=== PATIENT | female | born 2000 | race Caucasian/White ===

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

== ENCOUNTER → 2020-02-21 09:48 | Outpatient (CLI) | payer OTHER, SELFPAY ==
[2020-02-21 15:26] LABS: Triiodothryronine (T3) Uptake 36 % (23.5-40.5)
[2020-02-21 15:40] LABS: Thyroid Stimulating Hormone < 0.02 uIU/mL (0.465-4.68)
== END ==
PROVIDERS: Visit Provider Internal Medicine Adolescent Medicine
DX: E03.9 Hypothyroidism, unspecified (principal)
CPT/HCPCS: 36415; 84436; 84443; 84479

== ENCOUNTER 2020-03-29 15:56 | Emergency (ER) | payer OTHER, SELFPAY ==
[2020-03-29 16:30] VITALS: BP 123/89; PULSE 82; RESP 18; TEMP 36.9; O2SAT 100; BMI 35.4
[2020-03-29 16:34] LABS: UTC Strep Screen (Rapid) Negative (Negative)
--- NOTE | 2020-03-29 16:41 | HMH.EDUTC ---
[facility] [place] Disposition Clinical Impression: URI (upper respiratory infection) Qualifiers: URI type: unspecified viral URI Qualified Code(s): J06.9 - Acute upper respiratory infection, unspecified Disposition: Home, Self-Care Condition on Discharge: Good Instructions: Preventing the Spread of Coronavirus Discharge Instructions, DI for Viral Upper Respiratory Infection -- Adult Additional Instructions: isolate until covid test known neg increase fluids Tylenol or motrin as needed if symptoms worsen return or be seen in ed Referrals: Mayo Hanna MD [Primary Care Provider] - Time of Disposition: 16:59 Medical Decision Making - Wander Inquiry Pt receiving controlled substance: No Vital Signs: 03/29/20 16:30 Temperature 98.4 F Temperature Source Oral Pulse Rate [Right Brachial] 82 Respiratory Rate 18 Blood Pressure [Right Arm] 123/89 Blood Pressure Mean [Right Arm] 100 Blood Pressure Source [Right Arm] Automatic Cuff Blood Pressure Position [Right Arm] Sitting 02 Sat by Pulse Oximetry 100 Oxygen Delivery Method Room Air - Lab Data Lab Results 03/29/20 16:31: Strep Scn Rapid Clinic Negative Orders (Tests/Meds): ORDERS Category Date Time Status Covid-19 Nasal PCR ([facility]) Routine Lab 03/29/20 16:18 Ordered Strep Screen Confirmation Stat Micro 03/29/20 16:31 Received [facility] [place] HPI - General Chief complaint: Urgent Treatment Center Stated complaint: Sore throat, headache, nauseous,diarrhea Time Seen by Provider: 03/29/20 16:41 Mode of Arrival: Ambulatory ([facility]) Source of Information: Patient Limitations: No Limitations Description of Symptoms (Recalled from Triage Doc. by RN): PATIENT C/O NAUSEA, SORE THROAT, DIARRHEA, HEADACHE, AND BLISTERS ON TONGUE. STATES SHE WAS EXPOSED TO COVID HEENT Symptoms (Recalled from RN notes): Yes Resp Symptoms (Recalled from RN notes): No Skin Symptoms (Recalled from RN notes): No MS Symptoms (Recalled from RN notes): No Functional Status (Recalled from RN notes): WNL - History of Present Illness Provider Complaint: 19 yr old female presents for sore throat, headache, nausea and vomiting for 3 days, someone she works with is pos for covid. - Related Data Home Medications Medication Instructions Recorded Confirmed levothyroxine 75 mcg capsule 75 mcg PO DAILY 11/29/17 03/29/20 Fluticasone Propionate [Flonase 2 spr NS DAILY 10/10/20 10/10/20 50mcg nasal spray 16gm] Venlafaxine HCl [Effexor XR 75mg 75 mg PO DAILY 03/29/20 03/29/20 capsule] Allergies Allergy/AdvReac Type Severity Reaction Status Date / Time amoxicillin Allergy Intermediate I-HIVES Verified 01/10/18 09:41 ceftibuten [From Cedax] Allergy Intermediate I-HIVES Verified 01/10/18 09:41 penicillin G Allergy Intermediate I-HIVES Verified 01/10/18 09:41 adhesive tape Allergy Hives Verified 01/10/18 09:41 codeine Allergy Verified 05/07/18 18:19 - Worker's Comp Is this a Worker's Comp case?: No [facility] History - Hepatitis A Screen Drug use history?: No High risk sexual behaviors?: No History of sexually transmitted infection?: No Currently employed?: No Childcare worker?: No Do you have indoor plumbing?: Yes Do you have electricity?: Yes Attestation statement:: This patient has been screened for Hepatitis A risk factors. I have reviewed the patient's past medical history: Yes Medical History: Reports:: Asthma Denies:: Cancer, Diabetes Mellitus Type 1, Diabetes Mellitus Type 2, Internal Pacemaker, MRSA, Seizures Other Medical History: Reports: Hypothyroidism Laterality Cases: Bilateral: Myringotomy (Ear Tubes), Tonsillectomy Other Surgeries: Yes: Cholecystectomy, Other. No: Pacemaker Amputation: No Fractures: No - Social History Smoking Status: Never smoker Alcohol Intake: never Substance Use Type: denies use Occupational Status: other Housing: house Household Members: family Family Hx:: No significant family history ROS Obtained: Yes Systems reviewed as appropria
[2020-03-29 17:04] VITALS: BP 123/89; PULSE 82; RESP 18; TEMP 36.9; O2SAT 100
== END 2020-03-29 17:06 | disposition home or self-care (01) ==
LOC: ER 16:04 → UTC 16:09
PROVIDERS: Emergency Provider Nurse Practitioner Family; PCP Internal Medicine Adolescent Medicine
DX: J06.9 Acute upper respiratory infection, unspecified (principal); Z20.828 Contact with and (suspected) exposure to other viral communicable diseases; E03.9 Hypothyroidism, unspecified; J45.909 Unspecified asthma, uncomplicated; Z79.899 Other long term (current) drug therapy
CPT/HCPCS: 87880; 99202; U0003

== ENCOUNTER 2020-04-22 18:17 | Emergency (ER) | payer OTHER, SELFPAY ==
[2020-04-22 18:40] VITALS: BP 131/77; PULSE 92; RESP 14; TEMP 37; O2SAT 100; BMI 35.4
--- NOTE | 2020-04-22 18:42 | XR_ITS ---
PROCEDURE: XR CHEST 2V CLINICAL HISTORY: COUGH AND FEVER COMPARISON: No exams were available for comparison FINDINGS: The cardiomediastinal silhouette and pulmonary vascularity are within normal limits. Patchy density is present in the lung base on the right with some increased density also noted posteriorly overlying T8-T9 area. Suspect patchy area of pneumonia. Follow-up suggested. The left lung is clear. No acute bony abnormalities. IMPRESSION: Possible pneumonia right lower lobe. Recommend follow till clear Dictated by: Shade Brown MD 04/23/2020 05:16 Shade Brown MD in [place] 04/23/2020 05:16
--- NOTE | 2020-04-22 19:05 | HMH.EDUTC ---
[facility] [place] Disposition Clinical Impression: Viral syndrome, Bronchitis Disposition: Home, Self-Care Condition on Discharge: Good Instructions: Acute Bronchitis, DI for Acute Bronchitis, Preventing the Spread of Coronavirus Discharge Instructions Additional Instructions: Drink plenty of fluids. Take tylenol for pain or fever. Take the medications as directed. Follow up with your regular doctor. GO TO THE ER FOR ANY WORSENING SYMPTOMS The cough medication (promethazine dm) will make you drowsy, so don't drive or operate heavy machinery after taking it. Prescriptions: Albuterol Sulfate [Albuterol Sulfate Hfa] 2 puffs IH Q6HP PRN 30 Days #1 hfa.aer.ad PRN Reason: Shortness Of Breath Transmission Status: Received by [facility] # Promethazine/Dextromethorphan [Promethazine-Dm Syrup] 5 ml PO Q6HP PRN #240 syrup PRN Reason: Cough Transmission Status: Received by [facility] # Azithromycin [Z-Harinder 250mg Tab*] 250 mg PO UD DOSE PK #6 tab Transmission Status: Received by [facility] # Referrals: Mayo Hanna MD [Primary Care Provider] - Forms: Work/School Release Time of Disposition: 19:24 Medical Decision Making - Medical Records Medical records reviewed: No: I reviewed the patient's medical records. - Wander Inquiry Pt receiving controlled substance: No Vital Signs: 04/22/20 18:40 04/22/20 19:26 Temperature 98.6 F 98.6 F Temperature Source Oral Pulse Rate 92 H Pulse Rate [Right Brachial] 92 H Respiratory Rate 14 14 Blood Pressure 131/77 Blood Pressure [Right Arm] 131/77 Blood Pressure Mean [Right Arm] 95 Blood Pressure Source [Right Arm] Automatic Cuff Blood Pressure Position [Right Arm] Sitting 02 Sat by Pulse Oximetry 100 Oxygen Delivery Method Room Air Orders (Tests/Meds): ORDERS Category Date Time Status XR chest 2V Stat Exams 04/22/20 18:42 Taken Covid-19 Nasal PCR [facility] Routine Lab 04/22/20 18:40 Received - Radiology Data #1 Image(s): Chest Image Reviewed: Yes I reviewed the patient's radiology image Preliminary Findings: Normal/NAD [facility] [place] HPI - General Stated complaint: Sore throat,cough.diarrhea Time Seen by Provider: 04/22/20 19:05 Mode of Arrival: Ambulatory Source of Information: Patient Limitations: No Limitations Description of Symptoms (Recalled from Triage Doc. by RN): PATIENT C/O PAIN IN CHEST WITH INHALATION, SORE THROAT, HEADACHE, COUGH AND NAUSEA X 3-4 DAYS. REPORTS SHE WAS EXPOSED TO COVID 2 DAYS AGO HEENT Symptoms (Recalled from RN notes): Yes Resp Symptoms (Recalled from RN notes): Yes Skin Symptoms (Recalled from RN notes): No MS Symptoms (Recalled from RN notes): No Functional Status (Recalled from RN notes): WNL - History of Present Illness Provider Complaint: She states that she has been having chest congestion, cough, sore throat, ear pain, fever and body aches for the past 2 days. - Related Data Home Medications Medication Instructions Recorded Confirmed levothyroxine 75 mcg capsule 75 mcg PO DAILY 11/29/17 03/29/20 Fluticasone Propionate [Flonase 2 spr NS DAILY 03/29/20 03/29/20 50mcg nasal spray 16gm] Venlafaxine HCl [Effexor XR 75mg 75 mg PO DAILY 03/29/20 03/29/20 capsule] Previous Rx's Medication Instructions Recorded Albuterol Sulfate [Albuterol 2 puffs IH Q6HP PRN 30 Days #1 04/22/20 Sulfate Hfa] hfa.aer.ad Azithromycin [Z-Harinder 250mg Tab*] 250 mg PO UD DOSE PK #6 tab 04/22/20 Promethazine/Dextromethorphan 5 ml PO Q6HP PRN #240 syrup 04/22/20 [Promethazine-Dm Syrup] Allergies Allergy/AdvReac Type Severity Reaction Status Date / Time amoxicillin Allergy Intermediate I-HIVES Verified 01/10/18 09:41 ceftibuten [From Cedax] Allergy Intermediate I-HIVES Verified 01/10/18 09:41 penicillin G Allergy Intermediate I-HIVES Verified 01/10/18 09:41 adhesive tape Allergy Hives Verified 01/10/18 09:41 codeine Allergy Verified 05/07/18 18:19 - Wor
[2020-04-22 19:26] VITALS: BP 131/77; PULSE 92; RESP 14; TEMP 37; O2SAT 100
[2020-04-24 17:26] LABS: Covid-19 Nasal PCR Sendout Lex Not Detected
== END 2020-04-22 19:30 | disposition home or self-care (01) ==
PROVIDERS: Emergency Provider Nurse Practitioner Family; PCP Internal Medicine Adolescent Medicine
DX: B34.9 Viral infection, unspecified (principal); J40 Bronchitis, not specified as acute or chronic; Z20.828 Contact with and (suspected) exposure to other viral communicable diseases; J45.909 Unspecified asthma, uncomplicated; E03.9 Hypothyroidism, unspecified
CPT/HCPCS: 71046; 99202; U0004

== ENCOUNTER 2020-07-19 10:25 | Emergency (ER) | payer OTHER, SELFPAY ==
[2020-07-19 10:30] VITALS: BP 145/95; PULSE 79; RESP 14; TEMP 36.6; O2SAT 98; BMI 36.6
--- NOTE | 2020-07-19 11:18 | HMH.EDUTC ---
[facility] [place] Clinical Impression: Cellulitis and abscess of face Disposition: Home, Self-Care Condition on Discharge: Good Instructions: JAVAN Phan for Cellulitis -- Adult Additional Instructions: return if symptoms worsen follow up [facility] pcp this week antibiotics as ordered cream as ordered Prescriptions: Sulfamethoxazole/Trimethoprim [Bactrim DS tablet] 1 each PO BID 10 Days #20 tab Transmission Status: Pending to [facility] Mupirocin [Bactroban 2% Ointment 22gm tube] 1 applicatio TP BID 10 Days #1 tube Transmission Status: Pending to [facility] Referrals: Mayo Hanna MD [Primary Care Provider] - Time of Disposition: 11:39 Medical Decision Making - Wander Inquiry Pt receiving controlled substance: No Vital Signs: 07/19/20 10:30 Temperature 97.9 F Temperature Source Oral Pulse Rate [Right Brachial] 79 Respiratory Rate 14 Blood Pressure [Right Arm] 145/95 H Blood Pressure Mean [Right Arm] 111 Blood Pressure Source [Right Arm] Automatic Cuff Blood Pressure Position [Right Arm] Sitting 02 Sat by Pulse Oximetry 98 Oxygen Delivery Method Room Air [facility] [place] - General Chief complaint: Eye Problems Stated complaint: rt eye swollen Time Seen by Provider: 07/19/20 11:34 Mode of Arrival: Ambulatory Source of Information: Patient Limitations: No Limitations Description of Symptoms (Recalled from Triage Doc. by RN): PATIENT C/O SWOLLEN RIGHT EYE X 2-3 DAYS HEENT Symptoms (Recalled from RN notes): Yes Resp Symptoms (Recalled from RN notes): No Skin Symptoms (Recalled from RN notes): No MS Symptoms (Recalled from RN notes): No Functional Status (Recalled from RN notes): WNL - History of Present Illness Provider Complaint: 20 yr old female presnets for rt eye swollen for 2 days. pt states she has a scabbed red area just above her eye and woke up today and swelling had increased. - Related Data Home Medications Medication Instructions Recorded Confirmed levothyroxine 75 mcg capsule 75 mcg PO DAILY 11/29/17 03/29/20 Fluticasone Propionate [Flonase 2 spr NS DAILY 03/29/20 03/29/20 50mcg nasal spray 16gm] Venlafaxine HCl [Effexor XR 75mg 75 mg PO DAILY 03/29/20 03/29/20 capsule] Previous Rx's Medication Instructions Recorded Albuterol Sulfate [Albuterol 2 puffs IH Q6HP PRN 30 Days #1 04/22/20 Sulfate Hfa] hfa.aer.ad Azithromycin [Z-Harinder 250mg Tab*] 250 mg PO UD DOSE PK #6 tab 04/22/20 Promethazine/Dextromethorphan 5 ml PO Q6HP PRN #240 syrup 04/22/20 [Promethazine-Dm Syrup] Mupirocin [Bactroban 2% Ointment 1 applicatio TP BID 10 Days #1 tube 07/19/20 22gm tube] Sulfamethoxazole/Trimethoprim 1 each PO BID 10 Days #20 tab 07/19/20 [Bactrim DS tablet] Allergies Allergy/AdvReac Type Severity Reaction Status Date / Time amoxicillin Allergy Intermediate I-HIVES Verified 01/10/18 09:41 ceftibuten [From Cedax] Allergy Intermediate I-HIVES Verified 01/10/18 09:41 penicillin G Allergy Intermediate I-HIVES Verified 01/10/18 09:41 adhesive tape Allergy Hives Verified 01/10/18 09:41 codeine Allergy Verified 05/07/18 18:19 - Worker's Comp Is this a Worker's Comp case?: No [facility] History - Hepatitis A Screen Drug use history?: No High risk sexual behaviors?: No History of sexually transmitted infection?: No Currently employed?: No Childcare worker?: No Do you have indoor plumbing?: Yes Do you have electricity?: Yes Attestation statement:: This patient has been screened for Hepatitis A risk factors. I have reviewed the patient's past medical history: Yes Medical History: Reports:: Asthma Denies:: Cancer, Diabetes Mellitus Type 1, Diabetes Mellitus Type 2, Internal Pacemaker, MRSA, Seizures Other Medical History: Reports: Hypothyroidism Laterality Cases: Bilateral: Myringotomy (Ear Tubes), Tonsillectomy Other Surgeries: Yes: Cholecystectomy, Other. No: Pacemaker Amputation: No Fractures: No - Social History Smoking Status: Never smoker
[2020-07-19 11:37] VITALS: BP 145/95; PULSE 79; RESP 14; TEMP 36.6; O2SAT 98
== END 2020-07-19 11:40 | disposition home or self-care (01) ==
PROVIDERS: Emergency Provider Nurse Practitioner Family; PCP Internal Medicine Adolescent Medicine
DX: L03.211 Cellulitis of face (principal); J45.909 Unspecified asthma, uncomplicated; E03.9 Hypothyroidism, unspecified; Z79.899 Other long term (current) drug therapy
CPT/HCPCS: 99202; G0463

== ENCOUNTER → 2020-08-25 11:38 | Outpatient (CLI) | payer OTHER, SELFPAY ==
[2020-08-25 14:23] LABS: Triiodothryronine (T3) Uptake 33 % (23.5-40.5)
[2020-08-25 14:24] LABS: Free Thyroxine Index 3.3 ug/dL (5.93-13.13); T4 (Thyroxine) 9.9 ug/dl (5.53-11.0)
[2020-08-25 14:38] LABS: Thyroid Stimulating Hormone 1.87 uIU/mL (0.465-4.68)
== END ==
PROVIDERS: Visit Provider Internal Medicine Adolescent Medicine
DX: E03.9 Hypothyroidism, unspecified (principal)
CPT/HCPCS: 36415; 84436; 84443; 84479

== ENCOUNTER → 2021-02-10 13:22 | Outpatient (CLI) | payer OTHER, SELFPAY ==
[2021-02-11 12:29] VITALS: BMI 28.1
== END ==
PROVIDERS: PCP Internal Medicine Adolescent Medicine; Visit Provider Nurse Practitioner Family
DX: Z11.1 Encounter for screening for respiratory tuberculosis (principal)
CPT/HCPCS: 86580

== ENCOUNTER → 2021-02-11 13:17 | Outpatient (CLI) | payer OTHER, SELFPAY ==
[2021-02-11 14:47] LABS: Free Thyroxine Index 3.8 ug/dL (5.93-13.13); T4 (Thyroxine) 11.6 ug/dl (5.53-11.0); Triiodothryronine (T3) Uptake 33 % (23.5-40.5)
[2021-02-11 15:00] LABS: Thyroid Stimulating Hormone 1.02 uIU/mL (0.465-4.68)
== END ==
PROVIDERS: Visit Provider Internal Medicine Adolescent Medicine
DX: L65.9 Nonscarring hair loss, unspecified (principal)
CPT/HCPCS: 36415; 84436; 84443; 84479

== ENCOUNTER 2021-02-17 10:00 | Emergency (ER) | payer OTHER, SELFPAY ==
[2021-02-17 11:00] VITALS: BP 126/84; PULSE 78; RESP 18; TEMP 36.8; O2SAT 98; BMI 33.6
--- NOTE | 2021-02-17 11:35 | HMH.EDUTC ---
[facility] [place] Disposition Clinical Impression: Otitis media Qualifiers: Otitis media type: unspecified Laterality: left Qualified Code(s): H66.92 - Otitis media, unspecified, left ear Disposition: Home, Self-Care Condition on Discharge: Good Instructions: Middle Ear Infection Additional Instructions: Do not take Ubrelvy while taking azithromycin Take medication as prescribed Return if needed Straight to ER if any life threatening symptoms Prescriptions: Azithromycin [Z-Harinder 250mg Tab] 250 mg PO DIRECTED #6 tab Transmission Status: Pending to Clinic Pharmacy [facility] Referrals: Mayo Hanna MD [Primary Care Provider] - As needed Time of Disposition: 11:49 Medical Decision Making - Wander Inquiry Pt receiving controlled substance: No Wander was queried for this patient: No Vital Signs: 02/17/21 11:00 Temperature 98.2 F Temperature Source Oral Pulse Rate [Right Brachial] 78 Respiratory Rate 18 Blood Pressure [Right Arm] 126/84 Blood Pressure Mean [Right Arm] 98 Blood Pressure Source [Right Arm] Automatic Cuff Blood Pressure Position [Right Arm] Sitting 02 Sat by Pulse Oximetry 98 Oxygen Delivery Method Room Air [facility] [place] HPI - General Stated complaint: Earache left ear Time Seen by Provider: 02/17/21 11:35 Mode of Arrival: Ambulatory Source of Information: Patient Limitations: No Limitations Description of Symptoms (Recalled from Triage Doc. by RN): PATIENT C/O PAIN AND SWELLING TO LEFT EAR X 2 DAYS HEENT Symptoms (Recalled from RN notes): Yes Resp Symptoms (Recalled from RN notes): No Skin Symptoms (Recalled from RN notes): No MS Symptoms (Recalled from RN notes): No Functional Status (Recalled from RN notes): WNL - History of Present Illness Provider Complaint: Patient state that she has been having pain in her left ear for several days State that she feels like it is swollen or full States that she is having pressure like feeling like she has when she gets ear infection - Related Data Home Medications Medication Instructions Recorded Confirmed levothyroxine 75 mcg capsule 75 mcg PO DAILY 11/29/17 03/29/20 Fluticasone Propionate [Flonase 2 spr NS DAILY 03/29/20 03/29/20 50mcg nasal spray 16gm] Venlafaxine HCl [Effexor XR 75mg 75 mg PO DAILY 03/29/20 03/29/20 capsule] Previous Rx's Medication Instructions Recorded Albuterol Sulfate [Albuterol 2 puffs IH Q6HP PRN 30 Days #1 04/22/20 Sulfate Hfa] [email or web address] Azithromycin [Z-Harinder 250mg Tab*] 250 mg PO UD DOSE PK #6 tab 04/22/20 Promethazine/Dextromethorphan 5 ml PO Q6HP PRN #240 syrup 04/22/20 [Promethazine-Dm Syrup] Sulfamethoxazole/Trimethoprim 1 each PO BID 10 Days #20 tab 07/19/20 [Bactrim DS tablet] mupirocin 2 % topical ointment 1 applic TOPICAL BID 10 Days #1 09/22/20 tube Azithromycin [Z-Harinder 250mg Tab] 250 mg PO DIRECTED #6 tab 02/17/21 Allergies Allergy/AdvReac Type Severity Reaction Status Date / Time amoxicillin Allergy Intermediate I-HIVES Verified 01/10/18 09:41 ceftibuten [From Cedax] Allergy Intermediate I-HIVES Verified 01/10/18 09:41 penicillin G Allergy Intermediate I-HIVES Verified 01/10/18 09:41 adhesive tape Allergy Hives Verified 01/10/18 09:41 codeine Allergy Verified 05/07/18 18:19 - Worker's Comp Is this a Worker's Comp case?: No H History - Hepatitis A Screen Drug use history?: No High risk sexual behaviors?: No History of sexually transmitted infection?: No Currently employed?: No Childcare worker?: No Do you have indoor plumbing?: Yes Do you have electricity?: Yes Attestation statement:: This patient has been screened for Hepatitis A risk factors. I have reviewed the patient's past medical history: Yes Medical History: Reports:: Asthma Denies:: Cancer, Diabetes Mellitus Type 1, Diabetes Mellitus Type 2, Internal Pacemaker, MRSA, Seizures Other Medical History: Reports: Hypothyroidism Laterality Cases: Bilateral: Myringotomy (Ear Tubes), Tonsillectomy Other Surgeries: Ye
[2021-02-17 11:50] VITALS: BP 126/84; PULSE 78; RESP 18; TEMP 36.8; O2SAT 98
== END 2021-02-17 11:54 | disposition home or self-care (01) ==
PROVIDERS: Emergency Provider Nurse Practitioner; PCP Internal Medicine Adolescent Medicine
DX: H66.92 Otitis media, unspecified, left ear (principal); E03.9 Hypothyroidism, unspecified; Z88.0 Allergy status to penicillin
CPT/HCPCS: 99202; G0463

== ENCOUNTER → 2021-03-10 08:40 | Outpatient (CLI) | payer OTHER, SELFPAY ==
[2021-03-10 09:17] LABS: Basophils # 0.1 K/mm3 (0-0.2); Basophils % 0.7 % (0.1-2.0); Eosinophils # 0.1 K/mm3 (0.0-0.4); Eosinophils % 0.8 % (0.1-12.0); Hematocrit 43.8 % (37.0-47.0); Hemoglobin 14.5 g/dL (12.2-16.2); Lymphocytes # 2.7 K/mm3 (0.7-4.5); Lymphocytes % 28.1 % (10-50); Mean Corpuscular HGB Conc 33.1 g/dL (31.8-35.4); Mean Corpuscular Hemoglobin 28.8 pg (27.0-31.2); Mean Corpuscular Volume 86.9 fl (81-99); Mean Platelet Volume 7.9 fl (7.4-10.4); Monocytes # 0.4 K/mm3 (0.1-1.0); Monocytes % 4.3 % (1.7-9.3); Neutrophils # 6.3 K/mm3 (1.8-7.8); Neutrophils % 66.2 % (37.0-80.0); Platelet Count 391 K/mm3 (142-424); Red Blood Count 5.04 M/mm3 (4.20-5.40); White Blood Count 9.6 K/mm3 (4.5-13.0)
[2021-03-10 16:46] LABS: 25-OH Vitamin D, Total 34.6 ng/mL (30-100)
[2021-03-10 17:21] LABS: Alanine Aminotransferase 18 U/L (12-78); Albumin/Globulin Ratio 1.3 (1.1-1.8); Alkaline Phosphatase 96 U/L (38-126); Anion Gap 14.4 mEq/L (5-15); Aspartate Amino Transferase 20 U/L (14-36); Bilirubin,Total 0.3 mg/dl (0.2-1.3); Blood Urea Nitrogen 15 mg/dl (7-17); Calcium 9.3 mg/dl (8.4-10.2); Carbon Dioxide 25 mmol/L (22.0-30.0); Chloride 104 mmol/L (98-107); Estimated Glomerular Filt Rate 91 ml/min (>60); GFR (African American) 111 ML/MIN (>60); Globulin 3.1 g/dL (1.3-3.2); Glucose 94 mg/dl (74-100); Potassium 4.4 mmoL/L (3.5-5.1); Sodium 139 mmol/L (136-145); Total Protein,Serum 7.1 g/dl (6.3-8.2)
[2021-03-10 18:09] LABS: Vitamin B12 209 pg/mL (239-931)
== END ==
PROVIDERS: Visit Provider Nurse Practitioner Family
DX: R53.83 Other fatigue (principal)
CPT/HCPCS: 36415; 80053; 82306; 82607; 85025

== ENCOUNTER 2021-03-16 12:46 | Emergency (ER) | payer OTHER, SELFPAY ==
[2021-03-16 12:50] VITALS: BP 141/91; PULSE 91; RESP 19; TEMP 37.1; O2SAT 100; BMI 34.3
[2021-03-16 13:08] LABS: UTC Strep Screen (Rapid) Positive (Negative)
--- NOTE | 2021-03-16 13:36 | HMH.EDUTC ---
[facility] [place] Disposition Clinical Impression: Strep throat Disposition: Home, Self-Care Condition on Discharge: Good Instructions: Strep Throat, DI for Strep Throat, Azithromycin Additional Instructions: *Monitor Temp, Over the counter Motrin or Tylenol as directed/as needed Tylenol every 4 hours and Motrin every 6 hours (as long as your family doctor has told you that you can take it) for fever or pain. and straight to ER if unable to lower temp less than 101.0 after medication given *Warm salt water gargles may help to soothe the throat *Throat Lozenges *Warm fluids like tea with honey may help to soothe the throat *Sleep elevated *Humidifier/Vaporizer If you did not take Penicillin shot or was unable to, start taking antibiotic immediately and make sure that you take it for the FULL length of time although you should start to feel better in 24-48 hours *change toothbrush and toothpaste 24-48 hours after starting to take antibiotics so you do not reinfect yourself Monitor Temp. Tylenol and/or Ibuprofen as needed. ER if fever is no less than 101 despite alternating Tylenol and Ibuprofen * Encourage fluids, water, Gatorade, powerade, pedialyte if /toddler/or child *Cold fluids, popsicles and ice cream may feel good on his throat Follow up IMMEDIATELY for new or worsening symptoms or no Noticeable improvement over the next 48-72 hours. 911 for difficulty breathing or swallowing Prescriptions: Azithromycin [Z-Harinder 250mg Tab] 250 mg PO DIRECTED #6 tab Transmission Status: Pending to Clinic Pharmacy [facility] Referrals: Mayo Hanna MD [Primary Care Provider] - As needed Forms: Work/School Release Time of Disposition: 13:46 Medical Decision Making - Wander Inquiry Pt receiving controlled substance: No Wander was queried for this patient: No Vital Signs: 03/16/21 12:50 Temperature 98.8 F Temperature Source Oral Pulse Rate [Right Brachial] 91 H Respiratory Rate 19 Blood Pressure [Right Arm] 141/91 H Blood Pressure Mean [Right Arm] 107 Blood Pressure Source [Right Arm] Automatic Cuff Blood Pressure Position [Right Arm] Sitting 02 Sat by Pulse Oximetry 100 Oxygen Delivery Method Room Air - Lab Data Lab results reviewed: Yes: I reviewed the patient's lab results. Lab Results 03/16/21 12:57: Strep Scn Rapid Clinic Positive A [facility] [place] HPI - General Stated complaint: Sore throat Time Seen by Provider: 03/16/21 13:37 Mode of Arrival: Ambulatory Source of Information: Patient Limitations: No Limitations Description of Symptoms (Recalled from Triage Doc. by RN): PATIENT C/O SORE THROAT AND BLISTERS IN MOUTH X 2 DAYS HEENT Symptoms (Recalled from RN notes): Yes Resp Symptoms (Recalled from RN notes): No Skin Symptoms (Recalled from RN notes): No MS Symptoms (Recalled from RN notes): No Functional Status (Recalled from RN notes): WNL - History of Present Illness Provider Complaint: Patient states that she has been having sore scratchy throat for a couple days and noticed it looked like she had blisters in her throat States that today she was still feeling bad so she came in to get checked - Related Data Home Medications Medication Instructions Recorded Confirmed Venlafaxine HCl [Effexor XR 75mg 150 mg PO DAILY 03/29/20 03/16/21 capsule] Levothyroxine Sodium 100 mcg PO DAILY 03/16/21 03/16/21 [Levothyroxine 100mcg (0.1MG) Tab] Ubrogepant [Ubrelvy 50mg Tablet] 50 mg PO ONCE 03/16/21 03/16/21 Previous Rx's Medication Instructions Recorded Azithromycin [Z-Harinder 250mg Tab] 250 mg PO DIRECTED #6 tab 03/16/21 Allergies Allergy/AdvReac Type Severity Reaction Status Date / Time amoxicillin Allergy Intermediate I-HIVES Verified 01/10/18 09:41 ceftibuten [From Cedax] Allergy Intermediate I-HIVES Verified 01/10/18 09:41 penicillin G Allergy Intermediate I-HIVES Verified 01/10/18 09:41 adhesive tape Allergy Hives Verified 01/10/18 09:41 codeine Allergy Verified 05/07/18 18:19 - W
[2021-03-16 13:50] VITALS: BP 141/91; PULSE 91; RESP 19; TEMP 37.1; O2SAT 100
== END 2021-03-16 13:56 | disposition home or self-care (01) ==
PROVIDERS: Emergency Provider Nurse Practitioner; PCP Internal Medicine Adolescent Medicine
DX: J02.0 Streptococcal pharyngitis (principal); J45.909 Unspecified asthma, uncomplicated; E03.9 Hypothyroidism, unspecified
CPT/HCPCS: 87880; 99202; G0463

== ENCOUNTER 2021-04-25 10:27 | Emergency (ER) | payer OTHER, SELFPAY ==
[2021-04-25 10:38] VITALS: BP 131/79; PULSE 74; RESP 18; TEMP 36.9; O2SAT 98; BMI 35.2
--- NOTE | 2021-04-25 10:40 | XR_ITS ---
PROCEDURE INFORMATION: Exam: XR Right Knee Exam date and time: 04/25/2021 10:40 AM Age: 20 years old Clinical indication: Pain; Knee; Right; Additional info: Fall TECHNIQUE: Imaging protocol: XR Right knee. Views: 3 views. COMPARISON: CR XR ANKLE RT 2V 11/12/2019 12:43 PM FINDINGS: Bones/joints: No acute fracture or malalignment. Joint spaces are maintained. No joint effusion. Soft tissues: Normal. IMPRESSION: No acute fracture or malalignment.
--- NOTE | 2021-04-25 11:27 | HMH.EDUTC ---
[facility] [place] Clinical Impression: Right knee pain Qualifiers: Chronicity: acute Qualified Code(s): M25.561 - Pain in right knee Contusion of right knee Qualifiers: Encounter type: initial encounter Qualified Code(s): S80.01XA - Contusion of right knee, initial encounter Fall Qualifiers: Encounter type: initial encounter Qualified Code(s): W19.XXXA - Unspecified fall, initial encounter Disposition: Home, Self-Care Condition on Discharge: Good Instructions: How to Use Crutches, DI for Contusion, DI for Knee Pain, How to Use a Knee Immobilizer Additional Instructions: Rest the extremity, apply ice for 15 minutes as tolerated three or four times per day, Wear the ciara wrap for compression, Elevate the extremity as tolerated while you are resting. Take ibuprofen for pain. I sent in a prescription to your pharmacy. Follow up with Dr. Ventura (orthopedics). I put in a referral but you need to call his office and schedule an appointment. Make sure you follow up if you're not getting some better within 48 to 72 hours. Wear the knee immobolizer and use the crutches to rest your knee for the next several days. If it gets better, you can stop using these in a few days. If it's not getting better, make sure follow up. Follow up with your regular doctor. GO TO THE ER FOR ANY WORSENING SYMPTOMS Prescriptions: Ibuprofen [Ibuprofen 800mg Tablet] 800 mg PO Q8HP PRN #30 tab PRN Reason: Moderate Pain Transmission Status: Received by Clinic Pharmacy [facility] Referrals: Mayo Hanna MD [Primary Care Provider] - Juliano Ventura MD [Staff Physician] - Forms: Work/School Release Time of Disposition: 11:44 Medical Decision Making - Medical Records Medical records reviewed: No: I reviewed the patient's medical records. - Wander Inquiry Pt receiving controlled substance: No Vital Signs: 04/25/21 10:38 04/25/21 11:47 Temperature 98.5 F 98.5 F Temperature Source Oral Pulse Rate 74 Pulse Rate [Left] 74 Respiratory Rate 18 18 Blood Pressure 131/79 Blood Pressure [Right Arm] 131/79 Blood Pressure Mean [Right Arm] 96 02 Sat by Pulse Oximetry 98 - Radiology Data #1 Image(s): Knee Image Reviewed: Yes I reviewed the patient's radiology image, Yes I have reviewed radiologist's interpretation Preliminary Findings: Normal/NAD, No Fracture Seen PROCEDURE INFORMATION: Exam: XR Right Knee Exam date and time: 04/25/2021 10:40 AM Age: 20 years old Clinical indication: Pain; Knee; Right; Additional info: Fall TECHNIQUE: Imaging protocol: XR Right knee. Views: 3 views. COMPARISON: CR XR ANKLE RT 2V 11/12/2019 12:43 PM FINDINGS: Bones/joints: No acute fracture or malalignment. Joint spaces are maintained. No joint effusion. Soft tissues: Normal. IMPRESSION: No acute fracture or malalignment. [facility] [place] HPI - General Stated complaint: [id number] right knee pain, home accident Time Seen by Provider: 04/25/21 11:31 Mode of Arrival: Ambulatory Source of Information: Patient Limitations: No Limitations Description of Symptoms (Recalled from Triage Doc. by RN): pt fell going up her stairs last night injuring her R knee. pt now c/o bruising and pain. HEENT Symptoms (Recalled from RN notes): No Resp Symptoms (Recalled from RN notes): No Skin Symptoms (Recalled from RN notes): No MS Symptoms (Recalled from RN notes): Yes (R knee pain) Functional Status (Recalled from RN notes): na - History of Present Illness Provider Complaint: She states that yesterday she was walking up some steps when she tripped and fell forwards. She came down on her right knee onto one of the steps. Since then, she has had right knee swelling, bruising and pain. It hurts worse when she bears weight or bends the knee. She denies any other injury. - Related Data Home Medications Medication Instructions Recorded Confirmed Venlafaxin
[2021-04-25 11:47] VITALS: BP 131/79; PULSE 74; RESP 18; TEMP 36.9
== END 2021-04-25 11:54 | disposition home or self-care (01) ==
PROVIDERS: Emergency Provider Nurse Practitioner Family; PCP Internal Medicine Adolescent Medicine
DX: S80.01XA Contusion of right knee, initial encounter (principal); W10.9XXA Fall (on) (from) unspecified stairs and steps, initial encounter; Y92.019 Unspecified place in single-family (private) house as the place of occurrence of the external cause; J45.909 Unspecified asthma, uncomplicated; E03.9 Hypothyroidism, unspecified
CPT/HCPCS: 29505; 73562; 99202; G0463

== ENCOUNTER → 2021-05-19 18:42 | Outpatient (CLI) | payer OTHER, SELFPAY ==
[2021-05-19 20:36] LABS: Chloride 106 mmol/L (98-107); Sodium 140 mmol/L (136-145)
[2021-05-19 20:37] LABS: Potassium 4.3 mmoL/L (3.5-5.1)
[2021-05-19 20:39] LABS: Alanine Aminotransferase 19 U/L (12-78); Alkaline Phosphatase 116 U/L (38-126); Anion Gap 15.3 mEq/L (5-15); Aspartate Amino Transferase 29 U/L (14-36); Bilirubin,Total 0.3 mg/dl (0.2-1.3); Blood Urea Nitrogen 14 mg/dl (7-17); Carbon Dioxide 23 mmol/L (22.0-30.0); Cholesterol 230 mg/dl (140-200); Estimated Glomerular Filt Rate 91 ml/min (>60); GFR (African American) 111 ML/MIN (>60); Glucose 73 mg/dl (74-100); Iron 43 ug/dL (37-170); Triglycerides 75 mg/dl (30-150); VLDL Cholesterol 15 mg/dL (0-40)
[2021-05-19 20:40] LABS: Albumin Level 4.4 g/dl (3.5-5.0); Albumin/Globulin Ratio 1.5 (1.1-1.8); Calcium 9.4 mg/dl (8.4-10.2); Globulin 2.9 g/dL (1.3-3.2); HDL Cholesterol 45 mg/dl (40-60); Total Protein,Serum 7.3 g/dl (6.3-8.2)
[2021-05-19 20:56] LABS: 25-OH Vitamin D, Total 35.8 ng/mL (30-100)
[2021-05-19 21:01] LABS: Direct LDL Cholesterol 169.26 mg/dL (100-129)
[2021-05-19 21:04] LABS: T4 (Thyroxine) 8.5 ug/dl (5.53-11.0); Total Iron Binding Capacity 421 ug/dL (265-497)
[2021-05-19 21:18] LABS: Thyroid Stimulating Hormone 0.99 uIU/mL (0.465-4.68)
[2021-05-19 23:15] LABS: Vitamin B12 871 pg/mL (239-931)
[2021-05-19 23:17] LABS: Chol/HDL Ratio 5.1 (1-3.5)
== END ==
PROVIDERS: Visit Provider Physician Assistant
DX: E03.9 Hypothyroidism, unspecified (principal); D50.9 Iron deficiency anemia, unspecified
CPT/HCPCS: 80053; 80061; 82306; 82607; 82728; 83540; 83550; 84436; 84443

== ENCOUNTER 2021-06-30 18:30 | Emergency (ER) | payer OTHER, SELFPAY ==
[2021-06-30 19:57] VITALS: BP 131/88; PULSE 102; RESP 18; TEMP 36.8; O2SAT 99; BMI 32.8
[2021-06-30 20:13] LABS: UTC Strep Screen (Rapid) Negative (Negative)
--- NOTE | 2021-06-30 20:13 | HMH.EDUTC ---
[facility] [place]: Viral upper respiratory illness Disposition: Home, Self-Care Condition on Discharge: Good Instructions: DI for Viral Upper Respiratory Infection -- Adult, DI for COVID-19 (Suspected or Confirmed ), Sore Throat Additional Instructions: *Monitor Temp, Over the counter Motrin or Tylenol as directed/as needed Tylenol every 4 hours and Motrin every 6 hours (as long as your family doctor has told you that you can take it) for fever or pain. and straight to ER if unable to lower temp less than 101.0 after medication given *Warm salt water gargles may help to soothe the throat *Throat Lozenges *Warm fluids like tea with honey may help to soothe the throat *Sleep elevated *Humidifier/Vaporizer Your throat swab was sent for culture. Those results are typically sent to your primary care. Be sure to follow up in 2-3 days with your family doctor/primary care physician if no improvement so they can review those result and treat if necessary. If you don?t have a primary care doctor, I recommend you get one but in the mean time, you will have to return to a walk in clinic Follow up IMMEDIATELY for new or worsening symptoms or no Noticeable improvement over the next 48-72 hours. 911 for difficulty breathing or swallowing You were tested for today for COVID19 your test result should be back in the next 24-48 hours, you check your results on the [facility] my health portal if you have trouble logging on or seeing your results you may call You was given a handout with instructions for Self Quarantine and Self isolation for while you wait on test results and what to do if they are positive If you are positive the Health Dept will be contacting you also Make sure to take your Vitamins Vit. C Vit D and Zinc if you can take them Referrals: Nathalia Yousif PA [Primary Care Provider] - As needed Forms: Work/School Release Time of Disposition: 20:20 Medical Decision Making - Wander Inquiry Pt receiving controlled substance: No Wander was queried for this patient: No Vital Signs: 06/30/21 19:57 Temperature 98.3 F Temperature Source Oral Pulse Rate [Right Radial] 102 H Respiratory Rate 18 Blood Pressure [Right Arm] 131/88 Blood Pressure Mean [Right Arm] 102 Blood Pressure Source [Right Arm] Automatic Cuff Blood Pressure Position [Right Arm] Sitting 02 Sat by Pulse Oximetry 99 Oxygen Delivery Method Room Air - Lab Data Lab results reviewed: Yes: I reviewed the patient's lab results. Lab Results 06/30/21 19:57: Strep Scn Rapid Clinic Negative Orders (Tests/Meds): ORDERS Category Date Time Status Covid-19 Nasal PCR ([facility]) Routine Lab 06/30/21 19:57 Ordered Strep Screen Confirmation Stat Micro 06/30/21 19:57 Received [facility] [place] - General Stated complaint: sore throat,VACA Diarrhea, Time Seen by Provider: 06/30/21 20:13 Mode of Arrival: Ambulatory Source of Information: Patient Limitations: No Limitations Description of Symptoms (Recalled from Triage Doc. by RN): C/O sore throat with blisters, VACA, diarrhea x1 week HEENT Symptoms (Recalled from RN notes): Yes (sore throat, VACA) Resp Symptoms (Recalled from RN notes): No Skin Symptoms (Recalled from RN notes): No MS Symptoms (Recalled from RN notes): No Functional Status (Recalled from RN notes): n/a - History of Present Illness Provider Complaint: Patient states that she has been having sore throat and states she thinks she seen some blisters in her throat, headache and diarrhea on and off for about a week States that she also has been exposed to COVID states that a couple rooms at work have been shut down due to COVID and wanted to get tested also - Related Data Home Medications Medication Instructions Recorded Confirmed meclizine 25 mg chewable tablet 25 mg PO tab 05/19/21 05/19/21 Previous Rx's Medication Instructions Recorded albuterol sulfate 90 mcg/actuation 2 inh INHALATION ONCE #6.7 g 06/08/21 aerosol inha
[2021-06-30 20:26] VITALS: BP 131/88; PULSE 102; RESP 18; TEMP 36.8; O2SAT 99
== END 2021-06-30 20:27 | disposition home or self-care (01) ==
PROVIDERS: Emergency Provider Nurse Practitioner; PCP Physician Assistant
DX: J06.9 Acute upper respiratory infection, unspecified (principal); J45.909 Unspecified asthma, uncomplicated; E03.9 Hypothyroidism, unspecified; Z20.822 Contact with and (suspected) exposure to COVID-19; Z88.0 Allergy status to penicillin; Z79.899 Other long term (current) drug therapy
CPT/HCPCS: 87880; 99203; C9803; G0463; U0003; U0005

== ENCOUNTER 2021-07-26 13:25 | Emergency (ER) | payer OTHER, SELFPAY ==
[2021-07-26 14:00] VITALS: BP 124/80; PULSE 71; RESP 18; TEMP 37.1; O2SAT 99; BMI 33.7
[2021-07-26 14:23] VITALS: BP 124/80; PULSE 71; RESP 18; TEMP 37.1; O2SAT 99
--- NOTE | 2021-07-26 14:23 | HMH.EDUTC ---
[facility] [place] Disposition Clinical Impression: Viral syndrome Disposition: Home, Self-Care Condition on Discharge: Good Instructions: DI for COVID-19 (Suspected or Confirmed ), Preventing the Spread of Coronavirus Discharge Instructions Additional Instructions: *Monitor Temp, Over the counter Motrin or Tylenol as directed/as needed Tylenol every 4 hours and Motrin every 6 hours (as long as your family doctor has told you that you can take it) for fever or pain. and straight to ER if unable to lower temp less than 101.0 after medication given *Warm salt water gargles may help to soothe the throat *Throat Lozenges *Warm fluids like tea with honey may help to soothe the throat *Sleep elevated *Humidifier/Vaporizer Follow up IMMEDIATELY for new or worsening symptoms or no Noticeable improvement over the next 48-72 hours. 911 for difficulty breathing or swallowing You were tested for today for COVID19 your test result should be back in the next 24-72 hours, you may check your results on the [facility] [employer] [facility] [email or web address] Portal if you have trouble logging on you may call support If you are positive someone from the hospital will be calling you Make sure to take your Vitamins Vit. C Vit D and Zinc if you can take them Prescriptions: Benzonatate [Benzonatate 100mg cap] 100 mg PO Q8H PRN #15 cap PRN Reason: Cough Transmission Status: Pending to Clinic Pharmacy [facility] Ondansetron [Zofran 4mg ODT] 4 mg PO TIDP PRN #6 tab PRN Reason: Nausea Transmission Status: Pending to Clinic Pharm[facility] Referrals: Nathalia Yousif PA [Primary Care Provider] - As needed Forms: Work/School Release Time of Disposition: 14:27 Medical Decision Making - Wander Inquiry Pt receiving controlled substance: No Wander was queried for this patient: No Vital Signs: 07/26/21 14:00 Temperature 98.8 F Temperature Source Oral Pulse Rate [Right Brachial] 71 Respiratory Rate 18 Blood Pressure [Right Arm] 124/80 Blood Pressure Mean [Right Arm] 94 Blood Pressure Source [Right Arm] Automatic Cuff Blood Pressure Position [Right Arm] Sitting 02 Sat by Pulse Oximetry 99 Oxygen Delivery Method Room Air [facility] [place] HPI - General Stated complaint: covid test Time Seen by Provider: 07/26/21 14:23 Mode of Arrival: Ambulatory Source of Information: Patient Limitations: No Limitations Description of Symptoms (Recalled from Triage Doc. by RN): COVID TEST D/T EXPOSURE. C/O HEADACHE, VOMITING, AND COUGH X 3 DAYS HEENT Symptoms (Recalled from RN notes): Yes Resp Symptoms (Recalled from RN notes): No Skin Symptoms (Recalled from RN notes): No MS Symptoms (Recalled from RN notes): No Functional Status (Recalled from RN notes): WNL - History of Present Illness Provider Complaint: Patient states that she was recently around someone that tested positive for COVID states that she has been having cough, vomiting and body aches States that she is currently on her period and denies chance of - Related Data Home Medications Medication Instructions Recorded Confirmed Levothyroxine Sodium [Synthroid 88 mcg PO DAILY 07/26/21 07/26/21 88mcg (0.088mg) tablet] Venlafaxine HCl [Effexor XR 150mg] 150 mg PO DAILY 07/26/21 07/26/21 Previous Rx's Medication Instructions Recorded Benzonatate [Benzonatate 100mg 100 mg PO Q8H PRN #15 cap 07/26/21 cap] Ondansetron [Zofran 4mg ODT] 4 mg PO TIDP PRN #6 tab 07/26/21 Allergies Allergy/AdvReac Type Severity Reaction Status Date / Time amoxicillin Allergy Intermediate I-HIVES Verified 05/19/21 14:59 ceftibuten [From Cedax] Allergy Intermediate I-HIVES Verified 05/19/21 14:59 penicillin G Allergy Intermediate I-HIVES Verified 05/19/21 14:59 adhesive tape Allergy Hives Verified 05/19/21 14:59 codeine Allergy Verified 05/19/21 14:59 - Worker's Comp Is this a Worker's Comp case?: No [facility] History - Hepatitis A Screen Drug use history?: No High risk sexual behaviors?: No History of sexually
== END 2021-07-26 14:28 | disposition home or self-care (01) ==
PROVIDERS: Emergency Provider Nurse Practitioner; PCP Physician Assistant
DX: B34.9 Viral infection, unspecified (principal); Z20.822 Contact with and (suspected) exposure to COVID-19; J45.909 Unspecified asthma, uncomplicated
CPT/HCPCS: 99202; C9803; G0463; U0003; U0005

== ENCOUNTER → 2021-08-01 08:31 | Outpatient (CLI) | payer OTHER, SELFPAY ==
[2021-08-07 14:29] LABS: F001-IgE Egg White <0.10 kU/L (Class 0); F002-IgE Milk <0.10 kU/L (Class 0); F003-IgE Codfish <0.10 kU/L (Class 0); F004-IgE Wheat <0.10 kU/L (Class 0); F010-IgE Sesame Seed <0.10 kU/L (Class 0); F013-IgE Peanut <0.10 kU/L (Class 0); F014-IgE Soybean <0.10 kU/L (Class 0); F024-IgE Shrimp <0.10 kU/L (Class 0); F256-IgE Walnut <0.10 kU/L (Class 0); F338-IgE Scallop <0.10 kU/L (Class 0)
== END ==
PROVIDERS: PCP Physician Assistant; Visit Provider Physician Assistant
DX: Z01.82 Encounter for allergy testing (principal)
CPT/HCPCS: 36415; 86003; 86008

== ENCOUNTER 2021-09-03 14:57 | Emergency (ER) | payer OTHER, SELFPAY ==
[2021-09-03 15:32] LABS: UTC Influenza A Antigen Negative (Negative)
[2021-09-03 15:33] LABS: UTC Influenza B Antigen Negative (Negative)
[2021-09-03 15:34] VITALS: BP 128/88; PULSE 111; RESP 18; TEMP 38.2; O2SAT 100; BMI 34.3
[2021-09-03 16:11] LABS: UTC Strep Screen (Rapid) Negative (Negative)
[2021-09-03 16:19] VITALS: BP 128/88; PULSE 100; RESP 18; TEMP 38.2; O2SAT 100
--- NOTE | 2021-09-03 16:34 | HMH.EDUTC ---
[facility] [place]: Flu-like symptoms Disposition: Home, Self-Care Condition on Discharge: Good Instructions: DI for Fever (Symptom) -- Adult, Sore Throat Additional Instructions: *Monitor Temp, Over the counter Motrin or Tylenol as directed/as needed Tylenol every 4 hours and Motrin every 6 hours (as long as your family doctor has told you that you can take it) for fever or pain. and straight to ER if unable to lower temp less than 101.0 after medication given *Warm salt water gargles may help to soothe the throat *Throat Lozenges *Warm fluids like tea with honey may help to soothe the throat *Sleep elevated *Humidifier/Vaporizer Continue using ear drops as prescribed Your throat swab was sent for culture. Those results are typically sent to your primary care. Be sure to follow up in 2-3 days with your family doctor/primary care physician if no improvement so they can review those result and treat if necessary. If you don?t have a primary care doctor, I recommend you get one but in the mean time, you will have to return to a walk in clinic Follow up IMMEDIATELY for new or worsening symptoms or no Noticeable improvement over the next 48-72 hours. 911 for difficulty breathing or swallowing You were tested for today for COVID19 your test result should be back in the next 24-48 hours, you may check your results on the [facility] My Health Portal if you have trouble logging on you may call for assistance Make sure to take your Vitamins Vit. C Vit D and Zinc if you can take them Referrals: Nathalia Yousif PA [Primary Care Provider] - As needed Time of Disposition: 16:39 Medical Decision Making - Wander Inquiry Pt receiving controlled substance: No Wander was queried for this patient: No Vital Signs: 09/03/21 15:34 09/03/21 16:19 Temperature 100.8 F H 100.8 F H Temperature Source Oral Oral Pulse Rate 100 H Pulse Rate [Right Brachial] 111 H Respiratory Rate 18 18 Blood Pressure 128/88 Blood Pressure [Right Arm] 128/88 Blood Pressure Mean [Right Arm] 101 Blood Pressure Source Automatic Cuff Blood Pressure Source [Right Arm] Automatic Cuff Blood Pressure Position Sitting Blood Pressure Position [Right Arm] Sitting 02 Sat by Pulse Oximetry 100 Oxygen Delivery Method Room Air Room Air - Lab Data Lab results reviewed: Yes: I reviewed the patient's lab results. Lab Results 09/03/21 15:24: Influenza Type A Ag Negative, Influenza Type B Ag Negative 09/03/21 16:10: Strep Scn Rapid Clinic Negative Orders (Tests/Meds): ORDERS Category Date Time Status Strep Screen Confirmation Stat Micro 09/03/21 16:10 [place] [facility] [place] - General Stated complaint: cold chills, fever, sore throat Time Seen by Provider: 09/03/21 15:45 Mode of Arrival: Ambulatory Source of Information: Patient Limitations: No Limitations Description of Symptoms (Recalled from Triage Doc. by RN): cold chills, body aches, fever, sore throat HEENT Symptoms (Recalled from RN notes): Yes Resp Symptoms (Recalled from RN notes): No Skin Symptoms (Recalled from RN notes): No MS Symptoms (Recalled from RN notes): No Functional Status (Recalled from RN notes): wnl - History of Present Illness Provider Complaint: Patient states that she was seen yesterday and dx with ear infection and started on drops States that she thinks she may have caught something because this morning she woke up with fever, chills, body aches and sore throat States that this evening she was still not feeling well so she came in to get checkd out - Related Data Previous Rx's Medication Instructions Recorded Benzonatate [Benzonatate 100mg 100 mg PO Q8H PRN #15 cap 07/26/21 cap] Ondansetron [Zofran 4mg ODT] 4 mg PO TIDP PRN #6 tab 07/26/21 levothyroxine 88 mcg tablet 88 mcg PO DAILY #90 tab 08/28/21 venlafaxine 150 mg 150 mg PO DAILY #90 cap 08/28/21 capsule,extended release 24 hr Allergies Allergy/AdvReac Type Valerie
[2021-09-03 16:55] LABS: Adenovirus,PCR Not Detected (NotDetected); Bordetella Pertussis Not Detected (NotDetected); Chlamydophila Pneumoniae, PCR Not Detected (NotDetected); Coronavirus 19, PCR Not Detected (NotDetected); Coronavirus 229E Not Detected (NotDetected); Coronavirus NL63 Not Detected (NotDetected); Coronavirus OC43 Not Detected (NotDetected); Coronovirus HKU1,PCR Not Detected (NotDetected); Human Metapneumovirus Not Detected (NotDetected); Influenza A, PCR Not Detected (NotDetected); Influenza AH1, 2009 Not Detected (NotDetected); Influenza AH1, PCR Not Detected (NotDetected); Influenza AH3,PCR Not Detected (NotDetected); Influenza B, PCR Not Detected (NotDetected); Mycoplasma Pneumoniae, PCR Not Detected (NotDetected); Parainfluenza 1, PCR Not Detected (NotDetected); Parainfluenza 2, PCR Not Detected (NotDetected); Parainfluenza 3, PCR Not Detected (NotDetected); Parainfluenza 4, PCR Not Detected (NotDetected); Respiratory Syncytial Virus Not Detected (NotDetected); Rhinovirus/Enterovirus Not Detected (NotDetected)
== END 2021-09-03 16:47 | disposition home or self-care (01) ==
PROVIDERS: Emergency Provider Nurse Practitioner; PCP Physician Assistant
DX: J11.1 Influenza due to unidentified influenza virus with other respiratory manifestations (principal); J45.909 Unspecified asthma, uncomplicated; E03.9 Hypothyroidism, unspecified
CPT/HCPCS: 87581; 87632; 87798; 87804; 87880; 99213; C9803; G0463; U0003; U0005

== ENCOUNTER 2021-09-08 17:47 | Emergency (ER) | payer OTHER, SELFPAY ==
[2021-09-08 19:12] LABS: UTC Strep Screen (Rapid) Negative (Negative)
[2021-09-08 19:13] LABS: UTC Influenza A Antigen Negative (Negative); UTC Influenza B Antigen Negative (Negative)
[2021-09-08 19:18] VITALS: BP 131/85; PULSE 93; RESP 18; TEMP 36.9; O2SAT 100; BMI 34.3
--- NOTE | 2021-09-08 19:25 | HMH.EDUTC ---
[facility] [place] Clinical Impression: URI (upper respiratory infection) Qualifiers: URI type: unspecified URI Qualified Code(s): J06.9 - Acute upper respiratory infection, unspecified Disposition: Home, Self-Care Condition on Discharge: Good Instructions: Sore Throat, DI for Sinusitis Additional Instructions: *Monitor Temp, Over the counter Motrin or Tylenol as directed/as needed Tylenol every 4 hours and Motrin every 6 hours (as long as your family doctor has told you that you can take it) for fever or pain. and straight to ER if unable to lower temp less than 101.0 after medication given *Warm salt water gargles may help to soothe the throat *Throat Lozenges *Warm fluids like tea with honey may help to soothe the throat *Sleep elevated *Humidifier/Vaporizer *Flonase 2 sprays in each nostril daily but be aware that it may take 2-3 days before you notice improvement Your throat swab was sent for culture. Those results are typically sent to your primary care. Be sure to follow up in 2-3 days with your family doctor/primary care physician if no improvement so they can review those result and treat if necessary. If you don?t have a primary care doctor, I recommend you get one but in the mean time, you will have to return to a walk in clinic Follow up IMMEDIATELY for new or worsening symptoms or no Noticeable improvement over the next 48-72 hours. 911 for difficulty breathing or swallowing Prescriptions: Azithromycin [Z-Harinder 250mg Tab] 250 mg PO DIRECTED #6 tab Transmission Status: Pending to Clinic Pharm[facility] Referrals: Nathalia Yousif PA [Primary Care Provider] - As needed Time of Disposition: 19:34 Medical Decision Making - Wander Inquiry Pt receiving controlled substance: No Wander was queried for this patient: No Vital Signs: 09/08/21 19:18 Temperature 98.4 F Temperature Source Oral Pulse Rate [Left] 93 H Respiratory Rate 18 Blood Pressure [Right Arm] 131/85 Blood Pressure Mean [Right Arm] 100 02 Sat by Pulse Oximetry 100 - Lab Data Lab results reviewed: Yes: I reviewed the patient's lab results. Lab Results 09/08/21 18:57: Influenza Type A Ag Negative, Influenza Type B Ag Negative 09/08/21 18:57: Strep Scn Rapid Clinic Negative Orders (Tests/Meds): ORDERS Category Date Time Status Strep Screen Confirmation Stat Micro 09/08/21 18:57 Received Medical Decision Narrative: Patient state that she has taken azithromycin in the past without complications or reactions [facility] [place] HPI - General Stated complaint: sore throat,comgestions, ears Time Seen by Provider: 09/08/21 19:25 Mode of Arrival: Ambulatory Source of Information: Patient Limitations: No Limitations Description of Symptoms (Recalled from Triage Doc. by RN): pt c/o a sore throat, VACA, congestion, nasal drainage, ear aches and loss of voice. pt was here 09/03 and negative for strep. pt is not feeling any better. HEENT Symptoms (Recalled from RN notes): Yes Resp Symptoms (Recalled from RN notes): No Skin Symptoms (Recalled from RN notes): No MS Symptoms (Recalled from RN notes): No Functional Status (Recalled from RN notes): wnl - History of Present Illness Provider Complaint: Patient states that she was seen last States that she has been on ear drops from her PCP States that she has been having sore throat, nasal congestion and runny nose States that she was negative for strep throat last week but not any better today so she came back to get checked again - Related Data Previous Rx's Medication Instructions Recorded Benzonatate [Benzonatate 100mg 100 mg PO Q8H PRN #15 cap 07/26/21 cap] Ondansetron [Zofran 4mg ODT] 4 mg PO TIDP PRN #6 tab 07/26/21 levothyroxine 88 mcg tablet 88 mcg PO DAILY #90 tab 08/28/21 venlafaxine 150 mg 150 mg PO DAILY #90 cap 08/28/21 capsule,extended release 24 hr Azithromycin [Z-Harinder 250mg Tab] 250 mg PO DIRECTED #6 tab 09/08/21 Allergies Allergy/AdvReac
[2021-09-08 19:37] VITALS: BP 131/85; PULSE 93; RESP 18; TEMP 36.9
== END 2021-09-08 19:44 | disposition home or self-care (01) ==
PROVIDERS: Emergency Provider Nurse Practitioner; PCP Physician Assistant
DX: J06.9 Acute upper respiratory infection, unspecified (principal); J45.909 Unspecified asthma, uncomplicated
CPT/HCPCS: 87804; 87880; 99212; G0463

== ENCOUNTER 2021-10-08 16:00 | Emergency (ER) | payer OTHER, SELFPAY ==
[2021-10-08 16:01] VITALS: BP 127/73; PULSE 103; RESP 18; TEMP 39.3; O2SAT 100; BMI 34.3
--- NOTE | 2021-10-08 16:50 | HMH.EDUTC ---
[facility] [place]: Otitis media Qualifiers: Otitis media type: unspecified Laterality: bilateral Qualified Code(s): H66.93 - Otitis media, unspecified, bilateral UTI (urinary tract infection) Qualifiers: Urinary tract infection type: site unspecified Hematuria presence: without hematuria Qualified Code(s): N39.0 - Urinary tract infection, site not specified Disposition: Home, Self-Care Condition on Discharge: Good Instructions: Urinary Tract Infection, Middle Ear Infection, DI for Urinary Tract Infection (UTI) Additional Instructions: *Increase fluids. Water not Soda or Tea *Start antibiotic immediately and be sure to take as ordered for the FULL length of time although you should start to see improvement over the next 48 hours *Be SURE to follow up anytime for new or worsening symptoms with your family doctor. AND in 48 hours for urine culture results with your family doctor, if you do not have a doctor then you may call back to the [facility] for urine culture results and further treatment. We do recommend that you choose and establish care with a Primary Care Physician. AND follow up with them in 10-14 days to repeat UA to ensure infection is resolved and blood no longer present *Be sure to let your PCP know that we sent urine cultures from the [facility] so they can follow up to ensure that you area the on the correct antibiotic Call your doctor office and make appointment for 48 hours (2 days from today) to follow up and get the results of your urine culture and further treatment Follow up immediately if any return of abdominal pain Prescriptions: Sulfamethoxazole/Trimethoprim [Bactrim DS tablet] 1 each PO BID 10 Days #20 tab Transmission Status: Received by [facility] Ondansetron [Zofran 4mg ODT] 4 mg PO TIDP PRN #20 tab PRN Reason: Vomiting Transmission Status: Received by [facility] Referrals: Nathalia Yousif PA [Primary Care Provider] - As needed Forms: Work/School Release Time of Disposition: 18:42 Medical Decision Making - Wander Inquiry Pt receiving controlled substance: No Wander was queried for this patient: No Vital Signs: 10/08/21 16:01 10/08/21 17:42 10/08/21 18:49 Temperature 102.8 F H 100.1 F H 100.0 F H Temperature Source Oral Oral Oral Pulse Rate 95 H Pulse Rate [Left Radial] 103 H Respiratory Rate 18 16 16 Blood Pressure 127/73 Blood Pressure [Right Arm] 127/73 Blood Pressure Mean [Right Arm] 91 Blood Pressure Source [Right Arm] Automatic Cuff Blood Pressure Position [Right Arm] Sitting 02 Sat by Pulse Oximetry 100 99 Oxygen Delivery Method Room Air Room Air Room Air - Lab Data Lab results reviewed: Yes: I reviewed the patient's lab results. Lab Results 10/08/21 16:38: Influenza Type A Ag Negative, Influenza Type B Ag Negative 10/08/21 16:51: Urine Color Yellow, Urine Appearance Clear, Urine pH 5.5, Ur Specific [place] 1.005, Urine Protein Negative, Urine Glucose (UA) Negative, Urine Ketones Negative, Urine Blood Negative, Urine Nitrate Negative, Urine Bilirubin Negative, Urine Urobilinogen 0.2, Ur Leukocyte Esterase Trace, Tst Clinic Negative Orders (Tests/Meds): ED MEDICATIONS Discontinued Medications Generic Name Dose Route Start Last Admin Trade Name Freq PRN Reason Stop Dose Admin Acetaminophen 650 mg 10/08/21 16:50 10/08/21 16:55 Acetaminophen 325mg Tab PO 10/08/21 16:51 650 mg ONCE ONE Administration ORDERS Category Date Time Status Full Resp Panel w/COVID ([facility]) Routine Lab 10/08/21 17:20 Received Urine Culture Stat Micro 10/08/21 16:56 Received Medical Decision Narrative: Still awaiting patient to collect urine patient drinking water at this time no diarrhea or vomiting since arrival Discussed with patient and recommended transfer to the ED for further work up and evaluation and lab work and patient declined states that she wants to start antibiotics and she will return Patient polly
[2021-10-08 17:07] LABS: UTC Influenza A Antigen Negative (Negative); UTC Influenza B Antigen Negative (Negative)
[2021-10-08 17:31] LABS: Adenovirus,PCR Not Detected (NotDetected); Bordetella Pertussis Not Detected (NotDetected); Chlamydophila Pneumoniae, PCR Not Detected (NotDetected); Coronavirus 19, PCR Not Detected (NotDetected); Coronavirus 229E Not Detected (NotDetected); Coronavirus NL63 Not Detected (NotDetected); Coronavirus OC43 Not Detected (NotDetected); Coronovirus HKU1,PCR Not Detected (NotDetected); Human Metapneumovirus Not Detected (NotDetected); Influenza A, PCR Not Detected (NotDetected); Influenza AH1, 2009 Not Detected (NotDetected); Influenza AH1, PCR Not Detected (NotDetected); Influenza AH3,PCR Not Detected (NotDetected); Influenza B, PCR Not Detected (NotDetected); Mycoplasma Pneumoniae, PCR Not Detected (NotDetected); Parainfluenza 1, PCR Not Detected (NotDetected); Parainfluenza 2, PCR Not Detected (NotDetected); Parainfluenza 3, PCR Not Detected (NotDetected); Parainfluenza 4, PCR Not Detected (NotDetected); Respiratory Syncytial Virus Not Detected (NotDetected); Rhinovirus/Enterovirus Not Detected (NotDetected)
[2021-10-08 17:42] VITALS: RESP 16; TEMP 37.8; O2SAT 99
--- NOTE | 2021-10-08 18:11 | PC.NURSE ---
PT IS UNABLE TO VOID. PT REFUSES CATH. PT DOES NOT WANT TO HAVE IV. PT IS CURRENTLY DRINKING.
--- NOTE | 2021-10-08 18:31 | PC.NURSE ---
PROVIDER RECOMMENDED PT GO TO ED FOR EVAL FOR PYLO. EXTENSIVELY EXPLAINED TO PT. PT REFUSES TO GO TO MAIN ED AT THIS TIME.
[2021-10-08 18:49] VITALS: BP 127/73; PULSE 95; RESP 16; TEMP 37.8; O2SAT 100
[2021-10-08 19:23] LABS: Apearance,Urine Clear (Clear); Color,Urine Yellow (Yellow); PH,Urine 5.5 (5.0-8.5)
[2021-10-08 19:24] LABS: Bilirubin,Urine Negative (Negative); Blood, Urine Negative (Negative); Glucose,Urine (UA) Negative (Negative); Ketones,Urine Negative (Negative); Protein,Urine Negative (Negative); Specific Gravity, Urine 1.005 (1.005-1.030); UTC Leukocyte Esterase,Urine Trace (Negative); UTC Nitrate,Urine Negative (Negative); UTC Pregnancy Test, Urine Negative (Negative); Urobilinogen,Urine 0.2 EU/dl (0.2)
== END 2021-10-08 18:53 | disposition home or self-care (01) ==
PROVIDERS: Emergency Provider Nurse Practitioner; PCP Physician Assistant
DX: H66.93 Otitis media, unspecified, bilateral (principal); N39.0 Urinary tract infection, site not specified; J45.909 Unspecified asthma, uncomplicated; E03.9 Hypothyroidism, unspecified; Z88.0 Allergy status to penicillin
CPT/HCPCS: 81003; 81025; 87086; 87581; 87632; 87798; 87804; 99212; C9803; G0463; U0003; U0005

== ENCOUNTER → 2021-10-12 08:34 | Outpatient (CLI) | payer OTHER, SELFPAY | PROVIDERS: PCP Physician Assistant; Visit Provider Physician Assistant | DX: R10.9 Unspecified abdominal pain (principal) | CPT/HCPCS: 87086 ==

== ENCOUNTER 2021-10-12 13:31 | Emergency (ER) | payer OTHER, SELFPAY ==
--- NOTE | 2021-10-12 14:16 | PC.NURSE ---
patient brought back to ED room 8, she states she is unable to use the restroom at this time
[2021-10-12 14:17] VITALS: BP 123/74; PULSE 76; RESP 16; TEMP 36.7; O2SAT 98; BMI 35.0
--- NOTE | 2021-10-12 14:18 | PC.NURSE ---
LIEN figueroa at BS
--- NOTE | 2021-10-12 14:34 | PC.NURSE ---
ER gave verbal order for CT abd/pelvis
--- NOTE | 2021-10-12 14:42 | HMH.EDGENADL ---
ED Disposition Clinical Impression: Abdominal pain Qualifiers: Abdominal location: unspecified location Qualified Code(s): R10.9 - Unspecified abdominal pain Disposition: Home, Self-Care Condition on Discharge: Good Instructions: DI for Acute Abdominal Pain Referrals: Nathalia Yousif PA [Primary Care Provider] - - Critical Care Critical Care Time: No Attestation: On 10/12/21, the high probability of a clinically significant, sudden or life threatening deterioration of the following system(s) required my full and direct attention, intervention and personal management. The time I documented below is in addition to time spent performing reported procedures but includes the following listed in this critical care notation. Medical Decision Making - Medical Records Medical records reviewed: Yes: I reviewed the patient's medical records. - Wander Inquiry Pt receiving controlled substance: No Vital Signs: 10/12/21 14:17 10/12/21 15:31 10/12/21 17:37 Temperature 98.1 F Temperature Source Oral Pulse Rate 68 71 Pulse Rate [Left Radial] 76 Respiratory Rate 16 Blood Pressure 104/56 L 107/51 L Blood Pressure [Left Arm] 123/74 Blood Pressure Mean [Left Arm] 90 Blood Pressure Source Automatic Cuff Automatic Cuff Blood Pressure Source [Left Arm] Automatic Cuff Blood Pressure Position Sitting Sitting Blood Pressure Position [Left Arm] Sitting 02 Sat by Pulse Oximetry 98 96 99 Oxygen Delivery Method Room Air Room Air Room Air 10/12/21 18:17 Temperature 98.5 F Temperature Source Oral Pulse Rate 70 Pulse Rate [Left Radial] Respiratory Rate 16 Blood Pressure 102/65 L Blood Pressure [Left Arm] Blood Pressure Mean [Left Arm] Blood Pressure Source Automatic Cuff Blood Pressure Source [Left Arm] Blood Pressure Position Sitting Blood Pressure Position [Left Arm] 02 Sat by Pulse Oximetry Oxygen Delivery Method Room Air - Lab Data Lab results reviewed: Yes: I reviewed the patient's lab results. Lab Results 10/12/21 14:39: WBC 7.0, RBC 5.20, Hgb 15.1, Hct 44.5, MCV 85.6, MCH 29.0, MCHC 33.8, RDW 13.8, Plt Count 329, MPV 7.0 L, Neut % (Auto) 53.7, Lymph % (Auto) 37.3, [place] % (Auto) 5.1, Eos % (Auto) 1.2, Baso % (Auto) 2.6 H, Neut # (Auto) 3.7, Lymph # (Auto) 2.6, [place] # (Auto) 0.4, Eos # (Auto) 0.1, Baso # (Auto) 0.2 10/12/21 14:39: Sodium 138, Potassium 4.3, Chloride 108 H, Carbon Dioxide 25, Anion Gap 9.3, BUN 9, Creatinine 1.00, Estimated Creat Clear 126, Estimated GFR 70, Est GFR ( Amer) 85, Glucose 104 H, Calcium 9.6, Total Bilirubin 0.3, AST 31, ALT 26, Alkaline Phosphatase 97, Total Protein 7.1, Albumin 4.0, Globulin 3.1, Albumin/Globulin Ratio 1.3 10/12/21 14:39: Serum HCG, Qual Negative 10/12/21 15:46: SARS-CoV-2 (PCR) Not detected, Influenza A Untype (PCR) Not detected, Influenza Type B (PCR) Not detected Result diagrams: 10/12/21 14:39 10/12/21 14:39 Orders (Tests/Meds): ED MEDICATIONS Discontinued Medications Generic Name Dose Route Start Last Admin Trade Name Freq PRN Reason Stop Dose Admin Iopamidol 75 ml 10/12/21 15:38 10/12/21 15:39 Iopamidol-370 (76%);100ml Bottle IV 10/12/21 15:39 75 ml ONCE ONE Administration Sodium Chloride 10 ml 10/12/21 14:31 Sodium Chloride 0.9% 10ml Flush Syringe IV 11/11/21 14:30 NEEDED PRN Maintain IV Site Sodium Chloride 10 ml 10/12/21 15:38 10/12/21 15:39 Sodium Chloride 0.9% 10ml Syr (Rad Only) IV 10/12/21 15:39 10 ml ONCE ONE Administration Medical Decision Narrative: Patient is a 21-year-old female presenting with a chief complaint of vomiting, diarrhea and abdominal pain for past 4 days. She was hemodynamically stable nontoxic-appearing on my exam. Differential diagnosis includes, but is not limited to, viral gastroenteritis, colitis, urinary tract infection, pyelonephritis, pancreatitis, , ectopic , appendicitis, other. She was evaluated with CBC, CMP, U
--- NOTE | 2021-10-12 14:44 | PC.NURSE ---
pt reports unable to urinate at this time, aware she needs to provide a urine specimen
--- NOTE | 2021-10-12 14:51 | PC.NURSE ---
rad notified of ct order, spoke with brennen
[2021-10-12 14:56] LABS: Chloride 108 mmol/L (98-107); Potassium 4.3 mmoL/L (3.5-5.1); Sodium 138 mmol/L (136-145)
[2021-10-12 14:57] LABS: Basophils # 0.2 K/mm3 (0-0.2); Basophils % 2.6 % (0.1-2.0); Eosinophils # 0.1 K/mm3 (0.0-0.4); Eosinophils % 1.2 % (0.1-12.0); Hematocrit 44.5 % (37.0-47.0); Hemoglobin 15.1 g/dL (12.2-16.2); Lymphocytes # 2.6 K/mm3 (0.7-4.5); Lymphocytes % 37.3 % (10-50); Mean Corpuscular HGB Conc 33.8 g/dL (31.8-35.4); Mean Corpuscular Volume 85.6 fl (81-99); Monocytes # 0.4 K/mm3 (0.1-1.0); Monocytes % 5.1 % (1.7-9.3); Neutrophils # 3.7 K/mm3 (1.8-7.8); Neutrophils % 53.7 % (37.0-80.0); Platelet Count 329 K/mm3 (142-424); Red Cell Distribution Width 13.8 % (11.5-17.5)
[2021-10-12 14:59] LABS: Alanine Aminotransferase 26 U/L (12-78); Albumin/Globulin Ratio 1.3 (1.1-1.8); Alkaline Phosphatase 97 U/L (38-126); Anion Gap 9.3 mEq/L (5-15); Aspartate Amino Transferase 31 U/L (14-36); Bilirubin,Total 0.3 mg/dl (0.2-1.3); Blood Urea Nitrogen 9 mg/dl (7-17); Carbon Dioxide 25 mmol/L (22.0-30.0); Creatinine Clearance Estimated 126 mL/min (50-200); Estimated Glomerular Filt Rate 70 ml/min (>60); GFR (African American) 85 ML/MIN (>60); Globulin 3.1 g/dL (1.3-3.2); Total Protein,Serum 7.1 g/dl (6.3-8.2)
[2021-10-12 15:00] LABS: Calcium 9.6 mg/dl (8.4-10.2); Glucose 104 mg/dl (74-100); HCG Qualitative, Serum Negative (Negative)
--- NOTE | 2021-10-12 15:12 | PC.NURSE ---
requested pt CT scan be cancelled after seeing the patient
--- NOTE | 2021-10-12 15:20 | CT_ITS ---
FINAL REPORT TECHNIQUE: After the administration of intravenous contrast, axial images were obtained through the abdomen and pelvis by computed tomography. The study was performed with techniques to keep radiation dose as low as reasonably achievable, (ALARA). Individual dose reduction techniques using automated exposure control or adjustment of mA and/or kV according to the patient's size were employed. CLINICAL HISTORY: concern for appendicitis-- FINDINGS: Abdomen: The lung bases are clear. The liver parenchyma is homogeneous. The gallbladder is surgically absent. The spleen, pancreas, adrenals and kidneys appear unremarkable. The aorta is normal in caliber. There is no free fluid or adenopathy. Pelvis: The appendix is mildly enlarged up to 7 mm but air-filled. There is no surrounding inflammation or CT evidence of appendicitis. The urinary bladder is unremarkable. There is no free fluid or adenopathy. The uterus is present. IMPRESSION: No acute intra-abdominal process. Reviewed, Interpreted and Dictated by Hardeep Sanabria MD Transcribed by Moise Stern Authenticated by Hardeep Sanabria MD on 10/12/2021 04:32:45 PM [facility]
--- NOTE | 2021-10-12 15:24 | PC.NURSE ---
Notified rad that had now decided she would the CT scan
--- NOTE | 2021-10-12 15:24 | PC.NURSE ---
patient to CT with audiovisual lead technician; ED at speaking with patient
[2021-10-12 15:31] VITALS: BP 104/56; PULSE 68; O2SAT 96
--- NOTE | 2021-10-12 15:35 | PC.NURSE ---
pt return from CT
[2021-10-12 16:02] LABS: Coronavirus 19, PCR Not Detected (NotDetected); Influenza A, PCR Not Detected (NotDetected); Influenza B, PCR Not Detected (NotDetected)
[2021-10-12 17:37] VITALS: BP 107/51; PULSE 71; O2SAT 99
--- NOTE | 2021-10-12 18:10 | PC.NURSE ---
Updated pt that MD was tied up with critical patients at this time. Pt had no new needs, understanding with POC
[2021-10-12 18:17] VITALS: BP 102/65; PULSE 70; RESP 16; TEMP 36.9; O2SAT 98
== END 2021-10-12 18:20 | disposition home or self-care (01) ==
PROVIDERS: Emergency Provider Emergency Medicine; PCP Physician Assistant
DX: K52.9 Noninfective gastroenteritis and colitis, unspecified (principal); J45.909 Unspecified asthma, uncomplicated; E03.9 Hypothyroidism, unspecified; Z79.899 Other long term (current) drug therapy; Z88.0 Allergy status to penicillin; Z88.5 Allergy status to narcotic agent
CPT/HCPCS: 74177; 80053; 84703; 85025; 99284; C9803; Q9967; U0003; U0005

== ENCOUNTER → 2022-02-18 15:19 | Outpatient (CLI) | payer OTHER, SELFPAY ==
[2022-02-18 16:33] LABS: Basophils # 0.1 K/mm3 (0-0.2); Basophils % 0.7 % (0.1-2.0); Eosinophils # 0.1 K/mm3 (0.0-0.4); Eosinophils % 1.1 % (0.1-12.0); Hematocrit 43.5 % (37.0-47.0); Hemoglobin 13.6 g/dL (12.2-16.2); Lymphocytes # 2.9 K/mm3 (0.7-4.5); Lymphocytes % 30.3 % (10-50); Mean Corpuscular HGB Conc 31.2 g/dL (31.8-35.4); Mean Corpuscular Hemoglobin 27.6 pg (27.0-31.2); Mean Corpuscular Volume 88.7 fl (81-99); Mean Platelet Volume 7.3 fl (7.4-10.4); Monocytes # 0.5 K/mm3 (0.1-1.0); Monocytes % 5.4 % (1.7-9.3); Neutrophils % 62.4 % (37.0-80.0); Platelet Count 410 K/mm3 (142-424); Red Blood Count 4.91 M/mm3 (4.20-5.40); Red Cell Distribution Width 13.5 % (11.5-17.5); White Blood Count 9.6 K/mm3 (4.8-10.8)
[2022-02-18 17:28] LABS: Thyroid Stimulating Hormone 3.69 uIU/mL (0.465-4.68)
[2022-02-20 09:16] LABS: Rapid Plasma Reagin Ab Titer Non Reactive (NonRea<1:1)
[2022-02-20 10:13] LABS: HIV Screen 4th Generation wRfx Non Reactive (Non Reactive); Hepatitis B Surface Antigen Negative (Negative); Hepatitis C Antibody <0.1 s/co ratio (0.0-0.9)
== END ==
PROVIDERS: PCP Physician Assistant; Visit Provider Obstetrics & Gynecology
DX: Z34.90 Encounter for supervision of normal pregnancy, unspecified, unspecified trimester (principal)
CPT/HCPCS: 36415; 84443; 85025; 86592; 86703; 86762; 86850; 87086; 87340; 87380; G0432

== ENCOUNTER 2022-03-14 11:39 | Emergency (ER) | payer OTHER, SELFPAY ==
[2022-03-14 11:45] VITALS: BP 112/70; PULSE 95; RESP 19; TEMP 36.8; O2SAT 98; BMI 33.4
[2022-03-14 12:01] LABS: UTC Strep Screen (Rapid) Negative (Negative)
--- NOTE | 2022-03-14 12:16 | EXP.UTC ---
Discharge Plan Disposition Patient Disposition: Still a Patient Condition: Fair Prescriptions Prescriptions: No Action cetirizine 10 mg tablet 10 mg PO DAILY ondansetron 8 mg tablet,disintegrating 8 mg PO Q6HP PRN (Reason: Nausea) Label Comments: DISSOLVE 1 TABLET ON THE TONGUE EVERY DAY NEEDED aspirin [Baby Aspirin] 81 mg Tablet,Chewable 81 mg PO DAILY montelukast 10 mg tablet 10 mg PO DAILY Label Comments: TAKE 1 TABLET BY MOUTH EVERY DAY AT BEDTIME levothyroxine 112 mcg tablet 112 mcg PO DAILY Label Comments: TAKE 1 TABLET BY MOUTH EVERY MORNING M- Plus 27 mg iron- 1 mg tablet 1 tab PO DAILY Label Comments: TAKE 1 TABLET BY MOUTH ONCE DAILY Referrals Follow up/Referrals: Nathalia Yousif PA [Primary Care Provider] - See instructions Clinical Impressions Clinical Impression: Abdominal pain Discharge ED Provider: Shakir Donahue [facility] General Stated complaint: sore throat,ear pain Mode of Arrival: Ambulatory Source of Information: Patient Limitations: No Limitations Time Seen by Provider: 03/14/22 12:15 Description of Symptoms (Recalled from Triage Doc. by RN): PATIENT C/O SORE THROAT, HEADACHE, EAR ACHE AND STOMACH CRAMPS X 3 DAYS HEENT Symptoms (Recalled from RN notes): Yes Resp Symptoms (Recalled from RN notes): No Skin Symptoms (Recalled from RN notes): No MS Symptoms (Recalled from RN notes): No Functional Status (Recalled from RN notes): WNL History of Present Illness Provider Complaint: She is here with complaints of abdominal pain for the past 3 days. She also has some sore throat and ear pain. She is 11 weeks . She denies any urinary complaints and she denies any vaginal bleeding. Related Data Home Medications Medication Instructions Recorded Confirmed aspirin 81 mg chewable tablet 81 mg PO DAILY . 03/14/22 03/14/22 cetirizine 10 mg tablet 10 mg PO DAILY Allergy symptoms 03/14/22 03/14/22 levothyroxine 112 mcg tablet 112 mcg PO DAILY THYROID 03/14/22 03/14/22 montelukast 10 mg tablet 10 mg PO DAILY Allergy symptoms 03/14/22 03/14/22 ondansetron 8 mg disintegrating 8 mg PO Q6HP PRN Nausea 03/14/22 03/14/22 tablet vitamin with calcium 1 tab PO DAILY Supplement 03/14/22 03/14/22 no.72-iron 27 mg-folic acid 1 mg tablet (M-Flakito Plus) Allergies Allergy/AdvReac Type Severity Reaction Status Date / Time amoxicillin Allergy Intermediate I-HIVES Verified 02/18/22 14:38 ceftibuten [From Cedax] Allergy Intermediate I-HIVES Verified 02/18/22 14:38 penicillin G Allergy Intermediate I-HIVES Verified 02/18/22 14:38 adhesive tape Allergy Hives Verified 02/18/22 14:38 codeine Allergy Verified 02/18/22 14:38 Worker's Comp Is this a Worker's Comp case?: No PFSH PFSH Medical History Acne Anxiety Asthma B12 deficiency anemia History of gastroesophageal reflux (GERD) Hypothyroidism Migraine Nausea and vomiting Surgical History History of cholecystectomy History of tonsillectomy History of tympanostomy tube placement Social History Smoking Status: Never smoker second hand exposure: No alcohol intake: never substance use type: denies use current occupational status: employed Travel in the last 8 weeks: None household members: family housing: house current occupational exposures/hazards: No caffeine: Yes ROS Obtained: Yes All systems reviewed & no additional complaints except as documented Constitutional Constitutional: Denies chills, Denies fever(s) and Reports poor appetite ENT Ears, Nose, Mouth, and Throat: Denies dizziness and Denies sore throat Cardiovascular Cardiovascular: Denies dyspnea Respiratory Respiratory: Denies chest congestion, Denies cough and Denies dyspnea Genitourinary Female Genit
[2022-03-14 12:48] LABS: Apearance,Urine Clear (Clear); Bilirubin,Urine Negative (Negative); Blood, Urine Negative (Negative); Color,Urine Yellow (Yellow); Glucose,Urine (UA) Negative (Negative); Ketones,Urine Negative (Negative); Protein,Urine Negative (Negative); Specific Gravity, Urine 1.015 (1.005-1.030); UTC Leukocyte Esterase,Urine Trace (Negative); UTC Nitrate,Urine Negative (Negative); Urobilinogen,Urine 0.2 EU/dl (0.2)
--- NOTE | 2022-03-14 12:56 | PC.NURSE ---
PATIENT SENT TO ER PER Joe DUNCAN APRN FOR FURTHER EVALUATION. REPORT GIVEN TO Wesley MCKINNON RN
[2022-03-14 13:12] VITALS: BP 119/75; PULSE 87; RESP 18; TEMP 37.4; O2SAT 98; BMI 30.7
--- NOTE | 2022-03-14 13:26 | PC.NURSE ---
heart tones 160
--- NOTE | 2022-03-14 13:32 | HMH.EDGENADL ---
Discharge Plan Disposition Patient Disposition: Home, Self-Care Condition: Good Prescriptions Prescriptions: No Action cetirizine 10 mg tablet 10 mg PO DAILY ondansetron 8 mg tablet,disintegrating 8 mg PO Q6HP PRN (Reason: Nausea) Label Comments: DISSOLVE 1 TABLET ON THE TONGUE EVERY DAY NEEDED aspirin [Baby Aspirin] 81 mg Tablet,Chewable 81 mg PO DAILY montelukast 10 mg tablet 10 mg PO DAILY Label Comments: TAKE 1 TABLET BY MOUTH EVERY DAY AT BEDTIME levothyroxine 112 mcg tablet 112 mcg PO DAILY Label Comments: TAKE 1 TABLET BY MOUTH EVERY MORNING M- Plus 27 mg iron- 1 mg tablet 1 tab PO DAILY Label Comments: TAKE 1 TABLET BY MOUTH ONCE DAILY Referrals Follow up/Referrals: Nathalia Yousif PA [Primary Care Provider] - See instructions Activity Restrictions/Add. Instructions Additional Instructions/Restrictions: Tylenol as needed for pain or fever. Follow-up with your [facility], call tomorrow to make appointment. Return to the emergency department if severe abdominal pain or vaginal bleeding. Clinical Impressions Clinical Impression: Upper respiratory infection, viral, Abdominal cramps Instructions Patient Instructions: DI for Acute Abdominal Pain Discharge ED Provider: Shakir Donahue General Adult HPI General Chief complaint: Abdominal Pain Stated complaint: sore throat,ear pain Time Seen by Provider: 03/14/22 12:05 Mode of Arrival: Ambulatory Limitations: No Limitations Description of Symptoms (Recalled from ER Triage Doc. by RN): pt sent from [facility] for eval. pt is approx 11 weeks preg c/o lower abd pain x 2-3 days +nausea +vomiting. denies any vag discharge. pt also c/o intermittent frontal h/a x 2-3 weeks pt states hx of migraines this h/a feels the same. +photophobia, denies fever, chills, or neck pain. c/o sorethroat x 3 days History of Present Illness HPI narrative: The patient is sent from the urgent treatment center. She has a 3-day history of sore throat and crampy abdominal pain. She is 11 weeks gestation , prima . She states that she has had vomiting throughout and it is unchanged. She denies diarrhea. She does not currently have any pain, but when she gets that it is a crampy type of pain across her lower to mid abdomen. Her sore throat feels like a burning sensation. 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 Denies fever. Both of her ears hurt. Strep test negative in the [facility]. Related Data Home Medications Medication Instructions Recorded Confirmed aspirin 81 mg chewable tablet 81 mg PO DAILY . 03/14/22 03/14/22 cetirizine 10 mg tablet 10 mg PO DAILY Allergy symptoms 03/14/22 03/14/22 levothyroxine 112 mcg tablet 112 mcg PO DAILY THYROID 03/14/22 03/14/22 montelukast 10 mg tablet 10 mg PO DAILY Allergy symptoms 03/14/22 03/14/22 ondansetron 8 mg disintegrating 8 mg PO Q6HP PRN Nausea 03/14/22 03/14/22 tablet vitamin with calcium 1 tab PO DAILY Supplement 03/14/22 03/14/22 no.72-iron 27 mg-folic acid 1 mg tablet (M-Flakito Plus) Allergies Allergy/AdvReac Type Severity Reaction Status Date / Time amoxicillin Allergy Intermediate I-HIVES Verified 02/18/22 14:38 ceftibuten [From Cedax] Allergy Intermediate I-HIVES Verified 02/18/22 14:38 penicillin G Allergy Intermediate I-HIVES Verified 02/18/22 14:38 adhesive tape Allergy Hives Verified 02/18/22 14:38 codeine Allergy Verified 02/18/22 14:38 [facility] Medical History Acne Anxiety Asthma B12 deficiency anemia History of gastroesophageal reflux (GERD) Hypothyroidism Migraine Nausea and vomiting Surgical History History of cholecystectomy History of tonsillectomy History of tympanostomy tube placement Social History (Reviewed 03/14/22 @ 12:57 by Mayo Ordoñez
--- NOTE | 2022-03-14 13:39 | PC.NURSE ---
Obtained Covid nasal swab
[2022-03-14 13:43] LABS: Coronavirus 19, PCR Not Detected (NotDetected); Influenza A, PCR Not Detected (NotDetected); Influenza B, PCR Not Detected (NotDetected); Microscopic, Urine URINE MICROSCOPIC (MICROSCOPIC)
[2022-03-14 13:45] LABS: Appearance,Urine CLEAR (Clear); Bilirubin,Urine Negative (Negative); Blood, Urine Negative (Negative); Color,Urine YELLOW (Yellow); Glucose,Urine (UA) Negative (Negative); Ketones,Urine Negative (Negative); Leukocyte Esterase,Urine TRACE (Negative); Nitrate,Urine Negative (Negative); Protein,Urine Negative (Negative); Urobilinogen,Urine 0.2 EU/dl (0.2)
[2022-03-14 14:08] LABS: Bacteria,Urine Trace /lpf; Squamous Epithelial Cell,Urine Occasional #/hpf (0-5); WBC,Urine Occasional #/hpf (0-3)
[2022-03-14 14:36] VITALS: BP 103/56; PULSE 80; RESP 16; TEMP 36.8; O2SAT 100
== END 2022-03-14 14:38 | disposition home or self-care (01) ==
LOC: UTC 11:42 → ER 12:56
PROVIDERS: Nurse Practitioner Family; Emergency Provider Emergency Medicine; PCP Physician Assistant
DX: J06.9 Acute upper respiratory infection, unspecified (principal); R10.9 Unspecified abdominal pain; Z79.82 Long term (current) use of aspirin; Z79.899 Other long term (current) drug therapy; Z88.0 Allergy status to penicillin; Z88.1 Allergy status to other antibiotic agents; Z88.6 Allergy status to analgesic agent; J45.909 Unspecified asthma, uncomplicated; E03.9 Hypothyroidism, unspecified; G43.909 Migraine, unspecified, not intractable, without status migrainosus; F41.9 Anxiety disorder, unspecified; K21.9 Gastro-esophageal reflux disease without esophagitis
CPT/HCPCS: 81001; 81003; 87880; 99282; C9803; U0003; U0005

== ENCOUNTER 2022-08-02 18:09 | Emergency (ER) | payer OTHER, SELFPAY ==
[2022-08-02 19:35] VITALS: BP 138/87; PULSE 101; RESP 19; TEMP 37.1; O2SAT 100; BMI 37.9
[2022-08-02 19:50] LABS: UTC Strep Screen (Rapid) Negative (Negative)
--- NOTE | 2022-08-02 19:51 | EXP.UTC ---
Discharge Plan Disposition Patient Disposition: Home, Self-Care Condition: Good Prescriptions Prescriptions: No Action Mini 6.75 mg iron- 200 mcg tablet 1 tab PO DAILY Qty: 90 1RF M-Flakito Plus 27 mg iron- 1 mg tablet 1 tab PO DAILY Qty: 90 0RF cetirizine 10 mg tablet 10 mg PO DAILY Qty: 90 3RF levothyroxine 112 mcg tablet 112 mcg PO DAILY Qty: 90 3RF montelukast 10 mg tablet 10 mg PO DAILY Qty: 90 3RF ondansetron 8 mg tablet,disintegrating 8 mg PO Q6HP PRN (Reason: Nausea) Label Comments: DISSOLVE 1 TABLET ON THE TONGUE EVERY DAY NEEDED Referrals Follow up/Referrals: Nathalia Yousif PA [Primary Care Provider] - See instructions Activity Restrictions/Add. Instructions Additional Instructions/Restrictions: *Monitor Temp, Over the counter Motrin or Tylenol as directed/as needed Tylenol every 4 hours and Motrin every 6 hours (as long as your family doctor has told you that you can take it) for fever or pain. and straight to ER if unable to lower temp less than 101.0 after medication given *Warm salt water gargles may help to soothe the throat *Throat Lozenges? *Warm fluids like tea with honey may help to soothe the throat? *Sleep elevated *Humidifier/Vaporizer Your throat swab was sent for culture. Those results are typically sent to your primary care. Be sure to follow up in 2-3 days with your family doctor/primary care physician if no improvement so they can review those result and treat if necessary. If you don?t have a primary care doctor, I recommend you get one but in the mean time, you will have to return to a walk in clinic Follow up IMMEDIATELY for new or worsening symptoms or no Noticeable improvement over the next 48-72 hours. 911 for difficulty breathing or swallowing You were tested for today for COVID19 your test result should be back in the next 24-48 hours, you may check your results on the [facility] Portal Clinical Impressions Clinical Impression: Viral upper respiratory infection Instructions Patient Instructions: DI for Viral Upper Respiratory Infection -- Adult, Sore Throat Discharge ED Provider: Joaquina Abbott [facility] HPI General Stated complaint: Sore throst; cough; ear pain; nausea; Mode of Arrival: Ambulatory Source of Information: Patient Limitations: No Limitations Time Seen by Provider: 08/02/22 19:51 Description of Symptoms (Recalled from Triage Doc. by RN): PATIENT C/O SORE THROAT, HEADACHE, DIZZINESS, AND COUGH X 2 DAYS HEENT Symptoms (Recalled from RN notes): Yes Resp Symptoms (Recalled from RN notes): Yes Skin Symptoms (Recalled from RN notes): No MS Symptoms (Recalled from RN notes): No Functional Status (Recalled from RN notes): WNL History of Present Illness Provider Complaint: Patient states that she is 31wks OB has been having sore throat cough, ears feeling full and pressure like feeling that comes and goes and cough for the last couple of days states that she woke up this morning and her throat was hurting worse so she came in Related Data Home Medications Medication Instructions Recorded Confirmed ondansetron 8 mg disintegrating 8 mg PO Q6HP PRN Nausea 03/14/22 03/14/22 tablet Previous Rx's Medication Instructions Recorded vitamin no.49-iron-FA 1 tab PO DAILY #90 tabs 03/19/22 6.75 mg iron-200 mcg tablet (Mini ) vitamin with calcium 1 tab PO DAILY Supplement #90 tabs 05/04/22 no.72-iron 27 mg-folic acid 1 mg tablet (M-Flakito Plus) cetirizine 10 mg tablet 10 mg PO DAILY Allergy symptoms 06/23/22 #90 tabs levothyroxine 112 mcg tablet 112 mcg PO DAILY THYROID #90 tabs 06/23/22 montelukast 10 mg tablet 10 mg PO DAILY Allergy symptoms 06/23/22 #90 tabs Allergies Allergy/AdvReac Type Severity Reaction Status Date / Time amoxicillin Allergy Intermediate I-HIVES Verified 02/18/22 14:38 ceftibuten [From Cedax] Allergy Intermediate I-HIVES Ve
[2022-08-02 20:05] VITALS: BP 138/87; PULSE 101; RESP 19; TEMP 37.1; O2SAT 100
== END 2022-08-02 20:08 | disposition home or self-care (01) ==
PROVIDERS: Emergency Provider Nurse Practitioner; PCP Physician Assistant
DX: J06.9 Acute upper respiratory infection, unspecified (principal)
CPT/HCPCS: 87880; 99212; C9803; G0463; U0003; U0005

== ENCOUNTER → 2022-11-01 12:56 | Outpatient (CLI) | payer OTHER, SELFPAY ==
[2022-11-01 13:41] LABS: Basophils # 0.1 K/mm3 (0-0.2); Basophils % 0.6 % (0.1-2.0); Eosinophils # 0.1 K/mm3 (0.0-0.4); Eosinophils % 1.5 % (0.1-12.0); Hematocrit 40.4 % (37.0-47.0); Hemoglobin 13.2 g/dL (12.2-16.2); Lymphocytes # 3.4 K/mm3 (0.7-4.5); Lymphocytes % 35.2 % (10-50); Mean Corpuscular HGB Conc 32.5 g/dL (31.8-35.4); Mean Corpuscular Hemoglobin 26.6 pg (27.0-31.2); Mean Corpuscular Volume 81.8 fl (81-99); Monocytes # 0.5 K/mm3 (0.1-1.0); Monocytes % 5.1 % (1.7-9.3); Neutrophils # 5.5 K/mm3 (1.8-7.8); Neutrophils % 57.6 % (37.0-80.0); Platelet Count 321 K/mm3 (142-424); Red Blood Count 4.95 M/mm3 (4.20-5.40); Red Cell Distribution Width 14.1 % (11.5-17.5); White Blood Count 9.6 K/mm3 (4.8-10.8)
[2022-11-01 14:00] LABS: Alanine Aminotransferase 32 U/L (12-78); Albumin Level 3.6 g/dl (3.5-5.0); Albumin/Globulin Ratio 1.3 (1.1-1.8); Alkaline Phosphatase 105 U/L (38-126); Aspartate Amino Transferase 27 U/L (14-36); Blood Urea Nitrogen 17 mg/dl (7-17); Calcium 8.8 mg/dl (8.4-10.2); Carbon Dioxide 29 mmol/L (22.0-30.0); Chloride 100 mmol/L (98-107); Estimated Glomerular Filt Rate 78 ml/min (>60); GFR (African American) 95 ML/MIN (>60); Globulin 2.8 g/dL (1.3-3.2); Glucose 85 mg/dl (74-100); Sodium 140 mmol/L (136-145); Total Protein,Serum 6.4 g/dl (6.3-8.2)
[2022-11-01 14:05] LABS: Bilirubin,Total 0.1 mg/dl (0.2-1.3)
[2022-11-01 14:31] LABS: Thyroid Stimulating Hormone 0.19 uIU/mL (0.465-4.68)
[2022-11-01 14:50] LABS: Vitamin B12 370 pg/mL (239-931)
== END ==
PROVIDERS: PCP Internal Medicine Adolescent Medicine; Visit Provider Internal Medicine Adolescent Medicine
DX: E03.9 Hypothyroidism, unspecified (principal); E53.8 Deficiency of other specified B group vitamins; E66.9 Obesity, unspecified; Z68.30 Body mass index [BMI] 30.0-30.9, adult
CPT/HCPCS: 36415; 80053; 82306; 82607; 84443; 85025

== ENCOUNTER 2022-11-08 17:57 | Emergency (ER) | payer OTHER, SELFPAY ==
[2022-11-08 17:58] VITALS: BP 112/63; PULSE 120; RESP 17; TEMP 39.6; O2SAT 100; BMI 35.5
--- NOTE | 2022-11-08 18:17 | XR_ITS ---
PROCEDURE INFORMATION: Exam: XR Chest Exam date and time: 11/08/2022 6:53 PM Age: 22 years old Clinical indication: Shortness of breath; Additional info: SOA TECHNIQUE: Imaging protocol: Radiologic exam of the chest. Views: 1 view. Total images: 1 COMPARISON: CR XR CHEST 2V 04/22/2020 6:42 PM FINDINGS: Lungs: Unremarkable. No consolidation. No pulmonary vascular congestion or edema. Pleural spaces: Unremarkable. No pleural effusion. No pneumothorax. Heart/Mediastinum: Unremarkable. No cardiomegaly. No mediastinal widening or hilar enlargement. Bones/joints: Unremarkable. IMPRESSION: No radiographically acute cardiopulmonary process.
--- NOTE | 2022-11-08 18:17 | CT_ITS ---
PROCEDURE INFORMATION: Exam: CT Abdomen And Pelvis With Contrast Exam date and time: 11/08/2022 7:01 PM Age: 22 years old Clinical indication: Abdominal pain; Additional info: Luq pain TECHNIQUE: Imaging protocol: Computed tomography of the abdomen and pelvis with contrast. Total images: 324 Radiation optimization: All CT scans at this facility use at least one of these dose optimization techniques: automated exposure control; mA and/or kV adjustment per patient size (includes targeted exams where dose is matched to clinical indication); or iterative reconstruction. Contrast material: ISOVUE; Contrast volume: 75 ml; Contrast route: IV; REPORTING DATA: Count of CT and Cardiac NM exams in prior 12 months: This patient has received 0 known CTs and 0 known cardiac nuclear medicine studies in the 12 months prior to the current study. COMPARISON: CT ABDOMEN PELVIS W CON 10/12/2021 3:26 PM FINDINGS: Lungs: Lung bases are clear. Nonspecific new bilobed fluid collection anterior right lung base in the epicardial fat, measuring 5 x 2 cm. Heart: Normal heart size. Diaphragm: Mild eventration right hemidiaphragm. Liver: Normal. No mass. Gallbladder and bile ducts: Status post cholecystectomy. No bile duct dilatation. Pancreas: Normal. No ductal dilation. Spleen: Normal. No splenomegaly. Adrenal glands: Normal. No mass. Kidneys and ureters: No nephrolithiasis, hydronephrosis, or renal mass. No perinephric fluid. Stomach and bowel: Stomach is mostly collapsed. Unremarkable duodenum. Fluid-filled small bowel with subjective mild wall thickening implying nonspecific enteritis. No ileus or bowel obstruction. Colon and rectum are within normal limits. Scattered air-fluid levels in the ascending colon likely sequela of enterocolitis versus physiologic causes. Appendix: Normal appendix, stable at 7 mm diameter. No surrounding inflammation. Intraperitoneal space: No ascites. No free air. Vasculature: Unremarkable. No abdominal aortic aneurysm. Lymph nodes: Small benign-appearing bilateral inguinal lymph nodes. Scattered small mesenteric lymph nodes are not pathologically enlarged most likely reactive. Urinary bladder: Unremarkable as visualized. Reproductive: Uterus and ovaries are physiologic. No adnexal mass or free pelvic fluid. Bones/joints: No acute osseous abnormality. No concerning bone lesions. Soft tissues: Very tiny fat containing umbilical hernia. IMPRESSION: 1. Suspect acute nonspecific enterocolitis. No complicating features. 2. New 5 x 2 cm simple fluid collection/cyst right epicardial space of undetermined etiology,
[2022-11-08 18:27] LABS: Coronavirus 19, PCR Not Detected (NotDetected); Influenza A, PCR Not Detected (NotDetected); Influenza B, PCR Not Detected (NotDetected)
--- NOTE | 2022-11-08 18:29 | HMH.EDGENADL ---
Discharge Plan Disposition Patient Disposition: Home, Self-Care Prescriptions Prescriptions: New clindamycin HCl 300 mg capsule 300 mg PO Q8H 10 Days Qty: 30 0RF No Action cetirizine 10 mg tablet 10 mg PO DAILY Qty: 90 3RF montelukast 10 mg tablet 10 mg PO DAILY Qty: 90 3RF ondansetron 8 mg tablet,disintegrating 8 mg PO Q6HP PRN (Reason: Nausea) Label Comments: DISSOLVE 1 TABLET ON THE TONGUE EVERY DAY NEEDED levothyroxine 100 mcg tablet 100 mcg PO DAILY Label Comments: TAKE 1 TABLET BY MOUTH ONCE DAILY albuterol sulfate 90 mcg/actuation HFA aerosol inhaler 2 puff INHALATION Q6HP PRN (Reason: wheeze, soa) Label Comments: INHALE 2 PUFFS BY MOUTH EVERY 6 HOURS fluticasone propionate 50 mcg/actuation spray,suspension 1 spray INTRANASAL DAILY Referrals Follow up/Referrals: Yordan Smith MD [Primary Care Provider] - See instructions Casey Luu MD [Staff Physician] - See instructions Activity Restrictions/Add. Instructions Additional Instructions/Restrictions: Return for worsening abdominal pain vomiting or any other concerns within the next 8 hours otherwise follow-up with your primary care physician within the next few days and see cardiology this week Clinical Impressions Clinical Impression: Abdominal pain, Pericardial cyst Instructions Patient Instructions: DI for Acute Abdominal Pain Discharge ED Provider: Severino (ED)Lyle General Adult HPI <Neil Salter MD - Last Filed: 11/08/22 19:57> General Chief complaint: Abdominal Pain Stated complaint: abd pain, fever, h/a, sore throat, ear pain Time Seen by Provider: 11/08/22 18:00 Mode of Arrival: Ambulatory Limitations: No Limitations Description of Symptoms (Recalled from ER Triage Doc. by RN): PT WITH C/O ABDOMINAL PAIN LEFT SIDE TO UMBILICUS, STARTED LAST NIGHT. C/O NAUSEA, DIZZINESS, FEVER, SORE THROAT AND CHILLS. PT WITH VAGINAL DELIVERY ABOUT 7 WEEKS AGO, BREAST AND BOTTLE FEEDING. INFANT WITH HAND, FOOT AND MOUTH CURRENTLY History of Present Illness HPI narrative: 22-year-old female 7 weeks presents with left upper quadrant abdominal pain for 2 days and chills and fever. No vaginal discharge bleeding lower abdominal pain. No right upper quadrant pain. She also has a sore throat with ear congestion. No nausea vomiting diarrhea chest pain or shortness of air. Infant has [id number]-hsy-mouth disease currently. Related Data Home Medications Medication Instructions Recorded Confirmed ondansetron 8 mg disintegrating 8 mg PO Q6HP PRN Nausea 03/14/22 11/08/22 tablet albuterol sulfate 90 mcg/actuation 2 puff inhalation Q6HP PRN wheeze, 11/08/22 11/08/22 aerosol inhaler soa fluticasone propionate 50 1 spray intranasal DAILY Allergy 11/08/22 11/08/22 mcg/actuation nasal symptoms spray,suspension levothyroxine 100 mcg tablet 100 mcg PO DAILY thyroid disorder 11/08/22 11/08/22 Previous Rx's Medication Instructions Recorded cetirizine 10 mg tablet 10 mg PO DAILY Allergy symptoms 06/23/22 #90 tabs montelukast 10 mg tablet 10 mg PO DAILY Allergy symptoms 06/23/22 #90 tabs clindamycin HCl 300 mg capsule 300 mg PO Q8H 10 days #30 caps 11/08/22 Allergies Allergy/AdvReac Type Severity Reaction Status Date / Time amoxicillin Allergy Intermediate I-HIVES Verified 02/18/22 14:38 ceftibuten [From Cedax] Allergy Intermediate I-HIVES Verified 02/18/22 14:38 penicillin G Allergy Intermediate I-HIVES Verified 02/18/22 14:38 adhesive tape Allergy Hives Verified 02/18/22 14:38 codeine Allergy Verified 02/18/22 14:38 PFS <Neil Salter MD - Last Filed: 11/08/22 19:57> [facility] Disclaimer: The information contained in this section may have been updated after the patient was seen, as this information can be updated by other users. Medical History Acne Anxiety Asthma B12 deficiency anemia History of gastroeso
[2022-11-08 18:33] LABS: Basophils % 0.3 % (0.1-2.0); Eosinophils % 0.3 % (0.1-12.0); Hematocrit 39.1 % (37.0-47.0); Hemoglobin 12.8 g/dL (12.2-16.2); Lymphocytes # 1.1 K/mm3 (0.7-4.5); Lymphocytes % 9.8 % (10-50); Mean Corpuscular HGB Conc 32.7 g/dL (31.8-35.4); Mean Corpuscular Hemoglobin 26.2 pg (27.0-31.2); Monocytes # 0.7 K/mm3 (0.1-1.0); Monocytes % 6.1 % (1.7-9.3); Neutrophils # 9.4 K/mm3 (1.8-7.8); Neutrophils % 83.5 % (37.0-80.0); Platelet Count 290 K/mm3 (142-424); Red Blood Count 4.89 M/mm3 (4.20-5.40); Red Cell Distribution Width 14.2 % (11.5-17.5); White Blood Count 11.3 K/mm3 (4.8-10.8)
--- NOTE | 2022-11-08 18:34 | PC.NURSE ---
PT UNABLE TO KEEP GI COCKTAIL DOWN, NOTIFIED
[2022-11-08 18:40] LABS: Strep Scrn Group A (Rapid) Negative (Negative)
[2022-11-08 18:51] LABS: Chloride 94 mmol/L (98-107); Potassium 3.5 mmoL/L (3.5-5.1); Sodium 133 mmol/L (136-145)
[2022-11-08 18:53] LABS: Blood Urea Nitrogen 12 mg/dl (7-17); Creatinine Clearance Estimated 119 mL/min (50-200); Estimated Glomerular Filt Rate 62 ml/min (>60); GFR (African American) 75 ML/MIN (>60)
[2022-11-08 18:54] LABS: Alanine Aminotransferase 41 U/L (12-78); Albumin/Globulin Ratio 1.2 (1.1-1.8); Alkaline Phosphatase 100 U/L (38-126); Anion Gap 16.5 mEq/L (5-15); Aspartate Amino Transferase 42 U/L (14-36); Bilirubin,Total 0.3 mg/dl (0.2-1.3); Calcium 8.9 mg/dl (8.4-10.2); Carbon Dioxide 26 mmol/L (22.0-30.0); Globulin 3.3 g/dL (1.3-3.2); Glucose 106 mg/dl (74-100); Lipase 36 U/L (23-300); Total Protein,Serum 7.3 g/dl (6.3-8.2)
--- NOTE | 2022-11-08 18:54 | PC.NURSE ---
PT TO CT
--- NOTE | 2022-11-08 18:54 | PC.NURSE ---
pt to rad
[2022-11-08 19:08] LABS: Monoscreen (Rapid) Negative (Negative)
[2022-11-08 20:00] VITALS: BP 100/70; PULSE 102; O2SAT 97
--- NOTE | 2022-11-08 20:12 | PC.NURSE ---
Manual BP 100/70
[2022-11-08 20:19] LABS: Microscopic, Urine URINE MICROSCOPIC (MICROSCOPIC)
[2022-11-08 20:21] LABS: Appearance,Urine CLEAR (Clear); Bilirubin,Urine Negative (Negative); Blood, Urine Negative (Negative); Color,Urine STRAW (Yellow); Glucose,Urine (UA) Negative (Negative); Ketones,Urine Negative (Negative); Leukocyte Esterase,Urine 1+ (Negative); Nitrate,Urine Negative (Negative); Protein,Urine Negative (Negative); Specific Gravity, Urine <= 1.005 (1.005-1.030); Urobilinogen,Urine 0.2 EU/dl (0.2)
[2022-11-08 21:15] VITALS: BP 110/72; PULSE 85; RESP 17; TEMP 36.8; O2SAT 98
[2022-11-08 21:17] LABS: Bacteria,Urine Trace /lpf; WBC,Urine Occasional #/hpf (0-3)
--- NOTE | 2022-11-08 21:17 | PC.NURSE ---
Dr. Haq s/w Dr. Luu regarding pt and she will follow up with his office per her schedule
[2022-11-08 21:51] LABS: C-Reactive Protein 25.1 mg/L (0-4)
[2022-11-08 22:05] LABS: Erythrocyte Sedimentation Rate 31 mm/hr (0-20)
== END 2022-11-08 21:38 | disposition home or self-care (01) ==
PROVIDERS: Emergency Medicine; Emergency Provider Emergency Medicine; PCP Internal Medicine Adolescent Medicine
DX: O99.63 Diseases of the digestive system complicating the puerperium (principal); O99.43 Diseases of the circulatory system complicating the puerperium; I31.8 Other specified diseases of pericardium; R10.12 Left upper quadrant pain
CPT/HCPCS: 71045; 74177; 80053; 81001; 83690; 85025; 85651; 86140; 86318; 87086; 87430; 87635; 87636; 96361; 96374; 99285; C9803; J2405; Q9967; U0003; U0005

== ENCOUNTER → 2022-11-11 13:33 | Outpatient (CLI) | payer OTHER, SELFPAY | PROVIDERS: PCP Internal Medicine Adolescent Medicine; Visit Provider Internal Medicine Adolescent Medicine | DX: R42 Dizziness and giddiness (principal); R53.83 Other fatigue | CPT/HCPCS: 93306 ==

== ENCOUNTER 2022-12-31 11:02 | Outpatient (RCR) | payer OTHER, SELFPAY | END 2022-12-31 12:00 | disposition home or self-care (01) | LOC: OT 11:02 | PROVIDERS: Visit Provider Physician Assistant | DX: M25.531 Pain in right wrist (principal) | CPT/HCPCS: 97763 ==

== ENCOUNTER → 2023-01-02 08:27 | Outpatient (CLI) | payer OTHER, SELFPAY ==
--- NOTE | 2023-01-02 08:45 | XR_ITS ---
PROCEDURE INFORMATION: Exam: XR Right Hand Exam date and time: 01/02/2023 8:42 AM Age: 22 years old Clinical indication: Pain; Wrist; Right TECHNIQUE: Imaging protocol: Radiologic exam of the right hand. Views: 3 or more views. COMPARISON: CR XR WRIST RT W SCAPHOID 01/02/2023 8:39 AM FINDINGS: Bones/joints: Normal. Soft tissues: Normal. IMPRESSION: No acute findings.
--- NOTE | 2023-01-02 08:45 | XR_ITS ---
PROCEDURE INFORMATION: Exam: XR Right Wrist Exam date and time: 01/02/2023 8:39 AM Age: 22 years old Clinical indication: Pain; Wrist; Right; Additional info: Wrist pain TECHNIQUE: Imaging protocol: Radiologic exam of the right wrist. Views: 3 or more views. COMPARISON: CR WRISTCMRT XR wrist RT min 3V 03/27/2018 12:48 PM FINDINGS: Bones/joints: Normal. Soft tissues: Normal. IMPRESSION: No acute findings.
== END ==
PROVIDERS: PCP Internal Medicine Adolescent Medicine; Visit Provider Physician Assistant
DX: M25.531 Pain in right wrist (principal); M79.641 Pain in right hand
CPT/HCPCS: 73110; 73130

== ENCOUNTER 2023-02-09 10:23 | Emergency (ER) | payer OTHER, SELFPAY ==
[2023-02-09 11:15] VITALS: BP 120/76; PULSE 76; RESP 18; TEMP 36.9; O2SAT 98; BMI 37.0
--- NOTE | 2023-02-09 11:28 | EXP.UTC ---
Discharge Plan Disposition Patient Disposition: Home, Self-Care Condition: Good Prescriptions Prescriptions: No Action levothyroxine 100 mcg tablet 100 mcg PO DAILY Patient Comments: TAKE 1 TABLET BY MOUTH ONCE DAILY albuterol sulfate 90 mcg/actuation HFA aerosol inhaler 2 puff INHALATION Q6HP PRN (Reason: wheeze, soa) Patient Comments: INHALE 2 PUFFS BY MOUTH EVERY 6 HOURS Ubrelvy 50 mg tablet 50 mg PO DAILYP PRN (Reason: Headache) Patient Comments: TAKE 1 TABLET BY MOUTH ONCE DAILY NEEDED Referrals Follow up/Referrals: Yordan Smith MD [Primary Care Provider] - See instructions Activity Restrictions/Add. Instructions Additional Instructions/Restrictions: *Monitor Temp, Over the counter Motrin or Tylenol as directed/as needed Tylenol every 4 hours and Motrin every 6 hours (as long as your family doctor has told you that you can take it) for fever or pain. and straight to ER if unable to lower temp less than 101.0 after medication given *Warm salt water gargles may help to soothe the throat *Throat Lozenges? *Warm fluids like tea with honey may help to soothe the throat? *Sleep elevated *Humidifier/Vaporizer Your throat swab was sent for culture. Those results are typically sent to your primary care. Be sure to follow up in 2-3 days with your family doctor/primary care physician if no improvement so they can review those result and treat if necessary. If you don?t have a primary care doctor, I recommend you get one but in the mean time, you will have to return to a walk in clinic Follow up IMMEDIATELY for new or worsening symptoms or no Noticeable improvement over the next 48-72 hours. 911 for difficulty breathing or swallowing You were tested for today for Upper Respiratory Panel with COVID19 your test result should be back in the next 24 You may check your results on the [facility] [employer] [facility] Portal Clinical Impressions Clinical Impression: Viral upper respiratory infection Stand Alone Forms Stand Alone Forms: Work/School Release Instructions Patient Instructions: DI for COVID-19 (Suspected or Confirmed ), Preventing the Spread of Coronavirus Discharge Instructions, DI for Viral Upper Respiratory Infection -- Adult Discharge ED Provider: Joaquina Abbott [facility] HPI General Stated complaint: VACA, nausea, stomach pain, vomiting Mode of Arrival: Ambulatory Source of Information: Patient Limitations: No Limitations Time Seen by Provider: 02/09/23 11:28 Description of Symptoms (Recalled from Triage Doc. by RN): PATIENT C/O SORE THROAT, FEVER, NAUSEA, VOMITING, HEADACHE, BODY ACHES AND DIZZINESS X 3 DAYS HEENT Symptoms (Recalled from RN notes): Yes Resp Symptoms (Recalled from RN notes): No Skin Symptoms (Recalled from RN notes): No MS Symptoms (Recalled from RN notes): No Functional Status (Recalled from RN notes): WNL History of Present Illness Provider Complaint: Patient states that for the last 3 days she has been having body aches, chills, N/V headaches, sore throat and stuffy nose and felt dizzy at times States that she has been around people with COVID, Strep and FLu thinks maybe she may have it now too so today when she wasnt feeling any better she came in to get checked Related Data Home Medications Medication Instructions Recorded Confirmed albuterol sulfate 90 mcg/actuation 2 puff inhalation Q6HP PRN wheeze, 11/08/22 02/09/23 aerosol inhaler soa levothyroxine 100 mcg tablet 100 mcg PO DAILY thyroid disorder 11/08/22 02/09/23 ubrogepant 50 mg tablet (Ubrelvy) 50 mg PO DAILYP PRN Headache 02/09/23 02/09/23 Allergies Allergy/AdvReac Type Severity Reaction Status Date / Time amoxicillin Allergy Intermediate I-HIVES Verified 02/18/22 14:38 ceftibuten [From Cedax] Allergy Intermediate I-HIVES Verified 02/18/22 14:38 penicillin G Allergy Intermediate I-HIVES Verified 02/18/22 14:38 adhesive tape Allergy Hives Verified
[2023-02-09 11:39] LABS: UTC Strep Screen (Rapid) Negative (Negative)
[2023-02-09 11:40] LABS: UTC Influenza A Antigen Negative (Negative); UTC Influenza B Antigen Negative (Negative)
[2023-02-09 11:45] VITALS: BP 120/76; PULSE 76; RESP 18; TEMP 36.9; O2SAT 98
== END 2023-02-09 11:47 | disposition home or self-care (01) ==
PROVIDERS: Emergency Provider Nurse Practitioner; PCP Internal Medicine Adolescent Medicine
DX: J06.9 Acute upper respiratory infection, unspecified (principal); R11.2 Nausea with vomiting, unspecified; R51.9 Headache, unspecified; B34.9 Viral infection, unspecified; E03.9 Hypothyroidism, unspecified; F41.9 Anxiety disorder, unspecified; D51.9 Vitamin B12 deficiency anemia, unspecified; J45.909 Unspecified asthma, uncomplicated
CPT/HCPCS: 87804; 87880; 99212; 99213; G0463

== ENCOUNTER 2023-03-15 17:52 | Emergency (ER) | payer OTHER, SELFPAY ==
[2023-03-15 18:19] VITALS: BP 132/82; PULSE 97; RESP 18; TEMP 37.4; O2SAT 96; BMI 38.7
--- NOTE | 2023-03-15 18:23 | XR_ITS ---
PROCEDURE INFORMATION: Exam: XR Chest Exam date and time: 03/15/2023 6:51 PM Age: 22 years old Clinical indication: Smoker's cough; Additional info: Cough with recent fever TECHNIQUE: Imaging protocol: Radiologic exam of the chest. Views: 2 views. COMPARISON: CR XR CHEST PORTABLE 11/08/2022 6:53 PM FINDINGS: Lungs: Reticulonodular opacities in the right lower lobe compatible with atypical pneumonia. No focal airspace consolidation. Pleural spaces: No significant pleural effusion. No pneumothorax. Heart/Mediastinum: Cardiomediastinal silouhette is within normal limits. Bones/joints: No evidence of acute osseous abnormality. IMPRESSION: Reticulonodular opacities in the right lower lobe compatible with atypical pneumonia.
--- NOTE | 2023-03-15 18:26 | PC.NURSE ---
nasal swab and strep swab sent to lab.
[2023-03-15 18:55] LABS: Coronavirus 19, PCR Not Detected (NotDetected); Influenza A, PCR Not Detected (NotDetected); Influenza B, PCR Not Detected (NotDetected)
[2023-03-15 19:18] LABS: Strep Scrn Group A (Rapid) Negative (Negative)
--- NOTE | 2023-03-15 20:49 | HMH.EDGENADL ---
Discharge Plan Disposition Patient Disposition: Home, Self-Care Prescriptions Prescriptions: New anuwkzctkkyszik-olkuvlupp-QP [Bromfed DM] 2-30-10 mg/5 mL syrup 5 ml PO Q6H PRN (Reason: cold symptoms) Qty: 118 0RF doxycycline hyclate 100 mg tablet 100 mg PO BID 7 Days Qty: 14 0RF No Action spironolactone 25 mg tablet 25 mg PO DAILY metformin 1,000 mg tablet 1,000 mg PO BID levothyroxine 100 mcg tablet 100 mcg PO DAILY Patient Comments: TAKE 1 TABLET BY MOUTH ONCE DAILY albuterol sulfate 90 mcg/actuation HFA aerosol inhaler 2 puff INHALATION Q6HP PRN (Reason: wheeze, soa) Patient Comments: INHALE 2 PUFFS BY MOUTH EVERY 6 HOURS Ubrelvy 50 mg tablet 50 mg PO DAILYP PRN (Reason: Headache) Patient Comments: TAKE 1 TABLET BY MOUTH ONCE DAILY NEEDED Referrals Follow up/Referrals: Yordan Smith MD [Primary Care Provider] - See instructions Activity Restrictions/Add. Instructions Additional Instructions/Restrictions: At this time it was felt you are safe to be discharged home. If new or worsening symptoms please do not hesitate to return the emergency department. If symptoms persist please follow-up with your family doctor as you are able. Please use 4 puffs of your inhaler with the spacer provided to you every 3-4 hours as needed for wheezing. Please take your medications as prescribed. Clinical Impressions Clinical Impression: CAP (community acquired pneumonia) Stand Alone Forms Stand Alone Forms: Work/School Release Discharge ED Provider: Parminder Cain General Adult HPI General Chief complaint: Upper Respiratory Infection Stated complaint: cough,headache,shoulder pain, out of breath Time Seen by Provider: 03/15/23 19:00 Mode of Arrival: Ambulatory Source of Information: Patient Limitations: No Limitations Description of Symptoms (Recalled from ER Triage Doc. by RN): pt presents to ED c/o cough x 1 week. pt reports a headache x 3 days. pt denies a fever since Tuesday. pt reports headache is present after coughing. pt reports blisters on tongue. pt reports she has been tested for flu and covid x 2 since beginning of symptoms. History of Present Illness HPI narrative: Patient is a 22-year-old female with past medical history of asthma who presents emergency department for evaluation of shortness of breath and cough. Onset was acute, for the last 5 to 7 days. Patient has since developed a headache that occurs while coughing, frontal in nature. No other acute complaints at this time. Due to persistent cough she presents here for continued evaluation. Related Data Home Medications Medication Instructions Recorded Confirmed albuterol sulfate 90 mcg/actuation 2 puff inhalation Q6HP PRN wheeze, 11/08/22 02/09/23 aerosol inhaler soa levothyroxine 100 mcg tablet 100 mcg PO DAILY thyroid disorder 11/08/22 02/09/23 ubrogepant 50 mg tablet (Ubrelvy) 50 mg PO DAILYP PRN Headache 02/09/23 02/09/23 metformin 1,000 mg tablet 1,000 mg PO BID pcos 03/15/23 03/15/23 spironolactone 25 mg tablet 25 mg PO DAILY diuretic 03/15/23 03/15/23 Previous Rx's Medication Instructions Recorded phdkirptpknzbmr-yjawfrtwydkxyle-ZZ 5 ml PO Q6H PRN cold symptoms #118 03/15/23 2 mg-30 mg-10 mg/5 mL oral syrup mL (Bromfed DM) doxycycline hyclate 100 mg tablet 100 mg PO BID 7 days #14 tabs 03/15/23 Allergies Allergy/AdvReac Type Severity Reaction Status Date / Time amoxicillin Allergy Intermediate I-HIVES Verified 02/18/22 14:38 ceftibuten [From Cedax] Allergy Intermediate I-HIVES Verified 02/18/22 14:38 penicillin G Allergy Intermediate I-HIVES Verified 02/18/22 14:38 adhesive tape Allergy Hives Verified 02/18/22 14:38 codeine Allergy Verified 02/18/22 14:38 [facility] Disclaimer: The information contained in this section may have been updated after the patient was seen, as this information can be updated by other users. Medical History (Reviewed
[2023-03-15 21:04] VITALS: PULSE 81; PULSE 82
[2023-03-15 21:20] VITALS: BP 124/70; PULSE 70; RESP 18; TEMP 36.8; O2SAT 98
== END 2023-03-15 21:23 | disposition home or self-care (01) ==
PROVIDERS: Emergency Provider Emergency Medicine; PCP Internal Medicine Adolescent Medicine
DX: J18.9 Pneumonia, unspecified organism (principal); R51.9 Headache, unspecified; J45.909 Unspecified asthma, uncomplicated; F41.9 Anxiety disorder, unspecified; E03.9 Hypothyroidism, unspecified
CPT/HCPCS: 71046; 87430; 87636; 99284

== ENCOUNTER 2023-03-25 16:38 | Emergency (ER) | payer OTHER, SELFPAY ==
[2023-03-25] VITALS (7 sets, daily range): BP systolic 107–131; BP diastolic 55–88; PULSE 109–119; RESP 18–23; TEMP 37.1–37.4; O2SAT 96–99; BMI 37.9
--- NOTE | 2023-03-25 16:41 | HMH.EDGENADL ---
Discharge Plan Disposition Patient Disposition: Home, Self-Care Condition: Good Prescriptions Prescriptions: New levofloxacin 750 mg tablet 750 mg PO DAILY 5 Days Qty: 5 0RF No Action spironolactone 25 mg tablet 25 mg PO DAILY metformin 1,000 mg tablet 1,000 mg PO BID qlzercxwvsmnjyi-jelcmtham-TU [Bromfed DM] 2-30-10 mg/5 mL syrup 5 ml PO Q6H PRN (Reason: cold symptoms) Qty: 118 0RF doxycycline hyclate 100 mg tablet 100 mg PO BID 7 Days Qty: 14 0RF levothyroxine 100 mcg tablet 100 mcg PO DAILY Patient Comments: TAKE 1 TABLET BY MOUTH ONCE DAILY albuterol sulfate 90 mcg/actuation HFA aerosol inhaler 2 puff INHALATION Q6HP PRN (Reason: wheeze, soa) Patient Comments: INHALE 2 PUFFS BY MOUTH EVERY 6 HOURS Referrals Follow up/Referrals: Yordan Smith MD [Primary Care Provider] - See instructions Activity Restrictions/Add. Instructions Additional Instructions/Restrictions: As discussed, I have prescribed a different course of antibiotics. Please follow-up with your primary care doctor, please use the nausea medication as needed. Please return with any new or worsening symptoms. Clinical Impressions Clinical Impression: Pneumonia Qualifiers: Pneumonia type: due to unspecified organism Laterality: right Lung location: lower lobe of lung Qualified Code(s): J18.9 - Pneumonia, unspecified organism Instructions Patient Instructions: Pneumonia-Adult Discharge ED Provider: John Richardson General Adult HPI General Chief complaint: Shortness of Breath/Dyspnea Stated complaint: vomiting, fever/chills, abd pain Time Seen by Provider: 03/25/23 16:41 History of Present Illness HPI narrative: The patient presents with a chief complaint of fever, vomiting, and inability to keep anything down. They report having been sick for approximately two weeks, with a brief period of improvement before the onset of fever and vomiting again. The patient has a history of atypical pneumonia in the right lung, diagnosed during a visit on the . The patient has a past medical history of gallbladder removal, tonsillectomy, adenoidectomy, and multiple ear tube placements. They are currently on thyroid medication, albuterol inhaler for asthma, metformin 1000 for PCOS, and an unidentified medication starting with an A for PCOS. They were prescribed doxycycline and prednisone for the pneumonia, with a seven-day course for both medications. The patient also takes Flonase and cetirizine for allergies. The patient denies any leg pain or swelling but reports coughing up mucus. They are unsure of any family history of blood clots in the lungs. The patient experiences abdominal pain, similar to the pain experienced during gallbladder issues, which is alleviated by bringing their knees up. They also report vomiting associated with the abdominal pain. The patient describes shortness of breath when engaging in activities or lying down, which is worse than when sitting up. They localize the pain to the right side of the abdomen, below the belly button. The patient denies any pain with urination, back pain, side pain, diarrhea, or constipation. Related Data Home Medications Medication Instructions Recorded Confirmed albuterol sulfate 90 mcg/actuation 2 puff inhalation Q6HP PRN wheeze, 11/08/22 03/25/23 aerosol inhaler soa levothyroxine 100 mcg tablet 100 mcg PO DAILY thyroid disorder 11/08/22 03/25/23 metformin 1,000 mg tablet 1,000 mg PO BID pcos 03/15/23 03/25/23 spironolactone 25 mg tablet 25 mg PO DAILY diuretic 03/15/23 03/25/23 Previous Rx's Medication Instructions Recorded fszzzzvnqqzrosk-fkpzikymrdzwtyg-WY 5 ml PO Q6H PRN cold symptoms #118 03/15/23 2 mg-30 mg-10 mg/5 mL oral syrup mL (Bromfed DM) doxycycline hyclate 100 mg tablet 100 mg PO BID 7 days #14 tabs 03/15/23 levofloxacin 750 mg tablet 750 mg PO DAILY 5 days #5 tabs 03/25/23 Allergies Allergy/AdvReac Type Severity Reacti
--- NOTE | 2023-03-25 16:45 | PC.NURSE ---
Dr. Richardson notified that pt meets criteria for CODE SEPSIS, I let him know that there is a new order set that I can place for labs and IVF. He stated No, I'll go talk to her in a minute and put the orders in . I him know the order set for nursing sepsis and he stated No, that's ok, I'll get some orders in .
--- NOTE | 2023-03-25 16:50 | PC.NURSE ---
Dr. Richardson at bedside
--- OUTSIDE RECORDS SUMMARY | 2023-03-25 17:00 | XMS_ITS | Patient Health Record ---
Author Name Unknown Organization [facility] Address [address] [place] [address] Care Team Providers Care Supercharge Repair Supervisor Name Role Phone Yordan Smith Primary Care Provider Yordan Smith Unavailable Unavailable Felicity Hogue Unavailable [phone] Melanie Fitzpatrick Unavailable [phone] Mayo Oropeza Unavailable [phone] Marce Genao Unavailable [phone] Felicity Hanley Unavailable [phone] ALLERGIES Allergen (clinical drug ingredient) Drug/Non Drug Allergy documented on EMR Reaction Allergy Type Onset Date Status Amoxicillin Unknown Drug Allergy Activ e Penicillin Unknown Drug Allergy Active Cedax Unknown Drug Allergy Active codeine codeine hives Drug Allergy Active RESULTS Component Value Reference Range Notes X ray : Hand, Right Reviewed date:01/03/2023 12:12:25 PM Interpretation: Performing Lab: Notes/Report: X ray : Wrist, Right Reviewed date:01/03/2023 10:09:17 AM Interpretation: Performing Lab: Notes/Report: Rapid Strep Reviewed date:03/25/2023 04:06:33 PM Interpretation:Negative Performing Lab: Notes/Report: Negative Rapid screen Rapid Strep Reviewed date:
--- NOTE | 2023-03-25 17:15 | PC.NURSE ---
20g Peripheral IV placed to RAC. Labs collected and 1 set of blood cultures. Dr. Richardson was notified, states. I don't think she needs cultures right now . Collecting 1L LR per MD order.
--- NOTE | 2023-03-25 17:29 | XR_ITS ---
PROCEDURE INFORMATION: Exam: XR Chest Exam date and time: 03/25/2023 6:13 PM Age: 22 years old Clinical indication: Cough; Additional info: SOA, previous dx of pna TECHNIQUE: Imaging protocol: Radiologic exam of the chest. Views: 2 views. COMPARISON: CR XR CHEST 2V 03/15/2023 6:51 PM FINDINGS: Lungs: No evidence of acute pulmonary disease or infiltrates; lung murillo appear clear. Pleural spaces: No evidence of pleural effusion, pneumothorax, or pleural thickening in the visualized pleural spaces. Heart/Mediastinum: No evidence of mediastinal widening or cardiac silhouette enlargement; the mediastinum and heart appear within normal limits for contour and size. Diaphragm: There is elevation of the right hemidiaphragm. Bones/joints: No evidence of acute osseous abnormalities within the visualized portions of the thoracic spine and ribs. Osseous structures appear appropriate for patient age. Intraperitoneal space: There are right upper quadrant surgical clips suggesting prior cholecystectomy. Gastrointestinal tract: There is mild gaseous distention of partially visualized bowel loops. IMPRESSION: No dense parenchymal consolidation, pleural effusion, or pneumothorax.
[2023-03-25 17:44] LABS: Basophils % 0.4 % (0.1-2.0); Eosinophils # 0.1 K/mm3 (0.0-0.4); Eosinophils % 0.5 % (0.1-12.0); Hematocrit 46.2 % (37.0-47.0); Hemoglobin 14.7 g/dL (12.2-16.2); Lymphocytes # 1.4 K/mm3 (0.7-4.5); Lymphocytes % 11.5 % (10-50); Mean Corpuscular HGB Conc 31.8 g/dL (31.8-35.4); Mean Corpuscular Hemoglobin 25.7 pg (27.0-31.2); Mean Corpuscular Volume 80.6 fl (81-99); Mean Platelet Volume 7.1 fl (7.4-10.4); Monocytes # 0.4 K/mm3 (0.1-1.0); Monocytes % 2.8 % (1.7-9.3); Neutrophils # 10.6 K/mm3 (1.8-7.8); Neutrophils % 84.8 % (37.0-80.0); Platelet Count 344 K/mm3 (142-424); Red Blood Count 5.73 M/mm3 (4.20-5.40); Red Cell Distribution Width 15.2 % (11.5-17.5); White Blood Count 12.4 K/mm3 (4.8-10.8)
--- NOTE | 2023-03-25 17:45 | PC.NURSE ---
Pt provided with warm blanket
[2023-03-25 17:49] LABS: HCG Qualitative, Serum Negative (Negative)
[2023-03-25 17:51] LABS: Coronavirus 19, PCR Not Detected (NotDetected); Influenza A, PCR Not Detected (NotDetected); Influenza B, PCR Not Detected (NotDetected)
--- NOTE | 2023-03-25 17:54 | ECG_ITS ---
APPROVED REPORT Exam: Resting ECG HR:108 bpm ECG Measurements Heart Rate 108 AXES ME 149 P 30 QRSd 82 QRS 26 QT 286 T 14 QTc 350 Conclusion SINUS TACHYCARDIA NONSPECIFIC T-WAVE ABNORMALITY ABNORMAL RHYTHM ECG UNCONFIRMED REPORT Electronically signed by : Yordan Smith MD 03/26/2023 07:54:57
[2023-03-25 18:00] LABS: Alanine Aminotransferase 34 U/L (12-78); Albumin/Globulin Ratio 1.1 (1.1-1.8); Alkaline Phosphatase 106 U/L (38-126); Anion Gap 14.5 mEq/L (5-15); Aspartate Amino Transferase 32 U/L (14-36); Bilirubin,Total 0.9 mg/dl (0.2-1.3); Blood Urea Nitrogen 15 mg/dl (7-17); Calcium 8.8 mg/dl (8.4-10.2); Carbon Dioxide 23 mmol/L (22.0-30.0); Chloride 103 mmol/L (98-107); Creatinine Clearance Estimated 150 mL/min (50-200); Estimated Glomerular Filt Rate 78 ml/min (>60); GFR (African American) 95 ML/MIN (>60); Globulin 3.6 g/dL (1.3-3.2); Glucose 115 mg/dl (74-100); Potassium 3.5 mmoL/L (3.5-5.1); Sodium 137 mmol/L (136-145); Total Protein,Serum 7.6 g/dl (6.3-8.2)
--- NOTE | 2023-03-25 18:04 | PC.NURSE ---
rounded on pt at this time, pt resting on stretcher lights off in room. Pt states no needs at this time
[2023-03-25 18:05] LABS: D-Dimer 0.87 ug/mL (0.0-0.5)
--- NOTE | 2023-03-25 18:10 | PC.NURSE ---
NOTIFIED RAD STAFF PT PREG TEST NEGATIVE, READY FOR CXR
--- NOTE | 2023-03-25 18:51 | CT_ITS ---
PROCEDURE INFORMATION: Exam: CTA Chest With Contrast Exam date and time: 03/25/2023 7:15 PM Age: 22 years old Clinical indication: Cough and shortness of breath; Patient HX: H/o pneumonia; Additional info: Pe suspected, elevated dimer TECHNIQUE: Imaging protocol: Computed tomographic angiography of the chest with contrast. Exam focused on the arteries. 3D rendering (Not supervised by radiologist): MIP and/or 3D reconstructed images were created by the technologist. Radiation optimization: All CT scans at this facility use at least one of these dose optimization techniques: automated exposure control; mA and/or kV adjustment per patient size (includes targeted exams where dose is matched to clinical indication); or iterative reconstruction. Contrast material: ISOVUE; Contrast volume: 70 ml; Contrast route: INTRAVENOUS (IV); REPORTING DATA: Count of CT and Cardiac NM exams in prior 12 months: This patient has received [address] and 0 known cardiac nuclear medicine studies in the 12 months prior to the current study. COMPARISON: CR XR CHEST 2V 03/25/2023 6:13 PM FINDINGS: Pulmonary arteries: Normal. No pulmonary emboli. Aorta: Unremarkable. No aortic aneurysm. No aortic dissection. Lungs: Micronodular opacity noted in the superior segment of the right lower lobe. Lungs are otherwise clear. Pleural spaces: Unremarkable. No pneumothorax. No pleural effusion. Heart: Unremarkable. No cardiomegaly. No pericardial effusion. Lymph nodes: Unremarkable. No enlarged lymph nodes. Bones/joints: Unremarkable. No acute fracture. Soft tissues: Unremarkable. IMPRESSION: 1. Mild micronodular infiltrate in the superior segment of the right lower lobe suggesting acute endobronchial infection. 2. No evidence of pulmonary embolus.
--- NOTE | 2023-03-25 19:19 | PC.NURSE ---
pt back from ct scan
--- NOTE | 2023-03-25 19:34 | PC.NURSE ---
Patient resting with visitor at bedside. Inquired as to time frame of CT results. Only complaint is it is cold. Patient given blanket for comfort.
== END 2023-03-25 20:29 | disposition home or self-care (01) ==
PROVIDERS: Emergency Provider Emergency Medicine; PCP Internal Medicine Adolescent Medicine
DX: J18.9 Pneumonia, unspecified organism (principal); R00.0 Tachycardia, unspecified; R10.31 Right lower quadrant pain; R11.2 Nausea with vomiting, unspecified; R50.9 Fever, unspecified; E03.9 Hypothyroidism, unspecified; J45.909 Unspecified asthma, uncomplicated; F41.9 Anxiety disorder, unspecified
CPT/HCPCS: 71046; 71275; 80053; 84703; 85025; 85378; 87636; 93005; 96360; 99285; Q9967

== ENCOUNTER → 2023-04-11 09:08 | Outpatient (CLI) | payer OTHER, SELFPAY | PROVIDERS: PCP Internal Medicine Adolescent Medicine; Visit Provider Nurse Practitioner Family | DX: J18.9 Pneumonia, unspecified organism (principal); R05.9 Cough, unspecified; B96.89 Other specified bacterial agents as the cause of diseases classified elsewhere | CPT/HCPCS: 87070; 87205 ==

== ENCOUNTER 2023-06-09 16:05 | Emergency (ER) | payer OTHER, SELFPAY ==
[2023-06-09 16:20] VITALS: BP 125/81; PULSE 103; RESP 20; TEMP 37.7; O2SAT 100; BMI 37.7
--- NOTE | 2023-06-09 16:32 | EXP.UTC ---
Discharge Plan Disposition Patient Disposition: Home, Self-Care Condition: Good Prescriptions Prescriptions: New srlzruymmsufmwj-qyglnspyq-BD [Bromfed DM] 2-30-10 mg/5 mL Syrup 5 ml PO Q6H PRN (Reason: Cough) Qty: 240 0RF ondansetron 4 mg Tablet,Disintegrating 4 mg PO Q8H PRN (Reason: Nausea) Qty: 12 0RF No Action levothyroxine 100 mcg tablet 100 mcg PO DAILY Patient Comments: TAKE 1 TABLET BY MOUTH ONCE DAILY albuterol sulfate 90 mcg/actuation HFA aerosol inhaler 2 puff INHALATION Q6HP PRN (Reason: wheeze, soa) Patient Comments: INHALE 2 PUFFS BY MOUTH EVERY 6 HOURS clindamycin HCl 150 mg capsule 150 mg PO BID Patient Comments: TAKE 2 CAPSULES BY MOUTH NOW, THEN TAKE ONE CAPSULE FOUR TIMES DAILY UNTIL GONE Referrals Follow up/Referrals: Yordan Smith MD [Primary Care Provider] - See instructions Activity Restrictions/Add. Instructions Additional Instructions/Restrictions: Drink plenty of fluids. Take tylenol or ibuprofen for pain or fever. Take the medications as directed. Follow up with your regular doctor. GO TO THE ER FOR ANY WORSENING SYMPTOMS Clinical Impressions Clinical Impression: Acute viral syndrome Stand Alone Forms Stand Alone Forms: Work/School Release Instructions Patient Instructions: DI for Viral Syndrome, Coronavirus Disease 2019, Preventing the Spread of Coronavirus Discharge Instructions Discharge ED Provider: Mayo Ordoñez [facility] General Stated complaint: fever, VACA, nasuea Mode of Arrival: Ambulatory Source of Information: Patient Limitations: No Limitations Time Seen by Provider: 06/09/23 16:32 Description of Symptoms (Recalled from Triage Doc. by RN): PATIENT C/O NAUSEA, HEADACHE, BODY ACHES AND FEVER SINCE YESTERDAY HEENT Symptoms (Recalled from RN notes): Yes Resp Symptoms (Recalled from RN notes): No Skin Symptoms (Recalled from RN notes): No MS Symptoms (Recalled from RN notes): No Functional Status (Recalled from RN notes): WNL History of Present Illness Provider Complaint: She states that for the past 1 day she has had fever, chills, nausea, and malaise. She was exposed to covid-19 by her daughter having it last week. Related Data Home Medications Medication Instructions Recorded Confirmed albuterol sulfate 90 mcg/actuation 2 puff inhalation Q6HP PRN wheeze, 11/08/22 06/09/23 aerosol inhaler soa levothyroxine 100 mcg tablet 100 mcg PO DAILY thyroid disorder 11/08/22 06/09/23 clindamycin HCl 150 mg capsule 150 mg PO BID TOOTH 06/09/23 06/09/23 Previous Rx's Medication Instructions Recorded mxxyrugxaqnpcze-wzexjdpwhchxcwk-YU 5 ml PO Q6H PRN Cough #240 mL 06/09/23 2 mg-30 mg-10 mg/5 mL oral syrup (Bromfed DM) ondansetron 4 mg disintegrating 4 mg PO Q8H PRN Nausea #12 tabs 06/09/23 tablet Allergies Allergy/AdvReac Type Severity Reaction Status Date / Time amoxicillin Allergy Intermediate I-HIVES Verified 02/18/22 14:38 ceftibuten [From Cedax] Allergy Intermediate I-HIVES Verified 02/18/22 14:38 penicillin G Allergy Intermediate I-HIVES Verified 02/18/22 14:38 adhesive tape Allergy Hives Verified 02/18/22 14:38 codeine Allergy Verified 02/18/22 14:38 Worker's Comp Is this a Worker's Comp case?: No [facility] Disclaimer: The information contained in this section may have been updated after the patient was seen, as this information can be updated by other users. Medical History Acne Anxiety Asthma B12 deficiency anemia History of gastroesophageal reflux (GERD) Hypothyroidism Migraine Nausea and vomiting Surgical History History of cholecystectomy History of tonsillectomy History of tympanostomy tube placement Social History (Updated 08/02/22 @ 19:47 by Jodie Heaton RN) Smoking Status: Never smoker second hand exposure: No alcohol intake: never
[2023-06-09 16:35] LABS: UTC Influenza A Antigen Negative (Negative); UTC Influenza B Antigen Negative (Negative)
[2023-06-09 17:12] VITALS: BP 125/81; PULSE 103; RESP 20; TEMP 37.7; O2SAT 100
[2023-06-09 17:26] LABS: Adenovirus,PCR Not Detected (NotDetected); Coronavirus 19, PCR Not Detected (NotDetected); Coronavirus 229E Not Detected (NotDetected); Coronavirus NL63 Not Detected (NotDetected); Coronavirus OC43 Not Detected (NotDetected); Coronovirus HKU1,PCR Not Detected (NotDetected); Human Metapneumovirus Not Detected (NotDetected); Influenza A, PCR Not Detected (NotDetected); Influenza AH1, 2009 Not Detected (NotDetected); Influenza AH1, PCR Not Detected (NotDetected); Influenza AH3,PCR Not Detected (NotDetected); Influenza B, PCR Not Detected (NotDetected); Parainfluenza 1, PCR Not Detected (NotDetected); Parainfluenza 2, PCR Not Detected (NotDetected); Parainfluenza 3, PCR Not Detected (NotDetected); Parainfluenza 4, PCR Not Detected (NotDetected); Respiratory Syncytial Virus Not Detected (NotDetected); Rhinovirus/Enterovirus Not Detected (NotDetected)
== END 2023-06-09 17:16 | disposition home or self-care (01) ==
PROVIDERS: Emergency Provider Nurse Practitioner Family; PCP Internal Medicine Adolescent Medicine
DX: R51.9 Headache, unspecified (principal); R50.9 Fever, unspecified; R11.0 Nausea; M79.18 Myalgia, other site; R53.81 Other malaise; B34.9 Viral infection, unspecified; E03.9 Hypothyroidism, unspecified; J45.909 Unspecified asthma, uncomplicated
CPT/HCPCS: 87581; 87632; 87635; 87798; 87804; 99212; 99214; G0463

== ENCOUNTER 2024-07-25 10:10 | Emergency (ER) | payer OTHER, SELFPAY ==
[2024-07-25 11:10] VITALS: BP 114/87; PULSE 77; RESP 19; TEMP 36.9; O2SAT 99; BMI 31.4
--- NOTE | 2024-07-25 11:16 | XR_ITS ---
FINAL REPORT CLINICAL HISTORY: cough/short of breath at times COMPARISON: 03/15/2023 FINDINGS: CHEST 2 VIEWS PA AND LATERAL The heart is normal in size. The mediastinum is unremarkable. The previously identified infiltrate at the right base has resolved. There is no pneumothorax. IMPRESSION: No acute process. Reviewed, Interpreted and Dictated by Hardeep Sanabria MD Transcribed by Sharlene Keita Authenticated and [facility]
--- NOTE | 2024-07-25 11:18 | EXP.UTC ---
Discharge Plan Disposition Patient Disposition: Home, Self-Care Condition: Good Prescriptions Prescriptions: New azithromycin [Zithromax Z-Harinder] 250 mg tablet See Rx Instructions .ROUTE .COMPLEX 5 Days Qty: 6 0RF Rx Instructions: For 250 mg dose pack: take 500 mg today (day 1), then 250 mg for 4 days (days 2-5) benzonatate 100 mg capsule 100 mg PO TID PRN (Reason: cough) Qty: 30 0RF No Action venlafaxine 75 mg capsule,extended release 24hr 75 mg PO DAILY Patient Comments: TAKE 1 CAPSULE BY MOUTH ONCE DAILY loratadine 10 mg tablet 10 mg PO DAILY Patient Comments: TAKE 1 TABLET BY MOUTH ONCE DAILY Ubrelvy 50 mg tablet 50 mg PO DAILYP PRN (Reason: Migraine Headache) Patient Comments: TAKE 1 TABLET BY MOUTH ONCE NEEDED levothyroxine 100 mcg tablet 100 mcg PO DAILY Patient Comments: TAKE 1 TABLET BY MOUTH ONCE DAILY albuterol sulfate 90 mcg/actuation HFA aerosol inhaler 2 puff INHALATION Q6HP PRN (Reason: wheeze, soa) Patient Comments: INHALE 2 PUFFS BY MOUTH EVERY 6 HOURS Referrals Follow up/Referrals: Nathalia Yousif PA [Primary Care Provider] - See instructions Activity Restrictions/Add. Instructions Additional Instructions/Restrictions: *Monitor Temp, Over the counter Motrin or Tylenol as directed/as needed Tylenol every 4 hours and Motrin every 6 hours (as long as your family doctor has told you that you can take it) for fever or pain. and straight to ER if unable to lower temp less than 101.0 after medication given *Warm salt water gargles may help to soothe the throat *Throat Lozenges? *Warm fluids like tea with honey may help to soothe the throat? *Sleep elevated *Humidifier/Vaporizer *Your throat swab was sent for culture. Those results are typically sent to your primary care. Be sure to follow up in 2-3 days with your family doctor/primary care physician if no improvement so they can review those result and treat if necessary. If you don?t have a primary care doctor, I recommend you get one but in the mean time, you will have to return to a walk in clinic Follow up IMMEDIATELY for new or worsening symptoms or no Noticeable improvement over the next 48-72 hours. 911 for difficulty breathing or swallowing Clinical Impressions Clinical Impression: Pharyngitis Instructions Patient Instructions: Sore Throat, Cough Print Language Print Language: Thai Discharge ED Provider: Joaquina Abbott [facility] General Stated complaint: sore throat chills ba nausea fatigue Mode of Arrival: Ambulatory Source of Information: Patient Limitations: No Limitations Time Seen by Provider: 07/25/24 11:18 Description of Symptoms (Recalled from Triage Doc. by RN): PATIENT C/O SORE THROAT, CHILLS, BODY ACHES, FATIGUE, NAUSEA, VOMITING, STOMACH ACHE AND DIARRHEA X 3 DAYS HEENT Symptoms (Recalled from RN notes): Yes Resp Symptoms (Recalled from RN notes): No Skin Symptoms (Recalled from RN notes): No MS Symptoms (Recalled from RN notes): No Functional Status (Recalled from RN notes): WNL History of Present Illness Provider Complaint: Patient states that for the last 3 days she has not felt well States that she has been having sore throat, body aches, chills, chest congestion, cough and at times feels like she is a little SOA States she has a hx of Pneunmonia and wanted a CXR too to make sure that she doesnt have it now Related Data Home Medications ?Medication ?Instructions ?Recorded ?Confirmed albuterol sulfate 90 mcg/actuation 2 puff inhalation Q6HP PRN wheeze, 11/08/22 07/25/24 aerosol inhaler soa levothyroxine 100 mcg tablet 100 mcg PO DAILY thyroid disorder 11/08/22 07/25/24 loratadine 10 mg tablet 10 mg PO DAILY 07/25/24 07/25/24 ubrogepant 50 mg tablet (Ubrelvy) 50 mg PO DAILYP PRN Migraine 07/25/24 07/25/24 Headache venlafaxine 75 mg capsule,extended 75 mg PO DAILY 07/25/24 07/25/24 release 24 hr Previous Rx's ?Medication ?Instructions ?Recorded azithromycin 250 mg tablet See Rx Instructions PO .COMPLEX 5 07/25/24 (Zithromax Z-Harinder) days #6 tabs benzonatate 100 mg capsule 100 mg PO TID PRN cough #30 caps 07/25/24 Allergies Allergy/AdvReac Type Severity Reaction Status Date / Time amoxicillin Allergy Intermediate I-HIVES Verified 02/18/22 14:38 ceftibuten (From Cedax) Allergy Intermediate I-HIVES Verified 02/18/22 14:38 penicillin G Allergy Intermediate I-HIVES Verified 02/18/22 14:38 adhesive tape Allergy Hives Verified 02/18/22 14:38 codeine Allergy Verified 02/18/22 14:38 Worker's Comp Is this a Worker's Comp case?: No [facility] Disclaimer: The information contained in this section may have been updated after the patient was seen, as this information can be updated by other users. Medical History Acne Anxiety Asthma B12 deficiency anemia History of gastroesophageal reflux (GERD) Hypothyroidism Migraine Nausea and vomiting Surgical History History of cholecystectomy History of tonsillectomy History of tympanostomy tube placement Social History (Updated 08/02/22 @ 19:47 by Jodie Heaton RN) Smoking Status: Never smoker second hand exposure: No alcohol intake: never substance use type: denies use current occupational status: employed Travel in the last 8 weeks: None household members: family housing: house current occupational exposures/hazards: No caffeine: Yes Have you lived/traveled outside US in past 30 days?: No Contact w/someone who lives/traveled outside US past 30 days?: No Exposure to someone with infectious disease in past 14 days?: No Do you have a fever (greater than 100.4 F or 38 C)?: No Have you tested positive for COVID-19: No Exposed to someone with COVID-19 in past 14 days?: No Do you have a sore throat?: Yes Do you have a cough?: No Do you have any weakness?: No Do you have any diarrhea?: No Are you experiencing any unusual bleeding?: No Do you have any muscle aches/pain?: Yes Do you have any abdominal pain?: No Are you experiencing loss of taste or smell?: No ROS Obtained: Yes All systems reviewed & no additional complaints except as documented and Yes Systems reviewed as appropriate & no additional complaints except as documented Constitutional Constitutional: Reports system reviewed and no additional complaints, except as documented, Reports as per HPI, Reports body ache, Reports chills, Reports fever(s) and Reports headache(s) ENT Ears, Nose, Mouth, and Throat: Reports system reviewed and no additional complaints, except as documented, Reports as per HPI, Reports headache(s), Reports nasal congestion, Reports nasal discharge and Reports sore throat Respiratory Respiratory: Reports system reviewed and no additional complaints, except as documented, Reports as per HPI and Reports cough Gastrointestinal Gastrointestingal: Reports system reviewed and no additional complaints, except as documented and as per HPI Genitourinary Female Genitourinary: Reports system reviewed and no additional complaints, except as documented and Reports as per HPI Musculoskeletal Musculoskeletal: Reports system reviewed and no additional complaints, except as documented and Reports as per HPI Neurologic Neurologic: Reports headache(s) Physical Exam General General appearance: alert and in no apparent distress ENT ENT exam: Present mucous membranes moist Expanded ENT Exam Nose exam: Present sinus tenderness Throat exam: Present other (Pharyngeal erythema noted with PND) Respiratory Respiratory exam: Present normal lung sounds bilaterally; Absent respiratory distress or wheezes Cardiovascular Cardiovascular exam: Present regular rate, normal rhythm and normal heart sounds Abdominal Exam Abdominal exam: Present soft and normal bowel sounds; Absent distention or tenderness Neurological Exam Neurological exam: Present alert, oriented X3 and normal gait Medical Decision Making Medical Records Screening: Per USPSTF and CDC recommendations, given the prevalence of disease in our region, it is our hospital?s policy to screen for HIV and viral Hepatitis for all patients aged 18 and over and those with ongoing risk factors. Wander Inquiry Pt receiving controlled substance: No Wander was queried for this patient: No Vital Signs: 07/25/24 11:10 Temperature 98.5 F Temperature Source Oral Pulse Rate [Left Brachial] 77 Respiratory Rate 19 Blood Pressure [Left Arm] 114/87 Blood Pressure Mean [Left Arm] 96 Blood Pressure Source [Left Arm] Automatic Cuff Blood Pressure Position [Left Arm] Sitting 02 Sat by Pulse Oximetry 99 Oxygen Delivery Method Room Air Lab Data Lab results reviewed: Yes I reviewed the patient's lab results. Orders (Tests/Meds): ORDERS Category Date Time Status Chest XR 2 view (NOT portable) [XR chest 2V] Stat Exams 07/25/24 11:16 Ordered Radiology Data #1: Image(s): Chest Image Reviewed: Yes I have reviewed radiologist's interpretation no acute process
[2024-07-25 11:26] LABS: UTC Influenza A Antigen Negative (Negative); UTC Influenza B Antigen Negative (Negative); UTC Strep Screen (Rapid) Negative (Negative)
[2024-07-25 12:49] VITALS: BP 114/87; PULSE 77; RESP 19; TEMP 36.9; O2SAT 99
== END 2024-07-25 12:51 | disposition home or self-care (01) ==
PROVIDERS: Emergency Provider Nurse Practitioner; PCP Physician Assistant
DX: J02.9 Acute pharyngitis, unspecified (principal)
CPT/HCPCS: 71046; 87804; 87880; 99213; G0381

== ENCOUNTER 2024-10-26 11:52 | Emergency (ER) | payer OTHER, SELFPAY ==
[2024-10-26 12:03] VITALS: BP 135/75; PULSE 80; RESP 14; TEMP 37; O2SAT 100; BMI 38.0
[2024-10-26 12:10] LABS: Microscopic, Urine URINE MICROSCOPIC (MICROSCOPIC)
[2024-10-26 12:13] LABS: Appearance,Urine CLEAR (Clear); Bilirubin,Urine Negative (Negative); Blood, Urine 2+ (Negative); Color,Urine YELLOW (Yellow); Glucose,Urine (UA) Negative (Negative); Ketones,Urine Negative (Negative); Leukocyte Esterase,Urine TRACE (Negative); Nitrate,Urine Negative (Negative); Protein,Urine Negative (Negative); Specific Gravity, Urine <= 1.005 (1.005-1.030); Urobilinogen,Urine 0.2 EU/dl (0.2)
[2024-10-26 12:24] LABS: Basophils % 0.3 % (0.1-2.0); Eosinophils # 0.1 Kmm3 (0.0-0.4); Eosinophils % 0.8 % (0.1-12.0); Hematocrit 45.6 % (37.0-47.0); Hemoglobin 14.6 g/dL (12.2-16.2); Immature Granulocytes # 0.05 10^3uL; Immature Granulocytes % 0.5 %; Lymphocytes # 2.4 K/mm3 (0.7-4.5); Lymphocytes % 24.9 % (10-50); Mean Corpuscular Hemoglobin 26.7 pg (27.0-31.2); Mean Corpuscular Volume 83.4 fl (81-99); Mean Platelet Volume 8.2 fl (7.4-10.4); Monocytes # 0.5 K/mm3 (0.1-1.0); Monocytes % 5.6 % (1.7-9.3); Neutrophils # 6.5 K/mm3 (1.8-7.8); Neutrophils % 67.9 % (37.0-80.0); Nucleated Red Blood Cells # 0 10^3/uL; Nucleated Red Blood Cells % 0 %; Platelet Count 292 K/mm3 (142-424); Red Blood Count 5.47 M/mm3 (4.20-5.40); Red Cell Distribution Width 12.8 % (11.5-17.5); Red Cell Distribution Width-SD 38.9 fL; White Blood Count 9.5 K/mm3 (4.8-10.8)
[2024-10-26 12:30] LABS: Albumin Level 4.4 g/dl (3.5-5.0); Chloride 107 mmol/L (98-107); Sodium 140 mmol/L (136-145)
[2024-10-26 12:31] LABS: Bacteria,Urine Trace /lpf; RBC,Urine Occasional #/hpf (0-3); Squamous Epithelial Cell,Urine Occasional #/hpf (0-5); WBC,Urine Occasional #/hpf (0-3)
[2024-10-26 12:31] LABS: Potassium 3.9 mmoL/L (3.5-5.1)
[2024-10-26 12:33] LABS: Alanine Aminotransferase 26 U/L (12-78); Albumin/Globulin Ratio 1.3 (1.1-1.8); Alkaline Phosphatase 107 U/L (38-126); Anion Gap 8.9 mEq/L (5-15); Aspartate Amino Transferase 28 U/L (14-36); Bilirubin,Total 0.4 mg/dl (0.2-1.3); Blood Urea Nitrogen 11 mg/dl (7-17); Carbon Dioxide 28 mmol/L (22.0-30.0); Creatinine Clearance Estimated 167 mL/min (50-200); Estimated Glomerular Filt Rate 88 ml/min (>60); GFR (African American) 107 ML/MIN (>60); Globulin 3.4 g/dL (1.3-3.2); Lipase 38 U/L (23-300); Total Protein,Serum 7.8 g/dl (6.3-8.2)
[2024-10-26 12:34] LABS: Calcium 9.4 mg/dl (8.4-10.2); Glucose 98 mg/dl (74-100)
[2024-10-26 12:48] LABS: HCG Qualitative, Serum Negative (Negative)
--- NOTE | 2024-10-26 12:49 | ED_ITS ---
<Statement entered by Libra Leos DO - 10/26/24 15:45> I was consulted by the RENE, and we discussed the complexity of the problems being addressed. I approved the treatment and management plan for this patient's care in the emergency department, thus performing a substantive portion of the medical decision making. Libra Leos DO Discharge Plan Disposition Patient Disposition: Home, Self-Care Prescriptions Prescriptions: New ondansetron HCl 4 mg tablet 4 mg PO DAILY 5 Days Qty: 5 0RF No Action venlafaxine 75 mg capsule,extended release 24hr 75 mg PO DAILY Patient Comments: TAKE 1 CAPSULE BY MOUTH ONCE DAILY loratadine 10 mg tablet 10 mg PO DAILY Patient Comments: TAKE 1 TABLET BY MOUTH ONCE DAILY Ubrelvy 50 mg tablet 50 mg PO DAILYP PRN (Reason: Migraine Headache) Patient Comments: TAKE 1 TABLET BY MOUTH ONCE NEEDED azithromycin [Zithromax Z-Harinder] 250 mg tablet See Rx Instructions .ROUTE .COMPLEX 5 Days Qty: 6 0RF Rx Instructions: For 250 mg dose pack: take 500 mg today (day 1), then 250 mg for 4 days (days 2-5) benzonatate 100 mg capsule 100 mg PO TID PRN (Reason: cough) Qty: 30 0RF levothyroxine 100 mcg tablet 100 mcg PO DAILY Patient Comments: TAKE 1 TABLET BY MOUTH ONCE DAILY albuterol sulfate 90 mcg/actuation HFA aerosol inhaler 2 puff INHALATION Q6HP PRN (Reason: wheeze, soa) Patient Comments: INHALE 2 PUFFS BY MOUTH EVERY 6 HOURS Referrals Follow up/Referrals: Nathalia Yousif PA [Primary Care Provider] - See instructions Activity Restrictions/Add. Instructions Additional Instructions/Restrictions: Today you were evaluated in the emergency department and diagnosed with gastroenteritis. Please take the Zofran as directed. Please increase your fluid intake. Follow-up with your PCP. Return to the ED for any worsening of condition. Clinical Impressions Clinical Impression: Gastroenteritis, Nausea Stand Alone Forms Stand Alone Forms: Work/School Release Instructions Patient Instructions: DI for Acute Abdominal Pain Print Language Print Language: Sinhala Discharge ED Provider: Shaquille Lopez General Adult HPI General Chief complaint: Abdominal Pain Stated complaint: abd pain, vomiting Time Seen by Provider: 10/26/24 11:59 Mode of Arrival: Ambulatory Source of Information: Patient Description of Symptoms (Recalled from ER Triage Doc. by RN): pt states she woke up at 0900 feeling sick. pt c/o N/V and generalized abd pain that radiates to her L flank. pt states her pain is sharp in nature and a 6/10. pt states the only relief she gets is when she pulls her knees to her chest. pts LMP today. History of Present Illness HPI narrative: Patient is a 24-year-old female PMHx B12 deficiency who presents to the ED for complaints and generalized abdominal pain and 3 episodes of vomiting. Patient states her abdominal pain started at work today around 0900. Patient states she has a history of having inflamed bowels and this feels similar. Related Data Home Medications ?Medication ?Instructions ?Recorded ?Confirmed albuterol sulfate 90 mcg/actuation 2 puff inhalation Q6HP PRN wheeze, 11/08/22 07/25/24 aerosol inhaler soa levothyroxine 100 mcg tablet 100 mcg PO DAILY thyroid disorder 11/08/22 07/25/24 loratadine 10 mg tablet 10 mg PO DAILY 07/25/24 07/25/24 ubrogepant 50 mg tablet (Ubrelvy) 50 mg PO DAILYP PRN Migraine 07/25/24 07/25/24 Headache venlafaxine 75 mg capsule,extended 75 mg PO DAILY 07/25/24 07/25/24 release 24 hr Previous Rx's ?Medication ?Instructions ?Recorded azithromycin 250 mg tablet See Rx Instructions PO .COMPLEX 5 07/25/24 (Zithromax Z-Harinder) days #6 tabs benzonatate 100 mg capsule 100 mg PO TID PRN cough #30 caps 07/25/24 ondansetron HCl 4 mg tablet 4 mg PO DAILY 5 days #5 tabs 10/26/24 Allergies Allergy/AdvReac Type Severity Reaction Status Date / Time amoxicillin Allergy Intermediate I-HIVES Verified 10/26/24 12:08 ceftibuten (From Cedax) Allergy Intermediate I-HIVES Verified 10/26/24 12:08 penicillin G Allergy Intermediate I-HIVES Verified 10/26/24 12:08 adhesive tape Allergy Hives Verified 10/26/24 12:08 codeine Allergy Hives Verified 10/26/24 12:08 [facility] Disclaimer: The information contained in this section may have been updated after the patient was seen, as this information can be updated by other users. Medical History Acne Anxiety Asthma B12 deficiency anemia History of gastroesophageal reflux (GERD) Hypothyroidism Migraine Nausea and vomiting Surgical History History of cholecystectomy History of tonsillectomy History of tympanostomy tube placement Social History (Updated 08/02/22 @ 19:47 by Jodie Heaton RN) Smoking Status: Never smoker second hand exposure: No alcohol intake: never substance use type: denies use current occupational status: employed Travel in the last 8 weeks?: None household members: family housing: house current occupational exposures/hazards: No caffeine: Yes Have you lived/traveled outside [place] in past 30 days?: No Contact w/someone who lives/traveled outside US past 30 days?: No Exposure to someone with infectious disease in past 14 days?: No Do you have a fever (greater than 100.4 F or 38 C)?: No Have you tested positive for COVID-19?: No Exposed to someone with COVID-19 in past 14 days?: No Do you have a sore throat?: No Do you have a cough?: No Do you have any weakness?: No Do you have any diarrhea?: No Are you experiencing any unusual bleeding?: No Do you have any muscle aches/pain?: No Do you have any abdominal pain?: No Are you experiencing loss of taste or smell?: No Other Medical History Have you received the Flu Vaccine for this season: No Have you received the Pneumonia Vaccine: No ROS Obtained: Yes Systems reviewed as appropriate & no additional complaints except as documented Physical Exam General General appearance: alert and in no apparent distress Head Head exam: atraumatic and normocephalic Eye Eye exam: Present normal appearance and PERRL ENT ENT exam: Present normal exam Neck Neck exam: Present normal inspection Chest Chest inspection: Present normal inspection and symmetric chest wall rise; Absent tenderness Respiratory Respiratory exam: Present normal lung sounds bilaterally Cardiovascular Cardiovascular exam: Present regular rate Abdominal Exam Abdominal exam: Present soft, tenderness and normal bowel sounds Extremities Exam Extremities exam: Present normal inspection and full ROM Back Exam Back exam: Present normal inspection and full ROM Neurological Exam Neurological exam: Present alert and oriented X3 Psychiatric Psychiatric exam: Present normal affect and normal mood Skin Skin exam: Present warm and dry Medical Decision Making Medical Records Screening: Per USPSTF and CDC recommendations, given the prevalence of disease in our region, it is our hospital?s policy to screen for HIV and viral Hepatitis for all patients aged 18 and over and those with ongoing risk factors. Wander Inquiry Pt receiving controlled substance: No Vital Signs: 10/26/24 12:03 Temperature 98.6 F Temperature Source Oral Pulse Rate [Left] 80 Respiratory Rate 14 Blood Pressure [Right Arm] 135/75 Blood Pressure Mean [Right Arm] 95 Blood Pressure Source [Right Arm] Automatic Cuff Blood Pressure Position [Right Arm] Sitting 02 Sat by Pulse Oximetry 100 Oxygen Delivery Method Room Air Lab Data Lab Results 10/26/24 12:01: Urine Color Yellow, Urine Appearance Clear, Urine pH 6.0, Ur Specific [place] <= 1.005, Urine Protein Negative, Urine Glucose (UA) Negative, Urine Ketones Negative, Urine Blood 2+ A, Urine Nitrate Negative, Urine Bilirubin Negative, Urine Urobilinogen 0.2, Ur Leukocyte Esterase Trace, Urine RBC Occasional, Urine WBC Occasional, Ur Squamous Epith Cells Occasional, Urine Bacteria Trace 10/26/24 12:10: WBC 9.5, RBC 5.47 H, Hgb 14.6, Hct 45.6, MCV 83.4, MCH 26.7 L, MCHC 32.0, RDW 12.8, Plt Count 292, MPV 8.2, Neut % (Auto) 67.9, Lymph % (Auto) 24.9, [place] % (Auto) 5.6, Eos % (Auto) 0.8, Baso % (Auto) 0.3, Neut # (Auto) 6.5, Lymph # (Auto) 2.4, [place] # (Auto) 0.5, Eos # (Auto) 0.1, Baso # (Auto) 0.0, Sodium 140, Potassium 3.9, Chloride 107, Carbon Dioxide 28, Anion Gap 8.9, BUN 11, Creatinine 0.80, Estimated Creat Clear 167, Estimated GFR 88, Est GFR ( Amer) 107, Glucose 98, Calcium 9.4, Total Bilirubin 0.4, AST 28, ALT 26, Alkaline Phosphatase 107, Total Protein 7.8, Albumin 4.4, Globulin 3.4 H, Albumin/Globulin Ratio 1.3, Lipase 38, Serum HCG, Qual Negative, HCV Ab ADRIAN w/Rflx PCR Qn Negative, HIV Ag/Ab Combo Qual Negative 10/26/24 12:10 10/26/24 12:10 Orders (Tests/Meds): ED MEDICATIONS Generic Name Dose Route Start Last Admin Trade Name Freq PRN Reason Stop Dose Admin Sodium Chloride 10 ml 10/26/24 13:48 10/26/24 13:49 Sodium Chloride 0.9% 10ml Syr (Rad Only) IV 11/25/24 13:47 10 ml NEEDED PRN Administration Maintain IV Site Discontinued Medications Generic Name Dose Route Start Last Admin Trade Name Freq PRN Reason Stop Dose Admin Acetaminophen 500 mg 10/26/24 13:06 10/26/24 13:16 Acetaminophen 500mg Tab PO 10/26/24 13:07 500 mg ONCE ONE Administration Sodium Chloride 1,000 mls @ 999 mls/hr 10/26/24 13:00 10/26/24 13:02 Sod Chlor 0.9% 1000ml Bag IV 10/26/24 14:00 999 mls/hr .Q1H1M ONE Administration Iopamidol 75 ml 10/26/24 13:48 10/26/24 13:49 Iopamidol-370 (76%);100ml Bottle IV 10/26/24 13:49 75 ml ONCE ONE Administration Morphine Sulfate 4 mg 10/26/24 12:52 10/26/24 13:15 Morphine 4mg/Ml Syringe IV 10/26/24 12:53 Not Given ONCE ONE ORDERS Category Date Time Status CT abdomen pelvis w con Stat Cat Scan 10/26/24 12:52 Completed Complete Blood Count Auto Diff Stat Lab 10/26/24 12:10 Completed Comprehensive Metabolic Panel Stat Lab 10/26/24 12:10 Completed HCG Qualitative, Serum Stat Lab 10/26/24 12:10 Completed HIV Combo Stat Lab 10/26/24 12:10 Completed Hepatitis C Ab Qual. W/ RFX Stat Lab 10/26/24 12:10 Completed Lipase Stat Lab 10/26/24 12:10 Completed UA [Urinalysis and Microscopic] Stat Lab 10/26/24 12:01 Completed Medical Decision Narrative: In summary, patient is a 24-year-old female PMHx B12 deficiency who presents to the ED for complaints and generalized abdominal pain and 3 episodes of vomiting. Patient states her abdominal pain started at work today around 0900. Patient states she has a history of having inflamed bowels and this feels similar. She has a history of a cholecystectomy. Denies any additional abdominal surgeries. She states that prior to arrival she took a Zofran which did help with her nausea. Denies any other medical complaints at this time. Denies fever, chills, bodyaches, headache, visual disturbances, chest pain, shortness of breath, dysuria. Upon initial evaluation patient is alert, oriented and cooperative. She is hemodynamically stable. She has generalized abdominal tenderness, abdomen is soft and nondistended. Differential diagnosis include infectious process, and medicine enteric adenitis, SBO, , UTI, pyelonephritis, among others. Discussed with patient that we will proceed with labs and CT scan of the abdomen pelvis. Patient offered pain medication, declined. Requesting acetaminophen. Hematologic labs reviewed, CBC unremarkable for any leukocytosis, stable H&H. CMP overall unremarkable for any actionable abnormalities. hCG negative. Lipase 38. Urinalysis unremarkable for any infectious process. CT of the abdomen pelvis unremarkable for any acute intra-abdominal findings. Upon reassessment, patient remains hemodynamically stable and condition has improved. Upon reassessment, patient states her condition has improved. Given this, and unremarkable CT and lab results I feel that patient is safe to be discharged home at this time. discussed diagnosis of gastroenteritis. Advised patient that she should rest, increase fluid intake and take the Zofran as prescribed. Work note provided. We discussed follow-up with PCP. Return to the ED for worsening of condition. Critical Care Critical Care Time Critical Care Time: No
--- NOTE | 2024-10-26 12:52 | CT_ITS ---
FINAL REPORT TECHNIQUE: Thin section axial images are obtained through the abdomen and pelvis after intravenous contrast. Reconstruction images were obtained from the axial data. Exam was performed using dose reduction techniques. This study was performed with techniques to keep radiation doses as low as reasonably achievable (ALARA). Individualized dose reduction techniques using automated exposure control or adjustment of mA and/or kV according to the patient's size were employed. CLINICAL HISTORY: abd pain / vomiting COMPARISON: 11/08/2022 FINDINGS: LUNG BASES: Lung bases are clear. The previously noted fluid collection in the epicardial space has resolved. Heart size is normal. LIVER: Homogeneous. No focal lesion. GALLBLADDER/BILIARY SYSTEM: The gallbladder is surgically absent. No gallstones. No biliary dilatation. SPLEEN: Unremarkable. PANCREAS: Unremarkable. ADRENALS: Unremarkable. KIDNEYS/URETERS/BLADDER: No hydronephrosis, renal mass, or renal stone. Unremarkable urinary bladder. GI TRACT: No small bowel obstruction or dilatation. Normal appendix. No acute colon abnormality. PELVIC ORGANS: Unremarkable for age. LYMPH NODES/RETROPERITONEUM/MESENTERY: No lymphadenopathy. No abdominal aortic aneurysm. ABDOMINAL WALL: The abdominal wall is intact. FREE FLUID: No ascites. BONES: No acute osseous abnormality. IMPRESSION: No acute intra-abdominal or intrapelvic abnormality identified. Reviewed, Interpreted and Dictated by Lisa Sampson MD Transcribed by Mitali Baig Authenticated and . [facility]
[2024-10-26] MEDS: 0.9 % SODIUM CHLORIDE 1000ML 1,000 ML 999 ML IV (13:02)
[2024-10-26] MEDS: ACETAMINOPHEN 500MG TAB 500 MG PO (13:16)
[2024-10-26 13:24] LABS: HIV Combo NEGATIVE (Negative)
[2024-10-26 13:32] LABS: Hepatitis C Ab Qual. W/ RFX NEGATIVE (Negative)
[2024-10-26] MEDS: IOPAMIDOL-370 (76%);100ML BOTTLE 75 ML IV (13:49)
[2024-10-26] MEDS: SODIUM CHLORIDE 0.9% 10ML SYR (RAD ONLY) 10 ML IV (13:49)
[2024-10-26 15:42] VITALS: BP 120/78; PULSE 72; RESP 17; TEMP 36.7; O2SAT 98
== END 2024-10-26 15:43 | disposition home or self-care (01) ==
PROVIDERS: Emergency Medicine; Nurse Practitioner; Emergency Provider Emergency Medicine; PCP Physician Assistant
DX: R10.84 Generalized abdominal pain (principal); K52.9 Noninfective gastroenteritis and colitis, unspecified; R11.2 Nausea with vomiting, unspecified; Z11.59 Encounter for screening for other viral diseases; Z11.4 Encounter for screening for human immunodeficiency virus [HIV]
CPT/HCPCS: 74177; 80053; 81001; 83690; 84703; 85025; 86803; 87389; 96360; 99284; J7030; Q9967

== ENCOUNTER 2024-12-18 14:53 | Outpatient (CLI) | payer OTHER, SELFPAY ==
--- OUTSIDE RECORDS SUMMARY | 2024-09-22 17:30 | XMS_ITS ---
Author Organization [facility] PE D SRINIVAS Address [address] [place] [address] Care Team Providers Care Medical Insurance Clerk Name Role Phone Yordan Smith Primary Care Provider [phone] Yordan Smith Unavailable Unavailable Migration, Provider Unavailable Unavailable Allergies Allergen (clinical drug ingredient) Drug/Non Drug Allergy documented on EMR Reaction Allergy Type Onset Date Status CEDAX (uncoded) Unknown Allergy Acti ve amoxicillin Amoxicillin Unknown Drug Allergy Act danae codeine Codeine hives Drug Allergy Active Penicillin Unknown Drug Allergy [facility] Conversion Encounter Medications Medication SIG (Take, Route, [...] Active Encounters Encounter Location Date Provider Diagnosis [facility] PED SRINIVAS [address] [facility] [address] [place] [address] 09/22/2024 Provider Migration Bronchitis J40 Assessments Encounter [...] Notes * Barrie TITUSeDOB:[birth year] (24 yo F)Acc No.[id number]:09/22/2024 Patient: Barrie WHALEY Elzbieta Provider: Belem jacobs Migration :2000 A ge:24 Y S ex:Female Date:09/22/2024 Address:[address] [place] [phone] Pcp:Yordan Smith Subjective: * Chief Complaints: * [...] *Please review and pick correct strength-formulation from [employer] options. If intended option is not shown, [...] Electronic signature of Prov bria Migration on 12/18/2024 at 02:55 PM EDT Sign off status: Pending * Provider: Belem jacobs Migration Date: 0 09/22/2024 Generated for Adriana beck/Sergey/Jackelin on: 0 12/18/2024 02:55 PM EDT
--- NOTE | 2024-12-18 | CA_ITS ---
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 2D Dimensions Aortic Root 2.80 cm LA Volume 39.90 mL Left Atrium 3.11 cm LA Volume Index 20.655117 mL/m2 (M/F) 16-34 RVID Base (AP4) 3.26 cm (M/F) 2.5-4.1 EF AP4 70.20 % LVOT 1.95 cm (M/F) 1.5-2.5 GL Strain -28.1 % M-Mode Dimensions RVDd 1.03 cm (0.9-2.6) LVDd 5.12 cm (3.5-5.7) Ao Diam 2.62 cm (2.0-3.7) LVDs 3.50 cm (3.5-5.7) IVSd 1.03 cm (0.6-1.1) PWd 0.94 cm (0.6-1.1) EF (Teich) 59.20% EPSs 0.53 cm FS 31.60% EDV (Teich) 124.90 mL TAPSE 1.79 (<1.7) ESV (Teich) 50.90 mL LV Diastology E Decel Time 208 (160-240 msec) E/A Ratio 1.51 MED E' 10.5 (>= 7 cm/sec) MED A' 13.40 cm/s E'/MED E' Ratio 8.59 (<= 14) LAT E' 17.1 (>= 10 cm/sec) LAT A' 11.50 cm/s E/LAT E' Ratio 5.27 (<= 14) Aortic Valve LVOT Max 99.0 (70-110 cm/s) ZOË Index 1.15 cm2/m2 LVOT VTI 19.27 cm AoV Peak Rio. 145.0 (50-130 cm/s) AO Mean GR. 4.20 (<5 mmHg) AO VTI 25.3 (18-25 cm) ZOË (VTI) 2.27 (2.5-4.5 cm2) Mitral Valve MV E Max Rio. 90.0 (40-130 cm/s) MV A Velocity 60.0 (40-130 cm/s) E/A Ratio 1.51 MV Decel. Time 208 (160-240 ms) Tricuspid Valve TR P. Velocity 139.00 cm/s Left Ventricle The left ventricle is normal size. The left ventricular systolic function is normal. The left ventricular ejection fraction is within the normal range. There is normal left ventricular wall thickness. There is normal LV segmental wall motion. The left ventricular diastolic function is normal. LVEF is 55%. Right Ventricle Right ventricle is mildly dilated. The right ventricular systolic function is normal. Atria The left atrium size is normal. The right atrium size is normal. Color Doppler demonstrates left to right interatrial shunt. Agitated saline administration demonstrates presence of interatrial shunt. Aortic Valve The aortic valve opens well. There is no aortic valvular stenosis. Trace aortic regurgitation. Mitral Valve The mitral valve is normal in structure. No evidence of mitral valve stenosis. Trace mitral regurgitation. Tricuspid Valve Tricuspid valve is grossly normal in structure and function. Trace tricuspid regurgitation. There is insufficient TR jet to estimate RVSP. Pulmonic Valve The pulmonary valve is normal in structure. Trace pulmonic regurgitation. Great Vessels The aortic root is normal in size. IVC is normal in size and collapses >50% with inspiration. Pericardium There is no pericardial effusion. Other Information Study Quality: Adequate Conclusion Normal biventricular systolic function. Mild RV dilation. Color Doppler demonstrates left to right interatrial shunt. Agitated saline administration demonstrates presence of interatrial shunt. In the setting of mild RV dilation and interatrial shunt, further evaluation with MARIO and cardiac MRI (cardiomyopathy / shunt protocol) is suggested to evaluate for location/sizing of the interatrial shunt, as well as biventricular size/volume and Qp:Qs ratio. Electronically signed by : Aubree Ashby MD 12/20/2024 12:52:48
--- OUTSIDE RECORDS SUMMARY | 2024-12-18 14:55 | XMS_ITS | Patient Health Record ---
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 Name Role Phone Unknown, PCP Primary Care Provider Hannah Krishnamurthy Unavailable [phone] Allergies Allergen (clinical drug ingredient) Drug/Non Drug Allergy documented on EMR Reaction Allergy Type Onset Date Status amoxicillin Amoxicillin Unknown Drug Allergy Act danae ceftibuten Ceftibuten Unknown Drug Allergy Activ e Results Component Value Reference Range Notes Flu/COVID Rapid Antigen ([facility]) Reviewed date:04/21/2024 09:34:43 AM Interpretation:Negative Performing Lab: Notes/Report: Negative Flu A neg Negative - Positive Flu B neg Negative - Positive SARS CoV 2 neg Negative - Positive Rapid Strep Screen ([facility]) Reviewed date:04/21/2024 09:33:12 AM Interpretation:Negative Performing Lab: Notes/Report: Negative Negative neg Reason For Referral No Information Medications Medication SIG (Take, Route, Frequency, Duration) Notes Start Date End Date Status Levothyroxine Sodium 25 MCG 1 tablet in the morning on an empty stomach Orally Once a day Active Ubrelvy 50 MG 1 tablet as needed, may take second dose at least 2 hours after first dose up to 4 tablets per day as needed Orally Once a day Active metFORMIN HCl 850 MG 1 tablet with a carlos l Orally Once a day Active Aldactone 25 MG 1 tablet Orally Active Social History Tobacco Use: Social History Observation Description Date Details (start date - stop date) Never Smoker NA - NA Tobacco Control (Standard) Question Answer Notes Tobacco use: Nonsmoker Vital Signs Temperature 98.6 degrees Fahrenheit 04/21/2024 oxyg en 98 Respiratory Rate 16 /min 04/21/2024 oxygen 98 Encounters Encounter Location Date Provider Diagnosis [facility] [address] [place] [address] 04/21/2024 Hannah Cuello Viral upper respiratory tract infection J06.9 Assessments Encounter Date Diagnosis (ICD Code) Assessment Notes Treatment Notes Treatment Clinical Notes Section Notes 04/21/2024 Viral upper respiratory tract infection (ICD-10 - J06.9) treat symptoms; exam mostly normal; lungs clear use inhaler as needed FU if persistent past a week; sooner if any worsening Plan Of Treatment No Information Insurance Providers Payer Name Payer Address Payer Phone Subscriber Number Group Number Insured Name Patient Relationship to Insured Coverage Start Date Coverage End Date [employer] [place] [employer] [address] [place] [phone] [id number] Barrie Titus Self - patient is the insured Medical (General) History Medical History History ICD Code hypothyroid PCOS migraine asthma Surgical History Surgery Date(Month/Year) gallbladder ear tubes tonsillectomy Hospitalization History Reason Date(Month/Year) see above
--- OUTSIDE RECORDS SUMMARY | 2024-12-18 14:55 | XMS_ITS | Clinical Summary ---
Author Organization Healthcare Address [address] [place] [address] Care Team Providers Care Bump Grader Operator Name Role Phone Nathalia Yousif Primary Care Provider [phone] Allergies Active Allergy Reactions Criticality Noted Date Comments Amoxicillin Hives Medium 04/13/2021 Ceftibuten Unknown - Patient st ates they do not know rxn details Low 08/04/2015 Codeine Hives Medium 04/13/2021 Latex Hives,Swelling High 04/13/2021 Penicillins Hives,Unknown - Samia ent states they do not know rxn details Medium 08/04/2015 Medications * This document contains information received from the source organization and may not represent a complete record from that organization. Ubrogepant (Ubrelvy) 50 MG tablet On hold due to Active venlafaxine XR (Effoxor-XR) 150 MG 24 hr capsule Take 150 mg by mouth 1 (one) time each day. 11/15/19 21 Active cetirizine (ZyrTEC) 10 MG tablet Take 10 mg by mouth 1 (one) time each day. 01/23/20 21 Active famotidine (Pepcid) 40 MG tablet Take 40 mg by mouth every night. 10/22/19 21 Active fluticasone (Flonase) 50 MCG/ACT nasal spray Instill 1-2 SPRAYS IN EACH NOSTRIL EVERY DAY DIRECTED 10/22/19 21 Active Ventolin HFA 108 (90 Base) MCG/ACT inhaler INHALE TWO PUFFS BY MOUTH FOUR TIMES DAILY --SHAKE WELL BEFORE USE-- 11/15/19 21 Active montelukast (Singulair) 10 MG tablet Take 1 tablet (10 mg total) by mouth every night. 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 Date Type Department Care Team Description 10/25/2024 Community [facility] [address] [place] [address] Melanie Dumont APRN Anxiety disorder, unspecified type (Primary Dx); Major depressive disorder with single episode, remission status unspecified; Medication management from Last 3 Months Family History Medical History Relation Name Comments Hypertension Brother Allergic rhinitis Father Conversions - Other Father High blo od cholesterol Hypertension Father Allergic rhinitis Mother Asthma Mother Cardiac disorder Other 1 Hypertension Other 2 Relation Name Status Comments Brother Father Mother Other 1 Other 2 Social History Tobacco Use Types Packs/Day Years Used Date Smoking Tobacco: Never Smokeless Tobacco: Never Alcohol Use Standard Drinks/Week Comments Not Currently 0 (1 standard drink = 0.6 oz pur e alcohol) Comments Unknown Sex and Gender Information Value Date Recorded Sex Assigned at Female 06/12/2021 9:23 AM EST Legal Sex Female 7:34 PM EDT Gender Identity Female 06/12/2021 9:23 AM EST Sexual Orientation Straight 06/12/2021 9: 23 AM EST Last Filed Vital Signs Vital Sign Reading Time Taken Comments Blood Pressure 112/63 11/11/2022 4:15 PM EDT Pulse 120 11/11/2022 4:15 PM EDT Temperature 36.7 C (98.1 F) 08/31/2021 8:58 AM EDT Respiratory Rate - - Oxygen Saturation - - Inhaled Oxygen Concentration - - Weight 93.9 kg (207 lb) 11/11/2022 4:15 PM EDT Height 162.6 cm (5' 4 ) 11/11/2022 4:15 PM EDT Body Mass Index 35.53 11/11/2022 4:15 PM EDT Plan of Treatment Health Maintenance Due Date Last Done Comments [facility]-Depression Screening 2000 [facility]-HIV Screening 2000 [facility]-Infant/Child/Adol SDOH Screenings 2000 [facility]-Varicella Vaccines (1 of 2 - 13+ 2-dose series) 2013 HPV Vaccines (1 - 3-dose series) 2015 [facility]- SDOH Screenings 2018 [facility]-Adult SDOH Screenings 2018 [facility]-Hepatitis A Vaccines (2 of 2 - 2-dose series) 07/26/2018 01/23/2018 [facility]-DTaP,Tdap,and Td Vaccine s (1 - Tdap) 2019 [facility]-Hepatitis B Vaccines (1 of 3 - 19+ 3-dose series) 2019 [facility]-Pneumococcal Vaccine: Pediatrics (0 to 5 Years) and At-Risk Patients (6 to 49 Years) (1 of 2 - PCV) 2019 [facility]-Pap Smear 2021 [id number] Vaccine (1 - 20 24-25 season) 2024 [facility]-Influenza Vaccine (#1) 2025 [facility]-Zoster Vaccines (1 of 2) 2050 [facility]-Hepatitis C Screening Completed 03/02/2022 [facility]-Obesity Intervention Completed 10/21/2022 [facility]-HIB Vaccines Aged Out No longer e ligible based on patient's age to complete this topic [facility]-IPV Vaccines Aged Out No longer e ligible based on patient's age to complete this topic [facility]-Rotavirus Vaccines Aged Out No lo nger eligible based on patient's age to complete this topic Insurance AETNA [facility] MEDICAID Care Teams Bump Grader Operator Relationship Specialty Start Date End Date Nathalia Yousif PA [address] [place] [address] PCP - General 08/31/21
--- OUTSIDE RECORDS SUMMARY | 2024-12-18 14:55 | XMS_ITS | Clinical Summary ---
Author Organization [employer] ([place], [place], [place], [place]) Address [address] [place] [address] Care Team Providers Care Fast Food Delivery Driver Name Role Phone Unavailable Primary Care Provider Unavailabl e Allergies Active Allergy Reactions Criticality Noted Date Comments Ceftibuten Hives,Other (See Comments) High 08/04/2015 Codeine Hives High 04/13/2021 Latex Hives,Other (See Comments),Swelling High 04/13/2021 IT CAUSES BLISTERS Adhesive medical tape Penicillins Other (See Comments),Hives High 08/04/2015 Medications venlafaxine XR (EFFEXOR-XR) 75 MG 24 hr capsule Take 1 capsule (75 mg total) by mouth daily. Active Ubrelvy 50 mg tab Take 1 tablet by mouth once as needed. Active levothyroxine (SYNTHROID) 25 MCG tablet 1 tablet in the morning on an empty stomach Orally Once a day Active Ventolin HFA 90 mcg/actuation inhaler 2 puffs. 07/26/2024 Active Active Problems No known active problems Family History Medical History Relation Name Comments Arthritis Other Cancer Other Relation Name Status Comments Other Social History Tobacco Use Types Packs/Day Years Used Date Smoking Tobacco: Never Smokeless Tobacco: Never Comments Unknown Sex and Gender Information Value Date Recorded Sex Assigned at Not on file Legal Sex Female 5:21 PM CDT Gender Identity Not on file Sexual Orientation Not on file Last Filed Vital Signs Vital Sign Reading Time Taken Comments Blood Pressure 117/80 09/12/2024 1:37 PM EDT Pulse 78 09/12/2024 1:34 PM EDT Temperature - - Respiratory Rate - - Oxygen Saturation - - Inhaled Oxygen Concentration - - Weight 98.9 kg (218 lb) 09/12/2024 1:34 PM EDT Height 160 cm (5' 3 ) 09/12/2024 1:34 PM EDT Body Mass Index 38.62 09/12/2024 1:34 PM EDT Plan of Treatment Upcoming Encounters Date Type Department Care Team (Late st Contact Info) Description 12/25/2024 2:00 PM EDT Office Visit [facility] - [address] [place] [address] Skye Heller, WEATHERIZATION AND HOUSING INSPECTOR [address] [id number] Health Maintenance Due Date Last Done Comments Depression Screening (12+) 2012 HIV Screening 2015 Hepatitis C Screening 2018 DTAP/TDAP/TD VACCINES (1 - Tdap) 2019 Lipid Panel 2020 Pap Smear 2021 COVID-19 VACCINE (1 - 2023-2 5 season) 2024 Influenza Vaccine (#1) 2025 Tobacco Cessation Counseling and Screening (12+) 09/12/2025 09/12/2024 Pneumococcal Vaccine: 0-49 Years Aged Out No longer eligible based on patient's age to complete this topic Insurance AETNA [facility] WORK COMP OTHER
--- OUTSIDE RECORDS SUMMARY | 2024-12-18 14:55 | XMS_ITS | Encounter Summary ---
Author Organization [facility] Address [address] [place] [address] Care Team Providers Care Director Of Veterans Affairs Name Role Phone Nathalia Yousif Primary Care Provider [phone] Reason for Referral * Consultation (Routine) - Authorized Specialty Diagnoses / Procedures Referred By Ovidio t Referred To Contact Psychiatry Diagnoses Anxiety disorder, unspecified type Major depressive disorder with single episode, remission status unspecified Medication management Melanie Dumont APRN [address] [place] [address] Phone: tel: fax: Referral ID Status Reason Start Date Expiration Date Visits Requested Visits Authorized [id number] Authorized Specialty Services Required 10/25/2024 04/26/2026 1 1 Encounter Details Date Type Department Care Team (Late st Contact Info) Description 10/25/2024 Community [facility] [address] [place] [address] Melanie Dumont APRN [address] [place] [address] Anxiety disorder, unspecified type (Primary Dx); Major depressive disorder with single episode, remission status unspecified; Medication management Social History Tobacco Use Types Packs/Day Years [...] Orientation Straight 06/12/2021 9: 23 AM EST documented as of this encounter Plan of Treatment Scheduled Referrals Name Type Priority Associated Diagnoses Orde r Schedule Ambulatory referral to Psychiatry Outpatient Referral Routine Anxiety disorder, unspecified type Major depressive disorder with single episode, remission status unspecified Medication management Ordered: 10/25/2024 documented as of this encounter Visit Diagnoses Diagnosis Anxiety disorder, unspecified type- Primary Major depressive disorder with single episode, remission status unspecified Medication management documented in this encounter Additional Health Concerns Assessment Noted Time A fall risk assessment has been complete d for the patient 12/30/2021 7:55 AM EDT A Body Mass Index follow-up plan has been documented for the patient 10/21/2022 1:46 PM EDT documented as of this encounter Care Teams Director Of Veterans Affairs Relationship Specialty Start Date End Date Nathalia Yousif PA [address] [place] [address] PCP - General 08/31/21 documented as of this encounter
--- OUTSIDE RECORDS SUMMARY | 2024-12-18 14:55 | XMS_ITS | Referral Summary ---
Author Organization [email or web address] ([place], [place], [place], [place]) Address [address] [place] [address] Care Team Providers Care Furniture Painter Name Role Phone Unavailable Primary Care Provider [...] Active Active Problems No known active problems Social History Tobacco Use Types Packs/Day Years [...] Description 12/25/2024 2:00 PM EDT Office Visit [facility] - [address] [place] [address] Skye Heller, NURSE EPIDEMIOLOGIST [address] [place] [address] Insurance AETNA [facility] WORK COMP OTHER
--- OUTSIDE RECORDS SUMMARY | 2024-12-18 14:55 | XMS_ITS | Patient Health Record ---
Author Organization [facility] Address [address] [place] [address] Care Team Providers Care Jira Developer Name Role Phone Yordan Smith Primary Care Provider Yordan Smith Unavailable Unavailable Felicity Hogue Unavailable [phone] Melanie Fitzpatrick Unavailable [phone] Migration, Provider Unavailable Unavailable Allergies Allergen (clinical drug ingredient) Drug/Non Drug Allergy documented on EMR Reaction Allergy Type Onset Date Status CEDAX (uncoded) Unknown Allergy Acti ve amoxicillin Amoxicillin Unknown Drug Allergy Act danae codeine Codeine hives Drug Allergy Active Penicillin Unknown Drug Allergy Active Results Component Value Reference Range Notes HEMOGLOBIN A1c (496) Reviewed date:03/30/2024 09:24:44 AM Interpretation: Performing Lab:[facility], [facility] [facility] Kristopher Atwood Notes/Report: FASTING: YES FASTING:YES NON-FASTING; NON-FASTING; NON-FASTING; NON-FASTING; NON-FAST HEMOGLOBIN A1c 5.3 <5.7 % of total Hgb For the purpose of screening for the presence of diabetes: <5.7% Consistent with the absence of diabetes 5.7-6.4% Consistent with increased risk for diabetes (prediabetes) > or =6.5% Consistent with diabetes This assay result is consistent with a decreased risk of diabetes. Currently, no consensus exists regarding use of hemoglobin A1c for diagnosis of diabetes in children. According to [place] Diabetes Association (ADA) guidelines, hemoglobin A1c <7.0% represents optimal control in non- diabetic patients. Different metrics may apply to specific patient populations. Standards of Medical Care in Diabetes(ADA). Rapid Covid Antigen Reviewed date:02/10/2024 12:36:55 PM Interpretation:Negative Performing Lab: Notes/Report: Negative INFLUENZA A&B Reviewed date:02/10/2024 12:36:55 PM Interpretation: Performing Lab: Notes/Report: INFLUENZA A neg INFLUENZA B neg TSH (899) Reviewed date:03/26/2024 10:19:04 AM Interpretation: Performing Lab:[facility], [facility] [address], [place] logisticsZchuJP[address] Kristopher Atwood Notes/Report: FASTING:YES FASTING: YES NON-FASTING; NON-FASTING; NON-FASTING; NON-FASTING; NON-FAST TSH 2.28 Reference Range > or = 20 Years 0.40-4.50 Ranges First trimester 0.26-2.66 Second trimester 0.55-2.73 Third trimester 0.43-2.91 VITAMIN B12 (927) Reviewed date:03/26/2024 10:19:04 AM Interpretation: Performing Lab:[facility] [address], [place] logisticsOsnyYF[address] Kristopher Atwood Notes/Report: NON-FASTING; NON-FASTING; NON-FASTING; NON-FASTING; NON-FAST FASTING:YES FASTING: YES VITAMIN B12 215 755-8027 pg/mL CBC (INCLUDES DIFF/PLT) (639 9) Reviewed date:03/26/2024 10:19:04 AM Interpretation: Performing Lab:[facility] [address], [place] GamesXocvTZ[address] Kristopher Atwood Notes/Report: NON-FASTING; NON-FASTING; NON-FASTING; NON-FASTING; NON-FAST FASTING:YES FASTING: YES WHITE BLOOD CELL COUNT 8.7 3.8-10.8 Thousand/ uL RED BLOOD CELL COUNT 5.02 3.80-5.10 Million/uL HEMOGLOBIN 13.4 11.7-15.5 g/dL HEMATOCRIT 42.8 35.0-45.0 % MCV 85.3 80.0-100.0 fL MCH 26.7 27.0-33.0 pg MCHC 31.3 32.0-36.0 g/dL For adults, a slight decrease in the calculated MCHC value (in the range of 30 to 32 g/dL) is most likely not clinically significant; however, it should be interpreted with caution in correlation with other red cell parameters and the patient's clinical condition. RDW 13.6 11.0-15.0 % PLATELET COUNT 298 140-400 Thousand/uL MPV 8.6 7.5-12.5 fL ABSOLUTE NEUTROPHILS 5055 9858-5616 cells/uL ABSOLUTE LYMPHOCYTES 2880 850-3900 cells/uL ABSOLUTE MONOCYTES 400 200-950 cells/uL ABSOLUTE EOSINOPHILS 313 15-500 cells/uL ABSOLUTE BASOPHILS 52 0-200 cells/uL NEUTROPHILS 58.1 LYMPHOCYTES 33.1 MONOCYTES 4.6 EOSINOPHILS 3.6 BASOPHILS 0.6 COMPREHENSIVE METABOLIC PANE L (94221) Reviewed date:03/26/2024 10:19:04 AM Interpretation: Performing Lab:CB, [facility], [facility] InstituteHabdLN[address] Kristopher Atwood Notes/Report: NON-FASTING; NON-FASTING; NON-FASTING; NON-FASTING; NON-FAST FASTING:YES FASTING: YES GLUCOSE 82 65-99 mg/dL Fasting reference interval UREA NITROGEN (BUN) 10 7-25 mg/dL CREATININE 0.81 0.50-0.96 mg/dL EGFR 105 > OR = 60 mL/min/1.73m2 BUN/CREATININE RATIO SEE NOTE: 6-22 (calc) Not Reported: BUN and Creatinine are within reference range. SODIUM 142 135-146 mmol/L POTASSIUM 4.1 3.5-5.3 mmol/L CHLORIDE 110 98-110 mmol/L CARBON DIOXIDE 24 20-32 mmol/L CALCIUM 9.1 8.6-10.2 mg/dL PROTEIN, TOTAL 6.9 6.1-8.1 g/dL ALBUMIN 3.9 3.6-5.1 g/dL GLOBULIN 3.0 1.9-3.7 g/dL (calc) ALBUMIN/GLOBULIN RATIO 1.3 1.0-2.5 (calc) BILIRUBIN, TOTAL 0.3 0.2-1.2 mg/dL ALKALINE PHOSPHATASE 97 31-125 U/L AST 15 10-30 U/L ALT 14 6-29 U/L LIPID PANEL, STANDARD (7600) Reviewed date:03/26/2024 10:19:04 AM Interpretation: Performing Lab:CB, [facility] [address], [place] MonacoPmtgIP[address] Kristopher Atwood Notes/Report: NON-FASTING; NON-FASTING; NON-FASTING; NON-FASTING; NON-FAST FASTING:YES FASTING: YES CHOLESTEROL, TOTAL 211 <200 mg/dL HDL CHOLESTEROL 48 > OR = 50 mg/dL TRIGLYCERIDES 95 <150 mg/dL LDL-CHOLESTEROL 143 Reference range: <100 Desirable range <100 mg/dL for primary prevention; <70 mg/dL for patients with CHD or diabetic patients with > or = 2 CHD risk factors. LDL-C is now calculated using the Maynor calculation, which is a validated novel method providing better accuracy than the Friedewald equation in the estimation of LDL-C. Uday CASEY et al. CRISTÓBAL. 2013;310(19): 9749-7747 (http://education.Inofile/faq/ZFF736) CHOL/HDLC RATIO 4.4 <5.0 (calc) NON HDL CHOLESTEROL 163 <130 mg/dL (calc) For patients with diabetes plus 1 major ASCVD risk factor, treating to a non-HDL-C goal of <100 mg/dL (LDL-C of <70 mg/dL) is considered a therapeutic option. Medications Medication SIG (Take, Route, Frequency, Duration) Notes Start Date End Date Status Chlorhexidine Gluconate 0.12 % 15 mL orally 2 times a day; Duration: 10 days Active ALBUTEROL (EQV-PROAIR HFA) 90 MCG/INH INHALE 2 PUFFS BY MOUTH EVERY 4 HOURS NEEDED; Duration: 17 DAYS *Please review for potential replacement for e-prescription and drug interaction check* Active Venlafaxine HCl ER 75 MG 1 cap(s) orally once a day; Duration: 90 days 10/28/2023 Active Qulipta 60 MG 1 tab(s) orally once a day; Duration: 30 days 03/23/2024 Active Loratadine 10 MG 1 tab(s) orally once a day; Duration: 90 days 03/14/2023 Active Levothyroxine Sodium 100 MCG (0.1 MG) 1 CAP(S) ORALLY ONCE A DAY; Duration: 90 DAYS *Please review and pick correct strength-formulatio n from Hook Mobilespan options. If intended option is not shown, discontinue and re-order from Quick Search* Active Peridex 0.12 % 15 mL orally 2 times a day; Duration: 30 days Active Azithromycin 250 MG 2 tablets on the first day, then 1 tablet daily for 4 days orally once a day; Duration: 5 days 04/25/2024 Active Ubrelvy 50 MG TAKE 1 TABLET BY MOUTH orally at onset of migraine; Duration: 30 days Active Cetirizine HCl 10 MG 1 tab(s) orally once a day; Duration: 90 days Active Aldactone 25 MG 1 tab(s) orally twice a day; Duration: 90 days Active metFORMIN HCl 1000 MG 1 tab(s) orally 2 times a day; Duration: 90 days Active Fluticasone Propionate 50 MCG/ACT 1 spray(s) in each nostril once a day; Duration: 90 days Active Immunizations Vaccine Route Administration Date Status Comme nts PPD ID Intradermal 10/29/2019 Administered Menveo IM Intramuscular 02/28/2018 Administered Hep A Adult 2 Dose IM Intramuscular 01/23/2018 Administere d Social History Tobacco Use: Social History Observation Description Date Details (start date - stop date) Never Smoker NA - NA Smoking: Question Answer Notes Are you a: nonsmoker Problems Problem Type SNOMED Code ICD Code Onset Dates Problem Status W/U Status Risk Notes Problem Polycystic ovary syndrome (disorder) (408835331) Polycystic ovarian syndrome (E28.2) Active confirmed Problem Major depression, single episode (13644331) Major depressive disorder, single episode, unspecified (F32.9) Active confirmed Problem Anxiety disorder (742334294) Anxiety disorder, unspecified (F41.9) Active confirmed Problem Otitis externa of left ear (0696301881408710 ) Other otitis externa, left ear (H60.8X2) Active confirmed Problem Vitamin D deficiency (55457660) Vitamin D deficiency (E55.9) Active confirmed Problem Vitamin B12 deficiency (non anemic) (46399120) B12 deficiency (E53.8) Active confirmed Problem Fever (681388794) Fever (R50.9) Active confirme d Problem Weight gain (158419768) Weight gain (R63.5) Active confirmed Problem Dysmenorrhea (897887288) Dysmenorrhea (N94.6) Active confirmed Problem Fatigue (37437207) Fatigue (R53.83) Active confirmed Problem Dizziness (903169327) Dizziness (R42) Active confirmed Problem Acquired hypothyroidism (810210450) Acquired hypothyroidism (E03.9) Active confirmed Problem Mild intermittent asthma (779524847) Mild intermittent asthma without complication (J45.20) Active confirmed Problem Exacerbation of asthma (003187001) Mild asthma exacerbation (J45.901) Active confirmed Problem Migraine without aura, not refractory (942164927) Migraine without aura and without status migrainosus, not intractable (G43.009) Active confirmed Problem Mood disorder (00286381) Mood disorder (F39) Active confirmed Problem Generalized anxiety disorder (39107915) JUANJO (generalized anxiety disorder) (F41.1) Active confirmed Problem Menstrual disorder (209094188) Irregular menses (N92.6) Active confirmed Problem Fatigue (07946701) Fatigue, unspecified type (R53.83) Active confirmed Problem Acute cough (3368263564930030 04) Acute cough (R05.1) Active confirmed Vital Signs Heart Rate 88 /min 04/25/2024 Temperature 98.3 degrees Fahrenheit 04/25/2024 Blood pressure diastolic 80 mm Hg 04/25/2024 Height 5 ft 3 in in 04/25/2024 Blood pressure systolic 118 mm Hg 04/25/2024 Weight 215 lbs 04/25/2024 BMI 38.08 kg/m2 04/25/2024 Encounters Encounter Location Date Provider Diagnosis [place] [facility] [address] [place] [address] 09/22/2024 Provider Migration Bronchitis J40 [place] [facility] [address] [address] 02/10/2024 Melanie McNees Subacute cough R05.2 and Viral URI J06.9 [place] [facility] [address] [address] 03/23/2024 Melanie McNees Migraine without aura and without status migrainosus, not intractable G43.009 ; Major depressive disorder, single episode, unspecified F32.9 ; Anxiety disorder, unspecified F41.9 ; B12 deficiency E53.8 ; Routine medical exam Z00.00 ; Fatigue R53.83 and Irregular menses N92.6 [facility] [address] [place] [address] 04/25/2024 Felicitysujata Hogue Bronchitis J40 and Migraine without aura and without status migrainosus, not intractable G43.009 [facility] [address] [place] [address] 12/21/2023 Yordan Smith [facility] [address] [place] [address] 03/28/2024 Felicity Jaimeence [facility] [address] [place] [address] 07/26/2024 Yordan Alemanson Bronchitis J40 [facility] [address] [place] [address] 07/26/2024 Melanie McNees [facility] [address] [place] [address] 01/28/2024 Melanie McNees Migraine without aura and without status migrainosus, not intractable G43.009 and JUANJO (generalized anxiety disorder) F41.1 [facility] [address] [place] [address] 03/28/2024 Melanie McNees Migraine without aura and without status migrainosus, not intractable G43.009 and JUANJO (generalized anxiety disorder) F41.1 [facility] [address] [place] [address] 04/23/2024 Melanie McNees [facility] [address] [place] [address] 05/31/2024 Melanie McNees [facility] [address] [place] [address] 10/25/2024 Melanie McNees [facility] [address] [place] [address] 10/25/2024 Melanie McNees [facility] [address] [place] [address] 10/29/2024 Melanie McNees Assessments Encounter Date Diagnosis (ICD Code) Assessment Notes Treatment Notes Treatment Clinical Notes Section Notes 02/10/2024 Viral URI (ICD-10 - J06.9) Reassurance. Discussed the etiology & expected course of a viral URI and discussed the rationale for not prescribing antibiotics. Continue supportive care with PRN antipyretics, OTC cough/cold meds, nasal saline rinses, cough drops, and humidifier. Encourage PO hydration. Discussed the signs and symptoms of worsening condition and need for reassessment in clinic or ED. 02/10/2024 Subacute cough (ICD-10 - R05.2) 03/23/2024 Major depressive disorder, single episode, unspecified (ICD-10 - F32.9) Well controlled on SNRI 01/28/2024 Migraine without aura and without status migrainosus, not intractable (ICD-10 - G43.009) 03/23/2024 Migraine without aura and without status migrainosus, not intractable (ICD-10 - G43.009) Change to Qulipta. SE profile and MOA discussed. Discussed hydration and need for regular, balanced meals, outdoor activities/exerc ise and trigger (sunlight) etc - avoidance. 03/28/2024 Migraine without aura and without status migrainosus, not intractable (ICD-10 - G43.009) 04/25/2024 Bronchitis (ICD-10 - J40) Discussed the etiology and expected course of bronchitis. Discussed the rationale for antibiotics. Discussed supportive care. Discussed the signs and symptoms of worsening infection/respir atory distress that may indicate need for reassement in clinic/ED. 04/25/2024 Migraine without aura and without status migrainosus, not intractable (ICD-10 - G43.009) Recommend continue Qulipta for now and keep headache diary over the next 4 to 6 weeks if she has still not noticed a decreasing frequency or severity of her migraines we will consider alternative therapy 07/26/2024 Bronchitis (ICD-10 - J40) 09/22/2024 Bronchitis (ICD-10 - J40) 03/28/2024 JUANJO (generalized anxiety disorder) (ICD-10 - F41.1) 01/28/2024 JUANJO (generalized anxiety disorder) (ICD-10 - F41.1) 03/23/2024 Anxiety disorder, unspecified (ICD-10 - F41.9) Stable on current regimen. 03/23/2024 B12 deficiency (ICD-10 - E53.8) Will check b12 level and treat as indicated. 03/23/2024 Routine medical exam (ICD-10 - Z00.00) 03/23/2024 Fatigue (ICD-10 - R53.83) Will r/o diabetes, abnormal TSH, vit d, anemia etc. 03/23/2024 Irregular menses (ICD-10 - N92.6) Discussed treatment with BCP. Declines at this time Plan Of Treatment Pending Test Test Name Order Date N-Throat culture 02/03/2007 Rapid Strep 06/23/2018 N-Rapid Strep 02/03/2007 Echocardiogram 11/09/2022 H-STREP SCREEN (RAPID) 08/13/2008 C-PTT 10/29/2019 C-PT/INR 10/29/2019 Rapid Flu, A 06/21/2019 Rapid Flu, B 06/21/2019 A-Vvrr-Lbwuappezzama Antibody 02/16/2018 M-Respiratory Virus Panel, PCR 3 M-Upper Respiratory Panel, PCR 3 M-Vitamin B12 03/10/2021 M-Vitamin D 25 Hydroxy 03/10/2021 TESTOSTERONE, TOTAL, MS ([id number]) 2022 Insurance Providers Payer Name Payer Address Payer Phone Subscriber Number Group Number Insured Name Patient Relationship to Insured Coverage Start Date Coverage End Date AETNA [facility] [address] [address] [place] [address] [id number] Barrie Titus Self - patient is the insured Medications Administered Medication Instructions Date of Administration Dosage Notes Kenalog 40mg 02/05/2019 40 mg Triamcinolone Acetonide 40mg Injection 07/29/2018 1 mL Medical (General) History Medical History History ICD Code Migraines Hypothyroidism Atypical Pneumonia of Right Lung Surgical History Surgery Date(Month/Year) Tonsilectomy 2008 Gallbladder 2017 Hospitalization History Reason Date(Month/Year) Gnosticism Health- inflammation of ribs 06/21 09/09
--- OUTSIDE RECORDS SUMMARY | 2024-12-18 14:55 | XMS_ITS | Encounter Summary ---
Author Organization [facility] Address [address] [place] [address] Care Team Providers Care Geotechnical Field Technician Name Role Phone Beena Obregon APRN Primary Care Provider [phone] Nathalia Yousif Primary Care Provider [phone] Reason for Referral * Consultation (Routine) - Closed Specialty Diagnoses / Procedures Referred By Contac t Referred To Contact Allergy Diagnoses Allergy, initial encounter Nathalia Yousif PA [address] [place] [address] Phone: tel: fax: [facility] [address], [address] [place] [address] Phone: tel: fax: Referral ID Status Reason Start Date Expiration Date V isits Requested Visits Authorized [id number] Closed Specialty Services Required 06/11/2021 12/11/2022 1 1 Encounter Details Date Type Department Care Team (Late st Contact Info) Description 06/11/2021 Community [facility] [address] [place] [address] Nathalia Yousif PA [address] [place] [address] Allergy, initial encounter (Primary Dx) Social History Tobacco Use Types Packs/Day Years [...] Orientation Straight 06/12/2021 9: 23 AM EST COVID-19 Exposure Response Date Recorded In the last month, have you been in contact with someone who was confirmed or suspected to have Coronavirus / COVID-19? Yes 06/12/2021 9:32 AM EST documented as of this encounter Plan of Treatment Scheduled Referrals Name Type Priority Associated Diagnoses Order Schedule Ambulatory Referral to Allergy and Immunology Outpatient Referral Routine Allergy, initial encounter 1 Occurrences starting 06/11/2021 until 12/10/2021 documented as of this encounter Visit Diagnoses Diagnosis Allergy, initial encounter- Primary documented in this encounter Care Teams Geotechnical Field Technician Relationship Specialty Start Date End Date Beena Obregon APRN [address] [place], [place] [id number] PCP - General 10/31/20 08/30/21 Nathalia Yousif PA [address] [place] [address] PCP - General 08/31/21 documented as of this encounter
--- OUTSIDE RECORDS SUMMARY | 2024-12-18 14:56 | XMS_ITS | Patient Health Record ---
Author Organization [facility] Address [address] [place] [address] Care Team Providers Care Travel Information Center Supervisor Name Role Phone Ilda Finley Unavailable [phone] Allergies Allergen (clinical drug ingredient) Drug/Non Drug Allergy documented on EMR Reaction Allergy Type Onset Date Status Cedax Unknown Drug Allergy Active amoxicillin Amoxicillin hives Drug Allergy Act danae codeine Codeine hives Drug Allergy Active Latex Latex Unknown Allergy Active Tape rash Allergy Active Penicillin hives Drug Allergy Active Reason For Referral No Information Medications Medication SIG (Take, Route, Frequency, Duration) Notes Start Date End Date Status Aspirin Active Ondansetron 8 MG Tablet Disintegrating 1 tablet on the tongue and allow to dissolve as needed Orally 1 po q 6 hrs PRN; Duration: 30 days 04/14/2022 Active Levothyroxine Sodium 88 MCG Capsule 1 capsule in the morning on an empty stomach Orally Once a day; Duration: 90 days 06/23/2022 Active Promethazine HCl 25 MG Tablet 1 tablet as needed Orally 1 po q 6 hr PRN; Duration: 30 days 04/14/2022 Active (w/Iron & FA) 27-0.8 MG Tablet 1 tablet Orally Once a day; Duration: 30 day(s) 03/09/2022 Active Social History Tobacco Use: Social History Observation Description Date Details (start date - stop date) Never Smoker NA - NA Sex Assigned At : Social History Observation Description Sex Assigned At Female Social History Drugs/Alcohol: Social Info Question Answer Notes Drugs Have you used drugs other than those for medical reasons in the past 12 months? No Steroid Use Have you used anabolic (body building) st eroids? No Alcohol Screen Did you have a drink containing alcohol in the past year? No Points 0 Interpretation Negative Tobacco Use: Social Info Question Answer Notes Tobacco Use/Smoking Are you a nonsmoker Additional Findings: Tobacco Non-User Current no n-smoker Section Notes: Denies tobacco, ETOH, substa nce use Denies tobacco, ETOH, substa nce use Denies tobacco, ETOH, substa nce use Denies tobacco, ETOH, substa nce use Denies tobacco, ETOH, substa nce use Denies tobacco, ETOH, substa nce use Denies tobacco, ETOH, substa nce use Denies tobacco, ETOH, substa nce use Denies tobacco, ETOH, substa nce use Denies tobacco, ETOH, substa nce use Denies tobacco, ETOH, substa nce use Denies tobacco, ETOH, substa nce use Denies tobacco, ETOH, substa nce use Denies tobacco, ETOH, substa nce use Denies tobacco, ETOH, substa nce use Denies tobacco, ETOH, substa nce use Denies tobacco, ETOH, substa nce use Denies tobacco, ETOH, substa nce use Denies tobacco, ETOH, substa nce use Problems Problem Type SNOMED Code ICD Code Onset Dates Problem Status W/U Status Risk Notes Problem Congenital heart disease (39673504) Congenital malformation of heart, 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) Active confirmed Problem Supervision of high risk (172587493) Supervision of other high risk pregnancies, third trimester (O09.893) Active confirmed Problem Primigravida (494478234) Encounter for supervision of normal first in second trimester (Z34.02) Active confirmed Problem Hypothyroidism (94911883) Other specified hypothyroidism (E03.8) Active confirmed Problem Poor growth affecting management (098905023) IUGR, (O36.5990) Active confirmed Plan Of Treatment No Information Insurance Providers Payer Name Payer Address Payer Phone Subscriber Number Group Number Insured Name Patient Relationship to Insured Coverage Start Date Coverage End Date Aetna [facility] [address] [place] [phone] [id number] Barrie Titus Self - patient is the insured Medical (General) History Medical History History ICD Code Hypothyroidism Asthma Migraine VACA Surgical History Surgery Date(Month/Year) Ear Tubes Cholecystectomy Tonsillectomy
== END 2024-12-18 23:59 | disposition home or self-care (01) ==
LOC: RT 14:54
PROVIDERS: PCP Physician Assistant; Visit Provider Physician Assistant
DX: I51.7 Cardiomegaly (principal); Q21.10 Atrial septal defect, unspecified; G43.909 Migraine, unspecified, not intractable, without status migrainosus
CPT/HCPCS: 93306

== ENCOUNTER 2024-12-27 11:09 | Outpatient (CLI) | payer OTHER, SELFPAY ==
--- OUTSIDE RECORDS SUMMARY | 2024-12-25 14:00 | XMS_ITS | Encounter Summary ---
Author Organization [employer] ([place], [place], [place], [place]) Address [address] [place] [address] Care Team Providers Care Aircraft Mechanic Structures Name Role Phone Skye Heller APRN Unavailable [phone] Reason for Referral * Consultation (Routine) - New Request Specialty Diagnoses / Procedures Referred By Ovidio huerta Referred To Contact Physical Therapy Diagnoses Short Achilles tendon, right Moderate ankle sprain, initial encounter Nondisplaced fracture of lateral malleolus of right fibula, subsequent encounter for closed fracture with routine healing Skye Heller APRN [address] [place] [address] Phone: tel: fax: Referral ID Status Reason Start Date Expiration Date Visits Requested Visits Authorized [id number] New Request Specialty Services Required 12/25/2024 12/25/2025 1 1 Reason for Visit * Reason Comments Follow-up Right ankle s/p brac e & HEP WC Encounter Details Date Type Department Care Team (Late st Contact Info) Description 12/25/2024 2:00 PM EDT Office Visit [facility] Orthopedics - [address] [place] [address] Skye Heller APRN [address] [place] [address] Moderate ankle sprain right , [...] 2:00 PM EDT NAME: Barrie Titus CSN: [id number] : 2000 PCP: No primary care provider [...] returned to work but is out for the[facility]. No new injuries or issues. CURRENT MEDICATIONS [...] or patient care. Electronically Signed, Martha Novak PARTNER MARKETING INTERN I, Skye Heller APRN attest that I [...] Description 01/25/2025 10:45 AM EDT Office Visit [facility] Orthopedics - [address] [phone] Skye Heller APRN [address] [place] [address] Scheduled Referrals Name Type Priority Associated Diagnoses [...] healing documented in this encounter Care Teams Aircraft Mechanic Structures Relationship Specialty Start Date End Date Skye Heller APRN [address] [place] [address] Nurse Practitioner Orthopedic Surgery 12/25/24 documented as of this encounter
--- OUTSIDE RECORDS SUMMARY | 2024-12-27 11:11 | XMS_ITS | Encounter Summary ---
Author Organization [employer] ([place], [place], [place], [place]) Address [address] [place] [address] Care Team Providers Care Vulnerability Researcher Name Role Phone Skye Heller LITIGATION EXAMINER Unavailable [phone] Reason for Visit * Reason Onset Date Comments PT order WC 12/25/2024 Encounter Details Date Type Department Care Team (Late st Contact Info) Description 12/25/2024 Telephone [facility] Orthopedics - [address] [place] [address] Skye Heller, NADJA [address] [place] [address] PT order Social History Tobacco Use Types Packs/Day Years Used Date Smoking Tobacco: Never Smokeless Tobacco: Never Comments Unknown Sex and Gender Information Value Date Recorded Sex Assigned at Not on file Legal Sex Female 5:21 PM CDT Gender Identity Not on file Sexual Orientation Not on file documented as of this encounter Plan of Treatment Upcoming Encounters Date Type Department Care Team (Late st Contact Info) Description 01/25/2025 10:45 AM EDT Office Visit [facility] Orthopedics - [place] [address] [place] [address] Skye Heller, LITIGATION EXAMINER [address] [place] [address] documented as of this encounter Visit Diagnoses Not on filedocumented in this encounter Care Teams Vulnerability Researcher Relationship Specialty Start Date End Date Skye Heller, LITIGATION EXAMINER [address] [place] [id number] Nurse Practitioner Orthopedic Surgery 12/25/24 documented as of this encounter
--- OUTSIDE RECORDS SUMMARY | 2024-12-27 11:11 | XMS_ITS | Encounter Summary ---
Author Organization [facility] Address [address] [place] [address] Care Team Providers Care Blender Laborer Name Role Phone Nathalia Yousif Primary Care Provider [phone] Reason for Referral * Consultation (Routine) - Authorized Specialty Diagnoses / Procedures Referred By Ovidio t Referred To Contact Psychiatry Diagnoses Anxiety disorder, unspecified type Major depressive disorder with single episode, remission status unspecified Medication management Melanie Dumont APRN [address] [place] [address] Phone: tel: fax: Referral ID Status Reason Start Date Expiration Date Visits Requested Visits Authorized [id number] Authorized Specialty Services Required 10/25/2024 04/26/2026 1 1 Encounter Details Date Type Department Care Team (Late st Contact Info) Description 10/25/2024 Community [facility] Community Practice [address] [place] [address] Melanie Dumont APRN [address] [place] [address] Anxiety disorder, unspecified type (Primary Dx); Major [...] documented as of this encounter Care Teams Blender Laborer Relationship Specialty Start Date End Date Nathalia Yousif PA [address] [place] [address] PCP - General 08/31/21 documented as of this encounter
--- OUTSIDE RECORDS SUMMARY | 2024-12-27 11:11 | XMS_ITS | Encounter Summary ---
Author Organization [facility] Address [address] [place] [address] Care Team Providers Care Php Magento Developer Name Role Phone Beena Obregon APRN Primary Care Provider [phone] Nathalia Yousif Primary Care Provider [phone] Reason for Referral * Consultation (Routine) - Closed Specialty Diagnoses / Procedures Referred By Contac t Referred To Contact Allergy Diagnoses Allergy, initial encounter Nathalia Yousif PA [address] [place] [address] Phone: tel: fax: [facility] [address], [address] [place] [address] Phone: tel: fax: Referral ID Status Reason Start Date Expiration Date V isits Requested Visits Authorized [id number] Closed Specialty Services Required 06/11/2021 12/11/2022 1 1 Encounter Details Date Type Department Care Team (Late st Contact Info) Description 06/11/2021 Community [facility] Community Practice [address] [place] [address] Nathalia Yousif PA [address] [place] [address] Allergy, initial encounter (Primary Dx) [...] Primary documented in this encounter Care Teams Php Magento Developer Relationship Specialty Start Date End Date Beena Obregon APRN [address] [place], [place] [id number] PCP - General 10/31/20 08/30/21 Nathalia Yousif PA [address] [place] [address] PCP - General 08/31/21 documented as of this encounter
--- OUTSIDE RECORDS SUMMARY | 2024-12-27 11:11 | XMS_ITS | Clinical Summary ---
Author Organization [facility] Address [address] [place] [address] Care Team Providers Care Gate Cutter Name Role Phone Nathalia Yousif Primary Care Provider [phone] Allergies Active Allergy Reactions Criticality Noted Date [...] Type Department Care Team Description 10/25/2024 Community [facility] Community Practice [address] [place] [address] Melanie Dumont APRN Anxiety disorder, unspecified type [...] 2 - PCV) 2019 UKY-Pap Smear 2021 [id number] Vaccine (1 - 20 24-25 season) 2024 [...] age to complete this topic Insurance [employer]NA [facility] MEDICAID Care Teams Gate Cutter Relationship Specialty Start Date End Date Nathalia Yousif PA [address] [place] [address] PCP - General 08/31/21
--- OUTSIDE RECORDS SUMMARY | 2024-12-27 11:11 | XMS_ITS | Clinical Summary ---
Author Organization [employer] ([place], [place], [place], [place]) Address [address] [place] [address] Care Team Providers Care Senior Catering Sales Manager Name Role Phone Skye Heller APRN Unavailable [phone] Allergies Active Allergy Reactions Criticality Noted Date [...] inhaler 2 puffs. 07/26/2024 Active Active Problems Problem Noted Date Diagnosed Date Nondisplaced fracture of lat eral malleolus of right fibula, subsequent encounter for closed fracture with routine healing 12/25/2024 Short Achilles tendon, right 12/25/2024 Moderate ankle sprain right , initial encounter 12/25/2024 Encounters Date Type Department Care Team Description 12/25/2024 2:00 PM EDT Office Visit [facility] Orthopedics - [address] [place] [address] Skye Heller APRN Moderate ankle sprain right , subsequent encounter (Primary Dx); Short Achilles tendon, right; Nondisplaced fracture of lateral malleolus of right fibula, subsequent encounter for closed fracture with routine healing 12/25/2024 Telephone [facility] Orthopedics - [address] [place] [address] Skye Heller APRN PT order WC from Last 3 Months Family History Medical [...] Mass Index 38.62 12/25/2024 2:10 PM EDT Plan of Treatment Upcoming Encounters Date Type Department Care Team (Late st Contact Info) Description 01/25/2025 10:45 AM EDT Office Visit [facility] Orthopedics - [address] [address] Skye Heller APRN [address] [place] [address] Health Maintenance Due Date Last Done Comments Depression Screening (12+) 2012 HIV Screening 2015 Hepatitis C Screening 2018 DTAP/TDAP/TD VACCINES (1 - Tdap) 2019 Lipid Panel 2020 Pap Smear 2021 COVID-19 VACCINE (1 - 2023-2 5 season) 2024 Influenza Vaccine (#1) 2025 Tobacco Cessation Counseling and Screening (12+) 09/12/2025 12/25/2024 Pneumococcal Vaccine: 0-49 Years Aged Out No longer eligible based on patient's age to complete this topic Insurance AETNA [facility] WORK COMP OTHER Care Teams Senior Catering Sales Manager Relationship Specialty Start Date End Date Skye Heller APRN [address] [place] [address] Nurse Practitioner Orthopedic Surgery 12/25/24
--- OUTSIDE RECORDS SUMMARY | 2024-12-27 11:11 | XMS_ITS | Referral Summary ---
Author Organization [employer] ([place], [place], [place], [place]) Address [address] [place] [address] Care Team Providers Care Road Commissioner Name Role Phone Skye Heller APRN Unavailable [phone] Encounters Date Type Department Care Team Description 12/25/2024 Telephone [facility] Orthopedics - [address] [place] [address] Skye Heller APRN PT order 12/25/2024 2:00 PM EDT Office Visit [facility] Orthopedics - [address] [place] [address] Skye Heller APRN Moderate ankle sprain right , subsequent encounter (Primary Dx); Short Achilles tendon, right; Nondisplaced fracture of lateral malleolus of right fibula, subsequent encounter for closed fracture with routine healing from Last 3 Months Allergies Active Allergy Reactions Criticality Noted Date [...] ankle sprain right , initial encounter 12/25/2024 Social History Tobacco Use Types Packs/Day Years [...] Description 01/25/2025 10:45 AM EDT Office Visit [facility] Orthopedics - [address] [address] Skye Heller APRN [address] [place] [address] Insurance AETNA [facility] WORK COMP OTHER Care Teams Road Commissioner Relationship Specialty Start Date End Date Skye Heller APRN [address] [place] [address] Nurse Practitioner Orthopedic Surgery 12/25/24
[2024-12-27 11:31] LABS: Activated Partial Thrombo Time 25.4 seconds (22.8-30.6); INR 0.96 (0.9-1.1); Prothrombin Time 10.7 seconds (10.1-12.5)
== END 2024-12-27 23:59 | disposition home or self-care (01) ==
LOC: LAB 11:10
PROVIDERS: PCP Physician Assistant; Visit Provider Internal Medicine Medical Oncology
DX: R79.1 Abnormal coagulation profile (principal)
CPT/HCPCS: 36415; 85610; 85730

== ENCOUNTER 2025-01-03 09:00 | Outpatient (CLI) | payer OTHER, SELFPAY ==
--- OUTSIDE RECORDS SUMMARY | 2024-09-22 17:30 | XMS_ITS ---
Author Organization [facility] PE D SRINIVAS Address [address] [place] [address] Care Team Providers Care Theatrical Agent Name Role Phone Yordan Smith Primary Care Provider Yordan Smith Unavailable Unavailable Migration, Provider Unavailable Unavailable Allergies Allergen (clinical drug ingredient) Drug/Non Drug Allergy documented on EMR Reaction Allergy Type Onset Date Status CEDAX (uncoded) Unknown Allergy Acti ve amoxicillin Amoxicillin Unknown Drug Allergy Act danae codeine Codeine hives Drug Allergy Active Penicillin Unknown Drug Allergy [facility] Conversion Encounter Medications Medication SIG [...] Active Encounters Encounter Location Date Provider Diagnosis [facility] PED SR[facility] [address] [facility] [address] [place] [address] 09/22/2024 Provider Migration Bronchitis J40 Assessments Encounter [...] Notes * Barrie TITUSeDOB:[birth year] (24 yo F)Acc No.[id number]:09/22/2024 Patient: Barrie WHALEY Elzbieta Provider: Belem jacobs Migration :2000 A ge:24 Y S ex:Female Date:09/22/2024 Address:[address] [place] [phone] Pcp:Yordan Smith Subjective: * Chief Complaints: * [...] *Please review and pick correct strength-formulation from Kato options. If intended option is not shown, [...] Electronic signature of Prov michaelr Migration on 01/03/2025 at 09:02 AM EDT Sign off status: Pending * Provider: Belem jacobs Migration Date: 0 09/22/2024 Generated for Adriana beck/Sergey/Jackelin on: 0 01/03/2025 09:02 AM EDT
--- OUTSIDE RECORDS SUMMARY | 2024-12-25 14:00 | XMS_ITS | Encounter Summary ---
Author Organization [employer] ([place], [place]) Address [address] [place] [address] Care Team Providers Care Digester Hand Name Role Phone Skye Heller APRN Unavailable [phone] Reason for Referral * Consultation (Routine) - New Request Specialty Diagnoses / Procedures Referred By Ovidio huerta Referred To Contact Physical Therapy Diagnoses Short Achilles tendon, right Moderate ankle sprain, initial encounter Nondisplaced fracture of lateral malleolus of right fibula, subsequent encounter for closed fracture with routine healing Skye Heller APRN [address] [place] [address] Phone: tel: fax: Referral ID Status Reason Start Date Expiration Date Visits Requested Visits Authorized [id number] New Request Specialty Services Required 12/25/2024 12/25/2025 1 1 Reason for Visit * Reason Comments Follow-up Right ankle s/p brac e & HEP WC Encounter Details Date Type Department Care Team (Late st Contact Info) Description 12/25/2024 2:00 PM EDT Office Visit [facility] Orthopedics - [address] [place] [address] Skye Heller APRN [address] [place] [address] Moderate ankle sprain right , subsequent encounter (Primary Dx); Short Achilles tendon, right; Nondisplaced fracture of lateral malleolus of right fibula, subsequent encounter for closed fracture with routine healing Social History Tobacco Use Types Packs/Day Years Used Date Smoking Tobacco: Never Smokeless Tobacco: Never Tobacco Cessation:Counseling Given: Not Answered Comments Unknown Sex and Gender Information Value Date Recorded Sex Assigned at Not on file Legal Sex Female 5:21 PM CDT Gender Identity Not on file Sexual Orientation Not on file documented as of this encounter Last Filed Vital Signs Vital Sign Reading Time Taken Comments Blood Pressure 105/74 12/25/2024 2:10 PM EDT Pulse 73 12/25/2024 2:10 PM EDT Temperature - - Respiratory Rate - - Oxygen Saturation - - Inhaled Oxygen Concentration - - Weight 98.9 kg (218 lb) 12/25/2024 2:10 PM EDT Height 160 cm (5' 3 ) 12/25/2024 2:10 PM EDT Body Mass Index 38.62 12/25/2024 2:10 PM EDT documented in this encounter Progress Notes * Skye Heller APRN - 12/25/2024 2:00 PM EDT NAME: Barrie Titus CSN: [id number] : 2000 PCP: No primary care provider on file. REASON FOR VISIT Follow-up (Right ankle s/p brace & HEP WC) HPI Barrie Titus is a 24 y.o. female Patient presents for follow up for Right Ankle s/p ankle brace and HEP WC DOI: 08/02/2024 Patient states that their symptoms are improving 75% Patient denies: fever or chills and chest pain, pleurisy Patient relates: She reports that she wore the ankle brace for a few weeks and then transitioned out of it. She says that she doesn't have pain anymore. She says she does still feel like her ROM is limited. She states she does the HEP at least once a day. She had returned to work but is out for [facility]. No new injuries or issues. CURRENT MEDICATIONS Current Outpatient Medications Medication Instructions levothyroxine (SYNTHROID) 25 MCG tablet 1 tablet in the morning on an empty stomach Orally Once a day Ubrelvy 50 mg tab 1 tablet, Once as needed venlafaxine XR (EFFEXOR-XR) 75 mg, Daily Ventolin HFA 90 mcg/actuation inhaler 2 puffs ALLERGIES Allergies Allergen Reactions Ceftibuten Hives and Other (See Comments) Codeine Hives Latex Hives, Other (See Comments) and Swelling IT CAUSES BLISTERS Adhesive medical tape Penicillins Other (See Comments) and Hives PAST MEDICAL/SURGICAL HISTORY Past Medical History: Diagnosis Date Anxiety Factor XIII deficiency disease (HCC) Migraines PCOS (polycystic ovarian syndrome) Thyroid disease VSD (ventricular septal defect) Past Surgical History: Procedure Laterality Date CHOLECYSTECTOMY TONSILLECTOMY & ADENOIDECTOMY SOCIAL HISTORY Social History Tobacco Use Smoking status: Never Smokeless tobacco: Never Vaping Use Vaping status: Never Used FAMILY HISTORY Family History Problem Relation Name Age of Onset Cancer Other Arthritis Other REVIEW OF SYSTEMS General: No recent fever or chills, no recent weight loss or weight gain, no insomnia HEENT: No change in vision, no glasses/contacts, no hearing loss, no tinnitus, no vertigo, no congestion/sinus issues CVS: No chest pain, no palpitations, no edema, no varicose veins Resp: No dyspnea, no wheezing, no cough, no hemoptysis GI: No dysphagia, no nausea, no vomiting, no heart burn, no constipation, no diarrhea : No dysuria, no hematuria, no nocturia, no history of chronic UTI Musculoskeletal: See HPI Derm: No rash, no abrasions, no skin discoloration, no history or MRSA Neuro: See HPI Endo: No cold/heat intolerance Heme: No abnormal bruising or bleeding Psych: No depression, no anxiety, no fatigue, no mood swings Scribe Attestation: I, Martha Novak CMA acted as a scribe and transcribed components of the current encounter under the direction of the Attending Provider. I have not been involved in providing any clinical treatments or patient care. Electronically Signed, Martha Novak CMA OBJECTIVE Vitals: 12/25/24 1410 BP: 105/74 Pulse: 73 Weight: 98.9 kg (218 lb) Height: 1.6 m (5' 3 ) Physical Exam Vitals reviewed. Constitutional: Appearance: Normal appearance. HENT: Head: Normocephalic and atraumatic. Skin: General: Skin is warm and dry. Capillary Refill: Capillary refill takes less than 2 seconds. Findings: No bruising or erythema. Neurological: Mental Status: alert and oriented to person, place, and time. Gait: Gait abnormal. Psychiatric: Mood and Affect: Mood normal. Behavior: Behavior normal. Podiatry Exam: General: No acute distress, alert/oriented x3, appropriate mood and affect, looks stated age, and well nourished Exam of the Right ankle Skin: normal, dry, intact, no open lesions or signs of infection Swelling: none noted Warmth: no increased warmth Tenderness: none ROM: limited eversion with tendon subluxation Strength: 4+/5 Gait: non antalgic in regular shoe gear Stability: stable to testing and anterior drawer: negative Crepitus: no Neurological Exam: normal and epicritic sensations intact Vascular Exam: normal, pulse present, Tibialis posterior pulse: present, Dorsalis pedis pulse: present, and capillary refill < 3 sec to all toes Deformity: no gross deformity note IMAGING/OUTSIDE REPORTS Radiology was not performed at today's visit ASSESSMENT Problem List Items Addressed This Visit Musculoskeletal and Integument Nondisplaced fracture of lateral malleolus of right fibula, subsequent encounter for closed fracture with routine healing Relevant Orders AMB REFERRAL TO PHYSICAL THERAPY EVALUATE, TREAT AND PLAN OF CARE Short Achilles tendon, right Relevant Orders AMB REFERRAL TO PHYSICAL THERAPY EVALUATE, TREAT AND PLAN OF CARE Moderate ankle sprain right , initial encounter - Primary Relevant Orders AMB REFERRAL TO PHYSICAL THERAPY EVALUATE, TREAT AND PLAN OF CARE PLAN Return in about 4 weeks (around 01/22/2025) for Right ankle s/p PT. PT order put in, message sent to Brielle for approval, copy of order given to patient Will discuss RTW with no restrictions at next visit. Rest Ice Elevate Return to Clinic if new or worse symptoms occur Activity as Tolerated Discussed symptom improvement with patient. Discussed tendon subluxation and restricted eversion with patient. Formal PT ordered, ,message sent to Brielle for approval. Patient permitted to use ice/heat, compression, elevation, and OTC medication to manage discomfort. Patient to follow up in 6 weeks, will discuss return to work without restrictions at that time. All questions answered. Scribe Attestation: Martha Mclaughlin CMA acted as a scribe and transcribed components of the current encounter under the direction of the Attending Provider. I have not been involved in providing any clinical treatments or patient care. Electronically Signed, Martha Novak MUSIC COPYIST I, Skye Heller APRN attest that I have examined the above patient. I have dictated the exam, diagnosis, and plan to the scribe listed above to be transcribed into this document. I have supplemented the above documentation as warranted. I attest that I have reviewed the above documentation in its entirety and concur. Electronically Signed, Skye Heller APRN 12/25/2024 2:33 PM EDT Viral Grimaldo: Freddie ROMAN / ABBY is undergoing an EHR transition as of this date of service. There may be a delay in uploading older paper and EHR chart data to this new system. The above encounter has been documented to the best of the provider's working knowledge of the EHR in conjunction with medical information provided by the patient (and/or the patient's family member). documented in this encounter Plan of Treatment Upcoming Encounters Date Type Department Care Team (Late st Contact Info) Description 01/25/2025 10:45 AM EDT Office Visit [facility] Orthopedics - [address] [phone] Skye Heller APRN [address] [place] [address] Scheduled Referrals Name Type Priority Associated Diagnoses Orde r Schedule AMB REFERRAL TO PHYSICAL THERAPY EVALUATE, TREAT AND PLAN OF CARE Outpatient Referral Routine Short Achilles tendon, right Moderate ankle sprain right , subsequent encounter Nondisplaced fracture of lateral malleolus of right fibula, subsequent encounter for closed fracture with routine healing Expected: 12/25/2024, Expires: 12/25/2025 documented as of this encounter Visit Diagnoses Diagnosis Moderate ankle sprain right , subsequent encounter- Primary Short Achilles tendon, right Nondisplaced fracture of lateral malleolus of right fibula, subsequent encounter for closed fracture with routine healing documented in this encounter Care Teams Digester Hand Relationship Specialty Start Date End Date Skye Heller APRN [address] [place] [address] Nurse Practitioner Orthopedic Surgery 12/25/24 documented as of this encounter
--- OUTSIDE RECORDS SUMMARY | 2025-01-03 09:03 | XMS_ITS | Patient Health Record ---
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 confirmed Problem Supervision of high risk (160019016) Supervision of other high risk pregnancies, third trimester (O09.893) Active confirmed Problem Primigravida (799053482) Encounter for supervision of normal first in second trimester (Z34.02) Active confirmed Problem Hypothyroidism (59408505) Other specified hypothyroidism (E03.8) Active confirmed Problem Poor growth affecting management (637413232) IUGR, (O36.5990) Active confirmed Plan Of Treatment No Information Insurance Providers Payer Name Payer Address Payer Phone Subscriber Number Group Number Insured Name Patient Relationship to Insured Coverage Start Date Coverage End Date Aetna [facility] [address] [place] [phone] [id number] Barrie Titus Self - patient is the insured Medical (General) History Medical History History ICD Code Hypothyroidism Asthma Migraine VACA Surgical History Surgery Date(Month/Year) Tonsillectomy Ear Tubes Cholecystectomy
--- OUTSIDE RECORDS SUMMARY | 2025-01-03 09:03 | XMS_ITS | Clinical Summary ---
Author Organization [facility] Address [address] [place] [address] Care Team Providers Care Supervisor Beet End Name Role Phone Nathalia Yousif Primary Care Provider [phone] Allergies Active Allergy Reactions Criticality Noted Date [...] Type Department Care Team Description 10/25/2024 Community [facility] Community Practice [address] [place] [address] Melanie Dumont APRN Anxiety disorder, unspecified type [...] 2 - PCV) 2019 UKY-Pap Smear 2021 [id number] Vaccine (1 - 20 24-25 season) 2024 [...] age to complete this topic Insurance AETNA [facility] MEDICAID Care Teams Supervisor Beet End Relationship Specialty Start Date End Date Nathalia Yousif PA [address] [place] [address] PCP - General 08/31/21
--- OUTSIDE RECORDS SUMMARY | 2025-01-03 09:03 | XMS_ITS | Encounter Summary ---
Author Organization [facility] Address [address] [place] [address] Care Team Providers Care Benzene Still Utility Operator Name Role Phone Nathalia Yousif Primary Care Provider [phone] Reason for Referral * Consultation (Routine) - Authorized Specialty Diagnoses / Procedures Referred By Ovidio t Referred To Contact Psychiatry Diagnoses Anxiety disorder, unspecified type Major depressive disorder with single episode, remission status unspecified Medication management Melanie Dumont APRN [address] [place] [address] Phone: tel: fax: Referral ID Status Reason Start Date Expiration Date Visits Requested Visits Authorized [id number] Authorized Specialty Services Required 10/25/2024 04/26/2026 1 1 Encounter Details Date Type Department Care Team (Late st Contact Info) Description 10/25/2024 Community [facility] [address] [place] [address] Melanie Dumont APRN [address] [place] [address] Anxiety disorder, unspecified type (Primary Dx); Major [...] documented as of this encounter Care Teams Benzene Still Utility Operator Relationship Specialty Start Date End Date Nathalia Yousif PA [address] [place] [address] PCP - General 08/31/21 documented as of this encounter
--- OUTSIDE RECORDS SUMMARY | 2025-01-03 09:03 | XMS_ITS | Encounter Summary ---
Author Organization [employer] ([place], [place], [place], [place]) Address [address] [place] [address] Care Team Providers Care Tile Mechanic Name Role Phone Skye Heller OVEN LABORER Unavailable [phone] Reason for Visit * Reason Onset Date Comments PT order WC 12/25/2024 Encounter Details Date Type Department Care Team (Late st Contact Info) Description 12/25/2024 Telephone [facility] Orthopedics - [address] [place] [address] Skye Heller, NADJA [address] [place] [address] PT order Social History Tobacco Use Types [...] Description 01/25/2025 10:45 AM EDT Office Visit [facility] Orthopedics - [address] [place] [address] Skye Heller, OVEN LABORER [address] [place] [address] documented as of this encounter Visit Diagnoses Not on filedocumented in this encounter Care Teams Tile Mechanic Relationship Specialty Start Date End Date Skye Heller, OVEN LABORER [address] [place] [id number] Nurse Practitioner Orthopedic Surgery 12/25/24 documented as of this encounter
--- OUTSIDE RECORDS SUMMARY | 2025-01-03 09:03 | XMS_ITS | Patient Health Record ---
Author Organization [facility] Address [address] [place] [id number] Care Team Providers Care Electrical Designer Drafter Name Role Phone Unknown, PCP Primary Care Provider Hannah Krishnamurthy Unavailable [phone] Allergies Allergen (clinical drug ingredient) Drug/Non Drug [...] 98 Encounters Encounter Location Date Provider Diagnosis [facility] [address] [facility] [address] [place] [address] 04/21/2024 Hannah Cuello Viral upper respiratory tract [...] [employer] [place] MEDICA[place] [address] [place] [address] [id number] Barrie Titus Self - patient is the insured Medical (General) History Medical History History ICD Code hypothyroid PCOS migraine asthma Surgical History Surgery Date(Month/Year) gallbladder ear tubes tonsillectomy Hospitalization History Reason Date(Month/Year) see above
--- OUTSIDE RECORDS SUMMARY | 2025-01-03 09:03 | XMS_ITS | Patient Health Record ---
Author Organization [facility] Address [address] [place] [address] Care Team Providers Care Operations And Maintenance Manager Name Role Phone Yordan Smith Primary Care Provider [phone] Yordan Smith Unavailable Unavailable Felicity Hogue Unavailable [phone] Melanie Fitzpatrick Unavailable [phone] Migration, Provider Unavailable Unavailable Allergies Allergen (clinical drug ingredient) Drug/Non Drug Allergy documented on EMR Reaction Allergy Type Onset Date Status CEDAX (uncoded) Unknown Allergy Acti ve amoxicillin Amoxicillin Unknown Drug Allergy Act danae codeine Codeine hives Drug Allergy Active Penicillin Unknown Drug Allergy Active Results Component Value Reference Range Notes INFLUENZA A&B Reviewed date:02/10/2024 12:36:55 PM Interpretation: Performing Lab: Notes/Report: INFLUENZA A neg INFLUENZA B neg Rapid Covid Antigen Reviewed date:02/10/2024 12:36:55 PM Interpretation:Negative Performing Lab: Notes/Report: Negative LIPID PANEL, STANDARD (7600) Reviewed date:03/26/2024 10:19:04 AM Interpretation: Performing Lab:[facility]ARD[facility], [facility]Richardson Monacoe[address] [facility] Hospital[facility]son wileyIzjdPD[address] Kristopher Atwood Notes/Report: NON-FASTING; NON-FASTING; NON-FASTING; NON-FASTING; [...] LDL-C. Uday CASEY et al. CRISTÓBAL. 2013;310(19): 3454-8470 (http://education.[employer] [place]/faq/MSX297) CHOL/HDLC RATIO 4.4 <5.0 (calc) NON HDL CHOLESTEROL 163 <130 mg/dL (calc) For patients with diabetes plus 1 major ASCVD risk factor, treating to a non-HDL-C goal of <100 mg/dL (LDL-C of <70 mg/dL) is considered a therapeutic option. COMPREHENSIVE METABOLIC PANElder Burkett ([address]) Reviewed date:03/26/2024 10:19:04 AM Interpretation: Performing Lab:[facility] [employer]Richardson Monacoe13[address] [facility] Richardson DawsonNgvrQK[address] Kristopher Atwood Notes/Report: NON-FASTING; NON-FASTING; NON-FASTING; NON-FASTING; [...] 15 10-30 U/L ALT 14 6-29 U/L CBC (INCLUDES DIFF/PLT) (639 9) Reviewed date:03/26/2024 10:19:04 AM Interpretation: Performing Lab:[facility] [employer] [id number] [employer] Stop[employer]acker, [facility] CenterIqxlZV[address] Kristopher Atwood Notes/Report: NON-FASTING; NON-FASTING; NON-FASTING; NON-FASTING; [...] MPV 8.6 7.5-12.5 fL ABSOLUTE NEUTROPHILS 5055 2209-2548 cells/uL ABSOLUTE LYMPHOCYTES 2880 850-3900 cells/uL ABSOLUTE MONOCYTES 400 200-950 cells/uL ABSOLUTE EOSINOPHILS 313 15-500 cells/uL ABSOLUTE BASOPHILS 52 0-200 cells/uL NEUTROPHILS 58.1 LYMPHOCYTES 33.1 MONOCYTES 4.6 EOSINOPHILS 3.6 BASOPHILS 0.6 HEMOGLOBIN A1c (496) Reviewed date:03/30/2024 09:24:44 AM Interpretation: Performing Lab:DEGARDO [employer] Poam7054 [employer] Affirm, [facility] HospitalBxotET[address] Kristopher Atwood Notes/Report: NON-FASTING; NON-FASTING; NON-FASTING; NON-FASTING; NON-FAST FASTING:YES FASTING: YES HEMOGLOBIN A1c 5.3 <5.7 % of total [...] diagnosis of diabetes in children. According to [place] Diabetes Association (ADA) guidelines, hemoglobin A1c <7.0% represents optimal control in non- diabetic patients. Different metrics may apply to specific patient populations. Standards of Medical Care in Diabetes(ADA). VITAMIN B12 (927) Reviewed date:03/26/2024 10:19:04 AM Interpretation: Performing Lab:EDGARDO, [employer] Aomo5501 [employer], FlexElKiihRJ[address] Kristopher Atwood Notes/Report: NON-FASTING; NON-FASTING; NON-FASTING; NON-FASTING; NON-FAST FASTING:YES FASTING: YES VITAMIN B12 646 795-5653 pg/mL TSH (899) Reviewed date:03/26/2024 10:19:04 AM Interpretation: Performing Lab:ED[facility]ARD[facility], [employer]Wood Frxu8058 [employer] Affirm, FlexElVjozST[address] Kristopher Atwood Notes/Report: NON-FASTING; NON-FASTING; NON-FASTING; NON-FASTING; NON-FAST FASTING:YES FASTING: YES TSH 2.28 Reference Range > or = 20 Years 0.40-4.50 Ranges First trimester 0.26-2.66 Second trimester 0.55-2.73 Third trimester 0.43-2.91 Medications Medication SIG (Take, Route, Frequency, Duration) [...] review and pick correct strength-formulatio n from Intrapacespan options. If intended option is not shown, [...] Vaccine Route Administration Date Status Comme nts Hep A Adult 2 Dose IM Intramuscular 01/23/2018 Administere d Menveo IM Intramuscular 02/28/2018 Administered PPD ID Intradermal 10/29/2019 Administered Social History Tobacco Use: Social History Observation Description Date Details (start date - stop date) Never Smoker NA - NA Smoking: Question Answer Notes Are you a: nonsmoker Problems Problem Type SNOMED Code ICD Code Onset Dates Problem Status W/U Status Risk Notes Problem Polycystic ovary syndrome (disorder) (575316016) Polycystic ovarian syndrome (E28.2) Active confirmed Problem Major depression, single episode (04662306) Major depressive disorder, single episode, unspecified (F32.9) Active confirmed Problem Anxiety disorder (041582452) Anxiety disorder, unspecified (F41.9) Active confirmed Problem Otitis externa of left ear (9842582750248072 ) Other otitis externa, left ear (H60.8X2) Active confirmed Problem Vitamin D deficiency (30486069) Vitamin D deficiency (E55.9) Active confirmed Problem Vitamin B12 deficiency (non anemic) (81060067) B12 deficiency (E53.8) Active confirmed Problem Fever (483037990) Fever (R50.9) Active confirme d Problem Weight gain (206214720) Weight gain (R63.5) Active confirmed Problem Dysmenorrhea (826505811) Dysmenorrhea (N94.6) Active confirmed Problem Fatigue (98819096) Fatigue (R53.83) Active confirmed Problem Dizziness (854669627) Dizziness (R42) Active confirmed Problem Acquired hypothyroidism (921445177) Acquired hypothyroidism (E03.9) Active confirmed Problem Mild intermittent asthma (138987290) Mild intermittent asthma without complication (J45.20) Active confirmed Problem Exacerbation of asthma (094397568) Mild asthma exacerbation (J45.901) Active confirmed Problem Migraine without aura, not refractory (741695095) Migraine without aura and without status migrainosus, not intractable (G43.009) Active confirmed Problem Mood disorder (45314695) Mood disorder (F39) Active confirmed Problem Generalized anxiety disorder (95446966) JUANJO (generalized anxiety disorder) (F41.1) Active confirmed Problem Menstrual disorder (077311697) Irregular menses (N92.6) Active confirmed Problem Fatigue (14780925) Fatigue, unspecified type (R53.83) Active confirmed Problem Acute cough (7799196221565595 04) Acute cough (R05.1) Active confirmed Vital Signs Heart Rate 88 /min 04/25/2024 Temperature 98.3 degrees Fahrenheit 04/25/2024 Blood pressure diastolic 80 mm Hg 04/25/2024 Height 5 ft 3 in in 04/25/2024 Blood pressure systolic 118 mm Hg 04/25/2024 Weight 215 lbs 04/25/2024 BMI 38.08 kg/m2 04/25/2024 Encounters Encounter Location Date Provider Diagnosis [place] [facility] [address] [place] [address] 09/22/2024 Provider Migration Bronchitis J40 [place] [facility] [address] [address] 02/10/2024 Melanie McNees Subacute cough R05.2 and Viral URI J06.9 [place] [facility] [address] [address] 03/23/2024 Melanie McNees Migraine without aura and without status migrainosus, not intractable G43.009 ; Major depressive disorder, single episode, unspecified F32.9 ; Anxiety disorder, unspecified F41.9 ; B12 deficiency E53.8 ; Routine medical exam Z00.00 ; Fatigue R53.83 and Irregular menses N92.6 [place] [facility] [place] [address] [facility] [address] [place] [address] 04/25/2024 Felicity Hogue Bronchitis J40 and Migraine without aura and without status migrainosus, not intractable G43.009 [place] [facility] [place] [address] [facility] [address] [place] [address] 03/28/2024 Felicity Hogue [place] [facility] [place] [address] [place] [address] 07/26/2024 Yordan Smith Bronchitis J40 [place] [facility] [address] [place] [address] 07/26/2024 Melanie McNees [place] [facility] [address] [place] [address] 01/28/2024 Melanie McNees Migraine without aura and without status migrainosus, not intractable G43.009 and JUANJO (generalized anxiety disorder) F41.1 [place] [facility] [address] [facility] [address] [place] [address] 03/28/2024 Melanie McNees Migraine without aura and without status migrainosus, not intractable G43.009 and JUANJO (generalized anxiety disorder) F41.1 [place] [facility] [address] [place] [address] 04/23/2024 Melanie McNees [place] [facility] [address] [place] [address] 05/31/2024 Melanie McNees [place] [facility] [address] [place] [address] 10/25/2024 Melanie McNees [place] [facility] [address] [place] [address] 10/25/2024 Melanie McNees [place] [facility] [address] [facility] [address] [place] [address] 10/29/2024 Melanie McNees Assessments Encounter Date Diagnosis [...] Flu, A 06/21/2019 Rapid Flu, B 06/21/2019 O-Ugyo-Eojxltqtmoznz Antibody 02/16/2018 M-Respiratory Virus Panel, PCR 3 M-Upper Respiratory Panel, PCR 3 M-Vitamin B12 03/10/2021 M-Vitamin D 25 Hydroxy 03/10/2021 TESTOSTERONE, TOTAL, [place] ([id number]) 2022 Insurance Providers Payer Name Payer Address Payer Phone Subscriber Number Group Number Insured Name Patient Relationship to Insured Coverage Start Date Coverage End Date [employer] [facility] [address] [address] [place] [address] [id number] Barrie Titus Self - patient is the insured Medications Administered Medication Instructions Date of Administration Dosage Notes Kenalog 40mg 02/05/2019 40 mg Triamcinolone Acetonide 40mg Injection 07/29/2018 1 mL Medical (General) History Medical History History ICD Code Migraines Hypothyroidism Atypical Pneumonia of Right Lung Surgical History Surgery Date(Month/Year) Tonsilectomy 2008 Gallbladder 2018 Hospitalization History Reason Date(Month/Year) [facility]- inflammation of ribs 06/21 09/09
--- OUTSIDE RECORDS SUMMARY | 2025-01-03 09:03 | XMS_ITS | Encounter Summary ---
Author Organization [facility] Address [address] [place] [address] Care Team Providers Care Vice President Of Finance Name Role Phone Beena Obregon APRN Primary Care Provider [phone] Nathalia Yousif Primary Care Provider [phone] Reason for Referral * Consultation (Routine) - Closed Specialty Diagnoses / Procedures Referred By Contac t Referred To Contact Allergy Diagnoses Allergy, initial encounter Nathalia Yousif PA [address] [place] [address] Phone: tel: fax: [facility] [address] [facility], [address] [place] [address] Phone: tel: fax: Referral ID Status Reason Start Date Expiration Date V isits Requested Visits Authorized [id number] Closed Specialty Services Required 06/11/2021 12/11/2022 1 1 Encounter Details Date Type Department Care Team (Late st Contact Info) Description 06/11/2021 Community [facility] Community Practice [address] [place] [address] Nathalia Yousif PA [address] [place] [address] Allergy, initial encounter (Primary Dx) [...] Primary documented in this encounter Care Teams Vice President Of Finance Relationship Specialty Start Date End Date Beena Obregon APRN [address] [place], [place] [id number] PCP - General 10/31/20 08/30/21 Nathalia Yousif PA [address] [place] [address] PCP - General 08/31/21 documented as of this encounter
--- OUTSIDE RECORDS SUMMARY | 2025-01-03 09:03 | XMS_ITS | Referral Summary ---
Author Organization [employer] ([place], [place], [place], [place]) Address [address] [place] [address] Care Team Providers Care Casino Investigator Name Role Phone Skye Heller APRN Unavailable [phone] Encounters Date Type Department Care Team Description 12/25/2024 Telephone [facility] Orthopedics - [address] [place] [address] Skye Heller APRN PT order 12/25/2024 2:00 PM EDT Office Visit [facility] Orthopedics - [address] [place] [address] Skye Heller APRN Moderate ankle [...] Description 01/25/2025 10:45 AM EDT Office Visit [facility] Orthopedics - [address] [address] Skye Heller APRN [address] [place] [address] [address] [facility] WORK COMP OTHER Care Teams Casino Investigator Relationship Specialty Start Date End Date Skye Heller APRN [address] [place] [address] Nurse Practitioner Orthopedic Surgery 12/25/24
--- OUTSIDE RECORDS SUMMARY | 2025-01-03 09:03 | XMS_ITS | Clinical Summary ---
Author Organization [employer] ([place], [place], [place], [place]) Address [address] [place] [address] Care Team Providers Care Consumer Recruiter Name Role Phone Skye Heller APRN Unavailable [phone] Allergies Active Allergy Reactions Criticality Noted [...] Description 12/25/2024 2:00 PM EDT Office Visit [facility] Orthopedics - [address] [place] [address] Skye Heller APRN Moderate ankle sprain right , subsequent encounter (Primary Dx); Short Achilles tendon, right; Nondisplaced fracture of lateral malleolus of right fibula, subsequent encounter for closed fracture with routine healing 12/25/2024 Telephone [facility] Orthopedics - [address] [place] [address] Skye Heller APRN PT order [...] Description 01/25/2025 10:45 AM EDT Office Visit [facility] Orthopedics - [address] [address] Skye Heller APRN [address] [place] [address] Health Maintenance Due Date Last Done Comments Depression Screening (12+) 2012 HIV Screening 2015 Hepatitis C Screening 2018 DTAP/TDAP/TD VACCINES (1 - Tdap) 2019 Lipid Panel 2020 Pap Smear 2021 COVID-19 VACCINE (1 - 2023-2 5 season) 2024 Influenza Vaccine (#1) 2025 Tobacco Cessation Counseling and Screening (12+) 12/25/2025 12/25/2024 Pneumococcal Vaccine: 0-49 Years Aged Out No longer eligible based on patient's age to complete this topic Insurance AETNA [facility] WORK COMP OTHER Care Teams Consumer Recruiter Relationship Specialty Start Date End Date Skye Heller APRN [address] [place] [address] Nurse Practitioner Orthopedic Surgery 12/25/24
[2025-01-03 09:12] VITALS: BMI 36.3
[2025-01-03 10:00] LABS: Hematocrit 41.2 % (37.0-47.0); Hemoglobin 13.8 g/dL (12.2-16.2); Immature Granulocytes % 0.5 %; Mean Corpuscular HGB Conc 33.5 g/dL (31.8-35.4); Mean Corpuscular Hemoglobin 27.5 pg (27.0-31.2); Mean Corpuscular Volume 82.2 fl (81-99); Nucleated Red Blood Cells % 0 %; Platelet Count 259 K/mm3 (142-424); Red Blood Count 5.01 M/mm3 (4.20-5.40); Red Cell Distribution Width-SD 38.8 fL; White Blood Count 7.8 K/mm3 (4.8-10.8)
[2025-01-03 10:08] LABS: INR 0.97 (0.9-1.1); Prothrombin Time 10.8 seconds (10.1-12.5)
[2025-01-03 10:09] LABS: Anion Gap 14.8 mEq/L (5-15); Blood Urea Nitrogen 15 mg/dl (7-17); Calcium 9.5 mg/dl (8.4-10.2); Carbon Dioxide 24 mmol/L (22.0-30.0); Chloride 103 mmol/L (98-107); Creatinine Clearance Estimated 165 mL/min (50-200); Creatinine,Serum 0.80 mg/dl (0.52-1.04); Estimated Glomerular Filt Rate 88 ml/min (>60); GFR (African American) 107 ML/MIN (>60); Glucose 95 mg/dl (74-100); Potassium 3.8 mmoL/L (3.5-5.1); Sodium 138 mmol/L (136-145)
== END 2025-01-03 23:59 | disposition home or self-care (01) ==
LOC: PREOP 09:00
PROVIDERS: PCP Physician Assistant; Visit Provider Internal Medicine
DX: Z01.812 Encounter for preprocedural laboratory examination (principal)
CPT/HCPCS: 80048; 85025; 85610

== ENCOUNTER 2025-01-03 09:02 | Outpatient (CLI) | payer OTHER, SELFPAY ==
--- NOTE | 2025-01-03 09:52 | MR_ITS ---
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 TECHNIQUE Image Acquisition: Cardiac magnetic resonance (CMR) was performed on Siemens Espree MRI 1.5T scanner. Software platform sequences were performed using the Siemens Instacoach MR B19 platform. A set of three-plane, low-resolution, large [id number]-zp-wtup localizers were initially acquired. Then axial, coronal, sagittal TrueFISP, as well as axial HASTE images, were obtained. These were followed by gated TrueFISP breathold cinematic sequences obtained in the short axis with 8 mm slices and 2 mm gaps, 2-chamber (vertical long axis), 3-chamber, 4-chamber (horizontal long axis). A bolus of contrast was injected intravenously with first-pass sequences obtained in the short axis and four-chamber planes. After approximately 10 minutes, a TI machine shop helper sequence was performed to determine the optimal TI time. Using the optimized TI time, delayed contrast enhancement segmented inversion???recovery TurboFLASH sequences were obtained in the short axis, 2-chamber, 3-chamber, and 4-chamber projections. 2D-velocity phase mapping was performed. Functional parameters were calculated by offline analysis on an independent workstation ([employer] Platform, CVINewRiver). Contrast: ProHance??? (Gadoteridol) FINDINGS MORPHOLOGY AND FUNCTION Left ventricle: The left ventricle is normal in size. The indexed left ventricular end-diastolic volume (LVEDVi) is 58 ml/m2 (reference range 57-105 ml/m2 in males, 56-96 ml/m2 in females). Normal left ventricular systolic function is present. There is normal left ventricular wall thickness. There are no regional wall motion abnormalities noted. LVEF is calculated at 60.6% (reference range 57-77%). Right ventricle: The right ventricle is normal in size. The indexed right ventricular end-diastolic volume (RVEDVi) is 58 ml/m2 (reference range 61-121 ml/m2 in males, 48-112 ml/m2 in females). Low-normal right ventricular systolic function is present. RVEF is calculated at 50.3% (reference range 52-72% in males, 51-71% in females). Atria: The left atrium is normal in size. The maximum indexed left atrial volume is 23 ml/m2 (reference range 26-52 ml/m2 in males, 27-53 ml/m2 in females). The right atrium is normal in size. The maximum indexed right atrial volume is 20 ml/m2 (reference range 18-90 ml/m2). Aorta: The diameter of the aortic annulus is normal, measuring 19 mm (coronal view reference range 21-30 mm in males, 19-27 mm in females). The diameter of the aortic sinus is normal, measuring 27 mm (coronal view reference range 25-42 mm in males, 24-36 mm in females). The diameter of the sinotubular junction is normal, measuring 20 mm (coronal view reference range 18-32 mm in males, 18-28 mm in females). The diameters of the ascending and descending thoracic aorta are normal. Main pulmonary artery: The main pulmonary artery diameter is normal. Pericardium: The pericardial thickness is normal. The pericardial thickness measures 2.0 mm (normal < 4.0 mm). There is no pericardial effusion. VALVES The valvular morphologies in the visualized sequences appear normal. There is no significant valvular stenosis or regurgitation of the mitral, aortic, tricuspid, or pulmonic valve noted visually. Systolic anterior motion of the mitral valve is not visualized. Ratio of pulmonary to systemic flow, Qp:Qs ratio = 1.2 (normal < or = 1.2, hemodynamically significant shunt > 1.5), demonstrating no evidence of hemodynamically significant shunt. TISSUE CHARACTERIZATION Resting Perfusion: Normal myocardial blood flow at rest. No evidence of resting hypoperfusion. Myocardial Fibrosis and/or edema: Normal gadolinium kinetics are present. No evidence of late gadolinium enhancement is noted, consistent with absence of myocardial scarring, infarction, or necrosis. T2-weighted imaging demonstrates no evidence of myocardial edema or inflammation. OTHER No other significant findings are noted. However, this exam is focused on the cardiac structure and function. IMPRESSION Normal LV size with normal LV systolic function. LVEDVi= 58 ml/m2 and LVEF= 60.6%. Low-normal RV size with normal RV systolic function. RVEDVi= 58 ml/m2 and RVEF= 50.3%. No atrial enlargement. No CMR evidence of myocardial scarring, infarction, or necrosis. No evidence of myocardial edema or inflammation. Perfusion analysis demonstrates normal blood flow at rest with no evidence of resting hypoperfusion. Ratio of pulmonary to systemic flow, Qp:Qs ratio = 1.2 (normal < or = 1.2, hemodynamically significant shunt > 1.5), demonstrating no evidence of hemodynamically significant shunt. This CMR demonstrates normal biventricular size and systolic function. In the setting of known interatrial shunt, but otherwise normal RV size/function and Qp:Qs ratio < 1.5, no intervention is required at ths time. Serial evaluations recommended to evaluate for RV dimensions over time. COMPARISON None CRITICAL RESULT None COMMUNICATION As above. The findings of this cardiac MR were reviewed, reported, and signed by Margarito Ashby MD (District Loss Prevention Manager). Conclusion Electronically signed by : Aubree Ashby MD 01/14/2025 13:50:41
[2025-01-03] MEDS: 0.9 % SODIUM CHLORIDE 50 ML VIAL IV (11:51)
[2025-01-03] MEDS: GADOTERIDOL INJ 20ML SYRINGE 20 ML IV (11:51)
[2025-01-03] MEDS: SODIUM CHLORIDE 0.9% 10ML SYR (RAD ONLY) 10 ML IV (11:51)
== END 2025-01-03 23:59 | disposition home or self-care (01) ==
LOC: RAD 09:03
PROVIDERS: PCP Physician Assistant; Visit Provider Physician Assistant
DX: Q24.8 Other specified congenital malformations of heart (principal); I51.7 Cardiomegaly; Z87.74 Personal history of (corrected) congenital malformations of heart and circulatory system
CPT/HCPCS: 75561; A9576

== ENCOUNTER 2025-01-08 09:10 | Day surgery (SDC) | payer OTHER, SELFPAY ==
[2025-01-04 06:49] VITALS: BMI 36.3
[2025-01-08 10:17] LABS: Urine Pregnancy, HCG Qual. Negative (Negative)
[2025-01-08 10:20] VITALS: BP 120/77; PULSE 56; RESP 17; TEMP 36.8; O2SAT 100
--- NOTE | 2025-01-08 10:20 | EXP.ANES.CKL ---
[facility] Disclaimer: The information contained in this section may have been updated after the patient was seen, as this information can be updated by other users. Medical History VSD (ventricular septal defect) Elevated factor VIII level Anxiety History of gastroesophageal reflux (GERD) Migraine Asthma Nausea and vomiting Acne B12 deficiency anemia Hypothyroidism Surgical History History of tonsillectomy History of tympanostomy tube placement History of cholecystectomy Family History Other Family history of VSD (ventricular septal defect) Family history of cancer Family history of diabetes mellitus Family history of lupus Social History Smoking Status: Never smoker second hand exposure: No alcohol intake: never substance use type: denies use current occupational status: employed Travel in the last 8 weeks?: None household members: family housing: house current occupational exposures/hazards: No caffeine: Yes Have you lived/traveled outside US in past 30 days?: No Contact w/someone who lives/traveled outside US past 30 days?: No Exposure to someone with infectious disease in past 14 days?: No Do you have a fever (greater than 100.4 F or 38 C)?: No Have you tested positive for COVID-19?: No Exposed to someone with COVID-19 in past 14 days?: No Do you have a sore throat?: No Do you have a cough?: No Do you have any weakness?: No Do you have any diarrhea?: No Are you experiencing any unusual bleeding?: No Do you have any muscle aches/pain?: No Do you have any abdominal pain?: No Are you experiencing loss of taste or smell?: No [facility] Anesthesia Checklist Patient Identification Patient Identification: Arm Band Structural Data Admitted From: Home Planned Operative Procedure/s: MARIO Consent for Planned Operative Procedure(s) Verified: Yes Verified Documents: Surgical Consent and History and Physical NPO Status Verified Time NPO: 00:00 Additional verifications Anesthesia Reactions: No Hx Blood Transfusions: No Airway Assessment Mallampati Score:: Class II C-Spine Mobility Assessed: Yes TMJ Mobility Assessed: Yes Dentition: Good Dentition Neurological Assessment Level of Consciousness: Awake, Alert and Appropriate Anesthesia Plan Anesthesia Risk discussed: Yes Anesthesia Plan: Verified ASA Class: II Anesthesia Type: MAC
[2025-01-08] MEDS: LACTATED RINGERS 1000ML 1,000 ML 50 ML IV (10:49)
[2025-01-08 10:58] VITALS: BP 100/58; PULSE 90; RESP 16; TEMP 36.2; O2SAT 91
[2025-01-08 11:08] VITALS: BP 104/68; PULSE 69; RESP 16; O2SAT 94
[2025-01-08 11:18] VITALS: BP 106/71; PULSE 66; RESP 16; O2SAT 94
[2025-01-08 11:28] VITALS: BP 112/68; PULSE 54; RESP 16; O2SAT 96
== END 2025-01-08 11:28 | disposition home or self-care (01) ==
PROVIDERS: PCP Physician Assistant; Visit Provider Internal Medicine
PROC: (CPT 93312; principal; 2025-01-08 11:00)
DX: Q21.10 Atrial septal defect, unspecified (principal); D66 Hereditary factor VIII deficiency; E03.9 Hypothyroidism, unspecified; Z82.49 Family history of ischemic heart disease and other diseases of the circulatory system; Z79.890 Hormone replacement therapy; Z79.899 Other long term (current) drug therapy; Z88.1 Allergy status to other antibiotic agents; Z88.5 Allergy status to narcotic agent; Z88.0 Allergy status to penicillin; Z88.8 Allergy status to other drugs, medicaments and biological substances
CPT/HCPCS: 81025; 93270; 93312; 93319; J2003; J2250; J2704; J7120

== ENCOUNTER 2025-02-26 16:24 | Outpatient (CLI) | payer OTHER, SELFPAY ==
--- OUTSIDE RECORDS SUMMARY | 2024-04-23 11:30 | XMS_ITS ---
Author Organization [facility] Address [address] [place] [address] Care Team Providers Care Machine Operator Transplanter Name Role Phone Yordan Smith Primary Care Provider Yordan Smith Unavailable Unavailable Melanie Fitzpatrick [phone] REASON FOR VISIT 4 week f/u Encounters Encounter Location Date Provider Diagnosis [facility] [address] [address] 04/23/2024 Melanie Fitzpatrick Plan Of Treatment No Information Progress Notes * Barrie TITUSeDOB:[birth year] (24 yo F)Acc No.[id number]:04/23/2024 Progress Notes Patient: Barrie WHALEY Provider: Félix Fitzpatrick APRN :2000 A ge:23 Y S ex:Female Date:04/23/2024 Address:[address] [place], [place] Pcp:Yordan Smith Subjective: * Chief Complaints: * 1 . 4 week f/u. * Medical History: Objective: * Vitals: Assessment: Plan: * Treatment: * * Electronic signature of Abhijeet Fitzpatrick APRN on 02/27/2025 at 10:14 AM EDT Sign off status: Pending * Provider: Félix Fitzpatrick APRN Date: 1 06/23/2023 Generated for Adriana beck/Sergey/Ernestoitting on: 0 02/27/2025 10:14 AM EDT
--- OUTSIDE RECORDS SUMMARY | 2024-09-22 17:30 | XMS_ITS ---
Author Organization [facility] PE D SRINIVAS Address [address] [place] [address] Care Team Providers Care Pusher Operator Name Role Phone Yordan Smith Primary Care Provider Yordan Smith Unavailable Unavailable Migration, Provider Unavailable Unavailable Allergies Allergen (clinical drug ingredient) Drug/Non Drug Allergy documented on EMR Reaction Allergy Type Onset Date Status CEDAX (uncoded) Unknown Allergy Acti ve amoxicillin Amoxicillin Unknown Drug Allergy Act danae codeine Codeine hives Drug Allergy Active Penicillin Unknown Drug Allergy [facility] Conversion Encounter Medications Medication SIG (Take, Route, [...] Center PED SR[facility] [address] [facility] [address] [place] [address] 09/22/2024 Provider Migration Bronchitis J40 Assessments Encounter [...] Notes * Barrie TITUSeDOB:[birth year] (24 yo F)Acc No.[id number]:09/22/2024 Patient: Barrie WHALEY Elzbieta Provider: Belem jacobs Migration :2000 A ge:24 Y S ex:Female Date:09/22/2024 Address:[address] [place] [phone] Pcp:Yordan Smith Subjective: * Chief Complaints: * [...] *Please review and pick correct strength-formulation from [employer]Match options. If intended option is not shown, [...] Treatment: * * Electronic signature of Prov michaelr Migration on 02/27/2025 at 10:14 AM EDT Sign off status: Pending * Provider: Belem jacobs Migration Date: 0 09/22/2024 Generated for Adriana beck/Sergey/Jackelin on: 0 02/27/2025 10:14 AM EDT
--- OUTSIDE RECORDS SUMMARY | 2025-01-17 09:15 | XMS_ITS | Encounter Summary ---
[facility] Address [address] [place] [address] Care Team Providers Care Retort Load Expediter Name Role Phone Nathalia Yousif Primary Care Provider [phone] Reason for Visit * Reason Comments Abnormal Echo Encounter Details Date Type Department Care Team (Late st Contact Info) Description 01/17/2025 9:15 AM EDT Office Visit [facility] [address] [facility] [address] [place] [address] Luke Nunes MD [address] [facility] [address] [place] [address] History of congenital heart disease (Primary Dx); Atrial septal defect Social History Tobacco Use Types Packs/Day Years Used Date Smoking Tobacco: Never Passive Smoke Exposure: Never Smokeless Tobacco: Never Tobacco Cessation:Counseling Given: Not Answered Alcohol Use Standard Drinks/Week Comments Never 0 (1 standard drink = 0.6 oz pure alcohol) pt reports 1x month vodka before AUDIT-C Answer Date Recorded Q1: How often do you have a drink containing alcohol? Never 06/01/2022 Q2: How many drinks containi ng alcohol do you have on a typical day when you are drinking? Patient does not drink Q3: How often do you have si x or more drinks on one occasion? Never 06/01/2022 [place] Depression Scale Answer Date Recorded Retired [place] Depression Score 0 09/13/2022 Retired EPD Scale: Thought of Harming Self Unrec ognized value 09/13/2022 Abuse Screen Answer Date Recorded Feels Unsafe at Home or Work/School no 09/12/2022 Feels Threatened by Someone no 08/19 Does Anyone Try to Keep You From Having Contact with Others or Doing Things Outside Your Home? no 09/12/2022 Physical Signs of Abuse Present no 09/12/2022 Disabilities Answer Date Recorded Difficulty Concentrating, Remembering or Making Decisions no 09/12/2022 Difficulty Managing Errands Independently no 09/12/2022 Education Answer Date Recorded What is the highest level of school you have completed or the highest degree you have received? High school graduate 09/12/2022 Comments Unknown Sex and Gender Information Value Date Recorded Sex Assigned at Not on file Legal Sex Female 9:07 AM EDT Gender Identity Not on file Sexual Orientation Not on file documented as of this encounter Last Filed Vital Signs Vital Sign Reading Time Taken Comments Blood Pressure 120/78 01/17/2025 9:06 AM EDT Pulse - - Temperature - - Respiratory Rate - - Oxygen Saturation 98% 01/17/2025 9:06 AM EDT Inhaled Oxygen Concentration - - Weight 96.5 kg (212 lb 12.8 oz) 01/17/2025 9:06 AM EDT Height 160 cm (5' 2.99 ) 01/17/2025 9:06 AM EDT Body Mass Index 37.71 01/17/2025 9:06 AM EDT documented in this encounter Progress Notes * Luke Nunes MD - 01/17/2025 9:15 AM EDTAssociated Order(s): ECG 12 Lead Post-Procedure Diagnose(s): Atrial septal defect; History of congenital heart disease OFFICE VISIT NOTE [facility] Name: Barrie Titus Date: 01/17/2025 : 2000 REFERRING/PRIMARY PROVIDER: Nathalia Yousif PA Chief Complaint Patient presents with Abnormal Echo HPI: Barrie Titus is a 24 y.o. female who presents for atrial septal defect found on echo [facility] 12/18/2024. She was told she had a hole in her heart as a child but it had closed. Apparently had normal echo in 2022 but this was without agitated saline. Recent echo ordered by PCP for migraines and shortness of breath. She also has some dizziness when she stands up and her blood pressure drops some. She also has exercise-induced asthma. Shortness of breath worsening mainly withexertion over the past year. She had a MARIO and cardiac MRI after transthoracic echo showed ASD [id number] shunt and mild RV enlargement, right atrial size was normal. Shunt ratio not given. 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 hypothyroid in 2016 Heart murmur Hyperlipidemia Migraine 2007 PONV (postoperative nausea and vomiting) Past Surgical History: Procedure Laterality Date EAR TUBES LAPAROSCOPIC CHOLECYSTECTOMY 2017 TONSILLECTOMY 2008 / adnoids Social History Socioeconomic History Marital status: Single Number of children: 0 Highest education level: High school graduate Tobacco Use Smoking status: Never Passive exposure: Never Smokeless tobacco: Never Vaping Use Vaping status: Former Substance and Sexual Activity Alcohol use: Never Comment: pt reports 1x month vodka before Drug use: Never Sexual activity: Yes Partners: Male control/protection: Condom Family History Problem Relation Age of Onset defects Mother Heart murmur Mother Anemia Mother Arrhythmia Mother Asthma Mother Clotting disorder Mother Hyperlipidemia Mother Arrhythmia Father Hyperlipidemia Father Heart murmur Father Hypertension Father Asthma Father Hyperlipidemia Brother Hypertension Brother Arrhythmia Maternal Grandfather Heart attack Maternal Grandfather Heart disease Maternal Grandfather Hypertension Maternal Grandfather Asthma Maternal Grandfather Hyperlipidemia Maternal Grandfather Diabetes Maternal Grandfather Clotting disorder Maternal Grandmother Heart attack Maternal Grandmother Heart disease Maternal Grandmother Hypertension Maternal Grandmother Arrhythmia Maternal Grandmother Heart failure Maternal Grandmother Hyperlipidemia Maternal Grandmother Heart attack Paternal Grandfather Heart disease Paternal Grandfather Arrhythmia Paternal Grandfather Asthma Paternal Grandfather Hyperlipidemia Paternal Grandfather Hypertension Paternal Grandfather Colon cancer Paternal Grandfather Hypertension Paternal Grandmother Fainting Paternal Grandmother Hyperlipidemia Paternal Grandmother Stroke Paternal Grandmother Asthma Brother Hypertension Brother Breast cancer Maternal Aunt Breast cancer Maternal Aunt Asthma Paternal Uncle Hyperlipidemia Paternal Uncle Hypertension Paternal Uncle Hyperlipidemia Maternal Uncle Hypertension Maternal Uncle ROS: Constitutional no fever, no weight loss Skin no rash, no subcutaneous nodules Otolaryngeal no difficulty swallowing Cardiovascular See HPI Pulmonary no cough, no sputum production Gastrointestinal no constipation, no diarrhea Genitourinary no dysuria, no hematuria Hematologic no easy bruisability, no abnormal bleeding Musculoskeletal no muscle pain Neurologic no dizziness, no falls Allergies Allergen Reactions Amoxicillin Hives Cedax [Ceftibuten] Hives Codeine Hives Latex Other (See Comments) IT CAUSES BLISTERS Adhesive medical tape Penicillins Hives Current Outpatient Medications: albuterol sulfate HFA 108 (90 Base) MCG/ACT inhaler, Inhale 2 puffs Every 6 (Six) Hours As Needed for Wheezing., Disp: 6.7 g, Rfl: 0 fluticasone (FLONASE) 50 MCG/ACT nasal spray, 1 spray by Each Nare route As Needed., Disp: , Rfl: levothyroxine (SYNTHROID, LEVOTHROID) 100 MCG tablet, Take 1 tablet by mouth Daily., Disp: , Rfl: Ubrelvy 50 MG tablet, 1 tablet As Needed., Disp: , Rfl: venlafaxine XR (EFFEXOR-XR) 75 MG 24 hr capsule, 1 capsule Daily., Disp: , Rfl: Aldactone 25 MG tablet, 1 tablet 2 (Two) Times a Day. (Patient not taking: Reported on 01/17/2025), Disp: , Rfl: Atogepant (Qulipta) 60 MG tablet, 1 tablet Daily., Disp: , Rfl: cetirizine (zyrTEC) 10 MG tablet, Take 1 tablet by mouth Daily., Disp: , Rfl: loratadine (CLARITIN) 10 MG tablet, Take 1 tablet by mouth Daily., Disp: , Rfl: metFORMIN (GLUCOPHAGE) 1000 MG tablet, 1 tablet 2 (Two) Times a Day., Disp: , Rfl: Vitals: 01/17/25 0906 BP: 120/78 BP Location: Right arm Patient Position: Sitting Cuff Size: Adult SpO2: 98% Weight: 96.5 kg (212 lb 12.8 oz) Height: 160 cm (62.99 ) Body mass index is 37.71 kg/m??. PHYSICAL EXAM: General Appearance: well developed well nourished HENT: oropharynx moist lips not cyanotic Neck: thyroid not enlarged supple Respiratory: no respiratory distress normal breath sounds no rales Cardiovascular: no jugular venous distention regular rhythm apical impulse normal S1 normal, S2 normal no S3, no S4 no murmur no rub, no thrill carotid pulses normal; no bruit lower extremity edema: none Musculoskeletal: no clubbing of fingers. normocephalic, head atraumatic Skin: warm, dry Psychiatric: judgement and insight appropriate normal mood and affect RESULTS: ECG 12 Lead Date/Time: 01/17/2025 9:46 AM Performed by: Luke Nunes MD Authorized by: Luke Nunes MD Comparison: compared with previous ECG from 04/16/2024 Similar to previous ECG Rhythm: sinus rhythm Rate: normal QRS axis: normal Clinical impression: normal ECG Labs: Lab Results Component Value Date AST 09/12/2022 ALT 6 09/12/2022 No results found for: HGBA1C No components found for: CREATINININE No results found for: EGFRIFNONA Most recent PCP note, imaging tests, and labs reviewed. ASSESSMENT: Problem List Items Addressed This Visit History of congenital heart disease - Primary Atrial septal defect PLAN: 1. Atrial septal defect: Difficult to discern if symptoms are due to shunt or not. Will review transthoracic, transesophageal echo images Transthoracic echo report stated ASD present and mild RV enlargement present Patient also had a cardiac MRI at [facility] will receive the request of this as well and review them. Will need to discern Qp/Qs ratio and chamber sizes If evidence of chamber enlargement is present, we will further discuss percutaneous ASD closure. Briefly discussed procedure with patient and mother in office today, and both in agreement if needed. MARIO showed to have at least 5 mm of aortic root for adequate closure. And Qp/Qs greater than 1.5: 1. 2. Dyspnea on exertion: Likely multifactorial given obesity, BMI 37, lack of exercise, exercise-induced asthma, and possibly some contribution from ASD. Increase aerobic exercise and work on weight loss as well. 3. Pain: Atypical, no ischemic evaluation necessary at this time. Return to clinic in 3 months, or sooner as needed. Thank you for the opportunity to share in the care of your patient; please do not hesitate to call me with any questions. Luke Nunes MD, [facility] Office: [address] [place] [address] 01/17/25 documented in this encounter Plan of Treatment Upcoming Encounters Date Type Department Care Team (Late st Contact Info) Description 04/11/2025 1:15 PM EDT Office Visit [facility] [address] [facility] [address] [place] [address] Luke Nunes MD [address] [place] [address] 05/10/2025 3:00 PM EST Office Visit [facility] [address] [place] [address] Manjeet Garcia DO [address] [place], [place] [id number] documented as of this encounter Procedures Procedure Name Priority Date/Time Associated Diagnosis Comments ECG 12-LEAD Routine 01/17/2025 9:46 AM EDT History of congenital heart disease Atrial septal defect documented in this encounter Results * ECG 12-LEAD (01/17/2025 9:46 AM EDT) Narrative Luke Nunes MD - 01/17/2025 9:46 AM EDT Luke Nunes MD 01/17/2025 9:54 AM ECG 12 Lead Date/Time: 01/17/2025 9:46 AM Performed by: Luke Nunes MD Authorized by: Luke Nunes MD Comparison: compared with previous ECG from 04/16/2024 Similar to previous ECG Rhythm: sinus rhythm Rate: normal QRS axis: normal Clinical impression: normal ECG us Luke Nunes MD ECG ORDERABLES Final Result documented in this encounter Visit Diagnoses Diagnosis History of congenital heart disease- Primary Personal history of other diseases of circulatory system Atrial septal defect Ostium secundum type atrial septal defect documented in this encounter Care Teams Retort Load Expediter Relationship Specialty Start Date End Date Nathalia Yousif PA [address] [place] [address] PCP - General Physician Car Seat Upholsterer 12/24/24 documented as of this encounter
--- OUTSIDE RECORDS SUMMARY | 2025-01-23 09:58 | XMS_ITS | Encounter Summary ---
[facility] Address [address] [place] [address] Care Team Providers Care Cut Out Stitcher Name Role Phone Nathalia Yousif Primary Care Provider [phone] Encounter Details Date Type Department Care Team (Latest Contact Info) Description 01/23/2025 9:58 AM EDT - 01/23/2025 11:59 PM EDT Hospital Encounter [facility] [address] [facility] 3rd [place] [address] Examination for normal comparison or [...] more drinks on one occasion? Never 06/01/2022 [place] Depression Scale Answer Date Recorded Retired [place] Depression Score 0 09/13/2022 Retired EPD Scale: [...] Description 04/11/2025 1:15 PM EDT Office Visit [facility] [address] [facility] [address] [place] [address] Luke Nunes MD [address] [facility] [address] [place] [address] 05/10/2025 3:00 PM EST Office Visit [facility] [address] [facility] [address] [place] [address] Manjeet Garcia DO [address] [address] documented as of this encounter Procedures Procedure Name Priority Date/Time Associated Diagnosis Comments OUTSIDE NON-INVASIVE CARDIOLOGY STUDY Routine 01/23/2025 9:58 AM EDT Examination for normal comparison or control in clinical research documented in this encounter Results * External Echo Procedure (01/23/2025 9:58 AM EDT) Narrative SYSTEMGENERATED, DOCUMENTATION - 01/23/2025 9:58 AM EDT This procedure was auto-finalized with no dictation required. us uLke Nunes MD [facility] C[facility] ORDERABLE S Final Result documented in this encounter Visit Diagnoses Diagnosis Examination for normal comparison or control in clinical research Examination of participant in clinical trial documented in this encounter Care Teams Cut Out Stitcher Relationship Specialty Start Date End Date Nathalia Yousif PA [address] [place] [address] PCP - General Physician Closed Circuit Screen Watcher 12/24/24 documented as of this encounter
--- OUTSIDE RECORDS SUMMARY | 2025-01-23 09:58 | XMS_ITS | Encounter Summary ---
[facility] Address [address] [place] [address] Care Team Providers Care Rehabilitation Physician Name Role Phone Nathalia Yousif Primary Care Provider [phone] Encounter Details Date Type Department Care Team (Latest Contact Info) Description 01/23/2025 9:58 AM EDT - 01/23/2025 11:59 PM EDT Hospital Encounter [facility] [address] [facility] 3rd [place] [address] Examination for normal comparison or [...] more drinks on one occasion? Never 06/01/2022 [place] Depression Scale Answer Date Recorded Retired [place] Depression Score 0 09/13/2022 Retired EPD Scale: [...] Description 04/11/2025 1:15 PM EDT Office Visit [facility] [address] [facility] [address] [place] [address] Luke Nunes MD [address] [facility] [address] [place] [address] 05/10/2025 3:00 PM EST Office Visit [facility] [address] [facility] [address] [place] [address] Manjeet Garcia DO [address] [address] documented as of this encounter Procedures Procedure [...] trial documented in this encounter Care Teams Rehabilitation Physician Relationship Specialty Start Date End Date Nathalia Yousif PA [address] [place] [address] PCP - General Physician Statistical Assistant 12/24/24 documented as of this encounter
[2025-02-26 20:11] LABS: Coronavirus 19, PCR Not Detected (NotDetected); Influenza A, PCR Not Detected (NotDetected); Influenza B, PCR Not Detected (NotDetected)
--- OUTSIDE RECORDS SUMMARY | 2025-02-27 10:14 | XMS_ITS | Encounter Summary ---
[facility] Address [address] [place] [address] Care Team Providers Care Mingler Operator Name Role Phone Nathalia Yousif Primary Care Provider [phone] Reason for Visit * Reason Onset Date Comments MUSE-SCHEDLUING REQUEST 12/24/2024 Encounter Details Date Type Department Care Team (Late st Contact Info) Description 12/24/2024 Telephone [facility] CARDIOLOGY [address] [address] Luke Muse MD [address] [place] [address] MUSE-SCHEDLUING REQUEST Social History Tobacco Use Types Packs/Day Years [...] more drinks on one occasion? Never 06/01/2022 [place] Depression Scale Answer Date Recorded Retired [place] Depression Score 0 09/13/2022 Retired EPD Scale: [...] on file documented as of this encounter Miscellaneous Notes * Telephone Encounter - Deana Campos RegSched Rep - 12/24/2024 10:31 AM EDT Caller: Barrie Titus Relationship to patient: Self Best call back number: [phone] Chief complaint: PT HAD ECHO DONE AT [facility] AND WAS RECOMMENDED AND MRI AND MARIO DUE TO HAVING A HOLE IN HER HEART Type of visit: FU Requested date: JOJO If rescheduling, when is the original appointment: N/A Additional notes:PT CALLED IN ORIGINALLY ASKING ABOUT REFERRAL. ADVISED, SHE WAS ALREADY OF THE PT OF THE OFFICE, PLEASE CALL BACK TO ADVISE, THANK YOU. documented in this encounter Plan of Treatment Upcoming Encounters Date Type Department Care Team (Late st Contact Info) Description 04/11/2025 1:15 PM EDT Office Visit [facility] [address] [facility] [address] [place] [address] Luke Muse MD 1720 [facility] 400 [place] [address] 05/10/2025 3:00 PM EST Office Visit [facility]UMATOLOGY 330 [facility] [address] [place] [address] Manjeet Garcia DO [address] [address] documented as of this encounter Visit Diagnoses Not on filedocumented in this encounter Care Teams Mingler Operator Relationship Specialty Start Date End Date Nathalia Yousif PA [address] [place] [address] PCP - General Physician Employment Security Officer 12/24/24 documented as of this encounter
--- OUTSIDE RECORDS SUMMARY | 2025-02-27 10:14 | XMS_ITS | Encounter Summary ---
Author Organization [facility] Address [address] [place] [address] Care Team Providers Care Fitter Machinist Name Role Phone Nathalia Yousif Primary Care Provider [phone] Reason for Referral * Consultation (Routine) - Authorized Specialty Diagnoses / Procedures Referred By Ovidio t Referred To Contact Psychiatry Diagnoses Anxiety disorder, unspecified type Major depressive disorder with single episode, remission status unspecified Medication management Melanie Dumont APRN [address] [place] [address] Phone: tel: fax: Referral ID Status Reason Start Date Expiration Date Visits Requested Visits Authorized [id number] Authorized Specialty Services Required 10/25/2024 04/26/2026 1 1 Encounter Details Date Type Department Care Team (Late st Contact Info) Description 10/25/2024 Community [facility] [address] [place] [address] Melanie Dumont APRN [address] [place] [address] Anxiety disorder, unspecified type (Primary Dx); Major [...] Care Team (Late st Contact Info) Description 04/10/2025 2:20 PM EDT [facility] [address] [place] [address] Lori Lamar DO [address] [facility] [address] [place] [address] Scheduled Referrals Name Type Priority Associated Diagnoses [...] documented as of this encounter Care Teams Fitter Machinist Relationship Specialty Start Date End Date Nathalia Yousif PA [address] [place] [address] PCP - General 08/31/21 documented as of this encounter
--- OUTSIDE RECORDS SUMMARY | 2025-02-27 10:14 | XMS_ITS | Encounter Summary ---
[facility] Address [address] [place] [address] Care Team Providers Care Sr Solutions Consultant Name Role Phone Nathalia Yousif Primary Care Provider [phone] Encounter Details Date Type Department Care Team (Latest Contact Info) Description 01/17/2025 Travel Social History Tobacco Use Types Packs/Day Years [...] more drinks on one occasion? Never 06/01/2022 [place] Depression Scale Answer Date Recorded Retired [place] Depression Score 0 09/13/2022 Retired EPD Scale: [...] Description 04/11/2025 1:15 PM EDT Office Visit [facility] CARDIOLOG[facility] [address] [facility] [address] [place] [address] Luke Nunes MD 1720 [facility] [address] [place] [address] 05/10/2025 3:00 PM EST Office Visit [facility] RHEUMATOLOGY [address] [address] Manjeet Garcia DO [address] [address] documented as of this encounter Visit Diagnoses Not on filedocumented in this encounter Care Teams Sr Solutions Consultant Relationship Specialty Start Date End Date Nathalia Yousif PA [address] [place] [address] PCP - General Physician Pole Incisor Operator 12/24/24 documented as of this encounter
--- OUTSIDE RECORDS SUMMARY | 2025-02-27 10:14 | XMS_ITS | Clinical Summary ---
Author [facility] Address [address] [place] [address] Care Team Providers Care Film Color Tester Name Role Phone Nathalia Yousif Primary Care Provider [phone] Allergies Active Allergy Reactions Criticality Noted Date Comments Amoxicillin Hives High 04/13/2022 Ceftibuten Hives High 04/13/2022 Codeine Hives High 04/13/2022 Latex Other (See Comments) High 04/13/2022 IT CAUSES BLISTERS Adhesive medical tape Penicillins Hives High 04/13/2022 Medications albuterol sulfate HFA 108 (90 Base) MCG/ACT inhaler Inhale 2 puffs Every 6 (Six) Hours As Needed for Wheezing. 6.7 g 04/13/2022 Active fluticasone (FLONASE) 50 MCG/ACT nasal spray 1 spray by Each Nare route As Needed. 05/09/2022 Active Ubrelvy 50 MG tablet 1 tablet As Needed. Active venlafaxine XR (EFFEXOR-XR) 75 MG 24 hr capsule 1 capsule Daily. 10/28/2023 Active levothyroxine (SYNTHROID, LEVOTHROID) 100 MCG tablet Take 1 tablet by mouth Daily. 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 Resolved Problems Problem Noted Date Diagnosed Date Resolved Date IUGR (intrauterine growth re striction) affecting care of mother 09/12/2022 09/14/2022 Encounters Date Type Department Care Team Description 01/28/2025 Telephone [facility] CARDIOLOGY [address] [place] [address] [place] [address] Luke Muse MD 01/28/2025 Documentation [facility] CARDIOLOGY [address] [facility] [address] [place] [address] Luke Muse MD 01/23/2025 9:58 AM EDT - 01/23/2025 11:59 PM EDT Hospital Encounter [facility]ULAR LAB [address] [facility] 3rd [place] [address] Examination for normal comparison or control in clinical research Discharge Disposition: Home or Self Care 01/23/2025 9:58 AM EDT - 01/23/2025 11:59 PM EDT Hospital Encounter [facility] [address] [facility] 3rd [place] [address] Examination for normal comparison or control in clinical research Discharge Disposition: Home or Self Care 01/17/2025 9:15 AM EDT Office Visit [facility] CARDIOLOGY [address] [facility] [address] [place] [address] Luke Muse MD History of congenital heart disease (Primary Dx); Atrial septal defect 01/17/2025 Travel 12/27/2024 Telephone [facility] CARDIOLOG[facility] [address] [facility] [address] [place] [address] Luke Muse MD 12/25/2024 Telephone [facility] CARDIOLOG[facility] [address] [facility] [address] [place] [phone] Rose Andrade APRN K. HENDERSON/DR. MUSE - TRANSFER OF CARE 12/24/2024 Telephone [facility] [facility] [address] [place] [phone] Luke Muse MD SAWYER-SCHEDLUING REQUEST from Last 3 Months Family History Medical History Relation Name Comments Hyperlipidemia Brother 1 Ricardo Titus Hypertension Brother 1 Ricardo Titus Asthma Brother 2 Ricardo Hypertension Brother 2 Ricardo Arrhythmia Father Osman Asthma Father Osman Heart murmur Father Osman Hyperlipidemia Father Osman Hypertension Father Osman Breast cancer Maternal Aunt 1 Maryellen Breast cancer Maternal Aunt 2 Pauline Arrhythmia Maternal Grandfather Cody Asthma Maternal Grandfather Cody Diabetes Maternal Grandfather Heart attack Maternal Grandfather Heart disease Maternal Grandfather Hyperlipidemia Maternal Grandfather Hypertension Maternal Grandfather Arrhythmia Maternal Grandmother November Clotting disorder Maternal Grandmother November Heart attack Maternal Grandmother November Heart disease Maternal Grandmother November Heart failure Maternal Grandmother November Hyperlipidemia Maternal Grandmother November Hypertension Maternal Grandmother November Hyperlipidemia Maternal Uncle Shree sandhu Hypertension Maternal Uncle Shree sandhu Anemia Mother Oma Arrhythmia Mother Oma Asthma Mother Oma defects Mother Oma Clotting disorder Mother Oma Heart murmur Mother Oma Hyperlipidemia Mother Oma Arrhythmia Paternal Grandfather Wil Tacho Asthma Paternal Grandfather Wil Titus Colon cancer Paternal Grandfather Wil Titus Heart attack Paternal Grandfather Wil Titus Heart disease Paternal Grandfather Wilkingsley Titus Hyperlipidemia Paternal Grandfather Wilkingsley Titus Hypertension Paternal Grandfather Wilkingsley Titus Fainting Paternal Grandmother Jerome Hyperlipidemia Paternal Grandmother Jerome Hypertension Paternal Grandmother Jerome Stroke Paternal Grandmother Jerome Asthma Paternal Uncle Damien Tacho Hyperlipidemia Paternal Uncle Damien Tacho Hypertension Paternal Uncle Damien Tacho Relation Name Status Comments Brother 1 Ricardo Titus Alive Brother 2 Ricardo Father Osman Alive Maternal Aunt 1 Maryellen Alive Maternal Aunt 2 Pauline Alive Maternal Grandfather Cody Maternal Grandmother November Maternal Uncle Shree sandhu Alive Mother Oma Alive Paternal Grandfather Wil Titus Paternal Grandmother Jerome Paternal Uncle Damien Titus Alive Social History Tobacco Use Types Packs/Day Years [...] more drinks on one occasion? Never 06/01/2022 [place] Depression Scale Answer Date Recorded Retired [place] Depression Score 0 09/13/2022 Retired EPD Scale: [...] Pressure 120/78 01/17/2025 9:06 AM EDT Pulse 76 04/16/2024 9:58 AM EDT Temperature 36.5 C (97.7 F) 09/15/2022 8:11 AM EDT Respiratory Rate 16 09/15/2022 8:11 AM EDT Oxygen Saturation 98% 01/17/2025 9:06 AM EDT Inhaled Oxygen Concentration - - Weight 96.5 kg (212 lb 12.8 oz) 01/17/2025 9:06 AM EDT Height 160 cm (5' 2.99 ) 01/17/2025 9:06 AM EDT Body Mass Index 37.71 01/17/2025 9:06 AM EDT Plan of Treatment Upcoming Encounters Date Type Department Care Team (Late st Contact Info) Description 04/11/2025 1:15 PM EDT Office Visit [facility] CARDIOLOGY [address] [place] [address] Luke Muse MD [address] [facility] [address] [place], [place] [id number] 05/10/2025 3:00 PM EST Office Visit [facility] RHEUMATOLOGY [address] [place] [address] Manjeet Garcia DO [address] [place], [place] [id number] Health Maintenance Due Date Last Done Comments Annual Gynecologic Pelvic an d Breast Exam 2000 HPV VACCINES (1 - 3-dose series) 2015 Pneumococcal Vaccine 0-49 (1 of 2 - PCV) 2019 TDAP/TD VACCINES (1 - Tdap) 2019 PAP SMEAR 2021 ANNUAL PHYSICAL 02/11/2022 CHLAMYDIA SCREENING 02/11/2022 COVID-19 Vaccine (1 - 2023-2 5 season) 2025 INFLUENZA VACCINE 03/20/2025 HEPATITIS C SCREENING Completed 03/02/2022 MENINGOCOCCAL B VACCINE Aged Out No l onger eligible based on patient's age to complete this topic Procedures Procedure Name Priority Date/Time Associated Diagnosis Comments SCANNED - IMAGING 01/28/2025 OUTSIDE NON-INVASIVE CARDIOLOGY STUDY Routine 01/23/2025 9:58 AM EDT Examination for normal comparison or control in clinical research OUTSIDE NON-INVASIVE CARDIOLOGY STUDY Routine 01/23/2025 9:58 AM EDT Examination for normal comparison or control in clinical research ECG 12-LEAD Routine 01/17/2025 9:46 AM EDT History of congenital heart disease Atrial septal defect MRI OUTSIDE FILMS Routine 01/03/2025 12: 00 AM EDT SCANNED - LABS 12/07/2024 HEPATITIS C ANTIBODY Routine 03/02/2022 2:38 PM EDT First trimester care, subsequent , first trimester 8 weeks gestation of from Last 3 Months or Most Recently Relevant to Health Maintenance Results * IMAGING SCANNED (01/28/2025) Anatomical Region Laterality Modality Radiographic Billie ging Luke Muse MD IMG DIAGNOSTIC IMAGING ORDERA BLES Final Result * External Echo Procedure (01/23/2025 9:58 AM EDT) Only the most recent of2 resultswithin the time period is included. Narrative SYSTEMGENERATED, DOCUMENTATION - 01/23/2025 9:58 AM EDT This procedure was auto-finalized with no dictation required. Luke Muse MD CV CARDIAC SERVICES ORDERABLE S Final Result * ECG 12-LEAD (01/17/2025 9:46 AM EDT) Narrative Luke Muse MD - 01/17/2025 9:46 AM EDT Luke Muse MD 01/17/2025 9:54 AM ECG 12 Lead Date/Time: 01/17/2025 9:46 AM Performed by: Luke Muse MD Authorized by: Luke Muse MD Comparison: compared with previous ECG from 04/16/2024 Similar to previous ECG Rhythm: sinus rhythm Rate: normal QRS axis: normal Clinical impression: normal ECG Luke Muse MD ECG ORDERABLES Final Result * MRI outside films (01/03/2025 12:00 AM EDT) Narrative SYSTEMGENERATED, DOCUMENTATION - 01/25/2025 9:56 AM EDT This procedure was auto-finalized with no dictation required. Luke Muse MD IMG MRI ORDERABLES Final Resu lt * LABS SCANNED (12/07/2024) [facility] LAB BLOOD ORDERABLES Final Re sult * Hepatitis C Antibody (03/02/2022 2:38 PM EDT) Hepatitis C Ab Non-Reacti ve Non-Reacti ve 03/03/2022 12:19 AM EDT [facility] Blood Venipuncture / Unknown 03/02/2022 2:38 PM EDT 03/02/2022 2:38 PM EDT Narrative [facility] - 03/03/2022 12:19 AM EDT Results may be falsely decreased if patient taking Biotin. Ilda Finley MD LAB BLOOD ORDERABLES Final Re sult [facility]
[address] [place] [address], from Last 3 Months or Most Recently Relevant to Health Maintenance Insurance Advance Directives * CPR (Attempt to Resuscitate) (Latest Code Status on File) Date Activated Date Inactivated Comments 09/13/2022 6:24 PM 09/15/2022 1:17 PM Question Answer Comments Code Status (Patient has no pulse and is not breathing): CPR (Attempt to Resuscitate) Medical Interventions (Patie nt has pulse or is breathing): Full * CPR (Attempt to Resuscitate) Date Activated Date Inactivated Comments 09/12/2022 8:29 PM 09/13/2022 6:24 PM Question Answer Comments Code Status (Patient has no pulse and is not breathing): CPR (Attempt to Resuscitate) Medical Interventions (Patie nt has pulse or is breathing): Full Support Level Of Support Discussed With: Patient Care Teams Film Color Tester Relationship Specialty Start Date End Date Nathalia Yousif PA [address] [place] [address] PCP - General Physician Stunner Animal 12/24/24
--- OUTSIDE RECORDS SUMMARY | 2025-02-27 10:15 | XMS_ITS | Clinical Summary ---
Author Organization Healthcare Address [address] [place] [address] Care Team Providers Care Desk Editor Name Role Phone Nathalia Yousif Primary Care Provider [phone] Allergies Active Allergy Reactions Criticality Noted Date [...] 30.0-34.9) 04/13/2021 Chondromalacia of patellofemoral joint 6 Family History Medical History Relation Name Comments [...] 11/11/2022 4:15 PM EDT Plan of Treatment Upcoming Encounters Date Type Department Care Team (Late st Contact Info) Description 04/10/2025 2:20 PM EDT [facility] [address] [place] [address] Lori Lamar, DO [address] [place] [address] Health Maintenance Due Date Last Done Comments [facility]-Depression Screening 2000 [facility]-HIV Screening 2000 [facility]-/Child/Adol SDOH Screenings 2000 [facility]-Varicella Vaccines (1 of [...] 2 - PCV) 2019 [facility]-Pap Smear 2021 QIH-XBAQW-13 Vaccine ( - 20 24-25 season) 2025 [facility]-Influenza Vaccine (#1) 2025 [facility]-Zoster Vaccines (1 [...] patient's age to complete this topic Insurance Care Teams Desk Editor Relationship Specialty Start Date End Date Nathalia Yousif PA [address] [place] [address] PCP - General 08/31/21
--- OUTSIDE RECORDS SUMMARY | 2025-02-27 10:15 | XMS_ITS | Encounter Summary ---
Author Organization [facility] Address [address] [place] [address] Care Team Providers Care Finance Teacher Name Role Phone Beena Obregon APRN Primary Care Provider [phone] Nathalia Yousif Primary Care Provider [phone] Reason for Referral * Consultation (Routine) - Closed Specialty Diagnoses / Procedures Referred By Contac t Referred To Contact Allergy Diagnoses Allergy, initial encounter Nathalia Yousif PA [address] [place] [address] Phone: tel: fax: [facility] [address] [facility], [address] [place] [address] Phone: tel: fax: Referral ID Status Reason Start Date Expiration Date V isits Requested Visits Authorized [id number] Closed Specialty Services Required 06/11/2021 12/11/2022 1 1 Encounter Details Date Type Department Care Team (Late st Contact Info) Description 06/11/2021 Community [facility] Community Practice [address] [place] [address] Nathalia Yousif PA [address] [place] [address] Allergy, initial encounter (Primary Dx) [...] Description 04/10/2025 2:20 PM EDT Office Visit [facility] [address] [place] [address] Lori Lamar DO [address] [facility] [address] [place] [address] Scheduled Referrals Name Type Priority Associated Diagnoses Order Schedule Ambulatory Referral to Allergy and Immunology Outpatient Referral Routine Allergy, initial encounter 1 Occurrences starting 06/11/2021 until 12/10/2021 documented as of this encounter Visit Diagnoses Diagnosis Allergy, initial encounter- Primary documented in this encounter Care Teams Finance Teacher Relationship Specialty Start Date End Date Beena Obregon APRN [facility] [place], [place] [id number] PCP - General 10/31/20 08/30/21 Nathalia Yousif PA [address] [place], [place] [id number] PCP - General 08/31/21 documented as of this encounter
--- OUTSIDE RECORDS SUMMARY | 2025-02-27 10:15 | XMS_ITS | Encounter Summary ---
[facility] Address [address] [place] [address] Care Team Providers Care After School Tutor Name Role Phone Nathalia Yousif Primary Care Provider [phone] Encounter Details Date Type Department Care Team (Late st Contact Info) Description 01/28/2025 Telephone [facility] CARDIOLOGY [address] [place] [address] [place] [address] Luke Nunes MD [address] [id number] Social History Tobacco Use Types Packs/Day Years [...] more drinks on one occasion? Never 06/01/2022 [place] Depression Scale Answer Date Recorded Retired [place] Depression Score 0 09/13/2022 Retired EPD Scale: [...] encounter Miscellaneous Notes * Telephone Encounter - Kalpesh Melendez RN - 01/28/2025 2:14 PM EDT Attempted to call patient to relay Dr. Nunes's findings to her. Left voicemail. Per Dr. Nunes I reviewed all the imaging and reports, I agree with the editor school photograph at [facility] that this does not need to be closed. It appears to be a PFO which is normal and 25% of the population. She has normal chamber dimension on cardiac MRI which is the most accurate way to assesschamber size, therefore no indication for closure. Based on my review of the imaging I do not feel her shortness of breath or migraines are coming from the PFO. documented in this encounter Plan of Treatment Upcoming Encounters Date Type Department Care Team (Late st Contact Info) Description 04/11/2025 1:15 PM EDT Office Visit [facility] [address] [facility] [address] [place] [address] Luke Nunes MD [address] [place] [address] 05/10/2025 3:00 PM EST Office Visit [facility] RHEUM[facility] [address] [place] [address] Manjeet Garcia DO [address] [place] [address] documented as of this encounter Visit Diagnoses Not on filedocumented in this encounter Care Teams After School Tutor Relationship Specialty Start Date End Date Nathalia Yousif PA [address] [place] [address] PCP - General Physician Child Nutrition Assistant 12/24/24 documented as of this encounter
--- OUTSIDE RECORDS SUMMARY | 2025-02-27 10:15 | XMS_ITS | Encounter Summary ---
[facility] Organization [facility] Address [address] [place] [address] Care Team Providers Care Pole Maker Name Role Phone Nathalia Yousif Primary Care Provider [phone] Encounter Details Date Type Department Care Team (Late st Contact Info) Description 01/28/2025 Documentation [facility] [address] [facility] [address] [place] [address] Luke Nunes MD [address] [facility] [address] [place] [id number] Social History Tobacco Use Types Packs/Day Years [...] more drinks on one occasion? Never 06/01/2022 [place] Depression Scale Answer Date Recorded Retired [place] Depression Score 0 09/13/2022 Retired EPD Scale: [...] on file documented as of this encounter Progress Notes * Luke Nunes MD - 01/28/2025 2:07 PM EDT I personally reviewed the patient's MARIO and transthoracic echocardiogram images. My interpretation of these images reveals normal left ventricular ejection fraction and chamber size including the right atrium and right ventricle. QP: QS ratio is 1.2 confirmed by MRI as well which is nonsignificant.The bubble study and MARIO images reveal what I believe is a PFO not a true ASD. At this time given normal chamber dimensions, and significant shunt ratio, and no history of stroke or TIA I do not recommend percutaneous closure at this septal defect. Findings and recommendations will be discussed with patient by phone. documented in this encounter Plan of Treatment Upcoming Encounters Date Type Department Care Team (Late st Contact Info) Description 04/11/2025 1:15 PM EDT Office Visit [facility] [address] [facility] [address] [place] [address] Luke uNnes MD [address] [facility] [address] [place] [id number] 05/10/2025 3:00 PM EST Office Visit [facility] [address] [facility] [address] [place] [address] Manjeet Garcia DO [address] [place] [address] documented as of this encounter Visit Diagnoses Not on filedocumented in this encounter Care Teams Pole Maker Relationship Specialty Start Date End Date Nathalia Yousif PA [address] [place] [address] PCP - General Physician Postal Service Window Clerk 12/24/24 documented as of this encounter
--- OUTSIDE RECORDS SUMMARY | 2025-02-27 10:15 | XMS_ITS | Patient Health Record ---
Author Organization [facility] Address [address] [place] [id number] Care Team Providers Care Backend Java Developer Name Role Phone Unknown, PCP Primary Care Provider Hannah Krishnamurthy Unavailable [phone] Allergies Allergen (clinical drug ingredient) Drug/Non Drug [...] 98 Encounters Encounter Location Date Provider Diagnosis [facility] [address] [facility] [address] [place] [address] 04/21/2024 Hannah Cuello Viral upper respiratory tract [...] [employer] [place] MEDICA[place] [address] [place] [address] [id number] Barrie Titus Self - patient is the insured Medical (General) History Medical History History ICD Code hypothyroid PCOS migraine asthma Surgical History Surgery Date(Month/Year) gallbladder ear tubes tonsillectomy Hospitalization History Reason Date(Month/Year) see above
--- OUTSIDE RECORDS SUMMARY | 2025-02-27 10:16 | XMS_ITS | Patient Health Record ---
Author Organization [facility] Address [address] [place] [address] Care Team Providers Care Drip Box Tender Name Role Phone Yordan Smith Primary Care Provider Yordan Smith Unavailable Unavailable Felicity Hogue Unavailable [phone] Melanie Fitzpatrick Unavailable [phone] Migration, Provider Unavailable Unavailable Allergies Allergen (clinical drug ingredient) Drug/Non Drug Allergy documented on EMR Reaction Allergy Type Onset Date Status CEDAX (uncoded) Unknown Allergy Acti ve amoxicillin Amoxicillin Unknown Drug Allergy Act danae codeine Codeine hives Drug Allergy Active Penicillin Unknown Drug Allergy Active Results Component Value Reference Range Notes TSH (899) Reviewed date:03/26/2024 10:19:04 AM Interpretation: Performing Lab:[facility] [employer] [id number] StudyplacesteAddvocateinez Takumii SwedenMuokDP[address] Kristopher Atwood Notes/Report: NON-FASTING; NON-FASTING; NON-FASTING; NON-FASTING; NON-FAST FASTING:YES FASTING: YES TSH 2.28 Reference Range > or = 20 Years 0.40-4.50 Ranges First trimester 0.26-2.66 Second trimester 0.55-2.73 Third trimester 0.43-2.91 VITAMIN B12 (927) Reviewed date:03/26/2024 10:19:04 AM Interpretation: Performing Lab:[facility] [employer] [id number] StudyplacesteAddvocateinez [facility] SbujUO[address] Kristopher Atwood Notes/Report: NON-FASTING; NON-FASTING; NON-FASTING; NON-FASTING; NON-FAST FASTING:YES FASTING: YES VITAMIN B12 615 283-7147 pg/mL CBC (INCLUDES DIFF/PLT) (639 9) Reviewed date:03/26/2024 10:19:04 AM Interpretation: Performing Lab:[facility] [employer]-Leslie [id number] Studyplacestel [facility] HospitalXqlwGP[address] Kristopher Atwood Notes/Report: NON-FASTING; NON-FASTING; NON-FASTING; NON-FASTING; [...] MPV 8.6 7.5-12.5 fL ABSOLUTE NEUTROPHILS 5055 2378-4595 cells/uL ABSOLUTE LYMPHOCYTES 2880 850-3900 cells/uL ABSOLUTE MONOCYTES 400 200-950 cells/uL ABSOLUTE EOSINOPHILS 313 15-500 cells/uL ABSOLUTE BASOPHILS 52 0-200 cells/uL NEUTROPHILS 58.1 LYMPHOCYTES 33.1 MONOCYTES 4.6 EOSINOPHILS 3.6 BASOPHILS 0.6 COMPREHENSIVE METABOLIC PANE L (20098) Reviewed date:03/26/2024 10:19:04 AM Interpretation: Performing Lab:[facility] [employer] [id number] Studyplac[facility]el [facility] HospitalAuhsXZ[address] Kristopher Atwood Notes/Report: NON-FASTING; NON-FASTING; NON-FASTING; NON-FASTING; [...] Reviewed date:03/26/2024 10:19:04 AM Interpretation: Performing Lab:[facility], [employer], Mercy HospitalUosaCK[address] Kristopher Atwood Notes/Report: NON-FASTING; NON-FASTING; NON-FASTING; NON-FASTING; NON-FAST FASTING:YES FASTING: YES CHOLESTEROL, TOTAL 211 <200 mg/dL HDL CHOLESTEROL 48 > OR = 50 mg/dL TRIGLYCERIDES 95 <150 mg/dL LDL-CHOLESTEROL 143 Reference range: <100 Desirable range <100 mg/dL for primary prevention; <70 mg/dL for patients with CHD or diabetic patients with > or = 2 CHD risk factors. LDL-C is now calculated using the Uday-Noel calculation, which is a validated novel method providing better accuracy than the Friedewald equation in the estimation of LDL-C. Uday CASYE et al. CRISTÓBAL. 2013;310(19): 1475-3949 (http://education.uShare/faq/BWO464) CHOL/HDLC RATIO 4.4 <5.0 (calc) NON HDL CHOLESTEROL 163 <130 mg/dL (calc) For patients with diabetes plus 1 major ASCVD risk factor, treating to a non-HDL-C goal of <100 mg/dL (LDL-C of <70 mg/dL) is considered a therapeutic option. HEMOGLOBIN A1c (496) Reviewed date:03/30/2024 09:24:44 AM Interpretation: Performing Lab:[facility], [facility] Monacoe[address] [facility], Richardson MendozaOmxhXY[address] Kristopher Lyssa Atwood Notes/Report: NON-FASTING; NON-FASTING; NON-FASTING; NON-FASTING; NON-FAST [...] diagnosis of diabetes in children. According to [place] Diabetes Association (ADA) guidelines, hemoglobin A1c <7.0% represents optimal control in non- diabetic patients. Different metrics may apply to specific patient populations. Standards of Medical Care in Diabetes(ADA). Medications Medication SIG (Take, Route, Frequency, Duration) [...] review and pick correct strength-formulatio n from [place] Gamesspan options. If intended option is not shown, [...] Risk Notes Problem Polycystic ovary syndrome (disorder) (678831330) Polycystic ovarian syndrome (E28.2) Active confirmed Problem Major depression, single episode (08715866) Major depressive disorder, single episode, unspecified (F32.9) Active confirmed Problem Anxiety disorder (311480985) Anxiety disorder, unspecified (F41.9) Active confirmed Problem Otitis externa of left ear (9292645059977549 ) Other otitis externa, left ear (H60.8X2) Active confirmed Problem Vitamin D deficiency (76955201) Vitamin D deficiency (E55.9) Active confirmed Problem Vitamin B12 deficiency (non anemic) (48975475) B12 deficiency (E53.8) Active confirmed Problem Fever (736148646) Fever (R50.9) Active confirme d Problem Weight gain (973889199) Weight gain (R63.5) Active confirmed Problem Dysmenorrhea (010875407) Dysmenorrhea (N94.6) Active confirmed Problem Fatigue (62688875) Fatigue (R53.83) Active confirmed Problem Dizziness (003869195) Dizziness (R42) Active confirmed Problem Acquired hypothyroidism (133107396) Acquired hypothyroidism (E03.9) Active confirmed Problem Mild intermittent asthma (706388824) Mild intermittent asthma without complication (J45.20) Active confirmed Problem Exacerbation of asthma (827427745) Mild asthma exacerbation (J45.901) Active confirmed Problem Migraine without aura, not refractory (440969324) Migraine without aura and without status migrainosus, not intractable (G43.009) Active confirmed Problem Mood disorder (34669805) Mood disorder (F39) Active confirmed Problem Generalized anxiety disorder (20910156) JUANJO (generalized anxiety disorder) (F41.1) Active confirmed Problem Menstrual disorder (315623309) Irregular menses (N92.6) Active confirmed Problem Fatigue (95418096) Fatigue, unspecified type (R53.83) Active confirmed Problem Acute cough (9199522334006399 04) Acute cough (R05.1) Active confirmed Vital Signs Heart Rate 88 /min 04/25/2024 Temperature 98.3 degrees Fahrenheit 04/25/2024 Blood pressure diastolic 80 mm Hg 04/25/2024 Height 5 ft 3 in in 04/25/2024 Blood pressure systolic 118 mm Hg 04/25/2024 Weight 215 lbs 04/25/2024 BMI 38.08 kg/m2 04/25/2024 Encounters Encounter Location Date Provider Diagnosis [facility] [address] [place] [address] 09/22/2024 Provider Migration Bronchitis J40 [facility] [address] [address] 03/23/2024 Melanie McNees Migraine without aura and without status migrainosus, not intractable G43.009 ; Major depressive disorder, single episode, unspecified F32.9 ; Anxiety disorder, unspecified F41.9 ; B12 deficiency E53.8 ; Routine medical exam Z00.00 ; Fatigue R53.83 and Irregular menses N92.6 [facility] [address] [address] 04/25/2024 Felicity Hogue Bronchitis J40 and Migraine without aura and without status migrainosus, not intractable G43.009 [facility] [address] [address] 03/28/2024 Felicity Jaimeence [facility] [address] [address] 07/26/2024 Yordan Smith Bronchitis J40 [facility] [address] [place] [address] 07/26/2024 Melanie McNees [facility] [address] [place] [address] 03/28/2024 Melanie McNees Migraine without aura and without status migrainosus, not intractable G43.009 and JUANJO (generalized anxiety disorder) F41.1 [facility] [address] [place] [address] 04/23/2024 Melanie McNees [facility] [address] [place] [address] 05/31/2024 Melanie McNees [facility] [address] [place] [address] 10/25/2024 Melanie McNees [facility] [address] [place] [address] 10/25/2024 Melanie McNees [facility] [address] [place] [address] 10/29/2024 Melanie McNees Assessments Encounter Date Diagnosis (ICD Code) Assessment Notes Treatment Notes Treatment Clinical Notes Section Notes 03/23/2024 Major depressive disorder, single episode, unspecified (ICD-10 - F32.9) Well controlled on SNRI 03/23/2024 Migraine without aura and without status migrainosus, not intractable (ICD-10 - G43.009) Change to Qulipta. SE profile and MOA discussed. Discussed hydration and need for regular, balanced meals, outdoor activities/exe rcise and trigger (sunlight) etc - avoidance. 03/28/2024 Migraine without aura and without status migrainosus, not intractable (ICD-10 - G43.009) 04/25/2024 Bronchitis (ICD-10 - J40) Discussed the etiology and expected course of bronchitis. Discussed the rationale for antibiotics. Discussed supportive care. Discussed the signs and symptoms of worsening infection/resp iratory distress that may indicate need for reassement [...] (ICD-10 - N92.6) Discussed treatment with BCP. Rasmussen at this time Plan Of Treatment Pending Test Test Name Order Date N-Throat culture 02/03/2007 Rapid Strep 06/23/2018 N-Rapid Strep 02/03/2007 Echocardiogram 11/09/2022 H-STREP SCREEN (RAPID) 08/13/2008 C-PTT 10/29/2019 C-PT/INR 10/29/2019 Rapid Flu, A 06/21/2019 Rapid Flu, B 06/21/2019 T-Pufy-Ciibcqhzrudgq Antibody 02/16/2018 M-Respiratory Virus Panel, PCR 3 M-Upper Respiratory Panel, PCR 3 M-Vitamin B12 03/10/2021 M-Vitamin D 25 Hydroxy 03/10/2021 TESTOSTERONE, TOTAL, MS ([id number]) 2022 Insurance Providers Payer Name Payer Address Payer Phone Subscriber Number Group Number Insured Name Patient Relationship to Insured Coverage Start Date Coverage End Date AETNA [facility] [address] [address] [place] [phone] [id number] Barrie Titus Self - patient is the insured Medications Administered Medication Instructions Date of Administration Dosage Notes Kenalog 40mg 02/05/2019 40 mg Triamcinolone Acetonide 40mg Injection 07/29/2018 1 mL Medical (General) History Medical History History ICD Code Migraines Hypothyroidism Atypical Pneumonia of Right Lung Surgical History Surgery Date(Month/Year) Tonsilectomy 2008 Gallbladder 2017 Hospitalization History Reason Date(Month/Year) [facility]- inflammation of ribs 06/21 09/09
--- OUTSIDE RECORDS SUMMARY | 2025-02-27 10:16 | XMS_ITS | Patient Health Record ---
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) Active confirmed Problem Supervision of high risk (962345243) Supervision of other high risk pregnancies, third trimester (O09.893) Active confirmed Problem Primigravida (854874108) Encounter for supervision of normal first in second trimester (Z34.02) Active confirmed Problem Hypothyroidism (82134122) Other specified hypothyroidism (E03.8) Active confirmed Problem Poor growth affecting management (680842689) IUGR, (O36.5990) Active confirmed Plan Of Treatment No Information Insurance Providers Payer Name Payer Address Payer Phone Subscriber Number Group Number Insured Name Patient Relationship to Insured Coverage Start Date Coverage End Date Aetna [facility] [address] [place] [phone] [id number] Barrie Titus Self - patient is the insured Medical (General) History Medical History History ICD Code Hypothyroidism Asthma Migraine VACA Surgical History Surgery Date(Month/Year) Tonsillectomy Ear Tubes Cholecystectomy
== END 2025-02-26 23:59 | disposition home or self-care (01) ==
LOC: LAB.DROPOF 02-27 10:06
PROVIDERS: PCP Nurse Practitioner; Visit Provider Nurse Practitioner
DX: J06.9 Acute upper respiratory infection, unspecified (principal)
CPT/HCPCS: 87631

== ENCOUNTER 2025-03-04 19:03 | Emergency (ER) | payer OTHER, SELFPAY ==
--- OUTSIDE RECORDS SUMMARY | 2024-04-23 11:30 | XMS_ITS ---
Author Organization [facility] Address [address] [place] [address] Care Team Providers Care Hiv Counselor Name Role Phone Yordan Smith Primary Care Provider [phone] Yordan Smith Unavailable Unavailable Melanie Fitzpatrick [phone] REASON FOR VISIT 4 week f/u Encounters Encounter Location Date Provider Diagnosis [facility] [address] [address] 04/23/2024 Melanie Fitzpatrick Plan Of Treatment No Information Progress Notes * Barrie TITUSeDOB:[birth year] (24 yo F)Acc No.[id number]:04/23/2024 Progress Notes Patient: Barrie WHALEY Provider: Félix Fitzpatrick APRN :2000 A ge:23 Y S ex:Female Date:04/23/2024 Address[place], [place] Pcp:Yordan Smith Subjective: * Chief Complaints: * 1 . 4 week f/u. * Medical History: Objective: * Vitals: Assessment: Plan: * Treatment: * * Electronic signature of Abhijeet Fitzpatrick APRN on 03/04/2025 at 08:17 PM EDT Sign off status: Pending * Provider: Félix Fitzpatrick APRN Date: 06/23/2023 Generated for Adriana beck/Sergey/Ernestoitting on: 0 03/04/2025 08:17 PM EDT
--- OUTSIDE RECORDS SUMMARY | 2024-09-22 17:30 | XMS_ITS ---
Author Organization [facility] PE D SRINIVAS Address [address] [place] [address] Care Team Providers Care Forming Machine Upkeep Mechanic Helper Name Role Phone Yordan Smith Primary Care Provider Yordan Smith Unavailable Unavailable Migration, Provider Unavailable Unavailable Allergies Allergen (clinical drug ingredient) Drug/Non Drug Allergy documented on EMR Reaction Allergy Type Onset Date Status CEDAX (uncoded) Unknown Allergy Acti ve amoxicillin Amoxicillin Unknown Drug Allergy Act danae codeine Codeine hives Drug Allergy Active Penicillin Unknown Drug Allergy Active [facility] Conversion Encounter Medications Medication SIG (Take, [...] Active Encounters Encounter Location Date Provider Diagnosis [facility] PED SR[facility] [address] [facility] [address] [place] [address] 09/22/2024 Provider Migration Bronchitis J40 Assessments Encounter [...] Notes * Barrie TITUSeDOB:[birth year] (24 yo F)Acc No.[id number]:09/22/2024 Patient: Barrie WHALEY Elzbieta Provider: Belem jacobs Migration :2000 A ge:24 Y S ex:Female Date:09/22/2024 Address:[address] [place] [phone] Pcp:Yordan Smith Subjective: * Chief Complaints: * [...] *Please review and pick correct strength-formulation from semanticlabs options. If intended option is not shown, [...] Electronic signature of Prov ider Migration on 03/04/2025 at 08:16 PM EDT Sign off status: Pending * Provider: Belem jacobs Migration Date: 0 09/22/2024 Generated for Adriana beck/Sergey/Jackelin on: 0 03/04/2025 08:16 PM EDT
--- OUTSIDE RECORDS SUMMARY | 2025-01-17 09:15 | XMS_ITS | Encounter Summary ---
[facility] Address [address] [place] [address] Care Team Providers Care First Breaker Feeder Name Role Phone Nathalia Yousif Primary Care Provider [phone] Reason for Visit * Reason Comments Abnormal Echo Encounter Details Date Type Department Care Team (Late st Contact Info) Description 01/17/2025 9:15 AM EDT Office Visit [facility] [address] [facility] [address] [place] [address] Luke Nunes MD [address] [facility] [address] [place] [address] History of congenital heart disease (Primary Dx); [...] more drinks on one occasion? Never 06/01/2022 [place] Depression Scale Answer Date Recorded Retired [place] Depression Score 0 09/13/2022 Retired EPD Scale: [...] of congenital heart disease OFFICE VISIT NOTE [facility] Name: Barrie Titus Date: 01/17/2025 : 2000 REFERRING/PRIMARY PROVIDER: Nathalia Yousif PA Chief Complaint Patient presents with Abnormal Echo HPI: Barrie Titus is a 24 y.o. female who presents for atrial septal defect found on echo [facility] 12/18/2024. She was told she had a [...] cardiac MRI after transthoracic echo showed ASD [id number] shunt and mild RV enlargement, right atrial [...] Patient also had a cardiac MRI at [facility] will receive the request of this as [...] me with any questions. Luke Nunes MD, [facility], [facility] Office: [address] [place] [address] 01/17/25 documented in this encounter Plan of Treatment Upcoming Encounters Date Type Department Care Team (Late st Contact Info) Description 05/10/2025 3:00 PM EST Office Visit [facility] [address] [place] [address] Manjeet Garcia DO [address] [place] [address] documented as of this encounter Procedures Procedure [...] QRS axis: normal Clinical impression: normal ECG Luke Nunes MD ECG ORDERABLES Final Result documented in this encounter Visit Diagnoses Diagnosis History of congenital heart disease- Primary Personal history of other diseases of circulatory system Atrial septal defect Ostium secundum type atrial septal defect documented in this encounter Care Teams First Breaker Feeder Relationship Specialty Start Date End Date Nathalia Yousif PA [address] [place] [address] PCP - General Physician Echocardiography Technologist 12/24/24 documented as of this encounter
--- OUTSIDE RECORDS SUMMARY | 2025-01-23 09:58 | XMS_ITS | Encounter Summary ---
[facility] Address [address] [place] [address] Care Team Providers Care Physical Therapist Clinic Director Name Role Phone Nathalia Yousif Primary Care Provider [phone] Encounter Details Date Type Department Care Team (Latest Contact Info) Description 01/23/2025 9:58 AM EDT - 01/23/2025 11:59 PM EDT Hospital Encounter [facility] [address] [facility] 3rd [place] [address] Examination for normal comparison or control in clinical research Discharge Disposition: Home or Self Care Social History Tobacco Use Types Packs/Day Years Used Date Smoking Tobacco: Never Passive Smoke Exposure: Never Smokeless Tobacco: Never Alcohol Use Standard Drinks/Week Comments Never 0 [...] more drinks on one occasion? Never 06/01/2022 [place] Depression Scale Answer Date Recorded Retired [place] Depression Score 0 09/13/2022 Retired EPD Scale: [...] on file documented as of this encounter Medications at Time of Discharge albuterol sulfate HFA 108 (90 Base) MCG/ACT inhaler Inhale 2 puffs Every 6 (Six) Hours As Needed for Wheezing. 6.7 g 04/13/2022 fluticasone (FLONASE) 50 MCG/ACT nasal spray 1 spray by Each Nare route As Needed. 05/09/2022 levothyroxine (SYNTHROID, LEVOTHROID) 100 MCG tablet Take 1 tablet by mouth Daily. 02/27/2024 Ubrelvy 50 MG tablet 1 tablet As Needed. venlafaxine XR (EFFEXOR-XR) 75 MG 24 hr capsule 1 capsule Daily. 10/28/2023 documented as of this encounter Plan of Treatment Upcoming Encounters Date Type Department Care Team (Late st Contact Info) Description 05/10/2025 3:00 PM EST Office Visit [facility] RHEUM[facility]OLOG[facility] [address] [address] Manjeet Garcia DO [address] [address] documented as of this encounter Procedures Procedure Name Priority Date/Time Associated Diagnosis Comments OUTSIDE NON-INVASIVE CARDIOLOGY STUDY Routine 01/23/2025 9:58 AM EDT Examination for normal comparison or control in clinical research documented in this encounter Results * External Echo Procedure (01/23/2025 9:58 AM EDT) Narrative SYSTEMGENERATED, DOCUMENTATION - 01/23/2025 9:58 AM EDT This procedure was auto-finalized with no dictation required. us Luke Nunes MD [facility] ORDERABLE S Final Result documented in this encounter Visit Diagnoses Diagnosis Examination for normal comparison or control in clinical research Examination of participant in clinical trial documented in this encounter Care Teams Physical Therapist Clinic Director Relationship Specialty Start Date End Date Nathalia Yousif PA [address] [place] [address] PCP - General Physician Photography Colorist 12/24/24 documented as of this encounter
--- OUTSIDE RECORDS SUMMARY | 2025-01-23 09:58 | XMS_ITS | Encounter Summary ---
[facility] Address [address] [place] [address] Care Team Providers Care Disaster Recovery Analyst Name Role Phone Nathalia Yousif Primary Care Provider [phone] Encounter Details Date Type Department Care Team (Latest Contact Info) Description 01/23/2025 9:58 AM EDT - 01/23/2025 11:59 PM EDT Hospital Encounter [facility] CARDI[facility] LAB [address] [facility] 3rd [place] [address] Examination for normal comparison or [...] more drinks on one occasion? Never 06/01/2022 [place] Depression Scale Answer Date Recorded Retired [place] Depression Score 0 09/13/2022 Retired EPD Scale: [...] Description 05/10/2025 3:00 PM EST Office Visit [facility] RHEUMATOLOGY [address] [address] Manjeet Garcia DO [address] [address] documented as of this encounter Procedures Procedure [...] trial documented in this encounter Care Teams Disaster Recovery Analyst Relationship Specialty Start Date End Date Nathalia Yousif PA [address] [place] [address] PCP - General Physician Customer Program Specialist 12/24/24 documented as of this encounter
[2025-03-04 20:13] VITALS: PULSE 79; RESP 18; O2SAT 100; BMI 38.0
--- NOTE | 2025-03-04 20:15 | XR_ITS ---
PROCEDURE INFORMATION: Exam: XR Left Foot Exam date and time: 03/04/2025 8:12 PM Age: 24 years old Clinical indication: Pain; Toes; Left; Additional info: Left fifth toe injury TECHNIQUE: Imaging protocol: Radiologic exam of the left foot. Views: 3 or more views. COMPARISON: No relevant prior studies available. FINDINGS: Bones/joints: Oblique fracture of the proximal 5th phalanx with moderate soft tissue swelling. Soft tissues: See Bones/joints finding. IMPRESSION: Oblique fracture of the proximal 5th phalanx with moderate soft tissue swelling.
--- OUTSIDE RECORDS SUMMARY | 2025-03-04 20:16 | XMS_ITS | Encounter Summary ---
Author Organization [facility] Address [address] [address] Care Team Providers Care Small Products Assembler Name Role Phone Nathalia Yousif Primary Care Provider [phone] Reason for Referral * Consultation (Routine) - Authorized Specialty Diagnoses / Procedures Referred By Ovidio t Referred To Contact Psychiatry Diagnoses Anxiety disorder, unspecified type Major depressive disorder with single episode, remission status unspecified Medication management Melanie Dumont APRN [address] [place] [address] Phone: tel: fax: Referral ID Status Reason Start Date Expiration Date Visits Requested Visits Authorized [id number] Authorized Specialty Services Required 10/25/2024 04/26/2026 1 1 Encounter Details Date Type Department Care Team (Late st Contact Info) Description 10/25/2024 Community [facility] [address] [place] [address] Melanie Dumont APRN [address] [place] [address] Anxiety disorder, unspecified type (Primary Dx); Major [...] Description 04/10/2025 2:20 PM EDT [facility] [address] [place] [address] Lori Lamar DO [address] [facility] [address] [place] [address] Scheduled Referrals Name Type Priority [...] documented as of this encounter Care Teams Small Products Assembler Relationship Specialty Start Date End Date Nathalia Yousif PA [address] [place] [address] PCP - General 08/31/21 documented as of this encounter
--- OUTSIDE RECORDS SUMMARY | 2025-03-04 20:16 | XMS_ITS | Clinical Summary ---
[facility] Organization [facility] Address [address] [place] [address] Care Team Providers Care Well Treatment Offsider Name Role Phone Nathalia Yousif Primary Care Provider [phone] Allergies Active Allergy Reactions Criticality Noted Date [...] Type Department Care Team Description 01/28/2025 Telephone [facility] [address] [place] [address] [place] [address] Luke Muse MD 01/28/2025 Documentation [facility] [address] [place] [address] Luke Muse MD 01/23/2025 9:58 AM EDT - 01/23/2025 11:59 PM EDT Hospital Encounter [facility] [address] [place] [address] Examination for normal comparison or control in clinical research Discharge Disposition: Home or Self Care 01/23/2025 9:58 AM EDT - 01/23/2025 11:59 PM EDT Hospital Encounter [facility] [address] [place] [address] Examination for normal comparison or control in clinical research Discharge Disposition: Home or Self Care 01/17/2025 9:15 AM EDT Office Visit [facility] [address] [place] [address] Luke Muse MD History of congenital heart disease (Primary Dx); Atrial septal defect 01/17/2025 Travel 12/27/2024 Telephone [facility] [address] [place] [address] Luke Muse MD 12/25/2024 Telephone [facility] [address] [place] [id number] Rose Andrade APRN K. HENDERSON/DR. MUSE - TRANSFER OF CARE 12/24/2024 Telephone [facility] [address] [facility] [address] [place] [address] Luke Muse MD [facility]-SCHEDLU[facility] REQUEST from Last 3 Months Family History Medical History Relation Name Comments Hyperlipidemia Brother 1 Ricardo Titus Hypertension Brother 1 Ricardo Titus Asthma Brother 2 Ricardo Hypertension Brother 2 Ricardo Arrhythmia Father Osman Asthma Father Osman Heart murmur Father Osman Hyperlipidemia Father Osman Hypertension Father Osman Breast cancer Maternal Aunt 1 Mayrellen Breast cancer Maternal Aunt 2 Pauline Arrhythmia [...] Paternal Grandfather Wilkingsley Titus Fainting Paternal Grandmother [place] Hyperlipidemia Paternal Grandmother [place] Hypertension Paternal Grandmother [place] Stroke Paternal Grandmother [place] Asthma Paternal Uncle Damien Tacho Hyperlipidemia Paternal Uncle Damien Tacho Hypertension Paternal Uncle Damien Tacho Relation Name Status Comments Brother 1 Ricardo Titus Alive Brother 2 Ricardo Father Osman Alive Maternal Aunt 1 Maryellen Alive Maternal Aunt 2 Pauline Alive Maternal Grandfather Cody Maternal Grandmother November Maternal Uncle Shree sandhu Alive Mother Oma Alive Paternal Grandfather Wil Titus Paternal Grandmother [place] Paternal Uncle Damien Titus Alive Social History [...] more drinks on one occasion? Never 06/01/2022 [place] Depression Scale Answer Date Recorded Retired [place] Depression Score 0 09/13/2022 Retired EPD Scale: [...] Description 05/10/2025 3:00 PM EST Office Visit [facility] [address] [place] [address] Manjeet Garcia DO [address] [facility] [address] [place] [address] Health Maintenance Due Date Last Done Comments Annual Gynecologic Pelvic an d Breast Exam 2000 HPV VACCINES (1 - 3-dose series) 2015 Pneumococcal Vaccine 0-49 (1 of 2 - PCV) 2019 TDAP/TD VACCINES (1 - Tdap) 2019 PAP SMEAR 2021 ANNUAL PHYSICAL 02/11/2022 CHLAMYDIA SCREENING 02/11/2022 COVID-19 Vaccine ( - 2023-2 5 season) 2025 INFLUENZA VACCINE [...] QRS axis: normal Clinical impression: normal ECG Result [facility] Luke Muse MD ECG ORDERABLES Final Result * MRI outside films (01/03/2025 12:00 AM EDT) Narrative SYSTEMGENERATED, DOCUMENTATION - 01/25/2025 9:56 AM EDT This procedure was auto-finalized with no dictation required. Luke Muse MD IMG MRI ORDERABLES Final Resu lt * LABS SCANNED (12/07/2024) [facility] BLOOD ORDERABLES Final Re sult * Hepatitis C Antibody (03/02/2022 2:38 PM EDT) Hepatitis C Ab Non-Reacti ve Non-Reacti ve 03/03/2022 12:19 AM EDT [facility] Blood Venipuncture / Unknown 03/02/2022 2:38 PM EDT 03/02/2022 2:38 PM EDT Narrative [facility] - 03/03/2022 12:19 AM EDT Results may be falsely decreased if patient taking Biotin. us Ilda Finley MD LAB BLOOD ORDERABLES Final Re sult [facility]
[address] [place] [address], from Last 3 Months or Most Recently [...] Of Support Discussed With: Patient Care Teams Well Treatment Offsider Relationship Specialty Start Date End Date Nathalia Yousif PA [address] [place] [address] PCP - General Physician Gin Operator 12/24/24
--- OUTSIDE RECORDS SUMMARY | 2025-03-04 20:16 | XMS_ITS | Encounter Summary ---
[facility] Address [address] [place] [address] Care Team Providers Care Digitizer Name Role Phone Nathalia Yousif Primary Care Provider [phone] Encounter Details Date Type Department Care Team [...] more drinks on one occasion? Never 06/01/2022 [place] Depression Scale Answer Date Recorded Retired [place] Depression Score 0 09/13/2022 Retired EPD Scale: [...] Description 05/10/2025 3:00 PM EST Office Visit [facility] [address] [facility] [address] [place] [address] Manjeet Garcia DO [address] [address] documented as of this encounter Visit Diagnoses Not on filedocumented in this encounter Care Teams Digitizer Relationship Specialty Start Date End Date Nathalia Yousif PA [address] [place] [address] PCP - General Physician Typing Office Worker 12/24/24 documented as of this encounter
--- OUTSIDE RECORDS SUMMARY | 2025-03-04 20:16 | XMS_ITS | Encounter Summary ---
[facility] Address [address] [place] [address] Care Team Providers Care Automobile Parts Assembler Name Role Phone Nathalia Yousif Primary Care Provider [phone] Reason for Visit * Reason Onset Date Comments MUSE-SCHEDLUING REQUEST 12/24/2024 Encounter Details Date Type Department Care Team (Late st Contact Info) Description 12/24/2024 Telephone [facility] CARDIOLOGY [address] [address] Luke Muse MD [address] [place] [address] MUSE-SCHEDLUING REQUEST Social History Tobacco Use Types [...] more drinks on one occasion? Never 06/01/2022 [place] Depression Scale Answer Date Recorded Retired [place] Depression Score 0 09/13/2022 Retired EPD Scale: [...] to patient: Self Best call back number: [phone] Chief complaint: PT HAD ECHO DONE AT [facility] AND WAS RECOMMENDED AND MRI AND [...] Description 05/10/2025 3:00 PM EST Office Visit [facility] RHEUM[facility]Y [address] [place] [address] Manjeet Garcia DO [address] [address] documented as of this encounter Visit Diagnoses Not on filedocumented in this encounter Care Teams Automobile Parts Assembler Relationship Specialty Start Date End Date Nathalia Yousif PA [address] [place], [place] [id number] PCP - General Physician Repeat Photocomposing Machine Operator 12/24/24 documented as of this encounter
[2025-03-04 20:17] VITALS: BP 140/80; PULSE 78; RESP 20; O2SAT 100
--- OUTSIDE RECORDS SUMMARY | 2025-03-04 20:17 | XMS_ITS | Patient Health Record ---
Author Organization [facility] Address [address] [place] [id number] Care Team Providers Care Community Life Director Name Role Phone Unknown, PCP Primary Care Provider Hannah Krishnamurthy Unavailable [phone] Allergies Allergen (clinical drug ingredient) Drug/Non Drug [...] 98 Encounters Encounter Location Date Provider Diagnosis [facility] [address] [facility] [address] [place] [address] 04/21/2024 Hannah Cuello Viral upper respiratory tract [...] [employer] [place] MEDICA[place] [address] [place] [address] [id number] Barrie Titus Self - patient is the insured Medical (General) History Medical History History ICD Code hypothyroid PCOS migraine asthma Surgical History Surgery Date(Month/Year) gallbladder ear tubes tonsillectomy Hospitalization History Reason Date(Month/Year) see above
--- OUTSIDE RECORDS SUMMARY | 2025-03-04 20:17 | XMS_ITS | Clinical Summary ---
Author Organization Healthcare Address [address] [place] [address] Care Team Providers Care Broadcast Systems Engineer Name Role Phone Nathalia Yousif Primary Care Provider [phone] Allergies Active Allergy Reactions Criticality Noted Date [...] Description 04/10/2025 2:20 PM EDT [facility] [address] [place] [address] Lori Lamar, DO [address] [place] [address] Health Maintenance Due Date Last [...] 2 - PCV) 2019 UKY-Pap Smear 2021 ZIJ-QLCUM-19 Vaccine ( - 20 24-25 season) 2025 [...] to complete this topic Insurance Care Teams Broadcast Systems Engineer Relationship Specialty Start Date End Date Nathalia Yousif PA [address] [place] [address] PCP - General 08/31/21
--- OUTSIDE RECORDS SUMMARY | 2025-03-04 20:17 | XMS_ITS | Encounter Summary ---
Author Organization [facility] Address [address] [place] [address] Care Team Providers Care Onshore Diver Name Role Phone Beena Obregon APRN Primary Care Provider [phone] Nathalia Yousif Primary Care Provider [phone] Reason for Referral * Consultation (Routine) - Closed Specialty Diagnoses / Procedures Referred By Contac t Referred To Contact Allergy Diagnoses Allergy, initial encounter Nathalia Yousif PA [address] [place] [address] Phone: tel: fax: [facility] [address] [facility], [address] [place] [address] Phone: tel: fax: Referral ID Status Reason Start Date Expiration Date V isits Requested Visits Authorized [id number] Closed Specialty Services Required 06/11/2021 12/11/2022 1 1 Encounter Details Date Type Department Care Team (Late st Contact Info) Description 06/11/2021 Community [facility] [address] [place] [address] Nathalia Yousif PA [address] [place] [address] Allergy, initial encounter (Primary Dx) [...] EDT Office Visit [facility] [address] [place] [address] Lori Lamar DO [address] [facility] [address] [place] [address] Scheduled Referrals Name Type Priority Associated Diagnoses Order Schedule Ambulatory Referral to Allergy and Immunology Outpatient Referral Routine Allergy, initial encounter 1 Occurrences starting 06/11/2021 until 12/10/2021 documented as of this encounter Visit Diagnoses Diagnosis Allergy, initial encounter- Primary documented in this encounter Care Teams Onshore Diver Relationship Specialty Start Date End Date Beena Obregon APRN [facility] [place], [place] [phone] PCP - General 10/31/20 08/30/21 Nathalia Yousif PA [address] [place], [place] [id number] PCP - General 08/31/21 documented as of this encounter
--- OUTSIDE RECORDS SUMMARY | 2025-03-04 20:17 | XMS_ITS | Encounter Summary ---
[facility] [address] [place] [address] Care Team Providers Care Pet Care Associate Name Role Phone Nathalia Yousif Primary Care Provider [phone] Encounter Details Date Type Department Care Team (Late st Contact Info) Description 01/28/2025 Documentation [facility] CARDI[facility] [address] [facility] [address] [place] [address] Luke Nunes MD [address] [facility] [address] [place] [id number] Social History Tobacco Use Types Packs/Day Years [...] more drinks on one occasion? Never 06/01/2022 [place] Depression Scale Answer Date Recorded Retired [place] Depression Score 0 09/13/2022 Retired EPD Scale: [...] Description 05/10/2025 3:00 PM EST Office Visit [facility] RHEUMATOLOGY [address] [place] [address] Manjeet Garcia DO [address] [place] [address] documented as of this encounter Visit Diagnoses Not on filedocumented in this encounter Care Teams Pet Care Associate Relationship Specialty Start Date End Date Nathalia Yousif PA [address] [place] [address] PCP - General Physician Toxicology Teacher 12/24/24 documented as of this encounter
--- OUTSIDE RECORDS SUMMARY | 2025-03-04 20:17 | XMS_ITS | Patient Health Record ---
Author Organization [facility] Address [address] [place] [address] Care Team Providers Care Flight Teacher Name Role Phone Yordan Smith Primary Care Provider Yordan Smith Unavailable Unavailable Felicity Hogue Unavailable [phone] Melanie Fitzpatrick Unavailable [phone] Migration, Provider Unavailable Unavailable Allergies Allergen (clinical drug ingredient) Drug/Non Drug Allergy documented on EMR Reaction Allergy Type Onset Date Status CEDAX (uncoded) Unknown Allergy Acti ve amoxicillin Amoxicillin Unknown Drug Allergy Act danae codeine Codeine hives Drug Allergy Active Penicillin Unknown Drug Allergy Active Results Component Value Reference Range Notes HEMOGLOBIN A1c (496) Reviewed date:03/30/2024 09:24:44 AM Interpretation: Performing Lab:[facility], [facility] [facility] Kristopher Atwood Notes/Report: NON-FASTING; NON-FASTING; NON-FASTING; NON-FASTING; [...] diagnosis of diabetes in children. According to [place] Diabetes Association (ADA) guidelines, hemoglobin A1c <7.0% represents optimal control in non- diabetic patients. Different metrics may apply to specific patient populations. Standards of Medical Care in Diabetes(ADA). LIPID PANEL, STANDARD (7600) Reviewed date:03/26/2024 10:19:04 AM Interpretation: Performing Lab:[facility], [facility] Abwu[address] [facility] [place] BkqrKH[address] Kristopher Atwood Notes/Report: NON-FASTING; NON-FASTING; NON-FASTING; NON-FASTING; [...] equation in the estimation of LDL-C. Uday SS et al. CRISTÓBAL. 2013;310(19): 4013-7392 (http://education.SageFire/faq/EEU065) CHOL/HDLC RATIO 4.4 <5.0 (calc) NON HDL CHOLESTEROL 163 <130 mg/dL (calc) For patients with diabetes plus 1 major ASCVD risk factor, treating to a non-HDL-C goal of <100 mg/dL (LDL-C of <70 mg/dL) is considered a therapeutic option. COMPREHENSIVE METABOLIC PANElder Burkett (05096) Reviewed date:03/26/2024 10:19:04 AM Interpretation: Performing Lab:[facility], [facility] Qups[address] [facility] [place] UwqvQD[address] Kristopher Atwood Notes/Report: NON-FASTING; NON-FASTING; NON-FASTING; NON-FASTING; [...] 9) Reviewed date:03/26/2024 10:19:04 AM Interpretation: Performing Lab:[facility], [facility] Atlq0493 [facility] CenterMcwiNG[address] Kristopher Atwood Notes/Report: NON-FASTING; NON-FASTING; NON-FASTING; NON-FASTING; [...] MPV 8.6 7.5-12.5 fL ABSOLUTE NEUTROPHILS 5055 8890-1878 cells/uL ABSOLUTE LYMPHOCYTES 2880 850-3900 cells/uL ABSOLUTE MONOCYTES 400 200-950 cells/uL ABSOLUTE EOSINOPHILS 313 15-500 cells/uL ABSOLUTE BASOPHILS 52 0-200 cells/uL NEUTROPHILS 58.1 LYMPHOCYTES 33.1 MONOCYTES 4.6 EOSINOPHILS 3.6 BASOPHILS 0.6 VITAMIN B12 (927) Reviewed date:03/26/2024 10:19:04 AM Interpretation: Performing Lab:[facility], [facility] Nggb4579 [facility] CenterLwzrKB[address] Kristopher Atwood Notes/Report: NON-FASTING; NON-FASTING; NON-FASTING; NON-FASTING; NON-FAST FASTING:YES FASTING: YES VITAMIN B12 254 186-8503 pg/mL TSH (899) Reviewed date:03/26/2024 10:19:04 AM Interpretation: Performing Lab:[facility], [facility] [address], [facility] CenterMiiwJT[address] Kristopher Atwood Notes/Report: NON-FASTING; NON-FASTING; NON-FASTING; NON-FASTING; [...] review and pick correct strength-formulatio n from Modustrian options. If intended option is not shown, [...] Risk Notes Problem Polycystic ovary syndrome (disorder) (772964243) Polycystic ovarian syndrome (E28.2) Active confirmed Problem Major depression, single episode (73961311) Major depressive disorder, single episode, unspecified (F32.9) Active confirmed Problem Anxiety disorder (161740883) Anxiety disorder, unspecified (F41.9) Active confirmed Problem Otitis externa of left ear (1482121265823487 ) Other otitis externa, left ear (H60.8X2) Active confirmed Problem Vitamin D deficiency (59568127) Vitamin D deficiency (E55.9) Active confirmed Problem Vitamin B12 deficiency (non anemic) (15113800) B12 deficiency (E53.8) Active confirmed Problem Fever (899915832) Fever (R50.9) Active confirme d Problem Weight gain (040077768) Weight gain (R63.5) Active confirmed Problem Dysmenorrhea (903349317) Dysmenorrhea (N94.6) Active confirmed Problem Fatigue (68835971) Fatigue (R53.83) Active confirmed Problem Dizziness (655174222) Dizziness (R42) Active confirmed Problem Acquired hypothyroidism (898568487) Acquired hypothyroidism (E03.9) Active confirmed Problem Mild intermittent asthma (095067339) Mild intermittent asthma without complication (J45.20) Active confirmed Problem Exacerbation of asthma (441664869) Mild asthma exacerbation (J45.901) Active confirmed Problem Migraine without aura, not refractory (290202690) Migraine without aura and without status migrainosus, not intractable (G43.009) Active confirmed Problem Mood disorder (65499274) Mood disorder (F39) Active confirmed Problem Generalized anxiety disorder (61163614) JUANJO (generalized anxiety disorder) (F41.1) Active confirmed Problem Menstrual disorder (761259851) Irregular menses (N92.6) Active confirmed Problem Fatigue (02222004) Fatigue, unspecified type (R53.83) Active confirmed Problem Acute cough (1447001552541896 04) Acute cough (R05.1) Active confirmed Vital Signs Heart Rate 88 /min 04/25/2024 Temperature 98.3 degrees Fahrenheit 04/25/2024 Blood pressure diastolic 80 mm Hg 04/25/2024 Height 5 ft 3 in in 04/25/2024 Blood pressure systolic 118 mm Hg 04/25/2024 Weight 215 lbs 04/25/2024 BMI 38.08 kg/m2 04/25/2024 Encounters Encounter Location Date Provider Diagnosis [facility] [address] [place] [address] 09/22/2024 Provider Migration Bronchitis J40 [facility] [place] [address] [address] 03/23/2024 Melanie McNees Migraine without aura and without status migrainosus, not intractable G43.009 ; Major depressive disorder, single episode, unspecified F32.9 ; Anxiety disorder, unspecified F41.9 ; B12 deficiency E53.8 ; Routine medical exam Z00.00 ; Fatigue R53.83 and Irregular menses N92.6 [facility] [place] [address] [address] 04/25/2024 Felicity Hogue Bronchitis J40 and Migraine without aura and without status migrainosus, not intractable G43.009 [facility] [address] [address] 03/28/2024 Felicity Jaimeence [facility] [address] [address] 07/26/2024 Yordan Smith Bronchitis J40 [facility] [address] [place] [address] 07/26/2024 Melanie McNees [facility] [address] [place] [address] 03/28/2024 Melanie McNees Migraine without aura and without status migrainosus, not intractable G43.009 and JUANJO (generalized anxiety disorder) F41.1 [facility] [address] [place] [address] 04/23/2024 Melanie McNees [facility] [address] [place] [address] 05/31/2024 Melanie McNees [facility] [address] [place] [address] 10/25/2024 Melanie McNees [facility] [address] [place] [address] 10/25/2024 Melanie McNees [facility] [address] [place] [address] 10/29/2024 Melanie McNees Assessments Encounter Date Diagnosis (ICD Code) Assessment Notes Treatment Notes Treatment Clinical Notes Section Notes 03/28/2024 Migraine without aura and without status migrainosus, not intractable (ICD-10 - G43.009) 07/26/2024 Bronchitis (ICD-10 - J40) 09/22/2024 Bronchitis (ICD-10 - J40) 04/25/2024 Bronchitis (ICD-10 - J40) Discussed the [...] her migraines we will consider alternative therapy 03/23/2024 Major depressive disorder, single episode, unspecified (ICD-10 - F32.9) Well controlled on SNRI 03/23/2024 Migraine without aura and without status migrainosus, not intractable (ICD-10 - G43.009) Change to Qulipta. SE profile and MOA discussed. Discussed hydration and need for regular, balanced meals, outdoor activities/exe rcise and trigger (sunlight) etc - avoidance. 03/23/2024 Anxiety disorder, unspecified (ICD-10 - F41.9) Stable on current regimen. 03/28/2024 JUANJO (generalized anxiety disorder) (ICD-10 - F41.1) 03/23/2024 B12 deficiency (ICD-10 - E53.8) Will [...] Flu, A 06/21/2019 Rapid Flu, B 06/21/2019 P-Hqbp-Ayybnloltssmc Antibody 02/16/2018 M-Respiratory Virus Panel, PCR 3 M-Upper Respiratory Panel, PCR 3 M-Vitamin B12 03/10/2021 M-Vitamin D 25 Hydroxy 03/10/2021 TESTOSTERONE, TOTAL, [place] ([id number]) 2022 Insurance Providers Payer Name Payer Address Payer Phone Subscriber Number Group Number Insured Name Patient Relationship to Insured Coverage Start Date Coverage End Date AETNA [facility] [address] [address] [place] [phone] [id number] Barrie Titus Self - patient is the insured Medications Administered Medication Instructions Date of Administration Dosage Notes Kenalog 40mg 02/05/2019 40 mg Triamcinolone Acetonide 40mg Injection 07/29/2018 1 mL Medical (General) History Medical History History ICD Code Migraines Hypothyroidism Atypical Pneumonia of Right Lung Surgical History Surgery Date(Month/Year) Tonsilectomy 2008 Gallbladder 2017 Hospitalization History Reason Date(Month/Year) [facility]- inflammation of ribs 06/21 09/09
--- OUTSIDE RECORDS SUMMARY | 2025-03-04 20:17 | XMS_ITS | Encounter Summary ---
[facility] Address [address] [place] [address] Care Team Providers Care Locomotive Crane Operator Name Role Phone Nathalia Yousif Primary Care Provider Encounter Details Date Type Department Care Team (Late st Contact Info) Description 01/28/2025 Telephone [facility] CARDIOLOGY [address] [place] [address] [place] [address] Luke Nunes MD [address] [id number] Social History Tobacco Use Types Packs/Day Years [...] more drinks on one occasion? Never 06/01/2022 [place] Depression Scale Answer Date Recorded Retired [place] Depression Score 0 09/13/2022 Retired EPD Scale: [...] imaging and reports, I agree with the issuing operator at [facility] that this does not need to be [...] Description 05/10/2025 3:00 PM EST Office Visit [facility] RHE[facility] [address] [place] [address] Manjeet Garcia DO [address] [facility] [address] [place], [place] [address] documented as of this encounter Visit Diagnoses Not on filedocumented in this encounter Care Teams Locomotive Crane Operator Relationship Specialty Start Date End Date Nathalia Yousif PA [address] [place] [address] PCP - General Physician Boiler Testing Technician 12/24/24 documented as of this encounter
--- OUTSIDE RECORDS SUMMARY | 2025-03-04 20:18 | XMS_ITS | Patient Health Record ---
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) Active confirmed Problem Primigravida (023740979) Encounter for supervision of normal first in second trimester (Z34.02) Active confirmed Problem Poor growth affecting management (253899510) IUGR, (O36.5990) Active confirmed Problem Supervision of high risk (504327338) Supervision of other high risk pregnancies, third trimester (O09.893) Active confirmed Plan Of Treatment No Information Insurance Providers Payer Name Payer Address Payer Phone Subscriber Number Group Number Insured Name Patient Relationship to Insured Coverage Start Date Coverage End Date Aetna [facility] [address] [place] [phone] [id number] Barrie Titus Self - patient is the insured Medical (General) History Medical History History ICD Code Hypothyroidism Asthma Migraine VACA Surgical History Surgery Date(Month/Year) Tonsillectomy Ear Tubes Cholecystectomy
--- NOTE | 2025-03-04 20:23 | ED_ITS ---
<Statement entered by Suki Gambino DO - 03/06/25 15:50> I was consulted by the RENE, and we discussed the complexity of problems being addressed. I approve the treatment and management plan for this patient's care in the emergency department, thus performing a substantial portion of the medical decision making. Suki Gambino DO Discharge Plan Disposition Patient Disposition: Home, Self-Care Condition: Good Prescriptions Prescriptions: No Action Ubrelvy 50 mg tablet 50 mg PO DAILYP PRN (Reason: Migraine Headache) Patient Comments: TAKE 1 TABLET BY MOUTH ONCE NEEDED ondansetron HCl 4 mg tablet 4 mg PO DAILY 5 Days Qty: 5 0RF levothyroxine 100 mcg tablet 100 mcg PO DAILY Patient Comments: TAKE 1 TABLET BY MOUTH ONCE DAILY albuterol sulfate 90 mcg/actuation HFA aerosol inhaler 2 puff INHALATION Q6HP PRN (Reason: wheeze, soa) Patient Comments: INHALE 2 PUFFS BY MOUTH EVERY 6 HOURS Referrals Follow up/Referrals: Nathalia Yousif PA [Primary Care Provider, Medical] - See instructions Jin Blue DO [Staff Physician, Orthopedics] - See instructions Activity Restrictions/Add. Instructions Additional Instructions/Restrictions: Please keep your toe sravanthi taped and to utilize hard sole shoe until orthopedic follow-up, recommend rest ice ibuprofen Tylenol for symptomatic relief. Please follow-up with orthopedic doctor in the upcoming days/weeks. Please return to the emergency department any worsening signs or symptoms. Clinical Impressions Clinical Impression: Toe fracture, left Instructions Patient Instructions: DI for Toe Fracture Print Language Print Language: Kyrgyz Discharge ED Provider: Suki Gambino General Adult HPI General Chief complaint: Extremity Injury, Lower Stated complaint: Possbile Broken Left foot/toe Time Seen by Provider: 03/04/25 20:15 Mode of Arrival: Ambulatory Source of Information: Patient Description of Symptoms (Recalled from ER Triage Doc. by RN): Pt hit her left pinky toe on the stones of her fireplace at home today. c/o left pinky toe pain radiating to the middle of her foot History of Present Illness HPI narrative: 24-year-old female presents the emergency department with a left foot fifth digit injury, patient states that she hit it on a fireplace , denies any other upper or lower extremity injury, denies any striking the head, has no other acute complaints, patient has pain radiating to the dorsal aspect of her foot/lateral aspect of her left foot, patient has other past medical history consistent with hypothyroidism, migraines, dated the patient history of VSD/ASD, patient is a current everyday smoker (vapes), denies any alcohol or drug use initial triage vitals are unremarkable. Please note that above description of symptoms, in this electronic medical record under categorization of recalled from ER triage doctor by RN are reflective of an initial nursing assessment, however, is not reflective of my full history and physical exam that was personally taken and clarified. Consequentially, this preceding description of symptoms, which may include the patient's categorized chief complaint in the EMR, do not reflect my personal clinical impression, and the ultimate description of history of present illness and patient stated complaints should be deferred to this section of the note. Unless stated otherwise or congruent with this section of the note, additional signs, symptoms, or incongruence should be interpreted as inaccurate with my clinical impression. Onset (ago): hour(s) Related Data Home Medications ?Medication ?Instructions ?Recorded ?Confirmed albuterol sulfate 90 mcg/actuation 2 puff inhalation Q 6HP PRN wheeze, 11/08/22 02/26/25 aerosol inhaler soa levothyroxine 100 mcg tablet 100 mcg PO DAILY thyroid disorder 11/08/22 02/26/25 ubrogepant 50 mg tablet (Ubrelvy) 50 mg PO DAILYP PRN Migraine 07/25/24 02/26/25 Headache Previous Rx's ?Medication ?Instructions ?Recorded ondansetron HCl 4 mg tablet 4 mg PO DAILY 5 days #5 ta bs 10/26/24 Allergies Allergy/AdvReac Type Severity Reaction Status Date / Time amoxicillin Allergy Intermediate I-HIVES Verified 02/26/25 16:32 ceftibuten (From Cedax) Allergy Intermediate I-HIVES Verified 02/26/25 16:32 penicillin G Allergy Intermediate I-HIVES Verified 02/26/25 16:32 adhesive tape Allergy Hives Verified 02/26/25 16:32 codeine Allergy Hives Verified 02/26/25 16:32 [facility] Disclaimer: The information contained in this section may have been updated after the patient was seen, as this information can be updated by other users. Medical History (Updated 03/04/25 @ 21:04 by CANDICE Santiago) Viral upper respiratory infection VSD (ventricular septal defect) Elevated factor VIII level Anxiety History of gastroesophageal reflux (GERD) Migraine Asthma Nausea and vomiting Acne B12 deficiency anemia Hypothyroidism Surgical History History of tonsillectomy History of tympanostomy tube placement History of cholecystectomy Family History Other Family history of VSD (ventricular septal defect) Family history of cancer Family history of diabetes mellitus Family history of lupus Social History Smoking Status: Never smoker second hand exposure: No alcohol intake: never substance use type: denies use current occupational status: employed Travel in the last 8 weeks?: None household members: family housing: house current occupational exposures/hazards: No caffeine: Yes Have you lived/traveled outside US in past 30 days?: No Contact w/someone who lives/traveled outside US past 30 days?: No Exposure to someone with infectious disease in past 14 days?: No Do you have a fever (greater than 100.4 F or 38 C)?: No Have you tested positive for COVID-19?: No Exposed to someone with COVID-19 in past 14 days?: No Do you have a sore throat?: No Do you have a cough?: No Do you have any weakness?: No Do you have any diarrhea?: No Are you experiencing any unusual bleeding?: No Do you have any muscle aches/pain?: No Do you have any abdominal pain?: No Are you experiencing loss of taste or smell?: No Other Medical History Have you received the Flu Vaccine for this season: No Have you received the Pneumonia Vaccine: No ROS Obtained: Yes All systems reviewed & no additional complaints except as documented Physical Exam General General appearance: alert and in no apparent distress Head Head exam: atraumatic and normocephalic Eye Eye exam: Present PERRL and EOMI ENT ENT exam: Present mucous membranes moist Neck Neck exam: Present normal inspection Chest Chest inspection: Present normal inspection and symmetric chest wall rise Respiratory Respiratory exam: Present normal lung sounds bilaterally; Absent respiratory distress Cardiovascular Cardiovascular exam: Present regular rate and normal rhythm Abdominal Exam Abdominal exam: Present soft; Absent tenderness Extremities Exam Extremities exam: Present normal inspection, full ROM, tenderness and other (Mild pain to palpation to the lateral aspect of the patient's left foot, no obvious traumatic injury or deformity, otherwise neurovascular intact, there is pain with patient as well to the fifth digit) Neurological Exam Neurological exam: Present alert and oriented X3 Psychiatric Psychiatric exam: Present normal affect Skin Skin exam: Present warm and dry Medical Decision Making Medical Records Medical records reviewed: Yes I reviewed the patient's medical records. Screening: Per USPSTF and CDC recommendations, given the prevalence of disease in our region, it is our hospital?s policy to screen for HIV and viral Hepatitis for all patients aged 18 and over and those with ongoing risk factors. Wander Inquiry Pt receiving controlled substance: No Wander was queried for this patient: No Vital Signs: 03/04/25 20:13 03/04/25 20:17 Pulse Rate 78 Pulse Rate [Left] 79 Respiratory Rate 18 20 Blood Pressure 140/80 Blood Pressure Source Automatic Cuff 02 Sat by Pulse Oximetry 100 100 Oxygen Delivery Method Room Air Room Air Orders (Tests/Meds): ED MEDICATIONS Discontinued Medications Generic Name Dose Route Start Last Admin Trade Name Uliq PRN Reason Stop Dose Admin Ibuprofen 600 mg 03/04/25 20:38 03/04/25 20:43 Ibuprofen 600 Mg Tablet PO 03/04/25 20:39 600 mg ONCE ONE Administration ORDERS Category Date Time Status XR foot LT min 3V Stat Exams 03/04/25 20:15 Taken Medical Decision Narrative: 24-year-old female presents the emergency department with a left foot injury and fifth digit injury, differential diagnose include but not limited to, tuft fracture, fifth digit fracture, Heller fracture, pseudo Heller fracture, foot sprain/strain among others. I discussed this patient's case with the attending physician Dr. Gambino Obtain x-ray of the left foot for further evaluation/characterization, will give 600 mg p.o. Motrin for pain. I reviewed the patient's x-ray of left foot, there is an obvious fifth phalanx fracture, will sravanthi tape this, and place in hard sole shoe. Patient would like to be discharged home to self-care, and not wait for full formal radiology report to result, I think this is appropriate shared decision making was utilized, we will call the patient with the full radiology report if actionable. Patient will need to follow-up with orthopedic physician. Recommend rest ice compression ibuprofen and other anti-inflammatory medication for symptomatic relief. Patient voiced understanding and agreement with the current treatment plan/discharge plan. Strict ED return precautions given. Critical Care Critical Care Time Critical Care Time: No
[2025-03-04] MEDS: IBUPROFEN 600 MG TABLET PO (20:43)
[2025-03-04 21:18] VITALS: BP 132/80; PULSE 80; RESP 20; TEMP 36.9
== END 2025-03-04 21:18 | disposition home or self-care (01) ==
PROVIDERS: Emergency Provider Student in an Organized Health Care Education/Training Program; PCP Physician Assistant
DX: S92.912A Unspecified fracture of left toe(s), initial encounter for closed fracture (principal); W23.2XXA Caught, crushed, jammed or pinched between a moving and stationary object, initial encounter
CPT/HCPCS: 73630; 99283

== ENCOUNTER 2025-04-02 13:42 | Outpatient (CLI) | payer OTHER, SELFPAY ==
--- OUTSIDE RECORDS SUMMARY | 2024-04-23 11:30 | XMS_ITS ---
Author Organization [facility] Address [address] [place] [address] Care Team Providers Care Automotive Assembler Name Role Phone Yordan Smith Primary Care Provider Yordan Smith Unavailable Unavailable Melanie Fitzpatrick [phone] REASON FOR VISIT 4 week f/u Encounters Encounter Location Date Provider Diagnosis [facility] [address] [address] 04/23/2024 Melanie Fitzpatrick Plan Of Treatment No Information Progress Notes * Barrie TITUSeDOB:[birth year] (24 yo F)Acc No.[id number]:04/23/2024 Progress Notes Patient: Barrie WHALEY Provider: Félix Fitzpatrick APRN :2000 A ge:23 Y S ex:Female Date:04/23/2024 Address[address] [facility] Pcp:Yordan Smith Subjective: * Chief Complaints: * 1 . 4 week f/u. * Medical History: Objective: * Vitals: Assessment: Plan: * Treatment: * * Electronic signature of Abhijeet Fitzpatrick APRN on 04/02/2025 at 01:44 PM EDT Sign off status: Pending * Provider: Félix Fitzpatrick APRN Date: 06/23/2023 Generated for Adriana beck/Sergey/Jackelin on: 01:44 PM EDT
--- OUTSIDE RECORDS SUMMARY | 2024-09-22 17:30 | XMS_ITS ---
Author Organization [facility] PE D SRINIVAS Address [address] [place] [address] Care Team Providers Care Drive Man Name Role Phone Yordan Smith Primary Care Provider Yordan Smith Unavailable Unavailable Migration, Provider Unavailable Unavailable Allergies Allergen (clinical drug ingredient) Drug/Non Drug Allergy documented on EMR Reaction Allergy Type Onset Date Status CEDAX (uncoded) Unknown Allergy Acti ve amoxicillin Amoxicillin Unknown Drug Allergy Act danae codeine Codeine hives Drug Allergy Active Penicillin Unknown Drug Allergy [facility] Conversion Encounter Medications Medication SIG (Take, [...] Active Encounters Encounter Location Date Provider Diagnosis [facility] PED SR[facility] [address] [facility] [address] [place] [address] 09/22/2024 Provider Migration Bronchitis J40 Assessments Encounter [...] Notes * Barrie TITUSeDOB:[birth year] (24 yo F)Acc No.[id number]:09/22/2024 Patient: Barrie WHALEY Elzbieta Provider: Belem jacobs Migration :2000 A ge:24 Y S ex:Female Date:09/22/2024 Address:[address] [place] [phone] Pcp:Yordan Smith Subjective: * Chief Complaints: * [...] *Please review and pick correct strength-formulation from Trending Taste options. If intended option is not shown, [...] Electronic signature of Prov ider Migration on 04/02/2025 at 01:44 PM EDT Sign off status: Pending * Provider: Belem jacobs Migration Date: 0 09/22/2024 Generated for Adriana beck/Sergey/Jackelin on: 1 01:44 PM EDT
--- NOTE | 2025-04-02 13:44 | XR_ITS ---
FINAL REPORT CLINICAL HISTORY: left foot fx COMPARISON: 03/05/2025 FINDINGS: LEFT FOOT 3 views of the left foot were obtained. There has been interval healing of previously seen spiral fracture of the fifth proximal phalanx. No other fracture is identified. Visualized joint spaces are normally aligned. Soft tissues are unremarkable. IMPRESSION: Interval healing of proximal left fifth phalanx fracture. Reviewed, Interpreted and Dictated by Lisa Sampson MD Transcribed by Connie Gomez Authenticated and [facility]
--- OUTSIDE RECORDS SUMMARY | 2025-04-02 13:44 | XMS_ITS | Clinical Summary ---
Author Organization [employer] ([place], [place], [place], [place]) Address [address] [place] [address] Care Team Providers Care Hydraulic Strainer Operator Name Role Phone Skye Heller APRN Unavailable [phone] Allergies Active Allergy Reactions Criticality Noted [...] Encounters Date Type Department Care Team Description 01/25/2025 10:45 AM EDT Office Visit [facility] Orthopedics - [address] [address] Heller, Skye, STAMPING DIE TRY OUT WORKER Moderate ankle sprain right , subsequent encounter (Primary Dx); Short Achilles tendon, right from Last 3 Months Family History Medical [...] Sign Reading Time Taken Comments Blood Pressure 112/81 01/25/2025 10:58 AM EDT Pulse 65 01/25/2025 10:58 AM EDT Temperature - - Respiratory Rate 18 01/25/2025 10:58 AM EDT Oxygen Saturation - - Inhaled Oxygen Concentration - - Weight 96.2 kg (212 lb) 01/25/2025 10:58 AM EDT Height 160 cm (5' 3 ) 01/25/2025 10:58 AM EDT Body Mass Index 37.55 01/25/2025 10:58 AM EDT Plan of Treatment Health Maintenance Due Date Last Done Comments Depression Screening (12+) 2012 HIV Screening 2015 Hepatitis C Screening 2018 DTAP/TDAP/TD VACCINES (1 - Tdap) 2019 Lipid Panel 2020 Pap Smear 2021 COVID-19 VACCINE (1 - 2023-2 5 season) 2025 Influenza Vaccine (#1) 2025 Tobacco Cessation Counseling and Screening (12+) 01/25/2026 01/25/2025 Pneumococcal Vaccine: 0-49 Years Aged Out No longer eligible based on patient's age to complete this topic Insurance AETNA [facility] WORK COMP OTHER Care Teams Hydraulic Strainer Operator Relationship Specialty Start Date End Date Skye Heller APRN [address] [place], [place] [id number] Nurse Practitioner Orthopedic Surgery 12/25/24
--- OUTSIDE RECORDS SUMMARY | 2025-04-02 13:44 | XMS_ITS | Clinical Summary ---
Author Organization Healthcare Address [address] [place] [address] Care Team Providers Care Physically Impaired Teacher Name Role Phone Nathalia Yousif Primary Care Provider Allergies Active Allergy Reactions Criticality Noted Date [...] time each day. 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 Migraines 04/13/2021 Hypothyroidism 04/13/2021 Hair loss 04/13/2021 Obesity (BMI 30.0-34.9) 04/13/2021 Chondromalacia of patellofemoral joint 6 Resolved Problems Problem Noted Date Diagnosed Date Resolved Date Fatigue 04/13/2021 03/10/2025 Family History Medical History Relation Name Comments [...] 04/10/2025 2:20 PM EDT Office Visit [facility] Endocrinology [address] [place] [address] Lori Lamar DO [address] [address] Health Maintenance Due Date Last Done [...] 2 - PCV) 2019 [facility]-Pap Smear 2021 [id number] Vaccine (1 - 20 24-25 season) 2025 [facility]-Influenza Vaccine [...] age to complete this topic Insurance AETNA [facility] MEDICAID Care Teams Physically Impaired Teacher Relationship Specialty Start Date End Date Nathalia Yousif PA [address] [place] [address] PCP - General 08/31/21
--- OUTSIDE RECORDS SUMMARY | 2025-04-02 13:44 | XMS_ITS | Patient Health Record ---
Author Organization [facility] Address [address] [place] [id number] Care Team Providers Care Termite Control Servicer Name Role Phone Unknown, PCP Primary Care Provider Hannah Krishnamurthy Unavailable [phone] Allergies Allergen (clinical drug ingredient) Drug/Non Drug [...] 98 Encounters Encounter Location Date Provider Diagnosis [facility] [address] [facility] [address] [place] [address] 04/21/2024 Hannah Cuello Viral upper respiratory tract [...] [employer] [place] MEDICA[employer] [address] [place] [address] [id number] Barrie Titus Self - patient is the insured Medical (General) History Medical History History ICD Code hypothyroid PCOS migraine asthma Surgical History Surgery Date(Month/Year) tonsillectomy ear tubes gallbladder Hospitalization History Reason Date(Month/Year) see above
--- OUTSIDE RECORDS SUMMARY | 2025-04-02 13:44 | XMS_ITS | Referral Summary ---
Author Organization [email or web address] ([place], [place], [place], [place]) Address [address] [place] [address] Care Team Providers Care Financial Recruiter Name Role Phone Skye Heller APRN Unavailable [phone] Encounters Date Type Department Care Team Description 01/25/2025 10:45 AM EDT Office Visit [facility] Orthopedics - [address] [address] Skye Heller APRN Moderate ankle sprain right , subsequent encounter (Primary Dx); Short Achilles tendon, right from Last 3 Months Allergies Active Allergy [...] 01/25/2025 10:58 AM EDT Plan of Treatment Not on file Insurance AETNA [facility] WORK COMP OTHER Care Teams Financial Recruiter Relationship Specialty Start Date End Date Skye Heller APRN [address] [place] [address] Nurse Practitioner Orthopedic Surgery 12/25/24
--- OUTSIDE RECORDS SUMMARY | 2025-04-02 13:44 | XMS_ITS | Encounter Summary ---
Author Organization [facility] Address [address] [place] [address] Care Team Providers Care Housekeeper/Custodian/Laundry Worker Name Role Phone Nathalia Yousif Primary Care Provider [phone] Reason for Referral * Consultation (Routine) - Authorized Specialty Diagnoses / Procedures Referred By Ovidio t Referred To Contact Psychiatry Diagnoses Anxiety disorder, unspecified type Major depressive disorder with single episode, remission status unspecified Medication management Melanie Dumont APRN [address] [place] [address] Phone: tel: fax: Referral ID Status Reason Start Date Expiration Date Visits Requested Visits Authorized [id number] Authorized Specialty Services Required 10/25/2024 04/26/2026 1 1 Encounter Details Date Type Department Care Team (Late st Contact Info) Description 10/25/2024 Community [facility] [address] [place] [address] Melanie Dumont APRN [address] [place] [address] Anxiety disorder, unspecified type (Primary Dx); Major [...] Description 04/10/2025 2:20 PM EDT [facility] [address] [place] [address] Lori Lamar DO [address] [facility] [address] [place] [address] Scheduled Referrals Name Type Priority [...] documented as of this encounter Care Teams Housekeeper/Custodian/Laundry Worker Relationship Specialty Start Date End Date Nathalia Yousif PA [address] [place] [address] PCP - General 08/31/21 documented as of this encounter
--- OUTSIDE RECORDS SUMMARY | 2025-04-02 13:45 | XMS_ITS | Patient Health Record ---
Author Organization [facility] Address [address] [place] [address] [facility] [address] [place] [address] Care Team Providers Care Car Installations Supervisor Name Role Phone Yordan Smith Primary Care Provider [phone] Yordan Smith Unavailable Unavailable Felicity Hogue Unavailable [phone] Melanie Fitzpatrick Unavailable [phone] Migration, Provider Unavailable Unavailable Allergies Allergen (clinical drug ingredient) Drug/Non Drug Allergy documented on EMR Reaction Allergy Type Onset Date Status CEDAX (uncoded) Unknown Allergy Acti ve amoxicillin Amoxicillin Unknown Drug Allergy Act danae codeine Codeine hives Drug Allergy Active Penicillin Unknown Drug Allergy Active Medications Medication SIG (Take, Route, Frequency, Duration) [...] review and pick correct strength-formulatio n from Piqora options. If intended option is not shown, [...] Risk Notes Problem Polycystic ovary syndrome (disorder) (011081829) Polycystic ovarian syndrome (E28.2) Active confirmed Problem Major depression, single episode (06987150) Major depressive disorder, single episode, unspecified (F32.9) Active confirmed Problem Anxiety disorder (156174069) Anxiety disorder, unspecified (F41.9) Active confirmed Problem Otitis externa of left ear (1018011719789892 ) Other otitis externa, left ear (H60.8X2) Active confirmed Problem Vitamin D deficiency (85434942) Vitamin D deficiency (E55.9) Active confirmed Problem Vitamin B12 deficiency (non anemic) (30244154) B12 deficiency (E53.8) Active confirmed Problem Fever (615834816) Fever (R50.9) Active confirme d Problem Weight gain (453899396) Weight gain (R63.5) Active confirmed Problem Dysmenorrhea (554614741) Dysmenorrhea (N94.6) Active confirmed Problem Fatigue (81633831) Fatigue (R53.83) Active confirmed Problem Dizziness (903547130) Dizziness (R42) Active confirmed Problem Acquired hypothyroidism (859861356) Acquired hypothyroidism (E03.9) Active confirmed Problem Mild intermittent asthma (805493254) Mild intermittent asthma without complication (J45.20) Active confirmed Problem Exacerbation of asthma (091582720) Mild asthma exacerbation (J45.901) Active confirmed Problem Migraine without aura, not refractory (627448843) Migraine without aura and without status migrainosus, not intractable (G43.009) Active confirmed Problem Mood disorder (64096439) Mood disorder (F39) Active confirmed Problem Generalized anxiety disorder (87483922) JUANJO (generalized anxiety disorder) (F41.1) Active confirmed Problem Menstrual disorder (614366988) Irregular menses (N92.6) Active confirmed Problem Fatigue (23143933) Fatigue, unspecified type (R53.83) Active confirmed Problem Acute cough (6393212364113977 04) Acute cough (R05.1) Active confirmed Vital Signs Heart Rate 88 /min 04/25/2024 Temperature 98.3 degrees Fahrenheit 04/25/2024 Blood pressure diastolic 80 mm Hg 04/25/2024 Height 5 ft 3 in in 04/25/2024 Blood pressure systolic 118 mm Hg 04/25/2024 Weight 215 lbs 04/25/2024 BMI 38.08 kg/m2 04/25/2024 Encounters Encounter Location Date Provider Diagnosis [facility] [address] [facility] [address] [place] [address] 09/22/2024 Provider Migration Bronchitis J40 [facility] [address] [address] 04/25/2024 Felicity Hogue Bronchitis J40 and Migraine without aura and without status migrainosus, not intractable G43.009 [facility] [address] [address] 07/26/2024 Yordanlyly Smith Bronchitis J40 [facility] [address] [facility] [address] [place] [address] 07/26/2024 Melanie Stephenses [facility] [address] [facility] [address] [place] [address] 04/23/2024 Melanie McNees [facility] [address] [place] [address] 05/31/2024 Melanie McNees [facility] [address] [place] [address] 10/25/2024 Melanie McNees [facility] [address] [place] [address] 10/25/2024 Melanie McNees [facility] [address] [place], [place] [address] 10/29/2024 Melanie McNees Assessments Encounter Date Diagnosis (ICD Code) Assessment Notes Treatment Notes Treatment Clinical Notes Section Notes 04/25/2024 Bronchitis (ICD-10 - J40) Discussed the [...] - J40) 09/22/2024 Bronchitis (ICD-10 - J40) Plan Of Treatment Pending Test Test Name Order Date N-Throat culture 02/03/2007 Rapid Strep 06/23/2018 N-Rapid Strep 02/03/2007 Echocardiogram 11/09/2022 H-STREP SCREEN (RAPID) 08/13/2008 C-PTT 10/29/2019 C-PT/INR 10/29/2019 Rapid Flu, A 06/21/2019 Rapid Flu, B 06/21/2019 V-Vucv-Nljmxklhbbjwh Antibody 02/16/2018 M-Respiratory Virus Panel, PCR 3 M-Upper Respiratory Panel, PCR 3 M-Vitamin B12 03/10/2021 M-Vitamin D 25 Hydroxy 03/10/2021 TESTOSTERONE, TOTAL, [place] ([id number]) 2022 Insurance Providers Payer Name Payer Address Payer Phone Subscriber Number Group Number Insured Name Patient Relationship to Insured Coverage Start Date Coverage End Date AETNA [facility] [address] [address] [place] [phone] [id number] Barrie Titus Self - patient is the insured Medications Administered Medication Instructions Date of Administration Dosage Notes Kenalog 40mg 02/05/2019 40 mg Triamcinolone Acetonide 40mg Injection 07/29/2018 1 mL Medical (General) History Medical History History ICD Code Migraines Hypothyroidism Atypical Pneumonia of Right Lung Surgical History Surgery Date(Month/Year) Tonsilectomy 2008 Gallbladder 2018 Hospitalization History Reason Date(Month/Year) [facility]- inflammation of ribs 06/21 09/09
--- OUTSIDE RECORDS SUMMARY | 2025-04-02 13:45 | XMS_ITS | Encounter Summary ---
Author Organization [facility] Address [address] [place] [address] Care Team Providers Care Miller Wood Flour Name Role Phone Beena Obregon APRN Primary Care Provider [phone] Nathalia Yousif Primary Care Provider [phone] Reason for Referral * Consultation (Routine) - Closed Specialty Diagnoses / Procedures Referred By Contac t Referred To Contact Allergy Diagnoses Allergy, initial encounter Nathalia Yousif PA [address] [place] [address] Phone: tel: fax: [facility] [address], [address] [place] [address] Phone: tel: fax: Referral ID Status Reason Start Date Expiration Date V isits Requested Visits Authorized [id number] Closed Specialty Services Required 06/11/2021 12/11/2022 1 1 Encounter Details Date Type Department Care Team (Late st Contact Info) Description 06/11/2021 [facility] [address] [place] [address] Nathalia Yousif PA [address] [place] [address] Allergy, initial encounter (Primary Dx) [...] EDT Office Visit [facility] [address] [place] [address] Lori Lamar DO [address] [facility] [address] [place] [address] Scheduled Referrals Name Type Priority Associated Diagnoses Order Schedule Ambulatory Referral to Allergy and Immunology Outpatient Referral Routine Allergy, initial encounter 1 Occurrences starting 06/11/2021 until 12/10/2021 documented as of this encounter Visit Diagnoses Diagnosis Allergy, initial encounter- Primary documented in this encounter Care Teams Miller Wood Flour Relationship Specialty Start Date End Date Beena Obregon APRN [facility] [place], [place] [id number] PCP - General 10/31/20 08/30/21 Nathalia Yousif PA [address] [place], [place] [id number] PCP - General 08/31/21 documented as of this encounter
--- OUTSIDE RECORDS SUMMARY | 2025-04-02 13:45 | XMS_ITS | Patient Health Record ---
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) Active confirmed Problem Supervision of high risk (272710840) Supervision of other high risk pregnancies, third trimester (O09.893) Active confirmed Problem Primigravida (511234070) Encounter for supervision of normal first in second trimester (Z34.02) Active confirmed Problem Hypothyroidism (97729501) Other specified hypothyroidism (E03.8) Active confirmed Problem Poor growth affecting management (262181572) IUGR, (O36.5990) Active confirmed Plan Of Treatment No Information Insurance Providers Payer Name Payer Address Payer Phone Subscriber Number Group Number Insured Name Patient Relationship to Insured Coverage Start Date Coverage End Date Aet[employer] [facility] [address] [place] [phone] [id number] Barrie Titus Self - patient is the insured Medical (General) History Medical History History ICD Code Hypothyroidism Asthma Migraine VACA Surgical History Surgery Date(Month/Year) Tonsillectomy Ear Tubes Cholecystectomy
== END 2025-04-02 23:59 | disposition home or self-care (01) ==
LOC: RAD 13:43
PROVIDERS: PCP Physician Assistant; Visit Provider Physician Assistant
DX: S92.515D Nondisplaced fracture of proximal phalanx of left lesser toe(s), subsequent encounter for fracture with routine healing (principal); X58.XXXD Exposure to other specified factors, subsequent encounter
CPT/HCPCS: 73630

== ENCOUNTER 2025-05-02 08:50 | Outpatient (CLI) | payer OTHER, SELFPAY ==
--- OUTSIDE RECORDS SUMMARY | 2024-04-23 10:30 | XMS_ITS ---
Author Organization [facility] Address [address] [place] [address] Care Team Providers Care Death Surveys Coder Name Role Phone Yordan Smith Primary Care Provider Yordan Smith Unavailable Unavailable Melanie Fitpzatrick [phone] REASON FOR VISIT 4 week f/u Encounters Encounter Location Date Provider Diagnosis [facility] [address] [address] 04/23/2024 Melanie Fitzpatrick Plan Of Treatment No Information Progress Notes * Barrie TITUSeDOB:[birth year] (24 yo F)Acc No.[id number]:04/23/2024 Progress Notes Patient: Barrie WHALEY Provider: Félix Fitzpatrick APRN :2000 A ge:23 Y S ex:Female Date:04/23/2024 Address[place] [place] Pcp:Yordan Smith Subjective: * Chief Complaints: * 1 . 4 week f/u. * Medical History: Objective: * Vitals: Assessment: Plan: * Treatment: * * Electronic signature of Abhijeet Fitzpatrick APRN on 05/02/2025 at 08:53 AM EST Sign off status: Pending * Provider: Félix Fitzpatrick APRN Date: 06/23/2023 Generated for Adriana beck/Sergey/Jackelin on: 07/02/2024 08:53 AM EST
--- OUTSIDE RECORDS SUMMARY | 2024-09-22 16:30 | XMS_ITS ---
Author Organization [facility] PE D SRINIVAS Address [address] [place] [address] Care Team Providers Care Physical Education Teacher Name Role Phone Yordan Smith Primary Care Provider Yordan Smith Unavailable Unavailable Migration, Provider Unavailable Unavailable Allergies Allergen (clinical drug ingredient) Drug/Non Drug Allergy documented on EMR Reaction Allergy Type Onset Date Status CEDAX (uncoded) Unknown Allergy Acti ve amoxicillin Amoxicillin Unknown Drug Allergy Act danae codeine Codeine hives Drug Allergy Active Penicillin Unknown Drug Allergy [facility] Conversion Encounter Medications Medication SIG (Take, Route, Frequency, Duration) Notes Start Date End Date Status Venlafaxine HCl ER 75 MG 1 cap(s) orally once a day; Duration: 90 days 10/28/2023 Active Qulipta 60 MG 1 tab(s) orally once a day; Duration: 30 days 03/23/2024 Active Loratadine 10 MG 1 tab(s) orally once a day; Duration: 90 days 03/14/2023 Active Aldactone 25 MG 1 tab(s) orally twice a day; Duration: 90 days Active metFORMIN HCl 1000 MG 1 tab(s) orally 2 times a day; Duration: 90 days Active Levothyroxine Sodium 100 MCG (0.1 MG) 1 CAP(S) ORALLY ONCE A DAY; Duration: 90 DAYS *Please review and pick correct strength-formulatio n from Medispan options. If intended option is not shown, discontinue and re-order from Quick Search* Active Peridex 0.12 % 15 mL orally 2 times a day; Duration: 30 days Active Ubrelvy 50 MG TAKE 1 TABLET BY MOUTH orally at onset of migraine; Duration: 30 days Active Cetirizine HCl 10 MG 1 tab(s) orally once a day; Duration: 90 days Active Fluticasone Propionate 50 MCG/ACT 1 spray(s) in each nostril once a day; Duration: 90 days Active Chlorhexidine Gluconate 0.12 % 15 mL orally 2 times a day; Duration: 10 days Active ALBUTEROL (EQV-PROAIR HFA) 90 MCG/INH INHALE 2 PUFFS BY MOUTH EVERY 4 HOURS NEEDED; Duration: 17 DAYS *Please review for potential replacement for e-prescription and drug interaction check* Active Azithromycin 250 MG 2 tablets on the first day, then 1 tablet daily for 4 days orally once a day; Duration: 5 days 04/25/2024 Active Encounters Encounter Location Date Provider Diagnosis [facility] PED SRINIVAS [address] [facility] [address] [place] [address] 09/22/2024 Provider Migration Bronchitis J40 Assessments Encounter Date Diagnosis (ICD Code) Assessment Notes Treatment Notes Treatment Clinical Notes Section Notes 09/22/2024 Bronchitis (ICD-10 - J40) Plan Of Treatment Medication Medication Name Sig Start Date Stop Date Notes Azithromycin 250 MG 2 tablets on the fir st day, then 1 tablet daily for 4 days orally once a day; Duration: 5 days 04/25/2024 Progress Notes * Barrie TITUSeDOB:[birth year] (24 yo F)Acc No.[id number]:09/22/2024 Patient: Barrie WHALEY Elzbieta Provider: Belem jacobs Migration :2000 A ge:24 Y S ex:Female Date:09/22/2024 Address:[address] [place] [id number] Pcp:Yordan Smith Subjective: * Chief Complaints: * 1 . Multum To Medispan Conversion Encounter. * Medical History: * Medications: T aking ALBUTEROL (EQV-PROAIR HFA) 90 MCG/INH AEROSOL INHALE 2 PUFFS BY MOUTH EVERY 4 HOURS NEEDED , Notes to Pharmacist: *Please review for potential replacement for e-prescription and drug interaction check*, Taking Chlorhexidine Gluconate 0.12 % Solution 15 mL orally 2 times a day , Taking Cetirizine HCl 10 MG Tablet 1 tab(s) orally once a day , Taking Ubrelvy 50 MG Tablet TAKE 1 TABLET BY MOUTH orally at onset of migraine , Taking Peridex 0.12 % Solution 15 mL orally 2 times a day , Taking Levothyroxine Sodium 100 MCG (0.1 MG) CAPSULE 1 CAP(S) ORALLY ONCE A DAY , Notes to Pharmacist: *Please review and pick correct strength-formulation from Lettuce Eat options. If intended option is not shown, discontinue and re-order from Quick Search*, Taking Fluticasone Propionate 50 MCG/ACT Suspension 1 spray(s) in each nostril once a day , Taking metFORMIN HCl 1000 MG Tablet 1 tab(s) orally 2 times a day , Taking Aldactone 25 MG Tablet 1 tab(s) orally twice a day , Taking Loratadine 10 MG Tablet 1 tab(s) orally once a day , Taking Qulipta 60 MG Tablet 1 tab(s) orally once a day , Taking Venlafaxine HCl ER 75 MG Capsule Extended Release 24 Hour 1 cap(s) orally once a day * Allergies: A moxicillin, Penicillin, CEDAX, Codeine: hives. Objective: * Vitals: Assessment: * Assessment: 1. B leonardo - J40 Plan: * Treatment: * * Electronic signature of Prov bria Migration on 05/02/2025 at 08:53 AM EST Sign off status: Pending * Provider: Belem jacobs Migration Date: 0 09/22/2024 Generated for Adriana beck/Sergey/Jackelin on: 07/02/2024 08:53 AM EST
--- OUTSIDE RECORDS SUMMARY | 2025-04-10 13:20 | XMS_ITS | Encounter Summary ---
Author Organization Healthcare Address [address] [place] [address] Care Team Providers Care Senior Procurement Manager Name Role Phone Nathalia Yousif Primary Care Provider [phone] Reason for Visit * Reason Comments Thyroid Problem Encounter Details Date Type Department Care Team (Late st Contact Info) Description 04/10/2025 2:20 PM EDT Office Visit [facility] [address] [place] [address] Lori Lamar, DO 2195 [facility] [address] [place] [address] Insulin resistance (Primary Dx); PCOS [...] Will also complete dexamethasone suppression test for [place]'s, as well as 17- hydroxyprogesterone level for [...] stopped. Patient confirms menarche at age 12-13 ([id number]). Reports normal periods until 2019. 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 Patient also has upcoming appointment with rheumatology for +YUDY and CITY JAILER. Past Medical History: Past Medical History[1] Family [...] At Risk (09/12/2022) Received from [facility] Abuse Screen Feels Unsafe at Home [...] of insulin sensitivity. Myriam Castillo, DO PGY-1, [facility] Internal Medicine Post Visit Addendum: Labs [...] Visit [facility] [address] [place] [address] Lori Lamar DO [address] [facility] [address] [place] [address] documented as of this encounter Procedures Procedure Name Priority Date/Time Associated Diagnosis Comments POCT GLYCOSYLATED HEMOGLOBIN (HGB A1C) Routine 04/10/2025 2:13 PM EDT Insulin resistance documented in this encounter Results * Dexamethasone Level Test (04/22/2025 7:48 AM EST) Dexamethasone 290.2 ng/dL 04/27/2025 4:35 PM EST [facility] ([facility]) Blood Venous blood specimen / Unknown Venipuncture / Unknown 04/22/2025 7:48 AM EST 04/22/2025 7:50 AM EST Narrative [facility] ([facility]) - 04/27/2025 4:35 PM EST [...] developed and its performance characteristics determined by [employer] It has not been cleared or approved by the US Food and Drug Administration. This test was performed in a CLIA certified laboratory and is intended for clinical purposes. Performed By: [employer] [facility] [address] [place] [address] Liner Worker: Jurgen Smith MD, PhD CLIA Number: [id number] Lori Lamar DO LAB BLOOD ORDERABLES Final Result [facility] ([place]) [address] [place] [address] * Cortisol (04/22/2025 7:48 AM EST) Cortisol <1.00 Before 10am: 3.7 - 19.4. After 5pm: 2.9 - 17.3 ug/dL 04/22/2025 4:09 PM EST [facility] Comment:Testing performed on [employer] Slab Lifting Engineer, standardized against [employer] Reference Standard concentration values assigned by LC-MS/MS and verified by BCR 192 and BCR 193 certified reference materials. Blood Venous blood specimen / Unknown Venipuncture / Unknown 04/22/2025 7:48 AM EST 04/22/2025 7:50 AM EST Lori Lamar DO LAB REF LAB BLOOD AND FLUID ORD Final Result Performing Organization Address City/[facility]/ZIP Co de Phone Number [facility] [address] [place] [address] * Luteinizing hormone (04/10/2025 3:24 PM EDT) Pathologist [facility] [place] Luteinizing Hormone 3.54 mIU/mL 04/10/2025 9:58 PM EDT [facility] Blood Venous blood specimen / Unknown Venipuncture / Unknown 04/10/2025 3:24 PM EDT 04/10/2025 3:25 PM EDT Narrative [facility] - 04/10/2025 9:58 PM EDT [...] BLOOD ORDERABLES Final Result Performing Organization Address City/[facility]/ZIP Co de Phone Number [facility] [address] [place] [address] * Follicle stimulating hormone (04/10/2025 3:24 PM EDT) FSH 3.8 mIU/mL 04/10/2025 9:5 8 PM EDT [facility] Blood Venous blood specimen / Unknown Venipuncture / Unknown 04/10/2025 3:24 PM EDT 04/10/2025 3:25 PM EDT Narrative [facility] - 04/10/2025 9:58 PM EDT [...] Lamar DO LAB BLOOD ORDERABLES Final Result [facility] [address] [place] [address] * DHEA-sulfate (04/10/2025 3:24 PM EDT) DHEAS 218 148 - 407 g/dL 04/10/2025 6:55 PM EDT [facility] Blood Venous blood specimen / Unknown Venipuncture / Unknown 04/10/2025 3:24 PM EDT 04/10/2025 3:25 PM EDT Narrative [facility] - 04/10/2025 6:55 PM EDT DHEAS Darci Stages, Female: Darci Stage I: 7 - 126 ug/dL Darci Stage II: 13 - 241 ug/dL Darci Stage III: 32 - 446 ug/dL Darci Stage IV and V: 65 - 371 ug/dL Lori Lamar DO LAB BLOOD ORDERABLES Final Result [facility] [address] [place] [address] * Antimullerian hormone (AMH) (04/10/2025 3:24 PM EDT) ANTI MULLERIAN HORMONE RESULT 4.949 0.401 - 16.015 ng/mL 04/14/2025 8:29 AM EDT [facility] ([facility]) Blood Venous blood specimen / Unknown Venipuncture / Unknown 04/10/2025 3:24 PM EDT 04/10/2025 3:25 PM EDT Narrative [facility] ([facility]) - 04/14/2025 8:29 AM EDT [...] developed and its performance characteristics determined by [employer] It has not been cleared or approved by the US Food and Drug Administration. This test was performed in a CLIA certified laboratory and is intended for clinical purposes. Performed By: [employer] [facility] [address] [place] [address] Liner Worker: Jurgen Smith MD, PhD CLIA Number: [id number] us Lori Lamar DO LAB BLOOD ORDERABLES Final Result Performing Organization Address City/[facility]/ZIP Co de Phone Number [facility] ([place]) [address] [place] [address] * 17-Hydroxyprogesterone (04/10/2025 3:24 PM EDT) Pathologist [facility] [place] 17 [place] PROGESTERONE 13 ng/dL 2024 9:08 [...] 04/15/2025 9:08 PM EDT Performed at: - [facility] [address] [place] [id number] Contact Lens Fitter: Bridgette Lopez MD, Phone: [phone] Lori Lamar DO LAB BLOOD ORDERABLES Final Result Performing Organization Address [facility] Co de Phone Number [facility]) * POCT glycosylated hemoglobin (Hb A1C) (04/10/2025 2:13 PM EDT) [facility] POCT Hemoglobin A1C 5.1 <5.7% Non-Diabet ic % [facility] Kit Lot Number [id number] [facility] Kit Expiration Date 01/2027 [facility] Blood Venous blood specimen / Unknown 04/10/2025 2:13 PM EDT Lori Lamar DO POINT OF CARE TEST ENTER/ED IT ORDERABLES Final Result [facility] [address] [place], [place] [id number] documented in this encounter Visit Diagnoses Diagnosis [...] documented as of this encounter Care Teams Senior Procurement Manager Relationship Specialty Start Date End Date Nathalia Yousif PA [address] [place] [address] PCP - General 08/31/21 documented as of this encounter
--- OUTSIDE RECORDS SUMMARY | 2025-04-22 08:00 | XMS_ITS | Encounter Summary ---
Author Organization [facility] Address [address] [place] [address] Care Team Providers Care Heel Painter Name Role Phone Nathalia Yousif Primary Care Provider [phone] Encounter Details Date Type Department Care Team (Latest Contact Info) Description 04/22/2025 8:00 AM EST Clinical Support [address] [address] Insulin resistance; PCOS (polycystic ovarian [...] encounter Miscellaneous Notes * Clinician Note - Ronald Mckeon - 04/22/2025 8:00 AM EST Patient arrived for blood work. documented in this encounter Plan of Treatment Upcoming Encounters Date Type Department Care Team (Late st Contact Info) Description 09/04/2025 4:00 PM EDT Office Visit [facility] Endocrinology [address] [place] [address] Lori Lamar, DO [address] [address] documented as of this encounter [...] - 17.3 ug/dL 04/22/2025 4:09 PM EST [facility] Comment:Testing performed on [email or web address] District Home Economics Agent, standardized against [employer] Reference Standard concentration values assigned by LC-MS/MS and verified by BCR 192 and BCR 193 certified reference materials. Blood Venous blood specimen / Unknown Venipuncture / Unknown 04/22/2025 7:48 AM EST 04/22/2025 7:50 AM EST us Lori Lamar DO LAB REF LAB BLOOD AND FLUID ORD Final Result [facility] [address] [place] [address] * Dexamethasone Level Test (04/22/2025 7:48 AM EST) Dexamethasone 290.2 ng/dL 04/27/2025 4:35 PM EST [facility] ([employer]) Blood Venous blood specimen / Unknown Venipuncture [...] developed and its performance characteristics determined by [employer]. It has not been cleared or approved by the US Food and Drug Administration. This test was performed in a CLIA certified laboratory and is intended for clinical purposes. Performed By: [facility] [address] [place] [address] Bass Mechanism Maker: Jurgen Smith MD, PhD CLIA Number: [id number] us Lori Lamar DO LAB BLOOD ORDERABLES Final Result [facility] ([facility]) [address] [place] [address] documented in this encounter Visit Diagnoses Diagnosis [...] documented as of this encounter Care Teams Heel Painter Relationship Specialty Start Date End Date Nathalia Yousif PA [address] [place] [address] PCP - General 08/31/21 documented as of this encounter
--- NOTE | 2025-05-02 08:53 | XR_ITS ---
FINAL REPORT TECHNIQUE: Left foot 3 views CLINICAL HISTORY: LEFT FOOT FX COMPARISON: 04/02/2025 FINDINGS: LEFT FOOT Three views demonstrate increasing sclerosis of the oblique fracture of the fifth proximal phalanx of the left foot consistent with radiographic evidence of healing. No displacement of the fracture fragments is identified. The joint spaces appear normal. IMPRESSION: Healing fracture fifth proximal phalanx, left foot. Reviewed, Interpreted and Dictated by Joe Elena MD Transcribed by Mitali Baig Authenticated and [facility]
--- OUTSIDE RECORDS SUMMARY | 2025-05-02 08:53 | XMS_ITS | Patient Health Record ---
Author Organization [facility] Address [address] [place] [address] Care Team Providers Care Patient Clerical Assistant Name Role Phone Unknown, PCP Primary Care Provider Unavailabl e Allergies Allergen (clinical drug ingredient) Drug/Non Drug Allergy documented on EMR Reaction Allergy Type Onset Date Status amoxicillin Amoxicillin Unknown Drug Allergy Act danae ceftibuten Ceftibuten Unknown Drug Allergy Activ e Reason For Referral No Information Medications Medication [...] (Standard) Question Answer Notes Tobacco use: Nonsmoker Plan Of Treatment No Information Insurance Providers Payer Name Payer Address Payer Phone Subscriber Number Group Number Insured Name Patient Relationship to Insured Coverage Start Date Coverage End Date [employer] [place] [address] [place] [address] [id number] Barrie Titus Self - patient is the insured Medical (General) History Medical History History ICD Code hypothyroid PCOS migraine asthma Surgical History Surgery Date(Month/Year) gallbladder ear tubes tonsillectomy Hospitalization History Reason Date(Month/Year) see above
--- OUTSIDE RECORDS SUMMARY | 2025-05-02 08:53 | XMS_ITS | Clinical Summary ---
Author Organization [facility] Address [address] [place] [address] Care Team Providers Care Canvas Baster Jumpbasting Name Role Phone Nathalia Yousif Primary Care [...] striction) affecting care of mother 09/12/2022 09/14/2022 Family History Medical History Relation Name Comments [...] Hyperlipidemia Mother Oma Arrhythmia Paternal Grandfather Wil Titus Asthma Paternal Grandfather Wil Titus Colon cancer Paternal Grandfather Wil Titus Heart attack Paternal Grandfather Wil Titus Heart disease Paternal Grandfather Wil Titus Hyperlipidemia Paternal Grandfather Wil Titus Hypertension Paternal Grandfather Wil Titus Fainting Paternal Grandmother Thayer Hyperlipidemia Paternal Grandmother Thayer Hypertension Paternal Grandmother Thayer Stroke Paternal Grandmother Thayer Asthma Paternal Uncle Damien Titus Hyperlipidemia Paternal Uncle Damien Titus Hypertension Paternal Uncle Damien Titus Relation Name Status Comments Brother 1 Ricardo Titus Alive Brother 2 Ricardo Father Osman Alive Maternal Aunt 1 Maryellen Alive Maternal Aunt 2 Pauline Alive Maternal Grandfather Cody Maternal Grandmother November Maternal Uncle Shree sandhu Alive Mother Oma Alive Paternal Grandfather Wil Titus Paternal Grandmother Thayer Paternal Uncle Damien Titus Alive Social History [...] more drinks on one occasion? Never 06/01/2022 [place] Depression Scale Answer Date Recorded [place] Depression Scale Total 0 09/13/2022 The thought of harming myself has occurred to me . Unrecognized value 09/13/2022 Abuse Screen Answer Date Recorded [...] Description 05/10/2025 3:00 PM EST Office Visit [facility]ATOLOG[facility] [address] [address] Manjeet Garcia DO [address] [address] Health Maintenance Due Date Last Done Comments Annual Gynecologic Pelvic an d Breast Exam 2000 HPV VACCINES (1 - 3-dose series) 2015 Pneumococcal Vaccine 0-49 (1 of 2 - PCV) 2019 TDAP/TD VACCINES (1 - Tdap) 2019 PAP SMEAR 2021 ANNUAL PHYSICAL 02/11/2022 CHLAMYDIA SCREENING 02/11/2022 INFLUENZA VACCINE 01/18/2025 HEPATITIS C SCREENING Completed 03/02/2022 MENINGOCOCCAL B VACCINE Aged Out No l onger eligible based on patient's age to complete this topic Procedures Procedure Name Priority Date/Time Associated Diagnosis Comments HEPATITIS C ANTIBODY Routine 03/02/2022 2:38 PM EDT First trimester care, subsequent , first trimester 8 weeks gestation of from Last 3 Months or Most Recently Relevant to Health Maintenance Results * Hepatitis C Antibody (03/02/2022 2:38 PM EDT) Hepatitis C Ab Non-Reacti ve Non-Reacti ve 03/03/2022 12:19 AM EDT [facility] Blood Venipuncture / Unknown 03/02/2022 2:38 PM EDT 03/02/2022 2:38 PM EDT Narrative [facility] - 03/03/2022 12:19 AM EDT Results may be falsely decreased if patient taking Biotin. us Ilda Finley MD LAB BLOOD ORDERABLES Final Re sult [facility]
[address] [place] [address], from Last 3 Months or Most Recently Relevant to Health Maintenance Insurance [facility] Advance Directives * CPR (Attempt to Resuscitate) [...] Of Support Discussed With: Patient Care Teams Canvas Baster Jumpbasting Relationship Specialty Start Date End Date Nathalia Yousif PA [address] [place] [address] PCP - General Physician Wire Charger 12/24/24
--- OUTSIDE RECORDS SUMMARY | 2025-05-02 08:54 | XMS_ITS | Patient Health Record ---
Author Organization [facility] Address [address] [place] [address] [facility] [address] [place] [address] Care Team Providers Care Reinsurance Clerk Name Role Phone Yordan Smith Primary Care Provider Yordan Smith Unavailable Unavailable Melanie Fitzpatrick Unavailable [phone] Migration, Provider Unavailable Unavailable Allergies Allergen (clinical [...] review and pick correct strength-formulatio n from [employer] options. If intended option is not shown, [...] Risk Notes Problem Polycystic ovary syndrome (disorder) (921847820) Polycystic ovarian syndrome (E28.2) Active confirmed Problem Major depression, single episode (56835205) Major depressive disorder, single episode, unspecified (F32.9) Active confirmed Problem Anxiety disorder (104261426) Anxiety disorder, unspecified (F41.9) Active confirmed Problem Otitis externa of left ear (9915103561488113 ) Other otitis externa, left ear (H60.8X2) Active confirmed Problem Vitamin D deficiency (96365843) Vitamin D deficiency (E55.9) Active confirmed Problem Vitamin B12 deficiency (non anemic) (66025914) B12 deficiency (E53.8) Active confirmed Problem Fever (241411108) Fever (R50.9) Active confirme d Problem Weight gain (614284738) Weight gain (R63.5) Active confirmed Problem Dysmenorrhea (329293491) Dysmenorrhea (N94.6) Active confirmed Problem Fatigue (99595981) Fatigue (R53.83) Active confirmed Problem Dizziness (702101593) Dizziness (R42) Active confirmed Problem Acquired hypothyroidism (220712170) Acquired hypothyroidism (E03.9) Active confirmed Problem Mild intermittent asthma (619553356) Mild intermittent asthma without complication (J45.20) Active confirmed Problem Exacerbation of asthma (373779669) Mild asthma exacerbation (J45.901) Active confirmed Problem Migraine without aura, not refractory (258309478) Migraine without aura and without status migrainosus, not intractable (G43.009) Active confirmed Problem Mood disorder (64689837) Mood disorder (F39) Active confirmed Problem Generalized anxiety disorder (27280598) JUANJO (generalized anxiety disorder) (F41.1) Active confirmed Problem Menstrual disorder (246699381) Irregular menses (N92.6) Active confirmed Problem Fatigue (26188022) Fatigue, unspecified type (R53.83) Active confirmed Problem Acute cough (6577263228850931 04) Acute cough (R05.1) Active confirmed Encounters Encounter Location Date Provider Diagnosis [facility] [address] [facility] [address] [place] [address] 09/22/2024 Provider Migration Bronchitis J40 [facility] [address] [address] 07/26/2024 Yordan Smith Bronchitis J40 [facility] [address] [place] [address] 07/26/2024 Melanie McNees [facility] [address] [place] [address] 05/31/2024 Melanie McNees [facility] [address] [place] [address] 10/25/2024 Melanie McNees [facility] [address] [place] [address] 10/25/2024 Melanie McNees [facility] [address] [place] [address] 10/29/2024 Melanie McNees Assessments Encounter Date Diagnosis (ICD Code) Assessment Notes Treatment Notes Treatment Clinical Notes Section Notes 07/26/2024 Bronchitis (ICD-10 - J40) 09/22/2024 Bronchitis (ICD-10 - J40) Plan Of Treatment Pending Test Test Name Order Date N-Throat culture 02/03/2007 Rapid Strep 06/23/2018 N-Rapid Strep 02/03/2007 Echocardiogram 11/09/2022 H-STREP SCREEN (RAPID) 08/13/2008 C-PTT 10/29/2019 C-PT/INR 10/29/2019 Rapid Flu, A 06/21/2019 Rapid Flu, B 06/21/2019 C-Jsle-Wojhepowxczrj Antibody 02/16/2018 M-Respiratory Virus Panel, PCR 3 M-Upper Respiratory Panel, PCR 3 M-Vitamin B12 03/10/2021 M-Vitamin D 25 Hydroxy 03/10/2021 TESTOSTERONE, TOTAL, MS ([id number]) 2022 Insurance Providers Payer Name Payer Address Payer Phone Subscriber Number Group Number Insured Name Patient Relationship to Insured Coverage Start Date Coverage End Date AETNA [facility] [address] [address] [place] [address] [id number] Barrie Titus Self - patient is the insured Medications Administered Medication Instructions Date of Administration Dosage Notes Kenalog 40mg 02/05/2019 40 mg Triamcinolone Acetonide 40mg Injection 07/29/2018 1 mL Medical (General) History Medical History History ICD Code Migraines Hypothyroidism Atypical Pneumonia of Right Lung Surgical History Surgery Date(Month/Year) Tonsilectomy 2008 Gallbladder 2017 Hospitalization History Reason Date(Month/Year) [facility] inflammation of ribs 06/21 09/09
--- OUTSIDE RECORDS SUMMARY | 2025-05-02 08:54 | XMS_ITS | Encounter Summary ---
Author Organization Healthcare Address [address] [place] [address] Care Team Providers Care Clerk General Name Role Phone Nathalia Yousif Primary Care Provider [phone] Encounter Details Date Type Department Care Team (Latest Contact Info) Description 04/03/2025 Travel Social History Tobacco Use Types Packs/Day [...] EDT Office Visit [facility] [address] [place] [address] Lori Lamar, DO [address] [place] [address] documented as of this encounter Visit Diagnoses Not on filedocumented in this encounter Additional Health Concerns Assessment Noted Time A fall risk assessment has been complete d for the patient 12/30/2021 7:55 AM EDT A Body Mass Index follow-up plan has been documented for the patient 10/21/2022 1:46 PM EDT documented as of this encounter Care Teams Clerk General Relationship Specialty Start Date End Date Nathalia Yousif PA [address] [place] [address] PCP - General 08/31/21 documented as of this encounter
--- OUTSIDE RECORDS SUMMARY | 2025-05-02 08:54 | XMS_ITS | Referral Summary ---
Author Organization [employer] ([place], [place], [place], [place], [place]) Address [address] [place] [address] Care Team Providers Care Incendiaries Supervisor Name Role Phone Skye Heller APRN Unavailable [phone] Allergies Active Allergy Reactions Criticality Noted [...] Plan of Treatment Not on file Insurance [facility] OTHER Care Teams Incendiaries Supervisor Relationship Specialty Start Date End Date Skye Heller APRN [address] [place] [address] Nurse Practitioner Orthopedic Surgery 12/25/24
--- OUTSIDE RECORDS SUMMARY | 2025-05-02 08:54 | XMS_ITS | Encounter Summary ---
Author Organization Healthcare Address [address] [place] [address] Care Team Providers Care Fuel Buyer Name Role Phone Nathalia Yousif Primary Care Provider [phone] Encounter Details Date Type Department Care Team (Latest Contact Info) Description 04/10/2025 Travel Social History Tobacco Use Types Packs/Day [...] EDT Office Visit [facility] [address] [place] [address] Lori Lamar, DO [address] [place] [address] documented as of this encounter Visit Diagnoses Not on filedocumented in this encounter Additional Health Concerns Assessment Noted Time A fall risk assessment has been complete d for the patient 12/30/2021 7:55 AM EDT A Body Mass Index follow-up plan has been documented for the patient 04/14/2025 4:04 PM EDT documented as of this encounter Care Teams Fuel Buyer Relationship Specialty Start Date End Date Nathalia Yousif PA [address] [place] [address] PCP - General 08/31/21 documented as of this encounter
--- OUTSIDE RECORDS SUMMARY | 2025-05-02 08:54 | XMS_ITS | Encounter Summary ---
Author Organization [facility] Address [address] [place] [address] Care Team Providers Care Fusing Machine Operator Name Role Phone Beena Obregon APRN Primary Care Provider [phone] Nathalia Yousif Primary Care Provider [phone] Reason for Referral * Consultation (Routine) - Closed Specialty Diagnoses / Procedures Referred By Contac t Referred To Contact Allergy Diagnoses Allergy, initial encounter Nathalia Yousif PA [address] [place] [address] Phone: tel: fax: [facility] [address], [address] [place] [address] Phone: tel: fax: Referral ID Status Reason Start Date Expiration Date V isits Requested Visits Authorized [id number] Closed Specialty Services Required 06/11/2021 12/11/2022 1 1 Encounter Details Date Type Department Care Team (Late st Contact Info) Description 06/11/2021 Community [facility] [address] [place] [address] Nathalia Yousif PA [address] [place] [address] Allergy, initial encounter (Primary Dx) [...] EDT Office Visit [facility] [address] [place] [address] Lori Lamar DO [address] [place] [address] Scheduled Referrals Name Type Priority Associated Diagnoses Order Schedule Ambulatory Referral to Allergy and Immunology Outpatient Referral Routine Allergy, initial encounter 1 Occurrences starting 06/11/2021 until 12/10/2021 documented as of this encounter Visit Diagnoses Diagnosis Allergy, initial encounter- Primary documented in this encounter Care Teams Fusing Machine Operator Relationship Specialty Start Date End Date Beena Obregon APRN [facility] [place], [place] [id number] PCP - General 10/31/20 08/30/21 Nathalia Yousif PA [address] [place], [place] [id number] PCP - General 08/31/21 documented as of this encounter
--- OUTSIDE RECORDS SUMMARY | 2025-05-02 08:54 | XMS_ITS | Clinical Summary ---
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 90 tablet 1 10/22/19 Active sertraline (Zoloft) 25 MG tablet Take 1 tablet by mouth daily. Active galcanezumab-gnlm (Emgality) 120 MG/ML injection Inject 1 Syringe under the skin every 30 days. Active dexamethasone (Decadron) 1 MG tabletIndications: Insulin resistance,PCOS (polycystic ovarian syndrome),Hirsutis m,Obesity (BMI 30-39.9) Take 1 tablet at 10-11 PM and then get labs completed next morning at 8 AM 1 tablet 04/10/20 Active metFORMIN XR (Glucophage-XR) 500 MG 24 hr tabletIndications: PCOS (polycystic ovarian syndrome),Insulin resistance Take 1 tablet by mouth 1 time each day with dinner. Do not crush, chew, or split. 30 tablet 5 04/23/20 25 026 Active Active Problems Problem Noted Date Diagnosed [...] Hair loss 04/13/2021 Obesity (BMI 30.0-34.9) 04/13/2021 Assessment & Plan (04/14/2025 4:04 PM EDT): HgbA1c of 5.1% in clinic today. Patient confirms FHx of T2DM in mother and grandfather. Patient started on metformin 1000 mg BID for PCOS in 2023 though was unable to tolerate this high of a dose. Patient confirming menstrual irregularities and hirsutism. Will complete lab work up for PCOS including antimullerian hormone, DHEA-S, FSH, and LH. Will also complete dexamethasone suppression test for Lindrith's, as well as 17-hydroxyprogesterone level for CAH. Patient encouraged to keep log of FSBG with symptomatic hypoglycemic episodes. Patient counseled on the importance of healthy, well-balanced diet and adequate exercise for weight management and improvement of insulin sensitivity. Chondromalacia of patellofemoral joint 6 Resolved Problems Problem Noted Date Diagnosed Date Resolved Date Fatigue 04/13/2021 03/10/2025 Encounters Date Type Department Care Team Description 04/22/2025 8:00 AM EST Clinical Support [facility] [address] [place] [address] Insulin resistance; PCOS (polycystic ovarian syndrome); Hirsutism; Obesity (BMI 30-39.9) 04/22/2025 Travel 04/16/2025 Results Follow-Up [facility] [address] [place] [address] Lori Lamar DO 04/10/2025 2:20 PM EDT Office Visit [facility] [address] [place] [address] Lori Lamar DO Insulin resistance (Primary Dx); PCOS (polycystic ovarian syndrome); Hirsutism; Obesity (BMI 30-39.9) 04/10/2025 Travel 04/03/2025 Travel from Last 3 Months Family History Medical [...] Mass Index 37.12 04/10/2025 2:00 PM EDT Plan of Treatment Upcoming Encounters Date Type Department Care Team (Late st Contact Info) Description 09/04/2025 4:00 PM EDT Office Visit [facility] [address] [place] [address] Lori Lamar, DO [address] [place] [address] Health Maintenance Due Date Last [...] 2 - PCV) 2019 [facility]-Pap Smear 2021 LSE-WRDAI-01 Vaccine (1 - 2024- season) 2025 [facility]-Influenza Vaccine (#1) 2025 [facility]-Zoster Vaccines (1 of 2) 2050 [facility]-Hepatitis C Screening Completed 03/02/2022 [facility]-Obesity Intervention Completed 025, 04/10/2025, 10/21/2022 [facility]-HIB Vaccines Aged Out No longer e ligible based on patient's age to complete this topic [facility]-IPV Vaccines Aged Out No longer e ligible based on patient's age to complete this topic [facility]-Rotavirus Vaccines Aged Out No lo nger eligible based on patient's age to complete this topic Procedures Procedure Name Priority Date/Time Associated Diagnosis Comments CORTISOL Routine 04/22/2025 7:48 AM EST Insulin resistance PCOS (polycystic ovarian syndrome) Hirsutism Obesity (BMI 30-39.9) DEXAMETHASONE, SERUM OR PLASMA (SO) Routine 04/22/2025 7:48 AM EST Insulin resistance PCOS (polycystic ovarian syndrome) Hirsutism Obesity (BMI 30-39.9) LUTEINIZING HORMONE, SERUM Routine 04/10 3:24 PM EDT PCOS (polycystic ovarian syndrome) Hirsutism FOLLICLE STIMULATING HORMONE , SERUM Routine 04/10/2025 3:24 PM EDT PCOS (polycystic ovarian syndrome) Hirsutism DEHYDROEPIANDROSTERONE SULFATE Routine 04/10/2025 3:24 PM EDT Insulin resistance PCOS (polycystic ovarian syndrome) Hirsutism ANTIMULLERIAN HORMONE (AMH) Routine 03/21 3:24 PM EDT Insulin resistance PCOS (polycystic ovarian syndrome) Hirsutism 17-HYDROXYPROGESTERONE, PEDS (ESOTERIX) Routine 04/10/2025 3:24 PM EDT Insulin resistance PCOS (polycystic ovarian syndrome) Hirsutism POCT GLYCOSYLATED HEMOGLOBIN (HGB A1C) Routine 04/10/2025 2:13 PM EDT Insulin resistance from Last 3 Months Results * Dexamethasone Level Test (04/22/2025 7:48 AM EST) Dexamethasone 290.2 ng/dL 04/27/2025 4:35 PM EST [facility] ([facility]) Blood Venous blood specimen / Unknown Venipuncture / Unknown 04/22/2025 7:48 AM EST 04/22/2025 7:50 AM EST Narrative [facility] ([facility]) - 04/27/2025 4:35 PM EST INTERPRETIVE [...] developed and its performance characteristics determined by [facility]. It has not been cleared or approved by the US Food and Drug Administration. This test was performed in a CLIA certified laboratory and is intended for clinical purposes. Performed By: [facility] [address] [place], [place] [id number] Auto Hauler: Jurgen Smith MD, PhD CLIA Number: [id number] Lori Lamar DO LAB BLOOD ORDERABLES Final Result [facility] ([facility]) [address] [place] [address] * Cortisol (04/22/2025 7:48 AM EST) Cortisol <1.00 Before 10am: 3.7 - 19.4. After 5pm: 2.9 - 17.3 ug/dL 04/22/2025 4:09 PM EST [facility] Comment:Testing performed on [employer] Operations Consultant, standardized against DETENTION Reference Standard concentration values assigned by LC-MS/MS and verified by BCR 192 and BCR 193 certified reference materials. Blood Venous blood specimen / Unknown Venipuncture / Unknown 04/22/2025 7:48 AM EST 04/22/2025 7:50 AM EST Lori Lamar DO LAB REF LAB BLOOD AND FLUID ORD Final Result [facility] [address] [place] [address] * 17-Hydroxyprogesterone (04/10/2025 3:24 PM EDT) 17 [place] PROGESTERONE 13 ng/dL 2024 9:08 PM EDT [facility] ([place]) Comment: This test was developed and its performance characteristics determined by [facility]. It has not been cleared or approved by the Food and Drug Administration. Reference Range: Adult Female Follicular: 15 - 70 Luteal: 35 - 290 Blood Venous blood specimen / Unknown Venipuncture / Unknown 04/10/2025 3:24 PM EDT 04/10/2025 3:25 PM EDT Narrative [facility] [place]) - 04/15/2025 9:08 PM EDT Performed at: [facility] [employer] [address] [place] [id number] Hvac Installation Technician: Bridgette Lopez MD, Phone: [phone] Lori Lamar DO LAB BLOOD ORDERABLES Final Result [facility] ([place]) * Antimullerian hormone (AMH) (04/10/2025 3:24 PM EDT) ANTI MULLERIAN HORMONE RESULT 4.949 0.401 - 16.015 ng/mL 04/14/2025 8:29 AM EDT [facility] ([place]) Blood Venous blood specimen / Unknown Venipuncture / Unknown 04/10/2025 3:24 PM EDT 04/10/2025 3:25 PM EDT Narrative [facility] ([place]) - 04/14/2025 8:29 AM EDT [...] developed and its performance characteristics determined by [facility]. It has not been cleared or approved by the US Food and Drug Administration. This test was performed in a CLIA certified laboratory and is intended for clinical purposes. Performed By: [facility] [address] [place] [address] Auto Hauler: Jurgen Smith MD, PhD CLIA Number: [id number] Lori Lamar DO LAB BLOOD ORDERABLES Final Result [facility] ([place]) [address] [place] [address] * DHEA-sulfate (04/10/2025 3:24 PM EDT) DHEAS 218 148 - 407 g/dL 04/10/2025 6:55 PM EDT [facility] Blood Venous blood specimen / Unknown Venipuncture / Unknown 04/10/2025 3:24 PM EDT 04/10/2025 3:25 PM EDT Narrative [facility] - 04/10/2025 6:55 PM EDT DHEAS Darci Stages, Female: Darci Stage I: 7 - 126 ug/dL Darci Stage II: 13 - 241 ug/dL Darci Stage III: 32 - 446 ug/dL Darci Stage IV and V: 65 - 371 ug/dL Lori Lamar DO LAB BLOOD ORDERABLES Final Result Performing Organization Address City/[facility]/ZIP Co de Phone Number [facility] [address] [place] [address] * Luteinizing hormone (04/10/2025 3:24 PM EDT) Luteinizing Hormone 3.54 mIU/mL 04/10/2025 9:58 PM EDT [facility] Blood Venous blood specimen / Unknown Venipuncture / Unknown 04/10/2025 3:24 PM EDT 04/10/2025 3:25 PM EDT Narrative [facility] - 04/10/2025 9:58 PM EDT [...] BLOOD ORDERABLES Final Result Performing Organization Address City/[facility]/ZIP Co de Phone Number [facility] [address] [place] [address] * Follicle stimulating hormone (04/10/2025 3:24 PM EDT) FSH 3.8 mIU/mL 04/10/2025 9:5 8 PM EDT [facility] Blood Venous blood specimen / Unknown Venipuncture / Unknown 04/10/2025 3:24 PM EDT 04/10/2025 3:25 PM EDT Narrative [facility] - 04/10/2025 9:58 PM EDT [...] Lamar DO LAB BLOOD ORDERABLES Final Result [facility] [address] [place] [address] * POCT glycosylated hemoglobin (Hb A1C) (04/10/2025 2:13 PM EDT) Pathologist [facility] POCT Hemoglobin A1C 5.1 <5.7% Non-Diabet ic % [facility] Kit Lot Number [id number] [facility] Kit Expiration Date 01/2027 [email or web address] Blood Venous blood specimen / Unknown 04/10/2025 2:13 PM EDT Lori Lamar DO POINT OF CARE TEST ENTER/ED IT ORDERABLES Final Result [facility] [address] [place] [address] from Last 3 Months Insurance Care Teams Building Supervisor Relationship Specialty Start Date End Date Nathalia Yousif PA [address] [place] [address] PCP - General 08/31/21
--- OUTSIDE RECORDS SUMMARY | 2025-05-02 08:54 | XMS_ITS | Clinical Summary ---
Author Organization [employer] ([place], [place], [place], [place], [place]) Address [address] [place] [address] Care Team Providers Care Circuit Board Drafter Name Role Phone Skye Heller APRN Unavailable [phone] Allergies Active Allergy Reactions Criticality Noted [...] ankle sprain right , initial encounter 12/25/2024 Family History Medical History Relation Name Comments [...] patient's age to complete this topic [facility] OTHER Care Teams Circuit Board Drafter Relationship Specialty Start Date End Date Skye Heller APRN [address] [phone] Nurse Practitioner Orthopedic Surgery 12/25/24
--- OUTSIDE RECORDS SUMMARY | 2025-05-02 08:54 | XMS_ITS | Encounter Summary ---
Author Organization Healthcare Address [address] [place] [address] Care Team Providers Care Boiling House Oiler Name Role Phone Nathalia Yousif Primary Care Provider [phone] Encounter Details Date Type Department Care Team (Latest Contact Info) Description 04/22/2025 Travel Social History Tobacco Use Types Packs/Day [...] EDT Office Visit [facility] [address] [place] [address] Lori Lamar, DO [address] [place] [address] documented as of this encounter Visit Diagnoses Not on filedocumented in this encounter Additional Health Concerns Assessment Noted Time A fall risk assessment has been complete d for the patient 12/30/2021 7:55 AM EDT A Body Mass Index follow-up plan has been documented for the patient 04/22/2025 7:51 AM EST documented as of this encounter Care Teams Boiling House Oiler Relationship Specialty Start Date End Date Nathalia Yousif PA [address] [place] [address] PCP - General 08/31/21 documented as of this encounter
--- OUTSIDE RECORDS SUMMARY | 2025-05-02 08:54 | XMS_ITS | Encounter Summary ---
Author Organization [facility] Address [address] [place] [address] Care Team Providers Care Boil Off Worker Name Role Phone Nathalia Yousif Primary Care Provider [phone] Reason for Referral * Consultation (Routine) - Authorized Specialty Diagnoses / Procedures Referred By Conttracy t Referred To Contact Psychiatry Diagnoses Anxiety disorder, unspecified type Major depressive disorder with single episode, remission status unspecified Medication management Melanie Dumont APRN [address] [place] [address] Phone: tel: fax: Referral ID Status Reason Start Date Expiration Date Visits Requested Visits Authorized [id number] Authorized Specialty Services Required 10/25/2024 04/26/2026 1 1 Encounter Details Date Type Department Care Team (Late st Contact Info) Description 10/25/2024 Community [facility] [address] [place] [address] Melanie Dumont APRN [address] [place] [address] Anxiety disorder, unspecified type (Primary Dx); Major [...] 09/04/2025 4:00 PM EDT [facility] [address] [place] [address] Lori Lamar DO [address] [facility] [address] [place] [address] Scheduled Referrals Name Type Priority [...] documented as of this encounter Care Teams Boil Off Worker Relationship Specialty Start Date End Date Nathalia Yousif PA [address] [place] [address] PCP - General 08/31/21 documented as of this encounter
--- OUTSIDE RECORDS SUMMARY | 2025-05-02 08:54 | XMS_ITS | Encounter Summary ---
Author Organization Healthcare Address [address] [place] [address] Care Team Providers Care Inspector Watch Parts Name Role Phone Nathalia Yousif Primary Care Provider [phone] Reason for Referral * Consultation (Routine) - Authorized Specialty Diagnoses / Procedures Referred By Conttracy t Referred To Contact Diagnoses PCOS (polycystic ovarian syndrome) Lori Lamar DO [address] [address] Phone: tel: fax: Referral ID Status Reason Start Date Expiration Date V isits Requested Visits Authorized [id number] Authorized 04/23/2025 10/23/2026 1 1 Encounter Details Date Type Department Care Team (Late st Contact Info) Description 04/16/2025 [facility] [address] [place] [address] Lori Lamar DO [address] [address] Social History Tobacco Use Types Packs/Day Years [...] 9:23 AM EST Sexual Orientation Straight 06/12/2021 9 :23 AM EST documented as of this encounter Miscellaneous Notes * Telephone Encounter - Lori Lamar DO - 04/23/2025 9:28 AM EST Patient would like to try low dose Metformin and see how she does with it. Will start 500 mg daily for now and hold off on titration until next appointment. Will plan to see her back in 4 months. documented in this encounter Plan of Treatment Upcoming Encounters Date Type Department Care Team (Late st Contact Info) Description 09/04/2025 4:00 PM EDT Office Visit [facility] [address] [place] [address] Lori Lamar DO [address] [place] [address] Scheduled Referrals Name Type Priority Associated Diagnoses Orde r Schedule Follow Up [facility] Outpatient Referral Routine PCOS (polycystic ovarian syndrome) Expected: 08/21/2025, Expires: 10/25/2026 documented as of this encounter Visit Diagnoses Diagnosis PCOS (polycystic ovarian syndrome)- Primary Polycystic ovaries Insulin resistance Other abnormal glucose documented in this encounter Additional Health Concerns Assessment Noted Time A fall risk assessment has been complete d for the patient 12/30/2021 7:55 AM EDT A Body Mass Index follow-up plan has been documented for the patient 04/14/2025 4:04 PM EDT documented as of this encounter Care Teams Inspector Watch Parts Relationship Specialty Start Date End Date Nathalia Yousif PA [address] [place] [address] PCP - General 08/31/21 documented as of this encounter
--- OUTSIDE RECORDS SUMMARY | 2025-05-02 08:55 | XMS_ITS | Patient Health Record ---
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) Active confirmed Problem Supervision of high risk (772351049) Supervision of other high risk pregnancies, third trimester (O09.893) Active confirmed Problem Primigravida (428811421) Encounter for supervision of normal first in second trimester (Z34.02) Active confirmed Problem Hypothyroidism (24502658) Other specified hypothyroidism (E03.8) Active confirmed Problem Poor growth affecting management (959635860) IUGR, (O36.5990) Active confirmed Plan Of Treatment No Information Insurance Providers Payer Name Payer Address Payer Phone Subscriber Number Group Number Insured Name Patient Relationship to Insured Coverage Start Date Coverage End Date [employer] [facility] [address] [place] [phone] [id number] Barrie Titus Self - patient is the insured Medical (General) History Medical History History ICD Code Hypothyroidism Asthma Migraine VACA Surgical History Surgery Date(Month/Year) Tonsillectomy Ear Tubes Cholecystectomy
== END 2025-05-02 23:59 | disposition home or self-care (01) ==
LOC: RAD 08:51
PROVIDERS: PCP Physician Assistant; Visit Provider Physician Assistant
DX: S92.515D Nondisplaced fracture of proximal phalanx of left lesser toe(s), subsequent encounter for fracture with routine healing (principal); X58.XXXD Exposure to other specified factors, subsequent encounter
CPT/HCPCS: 73630

== ENCOUNTER 2025-05-11 11:36 | Outpatient (CLI) | payer OTHER, SELFPAY ==
--- OUTSIDE RECORDS SUMMARY | 2024-04-23 10:30 | XMS_ITS ---
Author Organization [facility] Address [address] [place] [address] Care Team Providers Care Parts Department Manager Name Role Phone Yordan Smith Primary Care Provider Yordan Smith Unavailable Unavailable Melanie Fitzpatrick [phone] REASON FOR VISIT 4 week f/u Encounters Encounter Location Date Provider Diagnosis [facility] [address] [address] 04/23/2024 Melanie Fitzpatrick Plan Of Treatment No Information Progress Notes * Barrie TITUSeDOB:[birth year] (24 yo F)Acc No.[id number]:04/23/2024 Progress Notes Patient: Barrie WHALEY Provider: Félix Fitzpatrick APRN :2000 A ge:23 Y S ex:Female Date:04/23/2024 [facility] [facility] Pcp:Yordan Smith Subjective: * Chief Complaints: * 1 . 4 week f/u. * Medical History: Objective: * Vitals: Assessment: Plan: * Treatment: * * Electronic signature of Abhijeet Fitzpatrick APRN on 05/11/2025 at 11:40 AM EST Sign off status: Pending * Provider: Félix Fitzpatrick APRN Date: 06/23/2023 Generated for Adriana beck/Sergey/Jackelin on: 07/11/2024 11:40 AM EST
--- OUTSIDE RECORDS SUMMARY | 2024-09-22 16:30 | XMS_ITS ---
Author Organization [facility] PE D SRINIVAS Address [address] [place] [address] Care Team Providers Care Reconciliation Manager Name Role Phone Yordan Smith Primary Care Provider [phone] Yordan Smith Unavailable Unavailable Migration, Provider Unavailable Unavailable Allergies Allergen (clinical drug ingredient) Drug/Non Drug Allergy documented on EMR Reaction Allergy Type Onset Date Status CEDAX (uncoded) Unknown Allergy Acti ve amoxicillin Amoxicillin Unknown Drug Allergy Act danae codeine Codeine hives Drug Allergy Active Penicillin Unknown Drug Allergy [facility] Conversion Encounter Medications Medication SIG (Take, Route, [...] Active Encounters Encounter Location Date Provider Diagnosis [facility] PED SR[facility] [address] [facility] [address] [place] [address] 09/22/2024 Provider Migration Bronchitis J40 Assessments Encounter [...] Notes * Barrie TITUSeDOB:[birth year] (24 yo F)Acc No.[id number]:09/22/2024 Patient: Barrie WHALEY Elzbieta Provider: Belem jacobs Migration :2000 A ge:24 Y S ex:Female Date:09/22/2024 Address:[address] [place] [phone] Pcp:Yordan Smith Subjective: * Chief Complaints: * [...] *Please review and pick correct strength-formulation from [employer]y options. If intended option is not shown, [...] Treatment: * * Electronic signature of Prov ider Migration on 05/11/2025 at 11:39 AM EST Sign off status: Pending * Provider: Belem jacobs Migration Date: 0 09/22/2024 Generated for Adriana beck/Sergey/Jackelin on: 07/11/2024 11:39 AM EST
--- OUTSIDE RECORDS SUMMARY | 2025-04-10 13:20 | XMS_ITS | Encounter Summary ---
Author Organization Healthcare Address [address] [place] [address] Care Team Providers Care Television Cameraman Name Role Phone Nathalia Yousif Primary Care Provider [phone] Reason for Visit * Reason Comments Thyroid Problem Encounter Details Date Type Department Care Team (Late st Contact Info) Description 04/10/2025 2:20 PM EDT Office Visit [facility] [address] [place] [address] Lori Lamar, DO [address] [facility] [address] [place] [address] Insulin resistance (Primary Dx); PCOS (polycystic ovarian syndrome); Hirsutism; Obesity (BMI 30-39.9) Social History Tobacco Use Types Packs/Day Years Used Date Smoking Tobacco: Never Smokeless Tobacco: Never Tobacco Cessation:Counseling Given: Not Answered Alcohol Use Standard Drinks/Week Comments Not Currently 0 (1 standard drink = 0.6 oz pur e alcohol) Comments No Sex and Gender Information Value Date Recorded Sex Assigned at Female 06/12/2021 9:23 AM EST Legal Sex Female 7:34 PM EDT Gender Identity Female 06/12/2021 9:23 AM EST Sexual Orientation Straight 06/12/2021 9: 23 AM EST documented as of this encounter Last Filed Vital Signs Vital Sign Reading Time Taken Comments Blood Pressure - - Pulse - - Temperature - - Respiratory Rate - - Oxygen Saturation - - Inhaled Oxygen Concentration - - Weight 98.1 kg (216 lb 4.3 oz) 04/10/2025 2:00 P M EDT Height 162.6 cm (5' 4 ) 04/10/2025 2:00 PM EDT Body Mass Index 37.12 04/10/2025 2:00 PM EDT documented in this encounter Miscellaneous Notes * Assessment & Plan Note - Myriam Castillo DO - 04/10/2025 2:20 PM EDT Associated Problem(s): Obesity (BMI 30.0-34.9) HgbA1c of 5.1% in clinic today. Patient confirms FHx of T2DM in mother and grandfather. Patient started on metformin 1000 mg BID for PCOS in 2023 though was unable to tolerate this high of a dose. Patient confirming menstrual irregularities and hirsutism. Will complete lab work up for PCOS including antimullerian hormone, DHEA-S, FSH, and LH. Will also complete dexamethasone suppression test for [place]'s, as well as 17- hydroxyprogesterone level for CAH. Patient encouraged to keep log of FSBG with symptomatic hypoglycemic episodes. Patient counseled on the importance of healthy, well-balanced diet and adequate exercise for weightmanagement and improvement of insulin sensitivity. * Progress Notes - Myriam Castillo DO - 04/10/2025 2:20 PM EDT Consultation Visit [facility] Reason For Consult: Insulin resistance Consultation Requested By: CANDICE Hazel Subjective Ms. Titus is a 24 y/o F, PMHx including hypothyroidism and anxiety, is here today for a consultation visit for insulin resistance. Patient reports that she was referred to the endocrine clinic today for evaluation of insulin resistance by her PCP. Patient states that she has been feeling fine and denies any active complaints or symptoms. Patient describes that her PCP had been concerned for PCOS several years ago, although she is not sure that she was actually formally diagnosed with PCOS. In 2023, patient's PCP started her on metformin 1000 mg BID and aldactone for PCOS management. She does confirm acne and hirsutism. Patient denies PMHx of diabetes/pre-DM, hyperglycemia or abnormal A1c. Patient states that she was not able to tolerate the metformin s/t hypoglycemic episodes; she is unsure why the aldactone was stopped. Patient confirms menarche at age 12-13 ([id number]). Reports normal periods until 2019. Around 2019,patient notes irregular periods; describes 21-29 day cycles with 3-5 days of heavy bleeding and occasional 1-2 months of amenorrhea. Patient became in 2022 and delivered a full-term child without complications. She has resumed menstrual cycles 21-29 days in length. She reports some ovarian cysts noted on TVUS during . Denies h/o gestational DM. Patient notes ongoing hypoglycemic episodes with symptoms including shakiness, diaphoresis, nausea,headaches and dizziness. She reports low blood glucose and symptoms resolution with eating but cannot recall the actual glucose value when she checks. Episodes occur 1-2x monthly. 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 She does not intentionally exercise. 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 Patient also has upcoming appointment with rheumatology for +YUDY and DIRECTOR SOCIAL SERVICE. Past Medical History: Past Medical History[1] Family History: Family History[2] Social History: Social History Socioeconomic History Marital status: Single Spouse name: Not on file Number of children: Not on file Years of education: Not on file Highest education level: Not on file Occupational History Not on file Tobacco Use Smoking status: Never Smokeless tobacco: Never Vaping Use Vaping status: Never Used Substance and Sexual Activity Alcohol use: Not Currently Drug use: Not Currently Sexual activity: Not on file Other Topics Concern Not on file Social History Narrative Not on file Social Drivers of Health Financial Resource Strain: Not on file Food Insecurity: Not on file Transportation Needs: Not on file Physical Activity: Not on file Stress: Not on file Social Connections: Not on file Intimate Partner Violence: Not At Risk (09/12/2022) Received from [facility] Abuse Screen Feels Unsafe at Home or Work/School: no Feels Threatened by Someone: no Does Anyone Try to Keep You From Having Contact with Others or Doing Things Outside Your Home?: no Physical Signs of Abuse Present: no Housing Stability: Not on file Medications Ordered Prior to Encounter[3] Allergies[4] All medications have been reviewed today. The following portions of the patient's chart were reviewed in this encounter and updated as appropriate: past medical history, surgical history, family history, tobacco history, allergies, and medications Review of Systems Constitutional: Positive for diaphoresis. Negative for activity change, appetite change, chills, fatigue and fever. Respiratory: Negative for cough and shortness of breath. Cardiovascular: Negative for chest pain, palpitations and leg swelling. Gastrointestinal: Positive for nausea. Negative for abdominal pain. Endocrine: Negative for cold intolerance, polydipsia, polyphagia and polyuria. Genitourinary: Positive for menstrual problem. Neurological: Positive for dizziness and headaches. Psychiatric/Behavioral: The patient is nervous/anxious. Objective Physical Exam Constitutional: Appearance: Normal appearance. She is obese. She is not ill-appearing. HENT: Head: Normocephalic and atraumatic. Nose: Nose normal. Mouth/Throat: Mouth: Mucous membranes are moist. Eyes: Extraocular Movements: Extraocular movements intact. Conjunctiva/sclera: Conjunctivae normal. Cardiovascular: Rate and Rhythm: Normal rate and regular rhythm. Heart sounds: Normal heart sounds. Pulmonary: Effort: Pulmonary effort is normal. Breath sounds: Normal breath sounds. Skin: General: Skin is warm and dry. Neurological: Mental Status: She is alert and oriented to person, place, and time. Psychiatric: Mood and Affect: Mood normal. Behavior: Behavior normal. Thought Content: Thought content normal. Judgment: Judgment normal. Assessment/Plan Assessment & Plan Insulin resistance PCOS (polycystic ovarian syndrome) Hirsutism Obesity (BMI 30-39.9) HgbA1c of 5.1% in clinic today. Patient confirms FHx of T2DM in mother and grandfather. Patient started on metformin 1000 mg BID for PCOS in 2023 though was unable to tolerate this high of a dose. Patient confirming menstrual irregularities and hirsutism. Will complete lab work up for PCOS including antimullerian hormone, DHEA-S, FSH, and LH. Will also complete dexamethasone suppression test for [place]'s, as well as 17- hydroxyprogesterone level for CAH. Patient encouraged to keep log of FSBG with symptomatic hypoglycemic episodes. Patient counseled on the importance of healthy, well-balanced diet and adequate exercise for weightmanagement and improvement of insulin sensitivity. Myriam Castillo, DO PGY-1, [facility] Internal Medicine Post Visit Addendum: Labs reviewed and unremarkable. Given that we have been able to rule out secondary causes, this would be consistent with PCOS and management is aimed at symptoms. Could consider trial of low dose Metformin which would help with insulin resistance. Have messaged with results. Component Latest Ref Rng 04/10/2025 04/22/2025 17 OH PROGESTERONE ng/dL 13 ANTI MULLERIAN HORMONE RESULT 0.401 - 16.015 ng/mL 4.949 DHEA Sulfate Result 148 - 407 ??g/dL 218 Follicle Stimulating Hormone mIU/mL 3.8 LH mIU/mL 3.54 Cortisol Before 10am: 3.7 - 19.4. After 5pm: 2.9 - 17.3 ug/dL <1.00 [1] Past Medical History: Diagnosis Date Allergic rhinitis Anxiety Food intolerance Ishmael's thyroiditis Migraines Personal history of other diseases of the respiratory system History of asthma [2] Family History Problem Relation Name Age of Onset Cardiac disorder Other Hypertension Father Conversions - Other Father High blood cholesterol Allergic rhinitis Father Hypertension Brother Hypertension Other Allergic rhinitis Mother Asthma Mother [3] Current Outpatient Medications on File Prior to Visit Medication Sig Dispense Refill fluticasone (Flonase) 50 MCG/ACT nasal spray Instill 1-2 SPRAYS IN EACH NOSTRIL EVERY DAY DIRECTED galcanezumab-gnlm (Emgality) 120 MG/ML injection Inject 1 Syringe under the skin every 30 days. levothyroxine (Synthroid, Levoxyl) 100 MCG tablet Take 1 tablet (100 mcg total) by mouth 1 (one) time each day. 90 tablet 1 ondansetron ODT (Zofran-ODT) 4 MG disintegrating tablet sertraline (Zoloft) 25 MG tablet Take 1 tablet by mouth daily. (Patient taking differently: Take 1 tablet by mouth daily. Takes 75mg daily) Ubrogepant (Ubrelvy) 50 MG tablet On hold due to Ventolin HFA 108 (90 Base) MCG/ACT inhaler INHALE TWO PUFFS BY MOUTH FOUR TIMES DAILY --SHAKE WELL BEFORE USE-- cetirizine (ZyrTEC) 10 MG tablet Take 10 mg by mouth 1 (one) time each day. clindamycin (Cleocin) 300 MG capsule TAKE 1 CAPSULE BY MOUTH THREE TIMES DAILY FOR 7 DAYS (Patient not taking: Reported on 04/10/2025) famotidine (Pepcid) 40 MG tablet Take 40 mg by mouth every night. Metrogel 1 % gel APPLY TO AFFECTED AREAS ONCE DAILY (Patient not taking: Reported on 04/10/2025) montelukast (Singulair) 10 MG tablet Take 1 tablet (10 mg total) by mouth every night. 30 tablet 11 venlafaxine XR (Effoxor-XR) 150 MG 24 hr capsule Take 150 mg by mouth 1 (one) time each day. No current facility-administered medications on file prior to visit. [4] Allergies Allergen Reactions Latex Hives and Swelling Amoxicillin Hives Codeine Hives Penicillins Hives and Unknown - Patient states they do not know rxn details Ceftibuten Unknown - Patient states they do not know rxn details documented in this encounter Plan of Treatment Upcoming Encounters Date Type Department Care Team (Late st Contact Info) Description 09/04/2025 4:00 PM EDT Office Visit [facility] [address] [place] [address] Lori Lamar DO [address] [facility] [address] [place] [address] documented as of this encounter Procedures Procedure Name Priority Date/Time Associated Diagnosis Comments POCT GLYCOSYLATED HEMOGLOBIN (HGB A1C) Routine 04/10/2025 2:13 PM EDT Insulin resistance documented in this encounter Results * Dexamethasone Level Test (04/22/2025 7:48 AM EST) Dexamethasone 290.2 ng/dL 04/27/2025 4:35 PM EST [facility] ([facility]) Blood Venous blood specimen / Unknown Venipuncture / Unknown 04/22/2025 7:48 AM EST 04/22/2025 7:50 AM EST Narrative [facility] ([facility]) - 04/27/2025 4:35 PM EST INTERPRETIVE INFORMATION: Dexamethasone, Serum or Plasma by LC-MS/MS Adults baseline: Less than 50 ng/dL 8:00 AM draw following 1 mg dexamethasone between 11:00 pm and 12:00 am the previous evenin - 295 ng/dL 8:00 AM draw following 8 mg dexamethasone (4 x 2 mg doses) between 11:00 pm and 12:00 am the previous evenin - 2850 ng/dL This test was developed and its performance characteristics determined by [facility]. It has not been cleared or approved by the US Food and Drug Administration. This test was performed in a CLIA certified laboratory and is intended for clinical purposes. Performed By: [facility] [address] [place] [address] Ledger Clerk: Jurgen Smith MD, PhD CLIA Number: [id number] Lori Lamar DO LAB BLOOD ORDERABLES Final Result [facility] ([facility]) [address] [place] [address] * Cortisol (04/22/2025 7:48 AM EST) Cortisol <1.00 Before 10am: 3.7 - 19.4. After 5pm: 2.9 - 17.3 ug/dL 04/22/2025 4:09 PM EST [facility] Comment:Testing performed on [facility] Sampler Tester, standardized against SHELTER Reference Standard concentration values assigned by LC-MS/MS and verified by BCR 192 and BCR 193 certified reference materials. Blood Venous blood specimen / Unknown Venipuncture / Unknown 04/22/2025 7:48 AM EST 04/22/2025 7:50 AM EST Lori Lamar DO LAB REF LAB BLOOD AND FLUID ORD Final Result Performing Organization Address City/[facility]/ZIP Co de Phone Number [facility] [address] [place] [address] * Luteinizing hormone (04/10/2025 3:24 PM EDT) Pathologist [facility] Luteinizing Hormone 3.54 mIU/mL 04/10/2025 9:58 PM EDT [facility] Blood Venous blood specimen / Unknown Venipuncture / Unknown 04/10/2025 3:24 PM EDT 04/10/2025 3:25 PM EDT Narrative [facility] - 04/10/2025 9:58 PM EDT Female Reference Ranges: Darci Stage 1: < 9.4 mIU/mL Darci Stage 2: < 16.1 mIU/mL Darci Stage 3: < 23.1 mIU/mL Darci Stage 4-5: < 19.2 mIU/mL Adult Female >17 years: Follicular: 2.4 - 12.6 mIU/mL Midcycle: 14.0 - 95.6 mIU/mL Luteal: 1.0 - 11.5 mIU/mL Postmenopause: 7.7 - 58.5 mIU/mL Lori Lamar DO LAB BLOOD ORDERABLES Final Result Performing Organization Address City/[facility]/ZIP Co de Phone Number [facility] [address] [place] [address] * Follicle stimulating hormone (04/10/2025 3:24 PM EDT) FSH 3.8 mIU/mL 04/10/2025 9:5 8 PM EDT [facility] Blood Venous blood specimen / Unknown Venipuncture / Unknown 04/10/2025 3:24 PM EDT 04/10/2025 3:25 PM EDT Narrative [facility] - 04/10/2025 9:58 PM EDT FSH Female Reference Ranges: Darci Stage 1: 0.6 - 8.4 mIU/mL Darci Stage 2: 0.6 - 8.9 mIU/mL Darci Stage 3: 0.5 - 8.9 mIU/mL Darci Stage 4-5: 0.7 - 9.3 mIU/mL Adult Female >17 years: Follicular: 3.5 - 12.5 mIU/mL Midcycle: 4.7 - 21.5 mIU/mL Luteal: 1.7 - 7.7 mIU/mL Postmenopause: 25.8 - 134.8 mIU/mL : low to undetectable Lori Lamar DO LAB BLOOD ORDERABLES Final Result [facility] [address] [place] [address] * DHEA-sulfate (04/10/2025 3:24 PM EDT) DHEAS 218 148 - 407 g/dL 04/10/2025 6:55 PM EDT [facility] Blood Venous blood specimen / Unknown Venipuncture / Unknown 04/10/2025 3:24 PM EDT 04/10/2025 3:25 PM EDT Narrative [facility] - 04/10/2025 6:55 PM EDT DHEAS Darci Stages, Female: Darci Stage I: 7 - 126 ug/dL Darci Stage II: 13 - 241 ug/dL Darci Stage III: 32 - 446 ug/dL Darci Stage IV and V: 65 - 371 ug/dL Lori Lamar DO LAB BLOOD ORDERABLES Final Result [facility] [address] [place] [address] * Antimullerian hormone (AMH) (04/10/2025 3:24 PM EDT) ANTI MULLERIAN HORMONE RESULT 4.949 0.401 - 16.015 ng/mL 04/14/2025 8:29 AM EDT [facility] ([facility]) Blood Venous blood specimen / Unknown Venipuncture / Unknown 04/10/2025 3:24 PM EDT 04/10/2025 3:25 PM EDT Narrative [facility] ([facility]) - 04/14/2025 8:29 AM EDT INTERPRETIVE INFORMATION: Anti-Mullerian Hormone FEMALE: 6 months - 14 years: 0.256 - 6.345 ng/mL 15-17 years: 0.861 - 10.451 ng/mL 18-29 years: 0.401 - 16.015 ng/mL 30-39 years: 0.176 - 11.705 ng/mL 40-45 years: 6.282 ng/mL or less 46-50 years: 0.064 ng/mL or less Post-menopausal: 0.003 ng/mL or less MALE: 6-11 months: 56.677 - 495.299 ng/mL 1-6 years: 33.442 - 342.450 ng/mL 7-9 years: 20.245 - 189.781 ng/mL 10-12 years: 2.903 - 178.243 ng/mL 13 years and older: 2.079 - 30.656 ng/mL This test was developed and its performance characteristics determined by [facility]. It has not been cleared or approved by the US Food and Drug Administration. This test was performed in a CLIA certified laboratory and is intended for clinical purposes. Performed By: [facility] [address] [place] [address] Ledger Clerk: Jurgen Smith MD, PhD CLIA Number: [id number] us Lori Lamra DO LAB BLOOD ORDERABLES Final Result Performing Organization Address City/[facility]/ZIP Co de Phone Number [facility] ([facility]) [address] [place] [address] * 17-Hydroxyprogesterone (04/10/2025 3:24 PM EDT) Pathologist [facility] 17 OH PROGESTERONE 13 ng/dL 2024 9:08 PM EDT [facility] ([facility]) Comment: This test was developed and its performance characteristics determined by [facility]. It has not been cleared or approved by the Food and Drug Administration. Reference Range: Adult Female Follicular: 15 - 70 Luteal: 35 - 290 Blood Venous blood specimen / Unknown Venipuncture / Unknown 04/10/2025 3:24 PM EDT 04/10/2025 3:25 PM EDT Narrative [facility] ([facility]) - 04/15/2025 9:08 PM EDT Performed at: - [facility] [address] [place] [id number] Field Insurance Sales Manager: Bridgette Lopez MD, Phone: [phone] Lori Lamar DO LAB BLOOD ORDERABLES Final Result Performing Organization Address [facility] Co de Phone Number [facility]) * POCT glycosylated hemoglobin (Hb A1C) (04/10/2025 2:13 PM EDT) [facility] POCT Hemoglobin A1C 5.1 <5.7% Non-Diabet ic % [facility] Kit Lot Number [id number] [facility] ALTHCARE LAB Kit Expiration Date 01/2027 [facility] Blood Venous blood specimen / Unknown 04/10/2025 2:13 PM EDT Lori Lamar DO POINT OF CARE TEST ENTER/ED IT ORDERABLES Final Result [facility] [address] [place], [place] [id number] documented in this encounter Visit Diagnoses Diagnosis Insulin resistance- Primary Other abnormal glucose PCOS (polycystic ovarian syndrome) Polycystic ovaries Hirsutism Obesity (BMI 30-39.9) documented in this encounter Additional Health Concerns Assessment Noted Time A fall risk assessment has been complete d for the patient 12/30/2021 7:55 AM EDT A Body Mass Index follow-up plan has been documented for the patient 04/14/2025 4:04 PM EDT documented as of this encounter Care Teams Television Cameraman Relationship Specialty Start Date End Date Nathalia Yousif PA [address] [place] [address] PCP - General 08/31/21 documented as of this encounter
--- OUTSIDE RECORDS SUMMARY | 2025-04-22 08:00 | XMS_ITS | Encounter Summary ---
Author Organization [facility] Address [address] [place] [address] Care Team Providers Care Case Packer And Sealer Name Role Phone Nathalia Yousif Primary Care Provider [phone] Encounter Details Date Type Department Care Team (Latest Contact Info) Description 04/22/2025 8:00 AM EST Clinical Support [address] [address] Insulin resistance; PCOS (polycystic ovarian syndrome); Hirsutism; Obesity (BMI [...] AM EST documented as of this encounter Miscellaneous Notes * Clinician Note - Ronlad Mckeon - 04/22/2025 8:00 AM EST Patient arrived for blood work. documented in this encounter Plan of Treatment Upcoming Encounters Date Type Department Care Team (Late st Contact Info) Description 09/04/2025 4:00 PM EDT Office Visit [facility] Endocrinology [address] [place] [address] Lori Lamar, DO [address] [address] documented as of this encounter Procedures Procedure Name Priority Date/Time Associated Diagnosis Comments DEXAMETHASONE, SERUM OR PLASMA (SO) Routine 04/22/2025 7:48 AM EST Insulin resistance PCOS (polycystic ovarian syndrome) Hirsutism Obesity (BMI 30-39.9) CORTISOL Routine 04/22/2025 7:48 AM EST Insulin resistance PCOS (polycystic ovarian syndrome) Hirsutism Obesity (BMI 30-39.9) documented in this encounter Results * Cortisol (04/22/2025 7:48 AM EST) Cortisol <1.00 Before 10am: 3.7 - 19.4. After 5pm: 2.9 - 17.3 ug/dL 04/22/2025 4:09 PM EST [facility] Comment:Testing performed on [employer] Reception Agent, standardized against [employer] Reference Standard concentration values assigned by LC-MS/MS and verified by BCR 192 and BCR 193 certified reference materials. Blood Venous blood specimen / Unknown Venipuncture / Unknown 04/22/2025 7:48 AM EST 04/22/2025 7:50 AM EST us Lori Lamar DO LAB REF LAB BLOOD AND FLUID ORD Final Result [facility] [address] [place] [address] * Dexamethasone Level Test (04/22/2025 7:48 AM EST) Dexamethasone 290.2 ng/dL 04/27/2025 4:35 PM EST [facility] ([facility]) Blood Venous blood specimen / Unknown Venipuncture / Unknown 04/22/2025 7:48 AM EST 04/22/2025 7:50 AM EST Narrative [facility] ([facility]) - 04/27/2025 4:35 PM EST [...] developed and its performance characteristics determined by [employer]. It has not been cleared or approved by the US Food and Drug Administration. This test was performed in a CLIA certified laboratory and is intended for clinical purposes. Performed By: [employer] [address] [place] [address] Solid Die Cutter: Jurgen Smith MD, PhD CLIA Number: [id number] us Lori Lamar DO LAB BLOOD ORDERABLES Final Result [email or web address] ([facility]) [address] [place] [address] documented in this encounter Visit Diagnoses Diagnosis Insulin resistance Other abnormal glucose PCOS (polycystic ovarian syndrome) Polycystic ovaries Hirsutism Obesity (BMI 30-39.9) documented in this encounter Additional Health Concerns Assessment Noted Time A fall risk assessment has been complete d for the patient 12/30/2021 7:55 AM EDT A Body Mass Index follow-up plan has been documented for the patient 04/22/2025 7:51 AM EST documented as of this encounter Care Teams Case Packer And Sealer Relationship Specialty Start Date End Date Nathalia Yousif PA [address] [place] [address] PCP - General 08/31/21 documented as of this encounter
--- OUTSIDE RECORDS SUMMARY | 2025-05-10 15:00 | XMS_ITS | Encounter Summary ---
Author Organization [facility] Address [address] [place] [address] Care Team Providers Care Floor Associate Name Role Phone Nathalia Yousif Primary Care Provider [phone] Reason for Visit * Reason Comments Joint Pain Abnormal Lab +YUDY test, elevated ESR, TRAPEZE PERFORMER + * Consultation (Routine) - Closed Specialty Diagnoses / Procedures Referred By Contac t Referred To Contact Rheumatology Diagnoses Positive YUDY (antinuclear antibody) Elevated erythrocyte sedimentation rate Nathalia Yousif PA [address] [place] [address] Phone: tel: fax: [facility] [address] [place] [phone] Phone: tel: fax: Referral ID Status Reason Start Date Expiration Date Visits Re quested Visits Authorized [id number] Closed 12/18/2024 03/19/2026 1 1 Encounter Details Date Type Department Care Team (Late st Contact Info) Description 05/10/2025 3:00 PM EST Office Visit [facility] [address] [place] [phone] Manjeet Garcia DO [address] [place] [address] [phone] YUDY positive (Primary Dx); Arthralgia, unspecified joint; Fatigue, unspecified type; Elevated sed rate; Abnormal laboratory test Social History Tobacco Use Types Packs/Day Years [...] more drinks on one occasion? Never 06/01/2022 [place] Depression Scale Answer Date Recorded [place] Depression Scale Total 0 09/13/2022 The thought [...] Value Date Recorded Sex Assigned at Female 05/10/2025 10:17 AM EST Legal Sex Female 9:07 AM EDT Gender Identity Not on file Sexual Orientation Straight 05/10/2025 10 :17 AM EST documented as of this encounter Last Filed Vital Signs Vital Sign Reading Time Taken Comments Blood Pressure 124/78 05/10/2025 2:38 PM EST Pulse 91 05/10/2025 2:38 PM EST Temperature 36.8 C (98.3 F) 05/10/2025 2:38 PM EST Respiratory Rate - - Oxygen Saturation - - Inhaled Oxygen Concentration - - Weight 103 kg (228 lb) 05/10/2025 2:38 PM EST Height 159.8 cm (5' 2.9 ) 05/10/2025 2:38 PM EST Body Mass Index 40.52 05/10/2025 2:38 PM EST documented in this encounter Patient Instructions * Attachments The following attachments cannot be sent through Care Everywhere. * Antinuclear Antibody Test (Emirati) documented in this encounter Progress Notes * Radha Manjeet DO Lyle - 05/10/2025 3:00 PM EST Images from the original note were not included. Office Visit Date: 05/10/2025 Patient Name: Barrie Titus Date of : 2000 Referring Physician: Nathalia Yousif PA Chief Complaint Patient presents with Joint Pain Abnormal Lab +YUDY test, elevated ESR, TRAPEZE PERFORMER + History of Present Illness: Barrie Titus is a 24 y.o. female who is here today at the request of Nathalia Yousif PA-C. The referral indicates that she is YUDY test positive. Her sed rate was also elevated. Her TRAPEZE PERFORMER test was weakly +. Her mother was diagnosed with having lupus. No history of blood clots or miscarriage. She has been diagnosed with having Ishmael's. She is taking levothyroxine. She is thyroglobulin antibody positive. No history of psoriasis or gout. No history of uveitis, iritis, or scleritis. No oral, nasal, or genital ulcers. No recent serious injuries or infections. She isfatigued. Today she rates her pain as 9/10 in severity. She has 4 hours/day of morning stiffness. Her joints swell. No red or hot joints. She has muscle pain and weakness. She has back and neck pain. Her joints pop. Her knees hyper-extend. She gets rashes. She has had a butterfly rash. She notes hair loss. She reports having Raynaud's. Her skin is dry. She bruises easily. No lymphadenopathy. She does not sleep well. She has headaches. No numbness. She has memory problems. She has menstrual problems. She has pelvic pain. She has abdominal pain. She has nausea/GERD/vomiting. She is short of breath. She has chest pain. She has dry mouth but not dry eyes. She has fever. She is sensitive to both heat and cold. Medication/treatment/interventions tried include: Tylenol, venlafaxine, sertraline, she has seen endocrinology, She has seen orthopaedic surgeons, she has done some physical therapy, she has seen cardiology, ibuprofen Studies reviewed included: 12/07/24: CRP normal, thyroglobulin antibody 2.1 (<0.9), Sed rate 55.0 (<32), Direct YUDY positive, SCL 70 normal, Centromere normal, Zulema 1 normal, HIV non reactive, Vitamin D normal, B12 and folate normal, Glucose 109, CMP ok otherwise, CBC normal, TSH and T4 normal, TRAPEZE PERFORMER 1.0 (<0.9), Riggins negative, RF negative, chromatin negative, SSA and SSB normal, DS DNA normal Subjective Review of Systems Constitutional: Positive for appetite change, chills, fatigue and fever. HENT: Positive for dental problem (dry mouth), ear pain, mouth sores, sneezing, sore throat, tinnitus and voice change. Eyes: Positive for blurred vision, redness, itching and visual disturbance. Respiratory: Positive for cough, shortness of breath and wheezing. Cardiovascular: Positive for chest pain. Gastrointestinal: Positive for abdominal pain, nausea, vomiting and GERD. Endocrine: Positive for cold intolerance, heat intolerance, polydipsia and polyphagia. Genitourinary: Positive for amenorrhea, flank pain, menstrual problem and pelvic pain. Musculoskeletal: Positive for arthralgias, back pain, joint swelling, myalgias and neck pain. Skin: Positive for dry skin, rash and bruise. Allergic/Immunologic: Positive for environmental allergies. Neurological: Positive for dizziness, weakness, light-headedness, headache and memory problem. Hematological: Bruises/bleeds easily. Psychiatric/Behavioral: Positive for agitation, decreased concentration, dysphoric mood, hallucinations, sleep disturbance, positive for hyperactivity, depressed mood and stress. The patient is nervous/anxious. All other systems reviewed and are negative. 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 hypothyroid in 2017 Heart murmur Hyperlipidemia Migraine 2006 PCOS (polycystic ovarian syndrome) 2024 PONV (postoperative nausea and vomiting) Past Surgical History: Procedure Laterality Date EAR TUBES LAPAROSCOPIC CHOLECYSTECTOMY 2017 TONSILLECTOMY 2008 / adnoids Family History Problem Relation Name Age of Onset defects Mother Oma Heart murmur Mother Oma Anemia Mother Oma Arrhythmia Mother Oma Asthma Mother Oma Clotting disorder Mother Oma Hyperlipidemia Mother Oma Arrhythmia Father Osman Hyperlipidemia Father Osman Heart murmur Father [place]man Hypertension Father Osman Asthma Father Osman Hyperlipidemia Brother Ricardo Titus Hypertension Brother Ricardo Titus Arrhythmia Maternal Grandfather Cody Heart attack Maternal Grandfather Cody Heart disease Maternal Grandfather Cody Hypertension Maternal Grandfather Cody Asthma Maternal Grandfather Cody Hyperlipidemia Maternal Grandfather Cody Diabetes Maternal Grandfather Cody Clotting disorder Maternal Grandmother November Heart attack Maternal Grandmother November Heart disease Maternal Grandmother November Hypertension Maternal Grandmother November Arrhythmia Maternal Grandmother November Heart failure Maternal Grandmother November Hyperlipidemia Maternal Grandmother November Heart attack Paternal Grandfather Wil Titus Heart disease Paternal Grandfather Wil Titus Arrhythmia Paternal Grandfather Wil Tacho Asthma Paternal Grandfather Wil Tacho Hyperlipidemia Paternal Grandfather Wil Tacho Hypertension Paternal Grandfather Wil Tacho Colon cancer Paternal Grandfather Wilk[place] Titus Hypertension Paternal Grandmother [place] Fainting Paternal Grandmother [place] Hyperlipidemia Paternal Grandmother [place] Stroke Paternal Grandmother [place] Asthma Brother Ricardo Hypertension Brother Ricardo Breast cancer Maternal Aunt Maryellen Breast cancer Maternal Aunt Pauline Asthma Paternal Uncle Damien Titus Hyperlipidemia Paternal Uncle Damien Titus Hypertension Paternal Uncle Damien Titus Hyperlipidemia Maternal Uncle Shree sandhu Hypertension Maternal Uncle Shree sandhu Social History Socioeconomic History Marital status: Single Number of children: 0 Highest education level: High school graduate Tobacco Use Smoking status: Never Passive exposure: Never Smokeless tobacco: Never Vaping Use Vaping status: Former Substance and Sexual Activity Alcohol use: Never Comment: pt reports 1x month vodka before Drug use: Never Sexual activity: Yes Partners: Male control/protection: Condom Current Outpatient Medications: albuterol sulfate HFA 108 (90 Base) MCG/ACT inhaler, Inhale 2 puffs Every 6 (Six) Hours As Needed for Wheezing., Disp: 6.7 g, Rfl: 0 Emgality 120 MG/ML auto-injector pen, Inject 1 mL under the skin into the appropriate area as directed 1 (One) Time., Disp: , Rfl: fluticasone (FLONASE) 50 MCG/ACT nasal spray, 1 spray by Each Nare route As Needed., Disp: , Rfl: levothyroxine (SYNTHROID, LEVOTHROID) 100 MCG tablet, Take 1 tablet by mouth Daily., Disp: , Rfl: metFORMIN ER (GLUCOPHAGE-XR) 500 MG 24 hr tablet, Take 1 tablet by mouth Daily With Breakfast., Disp: , Rfl: sertraline (ZOLOFT) 25 MG tablet, Take 1 tablet by mouth Daily., Disp: , Rfl: sertraline (ZOLOFT) 50 MG tablet, Take 1 tablet by mouth Daily., Disp: , Rfl: Ubrelvy 50 MG tablet, 1 tablet As Needed., Disp: , Rfl: Allergies Allergen Reactions Amoxicillin Hives Cedax [Ceftibuten] Hives Codeine Hives Latex Other (See Comments) IT CAUSES BLISTERS Adhesive medical tape Penicillins Hives I reviewed the patient's chief complaint, history of present illness, review of systems, past medical history, surgical history, family history, social history, medications and allergy list. Objective Vitals: 05/10/25 1438 BP: 124/78 Pulse: 91 Temp: 98.3 ??F (36.8 ??C) Weight: 103 kg (228 lb) Height: 159.8 cm (62.9 ) PainSc: 9 PainLoc: Generalized Body mass index is 40.52 kg/m??. Physical Exam General: Well appearing 24 year old female. Not in distress. She is ambulating unassisted. SKIN: No rashes. No alopecia. No subcutaneous nodules. No digital pits or ulcers. No sclerodactyly. HEENT: NCAT. Conjunctiva clear, no photophobia. No oral or nasal ulcers. Hearing intact. Pulmonary: Clear to auscultation bilaterally. No wheezing, rales, or rhonchi. CV: Regular rate and rhythm. No murmurs, rubs, or gallops. Psych: Normal mood and affect. Alert and oriented x 3. Extremities: No cyanosis or edema. Musculoskeletal: No joint swelling. She has myofascial tenderness. No warmth or erythema. Normal range of motion of the wrists, ankles, elbows, and knees. Lymph: No palpable cervical adenopathy Procedures Assessment / Plan Assessment & Plan Arthralgia, unspecified joint 12/07/24: CRP normal, thyroglobulin antibody 2.1 (<0.9), Sed rate 55.0 (<32), Direct YUDY positive, SCL 70 normal, Centromere normal, Zulema 1 normal, HIV non reactive, Vitamin D normal, B12 and folate normal, Glucose 109, CMP ok otherwise, CBC normal, TSH and T4 normal, TRAPEZE PERFORMER 1.0 (<0.9), Riggins negative, RF negative, chromatin negative, SSA and SSB normal, DS DNA normal Mother diagnosed with lupus She was found to be YUDY+, TRAPEZE PERFORMER+, and her sed rate was high. See below. We will evaluate further for autoimmune disease/inflammatory types of arthritis. She has a history of Ishmael's She is thyroglobulin antibody + Patient's with Ishmael's can have + autoantibody tests including +YUDY and TRAPEZE PERFORMER tests She is on levothyroxine She has seen endocrinology Follow up in 3 months Fibromyalgia would be on my differential here. Orders: QuantiFERON-TB Gold Plus (Li-Hep) Hepatitis Panel, Acute 14.3.3 ETA, Rheum. Arthritis YUDY 12 Plus Profile (RDL) YUDY by IFA, Reflex to Titer and Pattern ANCA Panel Beta-2 Glycoprotein Antibodies CBC Auto Differential CK Comprehensive Metabolic Panel C-reactive Protein Cyclic Citrul Peptide Antibody, IgG / IgA HLA-B27 Antigen Lupus Anticoag / Cardiolipin Ab RF Isotypes, IgG, IgA, IgM EIA Sedimentation Rate Thyroid Antibodies TSH+Free T4 UA / M With / Rflx Culture([facility] ONLY) - Urine, Clean Catch Aldolase XR Foot 3+ View Bilateral; Future XR Hand 2 View Bilateral; Future XR Sacroiliac Joints 3+ View XR Knee 1 or 2 View Bilateral Fatigue, unspecified type Labs and x-rays to evaluate for autoimmune conditions. We usually contact patients with these results within 10-14 business days Orders: QuantiFERON-TB Gold Plus (Li-Hep) Hepatitis Panel, Acute 14.3.3 ETA, Rheum. Arthritis YUDY 12 Plus Profile (RDL) YUDY by IFA, Reflex to Titer and Pattern ANCA Panel Beta-2 Glycoprotein Antibodies CBC Auto Differential CK Comprehensive Metabolic Panel C-reactive Protein Cyclic Citrul Peptide Antibody, IgG / IgA HLA-B27 Antigen Lupus Anticoag / Cardiolipin Ab RF Isotypes, IgG, IgA, IgM EIA Sedimentation Rate Thyroid Antibodies TSH+Free T4 UA / M With / Rflx Culture([facility] ONLY) - Urine, Clean Catch Aldolase XR Foot 3+ View Bilateral; Future XR Hand 2 View Bilateral; Future XR Sacroiliac Joints 3+ View XR Knee 1 or 2 View Bilateral Elevated sed rate 1. Increased age and female sex - ESR values increase markedly with age and are slightly higher among women than men. As a result, any single set of normal values will not be valid for the populationat large. One can roughly correct ESR for age by using the following formulas: the upper limit of the reference range equals (age in years)/2 for men and (age in years + 10)/2 for women. 2. Anemia - It has long been known that anemia increases the sedimentation rate. The sedimentation of red blood cells is presumably impeded by other red blood cells; sedimentation is thus more rapid in anemia, in which this retardation is lessened, thus increasing the ESR. 3. Obesity - Both ESR and CRP can be elevated in obesity; this is due at least in part to interleukin (IL)-6 secretion by adipose tissue. 4. Technical factors - Tilting of the ESR tube or high room temperature may increase the ESR. 5. ESR/CRP elevation is a non specific finding. Many factors can influence these tests. 6. Labs today Orders: QuantiFERON-TB Gold Plus (Li-Hep) Hepatitis Panel, Acute 14.3.3 ETA, Rheum. Arthritis YUDY 12 Plus Profile (RDL) YUDY by IFA, Reflex to Titer and Pattern ANCA Panel Beta-2 Glycoprotein Antibodies CBC Auto Differential CK Comprehensive Metabolic Panel C-reactive Protein Cyclic Citrul Peptide Antibody, IgG / IgA HLA-B27 Antigen Lupus Anticoag / Cardiolipin Ab RF Isotypes, IgG, IgA, IgM EIA Sedimentation Rate Thyroid Antibodies TSH+Free T4 UA / M With / Rflx Culture([facility] ONLY) - Urine, Clean Catch Aldolase XR Foot 3+ View Bilateral; Future XR Hand 2 View Bilateral; Future XR Sacroiliac Joints 3+ View XR Knee 1 or 2 View Bilateral Abnormal laboratory test The TRAPEZE PERFORMER test is a non specific finding. You can get false positive results. Sometimes this test is associated with Mixed Connective Tissue Disease. Typically in MCTD there are multiple positive autoantibodies. I do not think that this patient has MCTD. I think this test could be + due to her thyroid condition. See above. Orders: QuantiFERON-TB Gold Plus (Li-Hep) Hepatitis Panel, Acute 14.3.3 ETA, Rheum. Arthritis YUDY 12 Plus Profile (RDL) YUDY by IFA, Reflex to Titer and Pattern ANCA Panel Beta-2 Glycoprotein Antibodies CBC Auto Differential CK Comprehensive Metabolic Panel C-reactive Protein Cyclic Citrul Peptide Antibody, IgG / IgA HLA-B27 Antigen Lupus Anticoag / Cardiolipin Ab RF Isotypes, IgG, IgA, IgM EIA Sedimentation Rate Thyroid Antibodies TSH+Free T4 UA / M With / Rflx Culture([facility] ONLY) - Urine, Clean Catch Aldolase XR Foot 3+ View Bilateral; Future XR Hand 2 View Bilateral; Future XR Sacroiliac Joints 3+ View XR Knee 1 or 2 View Bilateral YUDY positive We reviewed the outside labs and discussed them at length. All of the patients questions were answered. Handout on + YUDY tests was given to the patient to take home. An YUDY test is a non specific test. While it certainly can be positive in conditions like SLE, scleroderma, myositis, Sj??gren's, etc.. It can also be positive in patients with thyroid disease, type 1 diabetes, psoriasis, Celiacs disease, inflammatory bowel disease, etc.. There are also reports of n ormal/apparently healthy individuals who have been incidentally found to have a +YUDY test. You can also sometimes get a false positive YUDY test. Labs today to try and determine the significance of this +YUDY test. Patient will be contacted once these test results are available. Orders: QuantiFERON-TB Gold Plus (Li-Hep) Hepatitis Panel, Acute 14.3.3 ETA, Rheum. Arthritis YUDY 12 Plus Profile (RDL) YUDY by IFA, Reflex to Titer and Pattern ANCA Panel Beta-2 Glycoprotein Antibodies CBC Auto Differential CK Comprehensive Metabolic Panel C-reactive Protein Cyclic Citrul Peptide Antibody, IgG / IgA HLA-B27 Antigen Lupus Anticoag / Cardiolipin Ab RF Isotypes, IgG, IgA, IgM EIA Sedimentation Rate Thyroid Antibodies TSH+Free T4 UA / M With / Rflx Culture([facility] ONLY) - Urine, Clean Catch Aldolase XR Foot 3+ View Bilateral; Future XR Hand 2 View Bilateral; Future XR Sacroiliac Joints 3+ View XR Knee 1 or 2 View Bilateral Follow Up: Return in about 3 months (around 08/10/2025). Manjeet Garcia DO [facility] [place] documented in this encounter Plan of Treatment Upcoming Encounters Date Type Department Care Team (Late st Contact Info) Description 08/26/2025 10:45 AM EDT Office Visit [facility] [address] [phone] Jessica Morris APRN [address] [address] Scheduled Orders Name Type Priority Associated Diagnoses Orde r Schedule QuantiFERON-TB Gold Plus (Li-Hep) Lab Routine Arthralgia, unspecified joint Fatigue, unspecified type Elevated sed rate Abnormal laboratory test YUDY positive Ordered: 05/10/2025 Hepatitis Panel, Acute Lab Routine Arthralgia, unspecified joint Fatigue, unspecified type Elevated sed rate Abnormal laboratory test YUDY positive Ordered: 05/10/2025 14.3.3 ETA, Rheum. Arthritis Lab Routine Arthralgia, unspecified joint Fatigue, unspecified type Elevated sed rate Abnormal laboratory test YUDY positive Ordered: 05/10/2025 YUDY 12 Plus Profile (RDL) Lab Routine Arthralgia, unspecified joint Fatigue, unspecified type Elevated sed rate Abnormal laboratory test YUDY positive Ordered: 05/10/2025 YUDY by IFA, Reflex to Titer and Pattern Lab Routine Arthralgia, unspecified joint Fatigue, unspecified type Elevated sed rate Abnormal laboratory test YUDY positive Ordered: 05/10/2025 ANCA Panel Lab Routine Arthralgia, unspecified joint Fatigue, unspecified type Elevated sed rate Abnormal laboratory test YUDY positive Ordered: 05/10/2025 Beta-2 Glycoprotein Antibodies Lab Routine Arthralgia, unspecified joint Fatigue, unspecified type Elevated sed rate Abnormal laboratory test YUDY positive Ordered: 05/10/2025 CBC Auto Differential Lab Routine Arthralgia, unspecified joint Fatigue, unspecified type Elevated sed rate Abnormal laboratory test YUDY positive Ordered: 05/10/2025 CK Lab Routine Arthralgia, unspecified joint Fatigue, unspecified type Elevated sed rate Abnormal laboratory test YUDY positive Ordered: 05/10/2025 Comprehensive Metabolic Panel Lab Routine Arthralgia, unspecified joint Fatigue, unspecified type Elevated sed rate Abnormal laboratory test YUDY positive Ordered: 05/10/2025 C-reactive Protein Lab Routine Arthralgia, unspecified joint Fatigue, unspecified type Elevated sed rate Abnormal laboratory test YUDY positive Ordered: 05/10/2025 Cyclic Citrul Peptide Antibody, IgG / IgA Lab Routine Arthralgia, unspecified joint Fatigue, unspecified type Elevated sed rate Abnormal laboratory test YUDY positive Ordered: 05/10/2025 HLA-B27 Antigen Lab Routine Arthralgia, unspecified joint Fatigue, unspecified type Elevated sed rate Abnormal laboratory test YUDY positive Ordered: 05/10/2025 Lupus Anticoag / Cardiolipin Ab Lab Routine Arthralgia, unspecified joint Fatigue, unspecified type Elevated sed rate Abnormal laboratory test YUDY positive Ordered: 05/10/2025 RF Isotypes, IgG, IgA, IgM EIA Lab Routine Arthralgia, unspecified joint Fatigue, unspecified type Elevated sed rate Abnormal laboratory test YUDY positive Ordered: 05/10/2025 Sedimentation Rate Lab Routine Arthralgia, unspecified joint Fatigue, unspecified type Elevated sed rate Abnormal laboratory test YUDY positive Ordered: 05/10/2025 Thyroid Antibodies Lab Routine Arthralgia, unspecified joint Fatigue, unspecified type Elevated sed rate Abnormal laboratory test YUDY positive Ordered: 05/10/2025 TSH+Free T4 Lab Routine Arthralgia, unspecified joint Fatigue, unspecified type Elevated sed rate Abnormal laboratory test YUDY positive Ordered: 05/10/2025 UA / M With / Rflx Culture([facility] ONLY) - Urine, Clean Catch Lab Routine Arthralgia, unspecified joint Fatigue, unspecified type Elevated sed rate Abnormal laboratory test YUDY positive Ordered: 05/10/2025 Aldolase Lab Routine Arthralgia, unspecified joint Fatigue, unspecified type Elevated sed rate Abnormal laboratory test YUDY positive Ordered: 05/10/2025 XR Foot 3+ View Bilateral Imaging Routine Arthralgia, unspecified joint Fatigue, unspecified type Elevated sed rate Abnormal laboratory test YUDY positive Expected: 05/15/2025, Expires: 05/10/2026 XR Hand 2 View Bilateral Imaging Routine Arthralgia, unspecified joint Fatigue, unspecified type Elevated sed rate Abnormal laboratory test YUDY positive Expected: 05/15/2025, Expires: 05/10/2026 XR Sacroiliac Joints 3+ View Imaging Routine Arthralgia, unspecified joint Fatigue, unspecified type Elevated sed rate Abnormal laboratory test YUDY positive Ordered: 05/10/2025 XR Knee 1 or 2 View Bilateral Imaging Routine Arthralgia, unspecified joint Fatigue, unspecified type Elevated sed rate Abnormal laboratory test YUDY positive Ordered: 05/10/2025 documented as of this encounter Visit Diagnoses Diagnosis YUDY positive- Primary Arthralgia, unspecified joint Fatigue, unspecified type Elevated sed rate Elevated sedimentation rate Abnormal laboratory test Other abnormal clinical finding documented in this encounter Care Teams Floor Associate Relationship Specialty Start Date End Date Nathalia Yousif PA [address] [place] [address] PCP - General Physician Infrastructure Project Manager 12/24/24 documented as of this encounter
--- NOTE | 2025-05-11 | XR_ITS ---
PROCEDURE INFORMATION: Exam: XR Right Foot Exam date and time: 05/11/2025 11:56 AM Age: 24 years old Clinical indication: Pain; Foot; Right; Additional info: Lurdes + joint pain TECHNIQUE: Imaging protocol: Radiologic exam of the right foot. Views: 3 or more views. Total images: 3 COMPARISON: CR XR FOOT RT 2V 11/12/2019 12:41 PM FINDINGS: Bones/joints: No evidence of acute fracture or dislocation. Soft tissues: Soft tissues are within normal limits. IMPRESSION: No evidence of acute fracture or dislocation.
--- NOTE | 2025-05-11 | XR_ITS ---
PROCEDURE INFORMATION: Exam: XR Left Hand Exam date and time: 05/11/2025 12:01 PM Age: 24 years old Clinical indication: Pain; Hand; Left; Additional info: Joint pain TECHNIQUE: Imaging protocol: Radiologic exam of the left hand. Views: 1 or 2 views. Total images: 3 COMPARISON: No relevant prior studies available. FINDINGS: Bones/joints: No evidence of acute fracture or dislocation. Soft tissues: Soft tissues are within normal limits. IMPRESSION: No evidence of acute fracture or dislocation.
--- NOTE | 2025-05-11 | XR_ITS ---
PROCEDURE INFORMATION: Exam: XR Bilateral Sacroiliac Joints Exam date and time: 05/11/2025 11:48 AM Age: 24 years old Clinical indication: Pain in coccyx area; Additional info: Lurdes + joint pain TECHNIQUE: Imaging protocol: XR bilateral XR of the sacroiliac joints. Views: 3 or more views. Total images: 2 COMPARISON: CT ABDOMEN PELVIS W CON 10/26/2024 1:45 PM FINDINGS: Bones/joints: Normal. No acute fracture. Soft tissues: Normal. IMPRESSION: No acute findings.
--- NOTE | 2025-05-11 | XR_ITS ---
PROCEDURE INFORMATION: Exam: XR Left Foot Exam date and time: 05/11/2025 11:55 AM Age: 24 years old Clinical indication: Pain; Foot; Left; Additional info: Joint pain TECHNIQUE: Imaging protocol: Radiologic exam of the left foot. Views: 3 or more views. Total images: 1 COMPARISON: CR XR FOOT LT MIN 3V 05/02/2025 9:04 AM FINDINGS: Bones/joints: Oblique fracture of the proximal phalanx of the 5th toe. No evidence of acute dislocation. Soft tissues: Mild soft tissue swelling. IMPRESSION: 1. Oblique fracture of the proximal phalanx of the 5th toe. 2. Mild soft tissue swelling. 3. No evidence of acute dislocation.
--- NOTE | 2025-05-11 | XR_ITS ---
PROCEDURE INFORMATION: Exam: XR Right Knee Exam date and time: 05/11/2025 11:52 AM Age: 24 years old Clinical indication: Pain; Knee; Right; Additional info: Lurdes + joint pain TECHNIQUE: Imaging protocol: Radiologic exam of the right knee. Views: 1 or 2 views. Total images: 2 COMPARISON: CR XR KNEE RT 3V 04/25/2021 10:47 AM FINDINGS: Bones/joints: No evidence of acute fracture or dislocation. Soft tissues: Soft tissues are within normal limits. IMPRESSION: No evidence of acute fracture or dislocation.
--- NOTE | 2025-05-11 | XR_ITS ---
PROCEDURE INFORMATION: Exam: XR Right Hand Exam date and time: 05/11/2025 11:59 AM Age: 24 years old Clinical indication: Pain; Hand; Right; Additional info: Lurdes + joint pain TECHNIQUE: Imaging protocol: Radiologic exam of the right hand. Views: 1 or 2 views. Total images: 2 COMPARISON: CR XR HAND RT MIN 3V 01/02/2023 8:42 AM FINDINGS: Bones/joints: No evidence of acute fracture or dislocation. Soft tissues: Soft tissues are within normal limits. IMPRESSION: No evidence of acute fracture or dislocation.
--- NOTE | 2025-05-11 | XR_ITS ---
PROCEDURE INFORMATION: Exam: XR Left Knee Exam date and time: 05/11/2025 11:54 AM Age: 24 years old Clinical indication: Pain; Knee; Left; Additional info: Lurdes + joint pain TECHNIQUE: Imaging protocol: Radiologic exam of the left knee. Views: 1 or 2 views. Total images: 2 COMPARISON: CR XR FOOT LT MIN 3V 05/02/2025 9:04 AM FINDINGS: Bones/joints: No evidence of acute fracture or dislocation. Soft tissues: Soft tissues are within normal limits. IMPRESSION: No evidence of acute fracture or dislocation.
--- OUTSIDE RECORDS SUMMARY | 2025-05-11 11:40 | XMS_ITS | Patient Health Record ---
Author Organization [facility] Address [address] [place] [address] Care Team Providers Care Director College Name Role Phone Unknown, PCP Primary Care [...] Coverage End Date [employer]NA [employer] [place] [address] [place] [address] [id number] Barrie Titus Self - patient is the insured Medical (General) History Medical History History ICD Code hypothyroid PCOS migraine asthma Surgical History Surgery Date(Month/Year) gallbladder ear tubes tonsillectomy Hospitalization History Reason Date(Month/Year) see above
--- OUTSIDE RECORDS SUMMARY | 2025-05-11 11:40 | XMS_ITS | Clinical Summary ---
Author Organization [facility] Address [address] [place] [address] Care Team Providers Care Wireless Network Engineer Name Role Phone Nathalia Yousif Primary Care Provider [phone] Allergies Active Allergy Reactions Criticality Noted Date Comments Amoxicillin Hives High 04/13/2022 Ceftibuten Hives High 04/13/2022 Codeine Hives High 04/13/2022 Latex Other (See Comments) High 04/13/2022 IT CAUSES BLISTERS Adhesive medical tape Penicillins Hives High 04/13/2022 Medications albuterol sulfate HFA 108 (90 Base) MCG/ACT inhaler Inhale 2 puffs Every 6 (Six) Hours As Needed for Wheezing. 6.7 g 04/13/20 22 Active fluticasone (FLONASE) 50 MCG/ACT nasal spray 1 spray by Each Nare route As Needed. 05/09/20 22 Active Ubrelvy 50 MG tablet 1 tablet As Needed. Active levothyroxine (SYNTHROID, LEVOTHROID) 100 MCG tablet Take 1 tablet by mouth Daily. 02/27/20 24 Active Emgality 120 MG/ML auto-injector pen Inject 1 mL under the skin into the appropriate area as directed 1 (One) Time. Active metFORMIN ER (GLUCOPHAGE-XR ) 500 MG 24 hr tablet Take 1 tablet by mouth Daily With Breakfast. 04/23/20 25 026 Active sertraline (ZOLOFT) 25 MG tablet Take 1 tablet by mouth Daily. Active sertraline (ZOLOFT) 50 MG tablet Take 1 tablet by mouth Daily. Active venlafaxine XR (EFFEXOR-XR) 75 MG 24 hr capsule 1 capsule Daily. 10/28/19 24 025 Discontinue d(Patient Reported Not Taking) Active Problems Problem Noted Date Diagnosed Date [...] Encounters Date Type Department Care Team Description 05/10/2025 3:00 PM EST Office Visit [facility] [address] [place] [phone] Manjeet Garcia DO YUDY positive (Primary Dx); Arthralgia, unspecified joint; Fatigue, unspecified type; Elevated sed rate; Abnormal laboratory test 05/10/2025 Travel from Last 3 Months Family History [...] Wil Titus Colon cancer Paternal Grandfather Wil Tacho Heart attack Paternal Grandfather Wil Titus Heart disease Paternal Grandfather Wil Titus Hyperlipidemia Paternal Grandfather Wil Titus Hypertension Paternal Grandfather Wil Titus Fainting Paternal Grandmother [place] Hyperlipidemia Paternal Grandmother [place] Hypertension Paternal Grandmother [place] Stroke Paternal Grandmother [place] Asthma Paternal Uncle Damien Titus Hyperlipidemia Paternal Uncle Damien Titus Hypertension Paternal Uncle Damien Titus Relation Name Status Comments Brother 1 Ricardo Titus Alive Brother 2 Ricardo Father Osman Alive Maternal Aunt 1 Maryellen Alive Maternal Aunt 2 Pauline Alive Maternal Grandfather Cody Maternal Grandmother Sharon Maternal Uncle Shree sandhu Alive Mother Oma Alive Paternal Grandfather Wil Titus Paternal Grandmother [place] Paternal Uncle Damien Titus Alive Social History [...] more drinks on one occasion? Never 06/01/2022 Kelliher Depression Scale Answer Date Recorded Kelliher Depression Scale Total 0 09/13/2022 The thought [...] Orientation Straight 05/10/2025 10 :17 AM EST Last Filed Vital Signs Vital Sign Reading Time Taken Comments Blood Pressure 124/78 05/10/2025 2:38 PM EST Pulse 91 05/10/2025 2:38 PM EST Temperature 36.8 C (98.3 F) 05/10/2025 2:38 PM EST Respiratory Rate 16 09/15/2022 8:11 AM EDT Oxygen Saturation 98% 01/17/2025 9:06 AM EDT Inhaled Oxygen Concentration - - Weight 103 kg (228 lb) 05/10/2025 2:38 PM EST Height 159.8 cm (5' 2.9 ) 05/10/2025 2:38 PM EST Body Mass Index 40.52 05/10/2025 2:38 PM EST Plan of Treatment Upcoming Encounters Date Type Department Care Team (Late st Contact Info) Description 08/26/2025 10:45 AM EDT Office Visit [facility] [address] [address] Jessica Morris APRN [address] [phone] Health Maintenance Due Date Last Done Comments [...] ve Non-Reacti ve 03/03/2022 12:19 AM EDT [facility] Blood Venipuncture / Unknown 03/02/2022 2:38 PM EDT 03/02/2022 2:38 PM EDT Narrative [facility] - 03/03/2022 12:19 AM EDT Results may be falsely decreased if patient taking Biotin. Ilda Finley MD LAB BLOOD ORDERABLES Final Re sult [facility]
[address] [place] [address], from Last 3 Months or Most Recently Relevant to Health Maintenance Insurance [place] [address] Advance Directives * CPR (Attempt to Resuscitate) [...] Of Support Discussed With: Patient Care Teams Wireless Network Engineer Relationship Specialty Start Date End Date Nathalia Yousif PA [address] [facility] [place] [address] PCP - General Physician Shell Shop Supervisor 12/24/24
--- OUTSIDE RECORDS SUMMARY | 2025-05-11 11:40 | XMS_ITS | Clinical Summary ---
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 [...] Description 04/22/2025 8:00 AM EST Clinical Support [facility] [address] [place] [address] Insulin resistance; PCOS (polycystic ovarian syndrome); Hirsutism; Obesity (BMI 30-39.9) 04/22/2025 Travel 04/16/2025 Results Follow-Up [facility] [address] [place] [address] Lori Lamar DO 04/10/2025 2:20 PM EDT Office Visit [facility] [address] [place] [address] Lori Lamar DO Insulin resistance (Primary Dx); [...] Description 09/04/2025 4:00 PM EDT [facility] [address] [place] [address] Lori Lamar, DO [address] [place] [address] Health Maintenance Due Date Last [...] 2 - PCV) 2019 [facility]-Pap Smear 2021 TDI-[id number]-91 Vaccine (1 - 2024- season) 2025 [facility]-Influenza [...] Dexamethasone 290.2 ng/dL 04/27/2025 4:35 PM EST [facility] ([facility]) Blood Venous blood specimen [...] developed and its performance characteristics determined by [facility] [employer] [facility]. It has not been cleared or approved by the US Food and Drug Administration. This test was performed in a CLIA certified laboratory and is intended for clinical purposes. Performed By: [facility] [address] [place], [place] [address] Belt Tender: Jurgen Smith MD, PhD CLIA Number: [id number] Lori Lamar DO LAB BLOOD ORDERABLES Final Result [facility] ([facility]) [address] [place] [address] * Cortisol (04/22/2025 7:48 AM EST) Cortisol <1.00 Before 10am: 3.7 - 19.4. After 5pm: 2.9 - 17.3 ug/dL 04/22/2025 4:09 PM EST [facility] Comment:Testing performed on Kaiser Dipping Machine Operator, standardized against LONG TERM Reference Standard concentration values assigned by LC-MS/MS and verified by BCR 192 and BCR 193 certified reference materials. Blood Venous blood specimen / Unknown Venipuncture / Unknown 04/22/2025 7:48 AM EST 04/22/2025 7:50 AM EST Lori Lamar DO LAB REF LAB BLOOD AND FLUID ORD Final Result [facility] [address] [place] [address] * 17-Hydroxyprogesterone (04/10/2025 3:24 PM EDT) 17 [...] - 04/15/2025 9:08 PM EDT Performed at: [facility] [place] [address] [place] [id number] Pasta Maker: Bridgette Lopez MD, Phone: [phone] Lori Lamar DO LAB BLOOD ORDERABLES Final [...] developed and its performance characteristics determined by [facility] [employer] [facility]. It has not been cleared or approved by the US Food and Drug Administration. This test was performed in a CLIA certified laboratory and is intended for clinical purposes. Performed By: [facility] [address] [place] [address] Belt Tender: Jurgen Smith MD, PhD CLIA Number: [id number] Lori Lamar DO LAB BLOOD ORDERABLES Final Result [facility] ([facility]) [address] [place] [address] * DHEA-sulfate (04/10/2025 3:24 PM EDT) DHEAS 218 148 - 407 g/dL 04/10/2025 6:55 PM EDT [facility] Blood Venous blood specimen / Unknown Venipuncture / Unknown 04/10/2025 3:24 PM EDT 04/10/2025 3:25 PM EDT Narrative [facility] - 04/10/2025 6:55 PM EDT DHEAS Darci Stages, Female: Darci Stage I: 7 - 126 ug/dL Darci Stage II: 13 - 241 ug/dL Darci Stage III: 32 - 446 ug/dL Darci Stage IV and V: 65 - 371 ug/dL Lori Lamar DO LAB BLOOD ORDERABLES Final Result Performing Organization Address City/[facility]/ZIP Co de Phone Number [facility] [address] [place] [address] * Luteinizing hormone (04/10/2025 3:24 PM EDT) Luteinizing Hormone 3.54 mIU/mL 04/10/2025 9:58 PM EDT [facility] Blood Venous blood specimen / Unknown Venipuncture / Unknown 04/10/2025 3:24 PM EDT 04/10/2025 3:25 PM EDT Narrative [facility] - 04/10/2025 9:58 PM [...] BLOOD ORDERABLES Final Result Performing Organization Address City/[facility]/ZIP Co de Phone Number [facility] [address] [place] [address] * Follicle stimulating hormone (04/10/2025 3:24 PM EDT) FSH 3.8 mIU/mL 04/10/2025 9:5 8 PM EDT [facility] Blood Venous blood specimen / Unknown Venipuncture / Unknown 04/10/2025 3:24 PM EDT 04/10/2025 3:25 PM EDT Narrative [facility] - 04/10/2025 9:58 PM [...] Lamar DO LAB BLOOD ORDERABLES Final Result [facility] [address] [place] [address] * POCT glycosylated hemoglobin (Hb A1C) (04/10/2025 2:13 PM EDT) Pathologist [facility] POCT Hemoglobin A1C 5.1 <5.7% Non-Diabet ic % [facility] Kit Lot Number [id number] [facility] Kit Expiration Date 01/2027 [facility] Blood Venous blood specimen / Unknown 04/10/2025 2:13 PM EDT Lori Lamar DO POINT OF CARE TEST ENTER/ED IT ORDERABLES Final Result [facility] [address] [place] [address] from Last 3 Months Insurance Care Teams Search Engine Marketing Strategist Relationship Specialty Start Date End Date Nathalia Yousif PA [address] [place] [address] PCP - General 08/31/21
--- OUTSIDE RECORDS SUMMARY | 2025-05-11 11:41 | XMS_ITS | Encounter Summary ---
Author Organization [facility] Address [address] [place] [address] Care Team Providers Care Order Entry Name Role Phone Beena Obregon APRN Primary Care Provider [phone] Nathalia Yousif Primary Care Provider [phone] Reason for Referral * Consultation (Routine) - Closed Specialty Diagnoses / Procedures Referred By Contac t Referred To Contact Allergy Diagnoses Allergy, initial encounter Nathalia Yousif PA [address] [place] [address] Phone: tel: fax: [facility] [address], [address] [place] [address] Phone: tel: fax: Referral ID Status Reason Start Date Expiration Date V isits Requested Visits Authorized [id number] Closed Specialty Services Required 06/11/2021 12/11/2022 1 1 Encounter Details Date Type Department Care Team (Late st Contact Info) Description 06/11/2021 Community [facility] [address] [place] [address] Nathalia Yousif PA [address] [place] [address] Allergy, initial encounter (Primary Dx) [...] EDT Office Visit [facility] [address] [place] [address] Lori Lamar DO [address] [place] [address] Scheduled Referrals Name Type Priority Associated Diagnoses Order Schedule Ambulatory Referral to Allergy and Immunology Outpatient Referral Routine Allergy, initial encounter 1 Occurrences starting 06/11/2021 until 12/10/2021 documented as of this encounter Visit Diagnoses Diagnosis Allergy, initial encounter- Primary documented in this encounter Care Teams Order Entry Relationship Specialty Start Date End Date Beena Obregon APRN [facility] [place], [place] [phone] PCP - General 10/31/20 08/30/21 Nathalia Yousif PA [address] [place], [place] [phone] PCP - General 08/31/21 documented as of this encounter
--- OUTSIDE RECORDS SUMMARY | 2025-05-11 11:41 | XMS_ITS | Patient Health Record ---
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) Active confirmed Problem Supervision of high risk (235836045) Supervision of other high risk pregnancies, third trimester (O09.893) Active confirmed Problem Primigravida (911375755) Encounter for supervision of normal first in second trimester (Z34.02) Active confirmed Problem Hypothyroidism (31228470) Other specified hypothyroidism (E03.8) Active confirmed Problem Poor growth affecting management (046308657) IUGR, (O36.5990) Active confirmed Plan Of Treatment No Information Insurance Providers Payer Name Payer Address Payer Phone Subscriber Number Group Number Insured Name Patient Relationship to Insured Coverage Start Date Coverage End Date Aetna [facility] [address] [place] [phone] [id number] Barrie Titus Self - patient is the insured Medical (General) History Medical History History ICD Code Hypothyroidism Asthma Migraine VACA Surgical History Surgery Date(Month/Year) Tonsillectomy Ear Tubes Cholecystectomy
--- OUTSIDE RECORDS SUMMARY | 2025-05-11 11:41 | XMS_ITS | Encounter Summary ---
Author Organization Healthcare Address [address] [address] Care Team Providers Care Peoplesoft Functional Analyst Name Role Phone Nathalia Yousif Primary Care Provider [phone] Reason for Referral * Consultation (Routine) - Authorized Specialty Diagnoses / Procedures Referred By Conttracy t Referred To Contact Diagnoses PCOS (polycystic ovarian syndrome) Lori Lamar DO [address] [address] Phone: tel: fax: Referral ID Status Reason Start Date Expiration Date V isits Requested Visits Authorized [id number] Authorized 04/23/2025 10/23/2026 1 1 Encounter Details Date Type Department Care Team (Late st Contact Info) Description 04/16/2025 Results [facility] [address] [place] [address] Lori Lamar DO [address] [address] Social History Tobacco Use Types [...] Description 09/04/2025 4:00 PM EDT Office Visit [facility] [address] [place] [address] Lori Lamar DO [address] [address] Scheduled Referrals Name Type Priority Associated Diagnoses Orde r Schedule Follow Up [facility] Outpatient Referral Routine PCOS (polycystic ovarian syndrome) [...] documented as of this encounter Care Teams Peoplesoft Functional Analyst Relationship Specialty Start Date End Date Nathalia Yousif PA [address] [place] [address] PCP - General 08/31/21 documented as of this encounter
--- OUTSIDE RECORDS SUMMARY | 2025-05-11 11:41 | XMS_ITS | Patient Health Record ---
Author Organization [facility] Address [address] [facility] [address] [place] [address] Care Team Providers Care Mold Press Operator Name Role Phone Yordan Smith Primary Care Provider [phone] Yordan Smith Unavailable Unavailable Melanie Fitzpatrick Unavailable [phone] Migration, Provider Unavailable Unavailable Allergies Allergen (clinical [...] review and pick correct strength-formulatio n from Zenogen options. If intended option is not shown, [...] Risk Notes Problem Polycystic ovary syndrome (disorder) (535566829) Polycystic ovarian syndrome (E28.2) Active confirmed Problem Major depression, single episode (73999588) Major depressive disorder, single episode, unspecified (F32.9) Active confirmed Problem Anxiety disorder (229073571) Anxiety disorder, unspecified (F41.9) Active confirmed Problem Otitis externa of left ear (9195246847207032 ) Other otitis externa, left ear (H60.8X2) Active confirmed Problem Vitamin D deficiency (82009304) Vitamin D deficiency (E55.9) Active confirmed Problem Vitamin B12 deficiency (non anemic) (05182215) B12 deficiency (E53.8) Active confirmed Problem Fever (136900971) Fever (R50.9) Active confirme d Problem Weight gain (842300827) Weight gain (R63.5) Active confirmed Problem Dysmenorrhea (396753883) Dysmenorrhea (N94.6) Active confirmed Problem Fatigue (63717926) Fatigue (R53.83) Active confirmed Problem Dizziness (104153221) Dizziness (R42) Active confirmed Problem Acquired hypothyroidism (890948818) Acquired hypothyroidism (E03.9) Active confirmed Problem Mild intermittent asthma (658624205) Mild intermittent asthma without complication (J45.20) Active confirmed Problem Exacerbation of asthma (810815222) Mild asthma exacerbation (J45.901) Active confirmed Problem Migraine without aura, not refractory (995756841) Migraine without aura and without status migrainosus, not intractable (G43.009) Active confirmed Problem Mood disorder (76870169) Mood disorder (F39) Active confirmed Problem Generalized anxiety disorder (54999185) JUANJO (generalized anxiety disorder) (F41.1) Active confirmed Problem Menstrual disorder (306123352) Irregular menses (N92.6) Active confirmed Problem Fatigue (73404234) Fatigue, unspecified type (R53.83) Active confirmed Problem Acute cough (9271691961598667 04) Acute cough (R05.1) Active confirmed Encounters Encounter Location Date Provider Diagnosis [facility] [address] [facility] [address] [place] [address] 09/22/2024 Provider Migration Bronchitis J40 [facility] [address] [address] 07/26/2024 Yordan Smith Bronchitis J40 [facility] [address] [place] [address] 07/26/2024 Melanie McNees [facility] [address] [place] [address] 05/31/2024 Melanie McNees [facility] [address] [place] [address] 10/25/2024 Melanie McNees [facility] [address] [place] [address] 10/25/2024 Melanie McNees [facility] [address] [place] [address] 10/29/2024 Melanie McNees Assessments Encounter Date Diagnosis [...] Flu, A 06/21/2019 Rapid Flu, B 06/21/2019 K-Dxkx-Ifhtsusfcyqjb Antibody 02/16/2018 M-Respiratory Virus Panel, PCR 3 M-Upper Respiratory Panel, PCR 3 M-Vitamin B12 03/10/2021 M-Vitamin D 25 Hydroxy 03/10/2021 TESTOSTERONE, TOTAL, MS ([id number]) 2022 Insurance Providers Payer Name Payer Address Payer Phone Subscriber Number Group Number Insured Name Patient Relationship to Insured Coverage Start Date Coverage End Date AETNA [facility] [address] [address] [place] [address] [id number] Barrie Titus Self - patient is the insured Medications Administered Medication Instructions Date of Administration Dosage Notes Kenalog 40mg 02/05/2019 40 mg Triamcinolone Acetonide 40mg Injection 07/29/2018 1 mL Medical (General) History Medical History History ICD Code Migraines Hypothyroidism Atypical Pneumonia of Right Lung Surgical History Surgery Date(Month/Year) Tonsilectomy 2008 Gallbladder 2017 Hospitalization History Reason Date(Month/Year) [facility]- inflammation of ribs 06/21 09/09
--- OUTSIDE RECORDS SUMMARY | 2025-05-11 11:41 | XMS_ITS | Encounter Summary ---
Author Organization [facility] Address [address] [place] [address] Care Team Providers Care Tele Grout Sewer Line Repairer Name Role Phone Nathalia Yousif Primary Care Provider [phone] Encounter Details Date Type Department Care Team (Latest Contact Info) Description 05/10/2025 Travel Social History Tobacco Use Types Packs/Day [...] more drinks on one occasion? Never 06/01/2022 Irving Depression Scale Answer Date Recorded Irving Depression Scale Total 0 09/13/2022 The thought [...] Description 08/26/2025 10:45 AM EDT Office Visit [facility] [address] [phone] Jessica Morris APRN [address] [phone] documented as of this encounter Visit Diagnoses Not on filedocumented in this encounter Care Teams Tele Grout Sewer Line Repairer Relationship Specialty Start Date End Date Nathalia Yousif PA [address] [place] [address] PCP - General Physician Silk Brusher 12/24/24 documented as of this encounter
--- OUTSIDE RECORDS SUMMARY | 2025-05-11 11:41 | XMS_ITS | Encounter Summary ---
Author Organization [facility] Address [address] [place] [address] Care Team Providers Care Engineering Technical Writer Name Role Phone Nathalia Yousif Primary Care Provider [phone] Reason for Referral * Consultation (Routine) - Authorized Specialty Diagnoses / Procedures Referred By Conttracy t Referred To Contact Psychiatry Diagnoses Anxiety disorder, unspecified type Major depressive disorder with single episode, remission status unspecified Medication management Melanie Dumont APRN [address] [place] [address] Phone: tel: fax: Referral ID Status Reason Start Date Expiration Date Visits Requested Visits Authorized [id number] Authorized Specialty Services Required 10/25/2024 04/26/2026 1 1 Encounter Details Date Type Department Care Team (Late st Contact Info) Description 10/25/2024 Community [facility] [address] [place] [address] Melanie Dumont APRN [address] [place] [address] Anxiety disorder, unspecified type (Primary Dx); Major [...] 09/04/2025 4:00 PM EDT [facility] [address] [place] [address] Lori Lamar DO [address] [facility] [address] [place] [address] Scheduled Referrals Name Type Priority [...] documented as of this encounter Care Teams Engineering Technical Writer Relationship Specialty Start Date End Date Nathalia Yousif PA [address] [place] [address] PCP - General 08/31/21 documented as of this encounter
--- OUTSIDE RECORDS SUMMARY | 2025-05-11 11:41 | XMS_ITS | Clinical Summary ---
Author Organization [employer] ([place], [place], [place], [place], [place]) Address [address] [place] [address] Care Team Providers Care House Coordinator Name Role Phone Skye Heller APRN Unavailable [phone] Allergies Active Allergy Reactions Criticality Noted [...] patient's age to complete this topic [facility] OTHER Care Teams House Coordinator Relationship Specialty Start Date End Date Skye Heller APRN [address] [id number] Nurse Practitioner Orthopedic Surgery 12/25/24
--- OUTSIDE RECORDS SUMMARY | 2025-05-11 11:41 | XMS_ITS | Referral Summary ---
Author Organization [facility] ([place], [place], [place], [place], [place]) Address [address] [place] [address] Care Team Providers Care Environmental Compliance Officer Name Role Phone Skye Heller APRN Unavailable [phone] Allergies Active Allergy Reactions Criticality Noted [...] Plan of Treatment Not on file [facility] OTHER Care Teams Environmental Compliance Officer Relationship Specialty Start Date End Date Skye Heller APRN [address] [place] [address] Nurse Practitioner Orthopedic Surgery 12/25/24
--- OUTSIDE RECORDS SUMMARY | 2025-05-11 11:41 | XMS_ITS | Encounter Summary ---
Author Organization [facility] Address [address] [place] [address] Care Team Providers Care Driver Supervisor Name Role Phone Nathalia Yousif Primary Care Provider [phone] Encounter Details Date Type Department Care Team [...] EDT Office Visit [facility] [address] [place] [address] Lori Lamar, DO [address] [place] [phone] documented as of this encounter Visit Diagnoses Not on filedocumented in this encounter Additional Health Concerns Assessment Noted Time A fall risk assessment has been complete d for the patient 12/30/2021 7:55 AM EDT A Body Mass Index follow-up plan has been documented for the patient 04/14/2025 4:04 PM EDT documented as of this encounter Care Teams Driver Supervisor Relationship Specialty Start Date End Date Nathalia Yousif PA [address] [place] [address] PCP - General 08/31/21 documented as of this encounter
--- OUTSIDE RECORDS SUMMARY | 2025-05-11 11:41 | XMS_ITS | Encounter Summary ---
Author Organization [facility] Address [address] [place] [address] Care Team Providers Care Reinforcing Steel Machine Operator Name Role Phone Nathalia Yousif Primary Care Provider [phone] Encounter Details Date Type Department Care Team [...] EDT Office Visit [facility] [address] [place] [address] Lori Lamar, DO [address] [place] [phone] documented as of this encounter Visit Diagnoses Not on filedocumented in this encounter Additional Health Concerns Assessment Noted Time A fall risk assessment has been complete d for the patient 12/30/2021 7:55 AM EDT A Body Mass Index follow-up plan has been documented for the patient 04/22/2025 7:51 AM EST documented as of this encounter Care Teams Reinforcing Steel Machine Operator Relationship Specialty Start Date End Date Nathalia Yousif PA [address] [place] [address] PCP - General 08/31/21 documented as of this encounter
--- OUTSIDE RECORDS SUMMARY | 2025-05-11 11:41 | XMS_ITS | Encounter Summary ---
Author Organization [facility] Address [address] [place] [address] Care Team Providers Care Speech Writer Name Role Phone Nathalia Yousif Primary [...] EDT Office Visit [facility] [address] [place] [address] Lori Lamar, DO [address] [place] [phone] documented as of this encounter Visit Diagnoses Not on filedocumented in this encounter Additional Health Concerns Assessment Noted Time A fall risk assessment has been complete d for the patient 12/30/2021 7:55 AM EDT A Body Mass Index follow-up plan has been documented for the patient 10/21/2022 1:46 PM EDT documented as of this encounter Care Teams Speech Writer Relationship Specialty Start Date End Date Nathalia Yousif PA [address] [place] [address] PCP - General 08/31/21 documented as of this encounter
== END 2025-05-11 23:59 | disposition home or self-care (01) ==
LOC: RAD 11:38
PROVIDERS: PCP Physician Assistant; Visit Provider Internal Medicine
DX: S92.512A Displaced fracture of proximal phalanx of left lesser toe(s), initial encounter for closed fracture (principal); M53.3 Sacrococcygeal disorders, not elsewhere classified; M25.561 Pain in right knee; M25.562 Pain in left knee; M79.642 Pain in left hand; M79.641 Pain in right hand; M79.671 Pain in right foot; M25.50 Pain in unspecified joint; R53.83 Other fatigue; R70.0 Elevated erythrocyte sedimentation rate; R89.9 Unspecified abnormal finding in specimens from other organs, systems and tissues; R76.89 Other specified abnormal immunological findings in serum
CPT/HCPCS: 72202; 73120; 73560; 73630